=== PATIENT | male | born 1945 | race Caucasian/White ===

== ENCOUNTER 2017-06-07 10:03 | Inpatient (IN) | payer MEDICARE, MEDICAID, SELFPAY ==
[2017-06-07] VITALS (9 sets, daily range): BP systolic 96–126; BP diastolic 62–75; PULSE 70–89; RESP 12–18; TEMP 35.6–37.1; O2SAT 94–96; BMI 33.6; BMI 32.3; BMI 32.4
--- NOTE | 2017-06-07 10:34 | ED.VISSUMM ---
- ER Visit Summary Date of Service: 06/07/17 Chief Complaint: Rectal bleeding History of Present Illness: The patient is a 72 M who states that he awoke this morning felt like he needed to have a bowel movement. He sat the toilet and just blood came out. Then he had a small amount of stool with blood. He got up cleaned himself and then had to have another bowel movement that was just blood. He denies any abdominal pain. Denies rectal pain. He notes that last year he was in the hospital and had rectal bleeding. He did not require transfusion. He had a colonoscopy at that time which demonstrated significant amount of diverticulosis as well as internal hemorrhoids. It was noted by Dr. Stephenson that the patient also had a polyp as well as large amount of vasculature in his rectum. It was unable to be determined exactly the source of his bleeding. He is on Plavix for coronary artery disease but denies having any stents or open heart surgery. He follows with Dr. Gonzales. Physical Examination: Afebrile vital signs are stable Gen: Well-nourished well-developed Head: Normocephalic atraumatic Eyes: Perrl EOMI ENT: TMs clear no rhinorrhea moist mucous membranes Neck: Supple no lymphadenopathy no JVD nontender CVS: Regular rate rhythm no murmurs normal S1-S2 Respiratory: No distress clear to auscultation bilaterally chest nontender Abdomen: Soft nontender nondistended normal bowel sounds no masses Back: Nontender Extremity: Nontender no edema Skin: Normal color no rash Neuro: alert orientated ?3 CN II-XII intact normal strength sensation reflexes gait cerebellar Psych: Normal affect normal mood Test Results: Hemoglobin level 11.1. He was typed and screened. INR 1.4 with a PTT of 33.7. Emergency Department Course and Treatment: Vital signs have remained stable. He did have a small bowel movement with large amount of blood in it here in the department. As he is on Plavix and is actively bleeding he will be admitted into the hospital. Impression: 1. Lower GI bleed This note was generated with [employer] dictation software. It may contain incorrect words, spelling, and punctuation that were not noted in review of the chart prior to signing ED Disposition - Plan for ED Patient: Disposition: Acute Care Hospital [facility] Chief Complaint: GI Bleed
[2017-06-07 11:05] LABS: Absolute Lymphocyte Count 1.07 X10^3/ul (0.83-4.51); Absolute Neutrophil Count 3.8 X10^3/uL (2.0-7.7); Basophil# 0.05 X10^3/uL; Basophil% 0.9 % (0-1); Eosinophil# 0.16 X10^3/uL; Eosinophils% 2.9 % (0-5); Hematocrit 34.4 % (40-54); Hemoglobin 11.1 g/dl (13.0-16.5); Lymphocyte # 1.07 X10^3/ul (4.0); Lymphocyte % 19.6 % (19-41); Mean Corp Hgb Conc 32.3 g/gl (32-36); Mean Corpuscular Hgb 30.4 pg (27.0-32.0); Mean Corpuscular Volume 94.2 fL (80-94); Monocyte# 0.39 X10^3/uL; Monocyte% 7.2 % (0-10); Neutrophil # 3.77 X10^3/uL (2.7-7.7); Neutrophil % 69.2 % (47-70); Platelet Count 260 K/mm3 (150-450); RBC Distribution Width CV 15.8 % (11.6-14.6); RBC Distribution Width SD 54.6 fl (35.1-43.9); Red Blood Count 3.65 M/mm3 (4.6-6.2); White Blood Count 5.5 K/mm3 (4.4-11.0)
[2017-06-07 11:07] LABS: POSITIVE COUNT NO; POSITIVE DIFFERENTIAL NO; POSITIVE MORPHOLOGY NO
[2017-06-07 11:14] LABS: International Normalized Ratio 1.4; Prothrombin Time (Protime)PT. 16.3 SECONDS (11.7-14.9)
[2017-06-07 11:15] LABS: Partial Thromboplast Time 33.7 Seconds (24.1-36.2)
[2017-06-07 11:18] LABS: ALB/GLOB Ratio 0.3 RATIO (0.9-2.4); AST(SGOT) 15 U/L (15-37); Alanine Aminotransfer ALT/SGPT 19 U/L (16-61); Albumin, Serum 2.8 g/dL (3.2-5.0); Alkaline Phosphatase 41 U/L (45-117); Anion Gap 5 (5-15); BUN 16 mg/dL (7-18); BUN/Creat Ratio 15.8 RATIO (10-20); Calcium,Total 7.7 mg/dL (8.5-10.1); Chloride 106 mmol/L (98-107); Creatinine, Serum 1.01 mg/dL (0.70-1.30); EST Glomerular Filtration Rate 77 mL/min (>60); Est Glom Filt Rate - Afr Amer 93 mL/min (>60); Globulin 8.7 g/dL (2.2-4.2); Glucose 110 mg/dL (74-106); Potassium 3.8 mmol/L (3.5-5.1); Protein, Total 11.5 g/dL (6.4-8.2); Sodium Level 136 mmol/L (136-145)
--- NOTE | 2017-06-07 13:19 | ED.RN ---
antonio called and said that dr ulrich will be down to see pts and that he just got here
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
[2017-06-07 16:33] LABS: Hemoglobin 10.4 g/dl (13.0-16.5)
[2017-06-07 18:11] LABS: Bacteria 0 SEEN /hpf (None Seen)
[2017-06-07 18:55] LABS: Color, Urine Yellow (Yellow); Glucose, Dipstick Normal (Normal); Ketone-Dipstick Negative (Negative); Leukocyte Esterase-Dipstick 500 /ul (Negative); Nitrite-Dipstick Negative (Negative); Occult Blood-Urine 150 /ul (Negative); Protein-Dipstick Negative (Negative); Urine Bilirubin Dipstick Negative (Negative); Urine Clarity Clear (Clear); Urine Urobilinogen Normal (Normal)
[2017-06-07 19:53] LABS: White Blood Cells 5-10 SEEN /hpf (0-5)
[2017-06-07 19:54] LABS: Mucous, Urine 1+ /hpf (<or=2+); Red Blood Cells-Urine 0-5 SEEN /hpf (0-5); Squamous Epithelial Cells - UA 0-5 SEEN /hpf (0-5)
[2017-06-07] MEDS: Atorvastatin Calcium 10 MG Tablet PO (21:42)
[2017-06-07] MEDS: Isosorbide Mononitrate 20 MG Tablet PO (21:42)
[2017-06-07] MEDS: Latanoprost 0.005% 1 Bottle 1 DRP EACH EYE (21:44)
[2017-06-07 22:16] LABS: Hematocrit 30.3 % (40-54); Hemoglobin 9.8 g/dl (13.0-16.5)
[2017-06-08] VITALS (12 sets, daily range): BP systolic 91–137; BP diastolic 37–70; PULSE 58–97; RESP 16–18; TEMP 36–37; O2SAT 95–100
[2017-06-08 05:14] LABS: Hematocrit 26.7 % (40-54); Hemoglobin 8.5 g/dl (13.0-16.5)
--- NOTE | 2017-06-08 09:32 | PCM.PN.SRG ---
Subjective: Patient evaluated resting comfortably in a chair. He notes yesterday he had multiple bouts of rectal bleeding with attempted bowel movements. Patient denies abdominal pain/discomfort. He denies rectal pain. - Physical Exam General: Alert, Oriented x3, Cooperative, - - Depressed Abdomen: Bowel Sounds Present, Soft, Non Tender Vital Signs Temp Pulse Resp BP Pulse Ox 98.2 F 97 18 117/65 100 06/08/17 04:47 06/08/17 06:54 06/08/17 04:47 06/08/17 04:47 06/08/17 04:47 Oxygen Delivery Method Room Air Weight: 206 lb 9.593 oz Body Mass Index (BMI) 32.3 Intake and Output for Last 24 Hours 06/06/17 06/07/17 06/08/17 23:59 23:59 23:59 Intake Total 120 / 120 326 / 326 Balance 120 / 120 326 / 326 Laboratory Tests Past 24 Hrs 06/07/17 06/07/17 06/07/17 16:05 17:44 21:59 Hgb 10.4 L 9.8 L Hct 32.0 L 30.3 L Urine Color Yellow Urine Clarity Clear Urine pH 6.0 Ur Specific [place] 1.020 Urine Protein Negative Urine Glucose (UA) Normal Urine Ketones Negative Urine Occult Blood 150 H Urine Nitrite Negative Urine Bilirubin Negative Urine Urobilinogen Normal Ur Leukocyte Esterase 500 H Urine RBC 0-5 SEEN Urine WBC 5-10 SEEN Ur Squamous Epith Cells 0-5 SEEN Urine Bacteria 0 SEEN Urine Mucus 1+ 06/08/17 06/08/17 04:35 09:17 Hgb 8.5 L Pending Hct 26.7 L Pending Urine Color Urine Clarity Urine pH Ur Specific [place] Urine Protein Urine Glucose (UA) Urine Ketones Urine Occult Blood Urine Nitrite Urine Bilirubin Urine Urobilinogen Ur Leukocyte Esterase Urine RBC Urine WBC Ur Squamous Epith Cells Urine Bacteria Urine Mucus Assessment/Plan I am following this patient in conjunction with Dr. Stephenson. Impression: Rectal bleeding Hemoglobin decreasing Discussed patient with Dr. Angeles who is uncomfortable performing a scope on an actively bleeding patient Discussed patient with Dr. Stephenson who recommends the patient discontinue the Plavix for 5 days prior to a colonoscopy. Dr. Stephenson would recommend colonoscopy as an outpatient. Continue to monitor hgb and rectal bleeding Patient agreeable to colonoscopy with Dr. Stephenson. We will continue to monitor this patient
[2017-06-08 09:35] LABS: Hematocrit 27.4 % (40-54); Hemoglobin 8.8 g/dl (13.0-16.5)
[2017-06-08] MEDS: Lisinopril 10 MG Tablet PO (09:57)
[2017-06-08] MEDS: Isosorbide Mononitrate 20 MG Tablet PO ×2 (09:57→21:46)
[2017-06-08] MEDS: Metoprolol(XL)Succ 100 MG Tablet PO (09:57)
--- NOTE | 2017-06-08 13:51 | PCM.PROGNOTE ---
Subjective: Pt had no further BM or rectal bleeding. He felt that he needed to move his bowels, attempted to, and had nothing come out. No abdominal pain. No n/v. No dizziness or LH. - Physical Exam General: Alert, Oriented x3, Cooperative HEENT: Atraumatic, PERRLA, EOMI, Normocephalic Neck: Supple, No JVD, Negative Carotid Bruits Lungs: Clear to auscultation, Normal air movement Cardiovascular: Regular rate, No murmurs Abdomen: Bowel Sounds Present, Soft, Non Tender Extremities: No edema, Capillary Refill Less than 3 Seconds Skin: No rashes, No breakdown Musculoskeletal: No Tenderness to Palpation of Joints or Extremities Neurological: Cranial nerves II-XII grossly intact Psych/Mental Status: Normal Affect, Appropriate, Alert and oriented to time, place, person, mood and affect Vital Signs Temp Pulse Resp BP Pulse Ox 98.4 F 87 16 137/70 H 98 06/08/17 09:56 06/08/17 11:09 06/08/17 09:56 06/08/17 09:56 06/08/17 09:56 Oxygen Delivery Method Room Air Weight: 93.712 kg Body Mass Index (BMI) 32.3 Intake and Output for Last 24 Hours 06/06/17 06/07/17 06/08/17 23:59 23:59 23:59 Intake Total 120 / 120 1126 / 1126 Balance 120 / 120 1126 / 1126 Laboratory Tests Past 24 Hrs 06/07/17 06/07/17 06/07/17 16:05 17:44 21:59 Hgb 10.4 L 9.8 L Hct 32.0 L 30.3 L Urine Color Yellow Urine Clarity Clear Urine pH 6.0 Ur Specific [place] 1.020 Urine Protein Negative Urine Glucose (UA) Normal Urine Ketones Negative Urine Occult Blood 150 H Urine Nitrite Negative Urine Bilirubin Negative Urine Urobilinogen Normal Ur Leukocyte Esterase 500 H Urine RBC 0-5 SEEN Urine WBC 5-10 SEEN Ur Squamous Epith Cells 0-5 SEEN Urine Bacteria 0 SEEN Urine Mucus 1+ 06/08/17 06/08/17 04:35 09:17 Hgb 8.5 L 8.8 L Hct 26.7 L 27.4 L Urine Color Urine Clarity Urine pH Ur Specific [place] Urine Protein Urine Glucose (UA) Urine Ketones Urine Occult Blood Urine Nitrite Urine Bilirubin Urine Urobilinogen Ur Leukocyte Esterase Urine RBC Urine WBC Ur Squamous Epith Cells Urine Bacteria Urine Mucus Assessment/Plan 1. Recurrent Lower GI bleed with acute blood loss anemia - discussed with Dr. Stephenson, no inpatient scope, plans to do outpatient colonoscopy. No further plavix. Will hold off on restarting aspirin until blood counts stable. Hgb decreased from 11.1 to 8.5 overnight. Last HH improved. No further blood. Will check HH later today and CBC in AM. Last admission for GI bleed had no active bleeding on colonoscopy, he did have diverticulosis, hemorrhoids, and an adenomatous polyp that he failed to follow up and have removed. 2. CAD - plavix and asa held 3. HLD 4. HTN 5. Hematuria - will recommend urology follow up. UA with No bacteria, 5-10 white cells, 500 Leukocyte esterase. DVT ppx: SCDs, chemoppx contraindicated DC planning: if Hgb stable, home tomorrow, follow up with Dr. Stephenson as outpatient. This patient was seen by Kingsley Garcia PA-C under the supervision of Doctor Joann.
[2017-06-08] MEDS: Pantoprazole Sodium 40 MG Tablet PO ×2 (14:52→21:47)
--- NOTE | 2017-06-08 15:28 | CASEMGMT ---
Face to Face with patient for initial transition planning/care coordination assessment. RN MARCK introduced self and role at [facility], pt voices understanding and consents to assessment at this time. Pt sitting up in chair in no distress at this time. Pt A/Ox4 at this time and answers all questions appropriately at this time. Care providers, pharmacy, and demographics verified. See attached link. Pt voices no further concerns/needs at this time. Advised pt to ask for CM if any further questions/concerns/needs arise, voices understanding. CM to follow for any further discharge planning/needs. Lorena, nurse unit manager to make pt appt with Dr. Stephenson. PLAN[place] [facility]
[2017-06-08 16:49] LABS: Hematocrit 24.9 % (40-54); Hemoglobin 7.9 g/dl (13.0-16.5)
[2017-06-08] MEDS: Atorvastatin Calcium 10 MG Tablet PO (21:46)
[2017-06-08] MEDS: Latanoprost 0.005% 1 Bottle 1 DRP EACH EYE (21:46)
[2017-06-09] VITALS (11 sets, daily range): BP systolic 82–124; BP diastolic 42–55; PULSE 60–101; RESP 16–18; TEMP 35.8–36.7; O2SAT 94–98
[2017-06-09] MEDS: 0.9% NaCl Peripheral Flush Adult/Peds IV (05:18)
[2017-06-09 06:28] LABS: Absolute Lymphocyte Count 1.09 X10^3/ul (0.83-4.51); Absolute Neutrophil Count 4.7 X10^3/uL (2.0-7.7); Basophil# 0.04 X10^3/uL; Basophil% 0.6 % (0-1); Eosinophil# 0.15 X10^3/uL; Eosinophils% 2.3 % (0-5); Hematocrit 23.4 % (40-54); Hemoglobin 7.6 g/dl (13.0-16.5); Lymphocyte # 1.09 X10^3/ul (4.0); Lymphocyte % 16.6 % (19-41); Mean Corp Hgb Conc 32.5 g/gl (32-36); Mean Corpuscular Volume 95.5 fL (80-94); Mean Platelet Vol. 9.2 fl (6.2-12.0); Monocyte# 0.58 X10^3/uL; Monocyte% 8.8 % (0-10); Neutrophil % 71.4 % (47-70); Platelet Count 226 K/mm3 (150-450); RBC Distribution Width CV 15.8 % (11.6-14.6); RBC Distribution Width SD 51.7 fl (35.1-43.9); Red Blood Count 2.45 M/mm3 (4.6-6.2); White Blood Count 6.6 K/mm3 (4.4-11.0)
[2017-06-09 06:31] LABS: POSITIVE DIFFERENTIAL NO
[2017-06-09 06:32] LABS: POSITIVE COUNT NO; POSITIVE MORPHOLOGY NO
--- NOTE | 2017-06-09 09:06 | PN.SURG_ITS ---
Subjective: Patient was evaluated sitting comfortably in the chair. He denies abdominal pain. Patient continues to be frustrated. He notes this is due to the female staff, however he is not more specific than that. Patient was inappropriately flashing his penis during examination. He states no one will help him with this. Patient noted small amount of blood on the toilet paper, however he had no bowel movement yesterday. Patient was agreeable yesterday to have Dr. Stephenson perform a colonoscopy when indicated, however he prefers the remaining staff be females. Patient appears to be self destructing by scratching his left antecubital space secondary to the frustration of some of the female staff taking care of him. - Physical Exam General: Alert, Oriented x3, Cooperative, - - Inappropriate Abdomen: Bowel Sounds Present, Soft, Non Tender, Obese Vital Signs Temp Pulse Resp BP Pulse Ox 98.0 F 70 18 105/50 L 94 06/09/17 05:19 06/09/17 07:52 06/09/17 05:19 06/09/17 05:19 06/09/17 05:19 Oxygen Delivery Method Room Air Weight: 206 lb 9.593 oz Body Mass Index (BMI) 32.3 Intake and Output for Last 24 Hours 06/07/17 06/08/17 06/09/17 23:59 23:59 23:59 Intake Total 120 / 120 2092 / 2092 60 / 60 Balance 120 / 120 2092 / 2092 60 / 60 Laboratory Tests Past 24 Hrs 06/08/17 06/08/17 06/09/17 09:17 16:31 06:00 WBC 6.6 RBC 2.45 L Hgb 8.8 L 7.9 L 7.6 L Hct 27.4 L 24.9 L 23.4 L MCV 95.5 H MCH 31.0 MCHC 32.5 RDW 15.8 H RDW Differential 51.7 H Plt Count 226 MPV 9.2 Immature Gran % (Auto) 0.300 Neut % (Auto) 71.4 H Lymph % (Auto) 16.6 L [place] % (Auto) 8.8 Eos % (Auto) 2.3 Baso % (Auto) 0.6 Absolute Neuts (auto) 4.7 Absolute Lymphs (auto) 1.09 Total Counted Not Reportable Assessment/Plan I am following this patient in conjunction with Dr. Stephenson. Impression: Rectal bleeding Hemoglobin decreasing to 7.6 this morning Patient blood pressure decreased over night. Patient was given a total of 1,000 mL bolus of sodium chloride Will discuss patient with Dr. Stephenson to determine if patient will be scoped Patient may continue current diet at this point. Patient agreeable to colonoscopy with Dr. Stephenson. We will continue to monitor this patient Patient was briefly discussed with Dr. David
[2017-06-09] MEDS: Isosorbide Mononitrate 20 MG Tablet PO ×2 (09:54→21:37)
[2017-06-09] MEDS: Pantoprazole Sodium 40 MG Tablet PO ×2 (09:54→21:37)
--- NOTE | 2017-06-09 11:58 | PN_ITS ---
Subjective: Patient is resting comfortably in chair bedside. He has no abdominal pain. He has no further bowel movements. He again tried to have a bowel movement nothing came out better. He has no bleeding has not noticed any clots in the toilet or on the toilet paper. Positive flatus. he denies hematuria. He has not had any nausea or vomiting. He is complaining about the quality of the food here but has otherwise tolerated his p.o. diet. He does not have any dizziness or lightheadedness at rest or with standing up and ambulating to the bathroom. - Physical Exam General: Alert, Oriented x3, Cooperative HEENT: Atraumatic, PERRLA, EOMI, Normocephalic Neck: Supple, No JVD, Negative Carotid Bruits Lungs: Clear to auscultation, Normal air movement Cardiovascular: Regular rate, No murmurs Abdomen: Bowel Sounds Present, Soft, Non Tender Extremities: No edema, Capillary Refill Less than 3 Seconds Skin: No rashes, No breakdown Musculoskeletal: No Tenderness to Palpation of Joints or Extremities Neurological: Cranial nerves II-XII grossly intact Psych/Mental Status: Normal Affect, Appropriate, Alert and oriented to time, place, person, mood and affect Vital Signs Temp Pulse Resp BP Pulse Ox 97.6 F L 64 18 105/55 L 96 06/09/17 09:45 06/09/17 09:45 06/09/17 09:45 06/09/17 09:45 06/09/17 09:45 Oxygen Delivery Method Room Air Weight: 93.712 kg Body Mass Index (BMI) 32.3 Intake and Output for Last 24 Hours 06/07/17 06/08/17 06/09/17 23:59 23:59 23:59 Intake Total 120 / 120 2092 60 / 60 Balance 120 / 120 2092 60 / 60 Laboratory Tests Past 24 Hrs 06/08/17 06/09/17 16:31 06:00 WBC 6.6 RBC 2.45 L Hgb 7.9 L 7.6 L Hct 24.9 L 23.4 L MCV 95.5 H MCH 31.0 MCHC 32.5 RDW 15.8 H RDW Differential 51.7 H Plt Count 226 MPV 9.2 Immature Gran % (Auto) 0.300 Neut % (Auto) 71.4 H Lymph % (Auto) 16.6 L [place] % (Auto) 8.8 Eos % (Auto) 2.3 Baso % (Auto) 0.6 Absolute Neuts (auto) 4.7 Absolute Lymphs (auto) 1.09 Total Counted Not Reportable Assessment/Plan 1. Recurrent Lower GI bleed with acute blood loss anemia -blood pressure decreased along with hemoglobin yesterday. Blood pressure no stable with antihypertensives held and after a liter IV fluid bolus last night. Will continue H&H every 12. Patient may need scope. Surgery aware and following. 2. CAD - plavix and asa held 3. HLD 4. HTN-as above hypotensive last night, responded to IV fluid bolus. Lisinopril and metoprolol held. Imdur continued with hold parameters. 5. Hematuria - will recommend urology follow up. Patient denied hematuria despite blood noted by nursing in urine and positive UA. UA with No bacteria, 5 -10 white cells, 500 Leukocyte esterase. DVT ppx: SCDs, chemoppx contraindicated DC planning: Hemoglobin of blood pressure unstable. Patient will require another night here. Further plan pending. This patient was seen by Kingsley Garcia PA-C under the supervision of Doctor David.
[2017-06-09 14:26] LABS: Hematocrit 24.7 % (40-54)
[2017-06-09] MEDS: Atorvastatin Calcium 10 MG Tablet PO (21:37)
[2017-06-09] MEDS: Latanoprost 0.005% 1 Bottle 1 DRP EACH EYE (21:37)
[2017-06-10] VITALS (19 sets, daily range): BP systolic 95–139; BP diastolic 50–74; PULSE 61–96; RESP 16–20; TEMP 36.3–36.7; O2SAT 93–97
[2017-06-10 02:14] LABS: Hematocrit 21.6 % (40-54)
--- NOTE | 2017-06-10 06:39 | PCM.PN.SRG ---
<David Harris - Last Filed: 06/10/17 08:18> - Physical Exam Vital Signs Temp Pulse Resp BP Pulse Ox 97.5 F L 73 20 H 139/62 H 96 06/10/17 07:23 06/10/17 07:40 06/10/17 07:23 06/10/17 07:23 06/10/17 07:23 Oxygen Delivery Method Room Air Weight: 206 lb 9.593 oz Body Mass Index (BMI) 32.3 Intake and Output for Last 24 Hours 06/08/17 06/09/17 06/10/17 23:59 23:59 23:59 Intake Total 2092 1290 / 1290 785 / 785 Output Total 250 / 250 Balance 2092 1040 / 1040 785 / 785 Laboratory Tests Past 24 Hrs 06/09/17 06/10/17 14:05 02:00 Hgb 8.0 L 7.0 L Hct 24.7 L 21.6 L Assessment/Plan 72-year-old male with lower GI bleed 1. I saw the patient this morning for Dr. Stephenson. The patient reports no bloody bowel movements overnight and he is having no abdominal pain. He is currently getting a unit of blood. 2. The patient recently had a lower scope by Dr. Stephenson in January of this past year. Given the fact that he just had a colonoscopy 5 months ago I do not believe he has a mass that is causing the bleeding. The bleeding is likely diverticular or hemorrhoidal in nature which should stop with the stopping of his antiplatelet agents. He stopped those on Wednesday so that should not be out of his system until Wednesday. Currently he shows no signs of active bleeding. If his hemoglobin responds appropriately to the infusion and he is not having any more bloody bowel movements he can follow-up with Dr. Stephenson in the office to discuss possible repeat scope. If the patient shows repeated signs of active GI bleeding while off of his antiplatelet drugs I recommend transfer to a facility that can perform angiogram to localize the bleeding. David Harris MD Pager: [facility] [address] [place] [address] Office: <Maddi Melgar - Last Filed: 06/10/17 08:32> Subjective: Patient is sitting comfortably in a chair. He again expresses his frustration of wanting to get out of the hospital. He denies bowel movement in 2 days. He denies BRB per rectum overnight. His hgb dropped to 7.0. He is currently receiving 1 unit PRBC. He denies abdominal pain/discomfort. - Physical Exam General: Alert, Oriented x3, Cooperative, - - frustrated. Cardiovascular: Regular rate, No murmurs Abdomen: Bowel Sounds Present, Soft, Non Tender Vital Signs Temp Pulse Resp BP Pulse Ox 97.6 F L 78 20 H 118/66 96 06/10/17 05:36 06/10/17 05:36 06/10/17 05:36 06/10/17 05:36 06/10/17 05:36 Oxygen Delivery Method Room Air Weight: 206 lb 9.593 oz Body Mass Index (BMI) 32.3 Intake and Output for Last 24 Hours 06/08/17 06/09/17 06/10/17 23:59 23:59 23:59 Intake Total 2093 / 2093 1290 / 1290 385 / 385 Output Total 250 / 250 Balance 2093 / 2093 1040 / 1040 385 / 385 Laboratory Tests Past 24 Hrs 06/09/17 06/10/17 14:05 02:00 Hgb 8.0 L 7.0 L Hct 24.7 L 21.6 L Assessment/Plan I am following this patient in conjunction with Dr. Harris in Dr. Stephenson's absence. Impression: Rectal bleeding Hemoglobin decreasing to 7.0 this morning. Patient receiving 1 unit PRBC Discussed patient with Dr. Harris At this time no colonoscopy is being recommended as an inpatient. Patient may follow-up as an outpatient to have a possible colonoscopy.
--- NOTE | 2017-06-10 06:51 | PN.SURG_ITS ---
<David Harris - Last Filed: 06/10/17 08:18> - Physical Exam Vital Signs Temp Pulse Resp BP Pulse Ox 97.5 F L 73 20 H 139/62 H 96 06/10/17 07:23 06/10/17 07:40 06/10/17 07:23 06/10/17 07:23 06/10/17 07:23 Oxygen Delivery Method Room Air Weight: 206 lb 9.593 oz Body Mass Index (BMI) 32.3 Intake and Output for Last 24 Hours 06/08/17 06/09/17 06/10/17 23:59 23:59 23:59 Intake Total 2092 1290 / 1290 785 / 785 Output Total 250 / 250 Balance 2092 1040 / 1040 785 / 785 Laboratory Tests Past 24 Hrs 06/09/17 06/10/17 14:05 02:00 Hgb 8.0 L 7.0 L Hct 24.7 L 21.6 L Assessment/Plan 72-year-old male with lower GI bleed 1. I saw the patient this morning for Dr. Stephenson. The patient reports no bloody bowel movements overnight and he is having no abdominal pain. He is currently getting a unit of blood. 2. The patient recently had a lower scope by Dr. Stephenson in January of this past year. Given the fact that he just had a colonoscopy 5 months ago I do not believe he has a mass that is causing the bleeding. The bleeding is likely diverticular or hemorrhoidal in nature which should stop with the stopping of his antiplatelet agents. He stopped those on Wednesday so that should not be out of his system until Wednesday. Currently he shows no signs of active bleeding. If his hemoglobin responds appropriately to the infusion and he is not having any more bloody bowel movements he can follow-up with Dr. Stephenson in the office to discuss possible repeat scope. If the patient shows repeated signs of active GI bleeding while off of his antiplatelet drugs I recommend transfer to a facility that can perform angiogram to localize the bleeding. David Harris MD Pager: [facility] [address], [address] [place] [address] Office: <Maddi Melgar - Last Filed: 06/10/17 08:32> Subjective: Patient is sitting comfortably in a chair. He again expresses his frustration of wanting to get out of the hospital. He denies bowel movement in 2 days. He denies BRB per rectum overnight. His hgb dropped to 7.0. He is currently receiving 1 unit PRBC. He denies abdominal pain/discomfort. - Physical Exam General: Alert, Oriented x3, Cooperative, - - frustrated. Cardiovascular: Regular rate, No murmurs Abdomen: Bowel Sounds Present, Soft, Non Tender Vital Signs Temp Pulse Resp BP Pulse Ox 97.6 F L 78 20 H 118/66 96 06/10/17 05:36 06/10/17 05:36 06/10/17 05:36 06/10/17 05:36 06/10/17 05:36 Oxygen Delivery Method Room Air Weight: 206 lb 9.593 oz Body Mass Index (BMI) 32.3 Intake and Output for Last 24 Hours 06/08/17 06/09/17 06/10/17 23:59 23:59 23:59 Intake Total 2093 / 2093 1290 / 1290 385 / 385 Output Total 250 / 250 Balance 2093 / 2093 1040 / 1040 385 / 385 Laboratory Tests Past 24 Hrs 06/09/17 06/10/17 14:05 02:00 Hgb 8.0 L 7.0 L Hct 24.7 L 21.6 L Assessment/Plan I am following this patient in conjunction with Dr. Harris in Dr. Stephenson's absence. Impression: Rectal bleeding Hemoglobin decreasing to 7.0 this morning. Patient receiving 1 unit PRBC Discussed patient with Dr. Harris At this time no colonoscopy is being recommended as an inpatient. Patient may follow-up as an outpatient to have a possible colonoscopy.
[2017-06-10] MEDS: 0.9% NaCl Peripheral Flush Adult/Peds IV (07:26)
[2017-06-10] MEDS: Isosorbide Mononitrate 20 MG Tablet PO ×2 (08:17→21:29)
[2017-06-10] MEDS: Pantoprazole Sodium 40 MG Tablet PO ×2 (08:17→21:29)
--- NOTE | 2017-06-10 09:36 | PCM.PN.HOSP ---
Subjective: Patient overnight with no marketed bloody bowel movements but complaint of some constipation now and mild distention but has been improving with ongoing flatus and patient notes ambulating more in the halls which has been helping additionally. Hemoglobin this morning decreased, 7, PRBC administration ordered and administered. Discussed patient with general surgery and patient with plan for continued observation and hemoglobin trending. If remains stable would plan discharge to home likely tomorrow with follow-up outpatient for possible outpatient scope but if decreases further or if recurrent bright red blood per rectum would need to be transferred for angiogram. Patient denies fevers, chills, nausea, emesis, chest pain or dyspnea. Objective: Physical Examination: General: awake, alert, oriented x 3 and cooperative, seated upright, prior walking in the halls, in no apparent distress. Skin: normal color, turgor, no icterus, cyanosis. HEENT: AT/NC, EOMI, PERRLA, MMM. Lungs: CTA bilaterally, moderate effort, mild decrease BL bases, no rales, ronchi or wheezing. Heart: Regular rate and rhythm; no gallop, rub audible. Abdomen: soft, obese, unable to elicit TTP, noted mild discomfort prior, no recent BM with improvement w/ flatus and walking, mildly hyperactive BS. Extremities: no cyanosis, clubbing, or edema. Neurological: patient awake, alert, oriented x 3; cognitive function intact; pupils equally reactive to light and accomodation; cranial nerves II-XII grossly normal, moving all 4 extremities, no focal deficits, strength improved, mildly globally decreased. Psychiatric: affect appears calm and talkative this AM, no acute evidence of depressive or anxiety feelings. Vitals/I&O's: Vital Signs Temp Pulse Resp BP Pulse Ox 97.5 F L 73 20 H 139/62 H 96 06/10/17 07:23 06/10/17 07:40 06/10/17 07:23 06/10/17 07:23 06/10/17 07:23 Oxygen Delivery Method Room Air Weight: 206 lb 9.593 oz Body Mass Index (BMI) 32.3 Intake and Output for Last 24 Hours 06/08/17 06/09/17 06/10/17 23:59 23:59 23:59 Intake Total 2092 1290 / 1290 785 / 785 Output Total 250 / 250 Balance 2093 / 2093 1040 / 1040 785 / 785 Laboratory Results 06/09/17 14:05: Hgb 8.0 L, Hct 24.7 L 06/10/17 02:00: Hgb 7.0 L, Hct 21.6 L Current Medications Atorvastatin Calcium (Lipitor) 10 mg PO QHS [facility] Last Admin: 06/09/17 21:37 Dose: 10 mg Dorzolamide/Timolol (Cosopt Opth Drops) 1 drop EACH EYE BID [facility] Last Admin: 06/10/17 08:17 Dose: 1 drop Isosorbide Mononitrate (Monoket) 20 mg PO BID [facility] Last Admin: 06/10/17 08:17 Dose: 20 mg Latanoprost (Xalatan Opthalmic) 1 drop EACH EYE QHS [facility] Last Admin: 06/09/17 21:37 Dose: 1 drop Nitroglycerin (Nitrostat) 0.4 mg SUBLINGUAL Q5M PRN PRN Reason: PAIN Pantoprazole Sodium (Protonix) 40 mg PO BID [facility] Last Admin: 06/10/17 08:17 Dose: 40 mg Sodium Chloride () 5 - 30 ml IV UD PRN PRN Reason: SALINE FLUSH Last Admin: 06/10/17 07:26 Dose: 10 ml Assessment/Plan The patient is a 72 y/o M w/ PMHx: CAD, HTN, HLD, Obesity, Hx GI bleed prior most recently 01/2017 with c-scope per Dr. Stephenson with noted diverticular disease, polyp as well as internal hemorrhoids on ASA, plavix at that time who presents to the [facility] ED on 06/07/17 w/ history of onset BRPBR with increase fatigue and weakness. (1) Acute GI Bleed w/ resultant Acute Blood Loss Anemia, Hx Prior GI Bleed: Patient w/ BRBPR, admission Hgb 11.1, admitted to PCU, maintained initially on IVFs and NPO status pending evaluation per Surgery but transitioned to eventually clears and low residue diet following decision to defer repeat c-scope given recently performed and trending Hgb; however, upon continued serial trending Hgb 9.8-->8.5-->8.8-->7.9-->7.6-->06/10/17 Hgb 7.0, 1 u PRBC ordered, 06/09/17-06/10/17 no further bleeding noted, continued on PPI. Surgery re-evaluation, given presentation and recent c-scope recommendation for deferral of repeat scope given no further bleeding overnight, if rebleed or ongoing Hgb decrease over the next 24 hours Surgery recommendation for transfer for angiogram as likely too slow of a bleed for Bleeding Scan to be of usage. If remains clinically stable for the next 24 hours and if Hgb remains stable would then plan discharge to home with need to establish PCP with CM/SW assist to set-up for this upcoming week and follow-up outpatient with Dr. Stephenson for outpatient scope when felt appropriate. (2) CAD: Holding ASA, plavix, given re-GI bleed will likely no be able to continue on this dual therapy, continue metoprolol, statin therapy. Upon discharge will need to be off plavix likely indefinitely given re-bleed, possible ASA restart in 2 weeks if bleeding stops and clinically stable per discussion with Surgery. (3) Hypertension: Continue home regimen including Toprol, lisinopril, isosorbide with hold parameters, PRN hydralazine. (4) Hyperlipidemia: Continue home statin regimen. (5) Obesity: Weight loss and lifestyle changes encouraged. (6) DVT Prophylaxis: SCDs, defer chemoprophylaxis given acute presentation, GI Bleed. Code Visit Inpatient E&M: 52967 Subs Hosp L2
--- NOTE | 2017-06-10 09:40 | PN_ITS ---
Subjective: Patient overnight with no marketed bloody bowel movements but complaint of some constipation now and mild distention but has been improving with ongoing flatus and patient notes ambulating more in the halls which has been helping additionally. Hemoglobin this morning decreased, 7, PRBC administration ordered and administered. Discussed patient with general surgery and patient with plan for continued observation and hemoglobin trending. If remains stable would plan discharge to home likely tomorrow with follow-up outpatient for possible outpatient scope but if decreases further or if recurrent bright red blood per rectum would need to be transferred for angiogram. Patient denies fevers, chills, nausea, emesis, chest pain or dyspnea. Objective: Physical Examination: General: awake, alert, oriented x 3 and cooperative, seated upright, prior walking in the halls, in no apparent distress. Skin: normal color, turgor, no icterus, cyanosis. HEENT: AT/NC, EOMI, PERRLA, MMM. Lungs: CTA bilaterally, moderate effort, mild decrease BL bases, no rales, ronchi or wheezing. Heart: Regular rate and rhythm; no gallop, rub audible. Abdomen: soft, obese, unable to elicit TTP, noted mild discomfort prior, no recent BM with improvement w/ flatus and walking, mildly hyperactive BS. Extremities: no cyanosis, clubbing, or edema. Neurological: patient awake, alert, oriented x 3; cognitive function intact; pupils equally reactive to light and accomodation; cranial nerves II-XII grossly normal, moving all 4 extremities, no focal deficits, strength improved, mildly globally decreased. Psychiatric: affect appears calm and talkative this AM, no acute evidence of depressive or anxiety feelings. Vitals/I&O's: Vital Signs Temp Pulse Resp BP Pulse Ox 97.5 F L 73 20 H 139/62 H 96 06/10/17 07:23 06/10/17 07:40 06/10/17 07:23 06/10/17 07:23 06/10/17 07:23 Oxygen Delivery Method Room Air Weight: 206 lb 9.593 oz Body Mass Index (BMI) 32.3 Intake and Output for Last 24 Hours 06/08/17 06/09/17 06/10/17 23:59 23:59 23:59 Intake Total 2092 1290 / 1290 785 / 785 Output Total 250 / 250 Balance 2093 / 2093 1040 / 1040 785 / 785 Laboratory Results 06/09/17 14:05: Hgb 8.0 L, Hct 24.7 L 06/10/17 02:00: Hgb 7.0 L, Hct 21.6 L Current Medications Atorvastatin Calcium (Lipitor) 10 mg PO QHS [facility] Last Admin: 06/09/17 21:37 Dose: 10 mg Dorzolamide/Timolol (Cosopt Opth Drops) 1 drop EACH EYE BID [facility] Last Admin: 06/10/17 08:17 Dose: 1 drop Isosorbide Mononitrate (Monoket) 20 mg PO BID [facility] Last Admin: 06/10/17 08:17 Dose: 20 mg Latanoprost (Xalatan Opthalmic) 1 drop EACH EYE QHS [facility] Last Admin: 06/09/17 21:37 Dose: 1 drop Nitroglycerin (Nitrostat) 0.4 mg SUBLINGUAL Q5M PRN PRN Reason: PAIN Pantoprazole Sodium (Protonix) 40 mg PO BID [facility] Last Admin: 06/10/17 08:17 Dose: 40 mg Sodium Chloride () 5 - 30 ml IV UD PRN PRN Reason: SALINE FLUSH Last Admin: 06/10/17 07:26 Dose: 10 ml Assessment/Plan The patient is a 72 y/o M w/ PMHx: CAD, HTN, HLD, Obesity, Hx GI bleed prior most recently 01/2017 with c-scope per Dr. Stephenson with noted diverticular disease, polyp as well as internal hemorrhoids on ASA, plavix at that time who presents to the [facility] ED on 06/07/17 w/ history of onset BRPBR with increase fatigue and weakness. (1) Acute GI Bleed w/ resultant Acute Blood Loss Anemia, Hx Prior GI Bleed: Patient w/ BRBPR, admission Hgb 11.1, admitted to PCU, maintained initially on IVFs and NPO status pending evaluation per Surgery but transitioned to eventually clears and low residue diet following decision to defer repeat c- scope given recently performed and trending Hgb; however, upon continued serial trending Hgb 9.8-->8.5-->8.8-->7.9-->7.6-->06/10/17 Hgb 7.0, 1 u PRBC ordered, -06/10/17 no further bleeding noted, continued on PPI. Surgery re-evaluation , given presentation and recent c-scope recommendation for deferral of repeat scope given no further bleeding overnight, if rebleed or ongoing Hgb decrease over the next 24 hours Surgery recommendation for transfer for angiogram as likely too slow of a bleed for Bleeding Scan to be of usage. If remains clinically stable for the next 24 hours and if Hgb remains stable would then plan discharge to home with need to establish PCP with CM/SW assist to set-up for this upcoming week and follow-up outpatient with Dr. Stephenson for outpatient scope when felt appropriate. (2) CAD: Holding ASA, plavix, given re-GI bleed will likely no be able to continue on this dual therapy, continue metoprolol, statin therapy. Upon discharge will need to be off plavix likely indefinitely given re-bleed, possible ASA restart in 2 weeks if bleeding stops and clinically stable per discussion with Surgery. (3) Hypertension: Continue home regimen including Toprol, lisinopril, isosorbide with hold parameters, PRN hydralazine. (4) Hyperlipidemia: Continue home statin regimen. (5) Obesity: Weight loss and lifestyle changes encouraged. (6) DVT Prophylaxis: SCDs, defer chemoprophylaxis given acute presentation, GI Bleed. Code Visit Inpatient E&M: 84747 Subs Hosp L2
[2017-06-10 11:02] LABS: Hematocrit 27.7 % (40-54); Hemoglobin 9.2 g/dl (13.0-16.5)
[2017-06-10] MEDS: Latanoprost 0.005% 1 Bottle 1 DRP EACH EYE (21:29)
[2017-06-10] MEDS: Atorvastatin Calcium 10 MG Tablet PO (21:29)
[2017-06-11 02:50] VITALS: PULSE 59
[2017-06-11 03:35] VITALS: BP 122/66; PULSE 69; RESP 18; TEMP 36.5; O2SAT 96
[2017-06-11 06:33] LABS: Absolute Lymphocyte Count 0.96 X10^3/ul (0.83-4.51); Absolute Neutrophil Count 3.2 X10^3/uL (2.0-7.7); Basophil# 0.02 X10^3/uL; Basophil% 0.4 % (0-1); Eosinophil# 0.18 X10^3/uL; Eosinophils% 3.8 % (0-5); Hematocrit 28.1 % (40-54); Hemoglobin 9.1 g/dl (13.0-16.5); Lymphocyte # 0.96 X10^3/ul (4.0); Lymphocyte % 20.4 % (19-41); Mean Corp Hgb Conc 32.4 g/gl (32-36); Mean Corpuscular Hgb 29.9 pg (27.0-32.0); Mean Corpuscular Volume 92.4 fL (80-94); Mean Platelet Vol. 9.1 fl (6.2-12.0); Monocyte# 0.37 X10^3/uL; Monocyte% 7.9 % (0-10); Neutrophil # 3.16 X10^3/uL (2.7-7.7); Neutrophil % 67.3 % (47-70); Platelet Count 198 K/mm3 (150-450); RBC Distribution Width CV 16.5 % (11.6-14.6); RBC Distribution Width SD 55.1 fl (35.1-43.9); Red Blood Count 3.04 M/mm3 (4.6-6.2); White Blood Count 4.7 K/mm3 (4.4-11.0)
[2017-06-11 06:39] LABS: POSITIVE COUNT NO; POSITIVE DIFFERENTIAL NO; POSITIVE MORPHOLOGY NO
[2017-06-11 07:24] VITALS: PULSE 96
[2017-06-11] MEDS: Pantoprazole Sodium 40 MG Tablet PO (09:14)
[2017-06-11] MEDS: Isosorbide Mononitrate 20 MG Tablet PO (09:14)
[2017-06-11 09:35] VITALS: BP 141/75; PULSE 105; RESP 16; TEMP 37.2; O2SAT 96
--- NOTE | 2017-06-11 11:26 | PCM.DC ---
- Discharge Diagnoses Current Active Problems: Current Active and Chronic Problems (Last Reviewed 04/01/17 @ 09:01 by Maverick Gonzales MD) Internal hemorrhoid (Chronic) CAD (coronary artery disease) (Chronic) (1) Acute GI Bleed w/ resultant Acute Blood Loss Anemia, Hx Prior GI Bleed, Suspected Diverticular, Internal Hemorrhoid as etiology (2) CAD, Holding ASA, discontinued plavix, given re-GI bleed (3) Hypertension (4) Hyperlipidemia (5) Obesity You will use the following diet at home:: Cardiac - Cardiac, low fiber diet recommended. Your food should be the consistency of: Regular Your liquids should be the consistency of: Regular/Thin Discharge Activity: - - Avoid aggressive or markedly increased activity until re-assessment per your primary care physician. Weight Bearing Status: Weight bearing as tolerated Call your doctor if you observe: Fever of 101 or Higher, Inability to urinate, Inability to have a bowel movement, Shortness of breath, Dizziness, Fainting spells, Chest pain, Uncontrolled pain Instructions: When You Have Gastrointestinal (GI) Bleeding, Evaluating and Treating Rectal Bleeding, Understanding Rectal Bleeding Additional Instructions: Please have repeat Hgb check with your primary care physician at follow-up. DO NOT TAKE plavix again, as this is a recurrence of your gastrointestinal bleeding following dual therapy restart. You may consider restart of your aspirin 81 mg daily therapy follow-up clearance per Dr. Stephenson at follow-up. Allergies/Adverse Reactions: Allergies No Known Allergies Allergy (Verified 06/07/17 10:04) Medications to take at Discharge Isosorbide Mononitrate [Monoket] 20 mg PO BID 08/18/14 Metoprolol(XL)Succ [Toprol Xl (Beta Jazmín)] 100 mg PO DAILY 08/18/14 Simvastatin [Zocor] 20 mg PO QHS 08/18/14 Hydrocodone Bitart/Apap 5-325 [[place] 5/325] 1 tab PO Q6H PRN PRN #20 tab 12/30/15 Dorzolamide Hydrochloride/Ti [Cosopt Opth Drops] 1 drp EACH EYE BID 01/14/17 Latanoprost 1 drp EACH EYE QHS 01/14/17 nitroglycerin 0.4 mg sublingual tablet 0.4 mg SUBLINGUAL Q5-15M PRN 03/30/17 quinapril 10 mg tablet 10 mg PO DAILY 03/30/17 Docusate Sodium [Colace] 100 mg PO BID 06/07/17 Pantoprazole Sodium [Protonix] 40 mg PO BID tablet 06/11/17 Primary Care Physician: Care Physician,No Primary [Primary Care Provider] - Please Follow Up With: Lucina Hou MD When: 06/15/17 Please Follow Up With: Wiley Stephenson MD When: 2-3 weeks Please Follow Up With: Maverick Gonzales MD When: Follow-up w/ Cardiology COMMUNITY SERVICE WORKER/PA to review plavix d/c, aspirin hold. Proposed Discharge Date: 06/11/17
[2017-06-11 11:28] VITALS: BP 138/74; PULSE 89
--- NOTE | 2017-06-11 11:31 | DCINST_ITS ---
- Discharge Diagnoses Current Active Problems: Current Active and Chronic Problems (Last Reviewed 04/01/17 @ 09:01 by Maverick Gonzales MD) Internal hemorrhoid (Chronic) CAD (coronary artery disease) (Chronic) (1) Acute GI Bleed w/ resultant Acute Blood Loss Anemia, Hx Prior GI Bleed, Suspected Diverticular, Internal Hemorrhoid as etiology (2) CAD, Holding ASA, discontinued plavix, given re-GI bleed (3) Hypertension (4) Hyperlipidemia (5) Obesity You will use the following diet at home:: Cardiac - Cardiac, low fiber diet recommended. Your food should be the consistency of: Regular Your liquids should be the consistency of: Regular/Thin Discharge Activity: - - Avoid aggressive or markedly increased activity until re -assessment per your primary care physician. Weight Bearing Status: Weight bearing as tolerated Call your doctor if you observe: Fever of 101 or Higher, Inability to urinate, Inability to have a bowel movement, Shortness of breath, Dizziness, Fainting spells, Chest pain, Uncontrolled pain Instructions: When You Have Gastrointestinal (GI) Bleeding, Evaluating and Treating Rectal Bleeding, Understanding Rectal Bleeding Additional Instructions: Please have repeat Hgb check with your primary care physician at follow-up. DO NOT TAKE plavix again, as this is a recurrence of your gastrointestinal bleeding following dual therapy restart. You may consider restart of your aspirin 81 mg daily therapy follow-up clearance per Dr. Stephenson at follow-up. Allergies/Adverse Reactions: Allergies No Known Allergies Allergy (Verified 06/07/17 10:04) Medications to take at Discharge Isosorbide Mononitrate [Monoket] 20 mg PO BID 08/18/14 Metoprolol(XL)Succ [Toprol Xl (Beta Jazmín)] 100 mg PO DAILY 08/18/14 Simvastatin [Zocor] 20 mg PO QHS 08/18/14 Hydrocodone Bitart/Apap 5-325 [[place] 5/325] 1 tab PO Q6H PRN PRN #20 tab Dorzolamide Hydrochloride/Ti [Cosopt Opth Drops] 1 drp EACH EYE BID 01/14/17 Latanoprost 1 drp EACH EYE QHS 01/14/17 nitroglycerin 0.4 mg sublingual tablet 0.4 mg SUBLINGUAL Q5-15M PRN 03/30/17 quinapril 10 mg tablet 10 mg PO DAILY 03/30/17 Docusate Sodium [Colace] 100 mg PO BID 06/07/17 Pantoprazole Sodium [Protonix] 40 mg PO BID tablet 06/11/17 Primary Care Physician: Care Physician,No Primary [Primary Care Provider] - Please Follow Up With: Lucina Hou MD When: 06/15/17 Please Follow Up With: Wiley Stephenson MD When: 2-3 weeks Please Follow Up With: Maverick Gonzales MD When: Follow-up w/ Cardiology EARLY CHILDHOOD SPECIALIST/PA to review plavix d/c, aspirin hold. Proposed Discharge Date: 06/11/17
--- NOTE | 2017-06-11 11:31 | PCM.DC.SUM ---
Discharge Date and Diagnosis Date of Admission: 06/07/17 Date of Discharge: 06/11/17 - Primary Discharge Diagnosis (1) Acute GI Bleed w/ resultant Acute Blood Loss Anemia, Hx Prior GI Bleed, Suspected Diverticular, Internal Hemorrhoid as etiology (2) CAD, Holding ASA, discontinued plavix, given re-GI bleed (3) Hypertension (4) Hyperlipidemia (5) Obesity - Secondary Discharge Diagnosis Chronic Problems (Last Reviewed 04/01/17 @ 09:01 by Maverick Gonzales MD) Internal hemorrhoid (Chronic) CAD (coronary artery disease) (Chronic) Encounter for long-term (current) use of other medications (Chronic) Hyperlipidemia (Chronic) Old myocardial infarct (Chronic) Atherosclerotic heart disease of [place] coronary artery without angina pectoris (Chronic) HTN (hypertension) (Chronic) Hernia of abdominal wall (Chronic) Hospital Course and Treatment Dr. Stephenson/Dr. Harris Surgery Operations: None Procedures: Blood transfusion Summary of Care Provided: The patient is a 72 y/o M w/ PMHx: CAD, HTN, HLD, Obesity, Hx GI bleed prior most recently 01/2017 with c-scope per Dr. Stephenson with noted diverticular disease, polyp as well as internal hemorrhoids on ASA, plavix at that time who presented to the [facility] ED on 06/07/17 w/ history of onset BRPBR with increase fatigue and weakness. Patient w/ BRBPR, admission Hgb 11.1, admitted to PCU, maintained initially on IVFs and NPO status pending evaluation per Surgery but transitioned to eventually clears and low residue diet following decision to defer repeat c-scope given recently performed and trending Hgb; however, upon continued serial trending Hgb 9.8-->8.5-->8.8-->7.9-->7.6-->06/10/17 Hgb 7.0, 1 u PRBC ordered, 06/09/17-06/11/17 no further bleeding noted, continued on PPI, 06/11/17 Hgb stable 9.1 (9.2 06/10/17). Surgery re-evaluation, given presentation and recent c-scope recommendation for deferral of repeat scope given no further bleeding with planned discharge to home with follow-up with arranged new PCP and follow-up outpatient with Dr. Stephenson for consideration of future outpatient scope when felt appropriate. Upon discharge given history, plavix discontinued and aspirin 81 mg daily held until re-assessment per Dr. Stephenson and cleared for restart w/ recommended repeat Hgb with PCP and following ASA restart. Patient discharged to home in stable, improved condition. DAY OF DISCHARGE PROGRESS NOTE: Subjective: Patient without acute event overnight per self and nursing report. Patient with no further BRBPR and stable Hgb following 1 u PRBC administration prior. Patient denies fever, chills, nausea, emesis, abdominal pain, chest pain or dyspnea. Patient agreeable to discharge to home. Patient will be discharged with follow-up with primary care physician within 3-5 days in addition to follow-up with Dr. Stephenson in 2 weeks and also his Cardiology office (Dr. Gonzales) given regimen changes to his plavix with D/C and asa hold. Objective: T 97.7, HR 69, BP 122/66, RR 18, 96% on RA. Physical Examination: General: awake, alert, oriented x 3 and cooperative, seated upright, in no apparent distress. Skin: normal color, turgor, no icterus, cyanosis. HEENT: AT/NC, EOMI, PERRLA, MMM. Lungs: CTA bilaterally, moderate effort, mild decrease BL bases, no rales, ronchi or wheezing. Heart: Regular rate and rhythm; no gallop, rub audible. Abdomen: soft, obese, NTTP, ND, normalized BS. Extremities: no cyanosis, clubbing, or edema. Neurological: patient awake, alert, oriented x 3; cognitive function intact; pupils equally reactive to light and accomodation; cranial nerves II-XII grossly normal, moving all 4 extremities, no focal deficits, strength improved, mildly globally decreased. Psychiatric: affect appears normal, no acute evidence of depressive or anxiety feelings. Assessment and Plan: Please see hospital summary above. Discharge Activity: - - Avoid aggressive or markedly increased activity until re-assessment per your primary care physician. Weight Bearing Status: Weight bearing as tolerated Call your doctor if you observe: Fever of 101 or Higher, Inability to urinate, Inability to have a bowel movement, Shortness of breath, Dizziness, Fainting spells, Chest pain, Uncontrolled pain Home Medications: Medications to take at Discharge Isosorbide Mononitrate [Monoket] 20 mg PO BID 08/18/14 Metoprolol(XL)Succ [Toprol Xl (Beta Jazmín)] 100 mg PO DAILY 08/18/14 Simvastatin [Zocor] 20 mg PO QHS 08/18/14 Hydrocodone Bitart/Apap 5-325 [[place] 5/325] 1 tab PO Q6H PRN PRN #20 tab 12/30/15 Dorzolamide Hydrochloride/Ti [Cosopt Opth Drops] 1 drp EACH EYE BID 01/14/17 Latanoprost 1 drp EACH EYE QHS 01/14/17 nitroglycerin 0.4 mg sublingual tablet 0.4 mg SUBLINGUAL Q5-15M PRN 03/30/17 quinapril 10 mg tablet 10 mg PO DAILY 03/30/17 Docusate Sodium [Colace] 100 mg PO BID 06/07/17 Pantoprazole Sodium [Protonix] 40 mg PO BID #60 tab 06/11/17 Following Prescrptions Were Given to Patient: Pantoprazole Sodium [Protonix] 40 mg PO BID #60 tab Primary Care Physician: Care Physician,No Primary [Primary Care Provider] - Please Follow Up With: Lucina Hou MD When: 06/15/17 Please Follow Up With: Wiley Stephenson MD When: 2-3 weeks Please Follow Up With: Maverick Gonzales MD When: Follow-up w/ Cardiology AIRCRAFT BODY REPAIRER/PA to review plavix d/c, aspirin hold. Patient Instructions: When You Have Gastrointestinal (GI) Bleeding, Evaluating and Treating Rectal Bleeding, Understanding Rectal Bleeding Disposition: Home Minutes spent on discharge:: 35 Patient Condition:: Fair Meaningful Use Info Meaningful Use Diagnoses (Choose all that apply): None applicable Code Visit Inpatient E&M: 03891 Disch Hosp
--- NOTE | 2017-06-11 11:37 | DS.PCM_ITS ---
Discharge Date and Diagnosis Date of Admission: 06/07/17 Date of Discharge: 06/11/17 - Primary Discharge Diagnosis (1) Acute GI Bleed w/ resultant Acute Blood Loss Anemia, Hx Prior GI Bleed, Suspected Diverticular, Internal Hemorrhoid as etiology (2) CAD, Holding ASA, discontinued plavix, given re-GI bleed (3) Hypertension (4) Hyperlipidemia (5) Obesity - Secondary Discharge Diagnosis Chronic Problems (Last Reviewed 04/01/17 @ 09:01 by Maverick Gonzales MD) Internal hemorrhoid (Chronic) CAD (coronary artery disease) (Chronic) Encounter for long-term (current) use of other medications (Chronic) Hyperlipidemia (Chronic) Old myocardial infarct (Chronic) Atherosclerotic heart disease of [place] coronary artery without angina pectoris (Chronic) HTN (hypertension) (Chronic) Hernia of abdominal wall (Chronic) Hospital Course and Treatment Dr. Stephenson/Dr. Harris Surgery Operations: None Procedures: Blood transfusion Summary of Care Provided: The patient is a 72 y/o M w/ PMHx: CAD, HTN, HLD, Obesity, Hx GI bleed prior most recently 01/2017 with c-scope per Dr. Stephenson with noted diverticular disease, polyp as well as internal hemorrhoids on ASA, plavix at that time who presented to the [facility] ED on 06/07/17 w/ history of onset BRPBR with increase fatigue and weakness. Patient w/ BRBPR, admission Hgb 11.1, admitted to PCU, maintained initially on IVFs and NPO status pending evaluation per Surgery but transitioned to eventually clears and low residue diet following decision to defer repeat c-scope given recently performed and trending Hgb; however, upon continued serial trending Hgb 9.8-->8.5-->8.8-->7.9-->7.6-->06/10/17 Hgb 7.0, 1 u PRBC ordered, 06/09/17-06/11/17 no further bleeding noted, continued on PPI, Hgb stable 9.1 (9.2 06/10/17). Surgery re-evaluation, given presentation and recent c-scope recommendation for deferral of repeat scope given no further bleeding with planned discharge to home with follow-up with arranged new PCP and follow-up outpatient with Dr. Stephenson for consideration of future outpatient scope when felt appropriate. Upon discharge given history, plavix discontinued and aspirin 81 mg daily held until re-assessment per Dr. Stephenson and cleared for restart w/ recommended repeat Hgb with PCP and following ASA restart. Patient discharged to home in stable, improved condition. DAY OF DISCHARGE PROGRESS NOTE: Subjective: Patient without acute event overnight per self and nursing report. Patient with no further BRBPR and stable Hgb following 1 u PRBC administration prior. Patient denies fever, chills, nausea, emesis, abdominal pain, chest pain or dyspnea. Patient agreeable to discharge to home. Patient will be discharged with follow-up with primary care physician within 3-5 days in addition to follow -up with Dr. Stephenson in 2 weeks and also his Cardiology office (Dr. Gonzales) given regimen changes to his plavix with D/C and asa hold. Objective: T 97.7, HR 69, BP 122/66, RR 18, 96% on RA. Physical Examination: General: awake, alert, oriented x 3 and cooperative, seated upright, in no apparent distress. Skin: normal color, turgor, no icterus, cyanosis. HEENT: AT/NC, EOMI, PERRLA, MMM. Lungs: CTA bilaterally, moderate effort, mild decrease BL bases, no rales, ronchi or wheezing. Heart: Regular rate and rhythm; no gallop, rub audible. Abdomen: soft, obese, NTTP, ND, normalized BS. Extremities: no cyanosis, clubbing, or edema. Neurological: patient awake, alert, oriented x 3; cognitive function intact; pupils equally reactive to light and accomodation; cranial nerves II-XII grossly normal, moving all 4 extremities, no focal deficits, strength improved, mildly globally decreased. Psychiatric: affect appears normal, no acute evidence of depressive or anxiety feelings. Assessment and Plan: Please see hospital summary above. Discharge Activity: - - Avoid aggressive or markedly increased activity until re -assessment per your primary care physician. Weight Bearing Status: Weight bearing as tolerated Call your doctor if you observe: Fever of 101 or Higher, Inability to urinate, Inability to have a bowel movement, Shortness of breath, Dizziness, Fainting spells, Chest pain, Uncontrolled pain Home Medications: Medications to take at Discharge Isosorbide Mononitrate [Monoket] 20 mg PO BID 08/18/14 Metoprolol(XL)Succ [Toprol Xl (Beta Jazmín)] 100 mg PO DAILY 08/18/14 Simvastatin [Zocor] 20 mg PO QHS 08/18/14 Hydrocodone Bitart/Apap 5-325 [[place] 5/325] 1 tab PO Q6H PRN PRN #20 tab Dorzolamide Hydrochloride/Ti [Cosopt Opth Drops] 1 drp EACH EYE BID 01/14/17 Latanoprost 1 drp EACH EYE QHS 01/14/17 nitroglycerin 0.4 mg sublingual tablet 0.4 mg SUBLINGUAL Q5-15M PRN 03/30/17 quinapril 10 mg tablet 10 mg PO DAILY 03/30/17 Docusate Sodium [Colace] 100 mg PO BID 06/07/17 Pantoprazole Sodium [Protonix] 40 mg PO BID #60 tab 06/11/17 Following Prescrptions Were Given to Patient: Pantoprazole Sodium [Protonix] 40 mg PO BID #60 tab Primary Care Physician: Care Physician,No Primary [Primary Care Provider] - Please Follow Up With: Lucina oHu MD When: 06/15/17 Please Follow Up With: Wiley Stephenson MD When: 2-3 weeks Please Follow Up With: Maverick Gonzales MD When: Follow-up w/ Cardiology REHAB THERAPY MANAGER/PA to review plavix d/c, aspirin hold. Patient Instructions: When You Have Gastrointestinal (GI) Bleeding, Evaluating and Treating Rectal Bleeding, Understanding Rectal Bleeding Disposition: Home Minutes spent on discharge:: 35 Patient Condition:: Fair Meaningful Use Info Meaningful Use Diagnoses (Choose all that apply): None applicable Code Visit Inpatient E&M: 43890 Disch Hosp
== END 2017-06-11 13:24 | disposition home or self-care (01) | DRG 378 ==
LOC: ED 12:08 → PCU 13:48
PROVIDERS: Physician Assistant; Admitting Provider Internal Medicine; Emergency Provider Emergency Medicine; Visit Provider Family Medicine
DX: K92.2 Gastrointestinal hemorrhage, unspecified (principal); D62 Acute posthemorrhagic anemia; R31.9 Hematuria, unspecified; D12.8 Benign neoplasm of rectum; K64.8 Other hemorrhoids; I25.10 Atherosclerotic heart disease of native coronary artery without angina pectoris; I10 Essential (primary) hypertension; Z79.82 Long term (current) use of aspirin; Z79.02 Long term (current) use of antithrombotics/antiplatelets; Z87.891 Personal history of nicotine dependence; Z90.49 Acquired absence of other specified parts of digestive tract; E78.5 Hyperlipidemia, unspecified; E66.9 Obesity, unspecified; Z68.32 Body mass index [BMI] 32.0-32.9, adult; I25.2 Old myocardial infarction; K57.90 Diverticulosis of intestine, part unspecified, without perforation or abscess without bleeding
CPT/HCPCS: 36415; 80053; 81001; 85014; 85018; 85025; 85610; 85730; 86850; 86900; 86920; 97162; 97165; 97802; 99284; J1756; J7040; P9016; A4216

== ENCOUNTER 2017-07-19 07:59 | Day surgery (SDC) | payer MEDICARE, MEDICAID, SELFPAY ==
--- NOTE | 2017-07-19 | COLBX_PTH ---
PATIENT: LEOLA MAGALLON LOC: EN U#:[id number] AGE/SX: 72/M ROOM: RE07/19/[address]: Dr. Wiley Stephenson MD : 1945 BED: DIS: 07/19/2017 SPEC #: [id number] RECD: 07/19/17 14:11 STATUS: JULIANNA CORNEJO #: [id number] EMILIA: 07/19/17 00:[address]: Wiley Stephenson DEPT: SURGICAL PATHOLOGY RECD BY: Jose Lyons ENTERED: 07/19/17 15:20 SP TYPE: COLON BX OTHR DR: No Primary Care Phys Tissues: Rectum, NOS Procedures: Surgery Specimen Level IV HEADER OPERATION: Colonoscopy PRE-OP DIAGNOSIS: History colon polyp TISSUE SUBMITTED: Rectal polyp MICROSCOPIC DIAGNOSIS Rectal polyp, biopsy: Tubulovillous adenoma. AM:alexandru 07/20/17 MICROSCOPIC DESCRIPTION Slides are reviewed. GROSS DESCRIPTION Received in fixative is one container labeled with the patient's name and designated rectal polyp. The specimen consists of a pink-red polyp measuring 1.2 x 1.2 x 0.7 cm. The apparent base is inked. The polyp is serially sectioned and submitted entirely in one cassette. / SJ:rg 07/19/17 TC:1 CPT: 14715
[2017-07-19 08:39] VITALS: BP 93/60; PULSE 84; RESP 16; TEMP 36.8; O2SAT 99; BMI 33.0
--- NOTE | 2017-07-19 09:26 | PCM.OPRPT ---
Problem List (1) Adenovillous polyp of colon Status: Acute Report of Operation Date of Procedure: 07/19/17 Pre-Operative Diagnosis: d12.6 adenomatous polyp of colon (rectum) Post-Operative Diagnosis: Same Surgery/Procedure Performed:: [id number] sigmoidoscopy with polypectomy Description of Surgical Findings:: This is a 72-year-old gentleman who back in January I had done a colonoscopy secondary to a GI bleed while he was in the hospital. Since he was on Plavix I did not take out the polyp at that time. I did biopsy it and it did come back as benign. For a variety of reasons we have been unable to get him off of his Plavix and get him scheduled for his colonoscopy until today. Type of Anesthesia:: MAC Anesthesiologist: Dyllan Candelaria Description of Procedure: Patient was brought into the endoscopy suite and placed in the left lateral decubitus position. He was given graded anesthesia. Colonoscope was inserted into the rectum and directed just past the first fold where I saw the polyp. This polyp had significantly changed since I last scoped him back in January he did not have a typical benign appearance at this point and was rather sessile in nature. I went past the just a few more centimeters however his bowel prep was extremely poor just like they had been in the past and I did not feel comfortable going any further for fear of injuring his colon. I came back down to the polyp I injected it with normal saline (7 cc) to raise the polyp. I then placed the snare around the polyp and came through it in a slow fashion. I retrieve the polyp and sent to pathology for permanent sectioning. There was a small area that looked like it might be bleeding I therefore placed a rotational clip on this I achieved excellent hemostasis. I removed the scope the patient tolerated the procedure well. This is a difficult case now it is always been difficult to get Jett to come in and discuss with him the need for this colonoscopy and I am afraid now that we might be looking at a polyp that has changed possibly into a malignancy. Obviously I will see him back in the office in 1 week we will discuss the pathology report with him at that time. If this still remains benign at that point I think we need to re-scope him again in 1 year to make sure that there is no other areas that are suspicious for malignancy around with a polyp was removed.
[2017-07-19 09:32] VITALS: BP 92/36; BP 93/60; PULSE 74; RESP 18; TEMP 37; O2SAT 99
[2017-07-19 09:35] VITALS: BP 93/60; BP 97/64; PULSE 75; RESP 16; O2SAT 99
[2017-07-19 09:40] VITALS: BP 93/60; BP 97/70; PULSE 74; RESP 16; O2SAT 96
[2017-07-19 09:43] VITALS: BP 105/67; BP 93/60; PULSE 72; RESP 16; TEMP 36.6; O2SAT 96
[2017-07-19 10:27] VITALS: BP 93/60
== END 2017-07-19 10:29 | disposition home or self-care (01) ==
LOC: EN 08:01 → AC 08:03
PROVIDERS: Visit Provider Surgery
PROC: 0DJD8ZZ Inspection of Lower Intestinal Tract, Via Natural or Artificial Opening Endoscopic (ICD-10-PCS; CPT 45378; principal; 2017-07-19 09:25)
DX: D12.8 Benign neoplasm of rectum (principal); E78.5 Hyperlipidemia, unspecified; I10 Essential (primary) hypertension; I25.10 Atherosclerotic heart disease of native coronary artery without angina pectoris; Z87.891 Personal history of nicotine dependence; F78 Other intellectual disabilities; Z79.891 Long term (current) use of opiate analgesic; Z79.899 Other long term (current) drug therapy
CPT/HCPCS: 45331; 88305; J7120; A4216

== ENCOUNTER → 2018-03-08 10:03 | Outpatient (CLI) | payer MEDICARE, MEDICAID, SELFPAY ==
[2018-03-08 08:47] VITALS: BMI 34.7
[2018-03-08 11:26] LABS: AST(SGOT) 26 U/L (15-37); Alanine Aminotransfer ALT/SGPT 27 U/L (16-61); Albumin, Serum 2.9 g/dL (3.2-5.0); Alkaline Phosphatase 42 U/L (45-117); Cholesterol 56 mg/dL (200); Globulin 8.4 g/dL (2.2-4.2); High Density Lipoprotein 28 mg/dL; Protein, Total 11.3 g/dL (6.4-8.2); Triglycerides 104 mg/dL; Very Low Density Lipoprotein 21 mg/dL (5-40)
--- OUTSIDE RECORDS SUMMARY | 2018-04-20 01:13 | XMS RPT_ITS ---
:1945 Author Organization OHIP Care Team Providers Name Role Phone Maverick Gonzales Attending Unavailable Primay Care Physicia, No Referring Unavailable Primay Care Physicia, No Primary Care Unavailable Primay Care Physicia, No Primary Care Unavailable Ungur, Remus Attending Unavailable Primay Care Physicia, No Primary Care Unavailable [facility], Juno Admitting Unavailable [place], Wiley Consulting Unavailable White, Shawnee Attending Unavailable [facility], Juno Admitting Unavailable Primay Care Physicia, No Primary Care Unavailable Seema, Wiley Consulting Unavailable [facility], Juno Attending Unavailable [facility], Juno Consulting Unavailable [facility], Juno Admitting Unavailable Melgar PA-C, Maddi Attending Unavailable Primay [facility] Physicia, No Primary Care Unavailable Seema, Wiley Consulting Unavailable White, [place] Consulting Unavailable [facility], Juno Admitting Unavailable Melgar PA-C, Maddi Attending Unavailable [facility] Physicia, No Primary Care Unavailable [place], Wiley Consulting Unavailable White, [place] Consulting Unavailable [facility], Juno Admitting Unavailable Primay Care Physicia, No Primary Care Unavailable [place], Wiley Consulting Unavailable White, [place] Attending Unavailable White, [place] Consulting Unavailable [facility], Juno Admitting Unavailable Melgar PA-C, Maddi Attending Unavailable [facility] Physicia, No Primary Care Unavailable [place], Wiley Consulting Unavailable White, [place] Consulting Unavailable [facility], Juno Admitting Unavailable Primay Care Physicia, No Primary Care Unavailable [place], Wiley Consulting Unavailable White, Shawnee Attending Unavailable White, [place] Consulting Unavailable Sreedhar, Juno Admitting Unavailable Maddi Melgar PA-C Attending Unavailable [facility] Physicia, No Primary Care Unavailable Seema, Wiley Consulting Unavailable White, [place] Consulting Unavailable Sreedhar, Juno Admitting Unavailable White, [place] Attending Unavailable [facility] Physicia, No Primary Care Unavailable [place], Wiley Consulting Unavailable White, [place] Consulting Unavailable Sreedhar, Juno Admitting Unavailable White, Shawnee Attending Unavailable Primay [facility] Physicia, No Primary Care Unavailable [place], Wiley Consulting Unavailable White, [place] Consulting Unavailable Oleghe, Efewongbe Attending Unavailable Oleghe, Efewongbe Referring Unavailable Seema, Wiley Attending Unavailable [facility] Physicia, No Referring Unavailable [facility] Physicia, No Primary Care Unavailable Milton Sanchez H Attending Unavailable Oleghe, Efewongbe Attending Unavailable [facility] Physicia, No Referring Unavailable Carolynn Capps Attending Unavailable Seema, Wiley Attending Unavailable Seema, Wiley Referring Unavailable [facility] Physicia, No Primary Care Unavailable Roof, Milton Downing Attending Unavailable [facility] Physicia, No Referring Unavailable [facility] Physicia, No Primary Care Unavailable [place], Wiley Attending Unavailable [facility] Physicia, No Referring Unavailable [facility] Physicia, No Primary Care Unavailable Seema, Wiley Attending Unavailable Janet, Maverick Attending Unavailable [facility] Physicia, No Referring Unavailable Janet, Glenwood Attending Unavailable Janet, [place] Referring Unavailable Primay Care Physicia, No Primary Care Unavailable PROBLEMS PROBLEMS DATE TYPE CONDITION / CODE ATTENDING STATUS SOURCE Unknown I10 - Essential (primary) Janet, Maverick Active [facility] hypertension / Community I10(ICD-10) Hospital Repository Unknown E78.00 - Pure Janet, [place]wood Active [facility] hypercholesterolemia, Community unspecified / Hospital E78.00(ICD-10) Repository Unknown I25.2 - Old myocardial Janet, [place] Active [facility] infarction / Community I25.2(ICD-10) Hospital Repository Unknown D12.6 - Benign neoplasm [place], Active [facility] of colon, unspecified / [facility] Community D12.6(ICD-10) Hospital Repository Unknown I25.10 - Atherosclerotic Janet, [place] Active [place] [facility] heart disease of [place] Community coronary artery without Hospital angina pectoris / Repository I25.10(ICD-10) Unknown E78.0 - Pure Janet, [place] Active [facility] hypercholesterolemia / Community E78.0(ICD-10) Hospital Repository PROCEDURES PROCEDURES No Procedure Records FoundRESULTS RESULTS LIVER PROFILE Collected: 03/08/2018 Status: F Source: [place] 10:12 AM [facility] REPOSITORY Order Comment: Order Date: 09/24/16 Order Info: [id number] - *Lipid Profile CC PCP Comments: 12 hours fasting, may have water. TYPE CODE TESTS RESULT OUT OF RANGE REFERENCE UNITS LAB L501.1500 6.4-8.2 g/dL High T PROT 11.3 LAB L501.1800 3.2-5.0 g/dL Low ALB 2.9 LAB L501.1950 2.2-4.2 g/dL High GLOB 8.4 LAB L501.4100 15-37 U/L Normal AST 26 LAB L501.4305 45-117 U/L Low ALK P 42 LAB L501.4405 16-61 U/L Normal ALT 27 LAB L501.4600 0.20-1.00 mg/dL Normal T BILI 0.50 LAB L501.4700 0.00-0.30 mg/dL Normal D BILI 0.20 Performed By: #### L500.3400, L500.4100 #### [facility] [address] [place], [address] LIPID PROFILE Collected: 03/08/2018 Status: F Source: [place] 10:12 AM [facility] REPOSITORY Order Comment: Order Date: 09/24/16 Order Info: [id number] - *Lipid Profile CC PCP Comments: 12 hours fasting, may have water. TYPE CODE TESTS RESULT OUT OF RANGE REFERENCE UNITS LAB L501.4900 200 mg/dL Normal CHOL 56 Result Comment: <200 mg/dL Desirable 200-240 mg/dL Borderline >240 mg/dL High Risk LAB L501.5000 mg/dL Normal TRIG 104 Result Comment: The drugs N-Acetylcysteine and Metamizole may falsely depress this assay. Serum Triglycerides Reference Interval Normal <150 mg/dL Borderline high 150 - 199 mg/dL High 200 - 499 mg/dL Very High > or = 500 mg/dL LAB L501.6400 mg/dL Low HDL 28 Result Comment: The drugs N-Acetylcysteine and Metamizole may falsely depress this assay. Reference Range HDL <40 mg/dL Low HDL Cholesterol HDL >or= 60 mg/dL High HDL Cholesterol LAB L501.6500 0-130 mg/dL Normal LDL 7 LAB L501.6600 5-40 mg/dL Normal VLDL 21 Performed By: #### L500.3400, L500.4100 #### [facility] [address] [place], [address] CARDIOLOGY VISIT Observed: 03/08/2018 Status: F Source: [place] REPORT 9:50 AM [facility] REPOSITORY [facility] [address] [place] [address] OFFICE VISIT Date of Service: 03/08/18 MR#: [id number] Acct: [id number] Name: LEOLA MAGALLON Rep #: [id number] : 1945 Provider: Maverick Gonzales MD Age/Sex: 72/M [place] [facility] Status: Signed HPI HPI Chief Complaint: Follow up Details: LEOLA MAGALLON, is a 72 M who presents to the office today for a cardiovascular outpatient follow-up. His history of mild coronary artery disease involving the LCx and nondominant RCA. He also has history of hypertension, hyperlipidemia, diverticulosis, hemorrhoids, and rectal bleeding. Patient presented to [facility] emergency department in May 2017 after he noticed bloody bowel movement. He also noticed fatigue and weakness. He was admitted for further evaluation. He was given 1 unit of packed red blood cells. He did not undergo any upper or lower GI scope due to hemoglobin stabilization. He was discharged with follow-up appointment with Dr. Stephenson. His aspirin was held and Plavix was discontinued due to recurrent GI bleeding. He has had some problems with bleeding from the nose and also feels that his legs are weak on occasion. Pt. denies chest, arm, jaw, or neck discomfort. His exercise tolerance is stable. Pt. denies symptoms of CHF, palpitations, lightheadedness, dizziness, near syncope, or syncopal episodes. Pt. denies edema or claudication issues. Pt. denies orthopnea, PND, fever, chills, blood in urine, blood in stool, myalgia, or unexplainable fatigue. His physical exam demonstrates clear lung fuller regular rate and rhythm and no pedal edema. Intake Vital Signs03/08/18 Height 5 ft 7 in 03/08/18 Weight: 222 lb 03/08/18 Body Mass Index (BMI) 34.7 03/08/18 Blood Pressure 118/70 03/08/18 Blood Pressure Location Lt brachial Intake Visit Reasons: 7 M Machine Setter Required: No Accompanied by: none Is patient in pain?: No Allergies No Known Allergies Allergy (Verified 03/08/18 08:48) Medications Dorzolamide HCL/Timolol [Cosopt Opth Drops] 1 drp EACH EYE BID 01/14/17 [History Confirmed 03/08/18] Latanoprost 1 drp EACH EYE QHS 01/14/17 [History Confirmed 03/08/18] Docusate Sodium [Colace] 100 mg PO BID 06/07/17 [History Confirmed 03/08/18] isosorbide mononitrate 20 mg tablet 20 mg PO BID #180 tab 07/15/17 [Rx Confirmed 03/08/18] metoprolol succinate ER 100 mg tablet,extended release 24 hr 100 mg PO DAILY #90 tab 07/15/17 [Rx Confirmed 03/08/18] nitroglycerin 0.4 mg sublingual tablet 0.4 mg SUBLINGUAL Q5- 15M PRN #25 tab 01/27/18 [Rx Confirmed 03/08/18] aspirin 81 mg tablet,delayed release 81 mg PO DAILY 03/08/18 [History Confirmed 03/08/18] quinapril 10 mg tablet 10 mg PO DAILY #90 tab 03/08/18 [Rx Confirmed 03/08/18] simvastatin 20 mg tablet 20 mg PO QHS #90 tab 03/08/18 [Rx Confirmed 03/08/18] [facility] Medical History Old non-ST elevation myocardial infarction (NSTEMI) (Resolved) Essential (primary) hypertension (Chronic) Adenovillous polyp of colon (Chronic) Syncope, vasovagal (Chronic) Internal hemorrhoid (Chronic) Hyperlipidemia (Chronic) GI bleed (Resolved) Surgical History History of appendectomy (Resolved) History of herniorrhaphy (Resolved) History of partial colectomy (Resolved) S/P colonoscopy (Resolved 07/2017) Family History Brother Heart disease Sister No problems noted. Father No problems noted. Mother No problems noted. Social History Smoking Status: Former smoker alcohol intake: never substance use type: does not use what type of physical activity do you participate in: none seatbelt use: always do you feel safe at home: Yes ROS Const Const: Negative for fatigue, weakness, night sweats, excessive sweating, frequent falls, headache(s) or daytime sleepiness Eyes Eyes: Negative for loss of peripheral vision, transient loss of vision, blind spots, double vision or blurry vision ENT ENT: Negative for headache(s), dizziness, balance problems, Nosebleed/epistaxis, tongue swelling or lip swelling Cardio Chest Pain: No Palpitations: No Edema: None Muscle aches with walking: None Resp Respiratory: Negative for SOB at rest, SOB orthopnea\SOB lying down, Cough, paroxysmal nocturnal dyspnea or SOB with activity GI GI: Negative nausea, vomiting, heartburn, black,tarry stools or bright, red blood in stools : Negative for hematuria Musc Musc: Negative for balance problems, muscle aches/ myalgia, muscle weakness or joint pain Skin Skin: Negative non-healing lesions, unusual bruising or rash Neuro Neuro: Negative for weakness, frequent falls, headache(s), double vision, dizziness, lightheadedness, orthostatic symptoms, blurry vision or lack of coordination Raoul Hematologic/Lymphatic: Negative for easy bruising or easy bleeding Endo Endo: Negative for fatigue, excessive sweating, cold intolerance, heat intolerance, increased thirst/drinking or hair loss Psych Psych: Negative for anxiety or depression Allergy Allergy/Immunology: Negative for throat swelling, Negative for tongue swelling, Negative for hives, Negative for rash, Negative for lip swelling Cardiology Exam Const Appearance: cooperative, healthy appearing, well developed, well groomed and no acute distress Nutritional Appearance: well nourished and average body habitus Orientation: alert, awake and oriented x3 Head Head: normal to inspection, normocephalic and atraumatic Ears: hearing grossly normal bilaterally and external ears normal Nose: external nose normal, nasal mucous membranes and turbinates normal, nares normal, septum normal, no nasal discharge Face and Sinus: face symmetric Mouth: oral mucosae normal, tongue normal, oropharynx normal and moist mucous membranes Teeth and gingiva: dentition normal Throat: posterior oropharynx normal, tonsils normal and uvula midline Eyes General: appearance normal, both eyes and all related structures Eyelids: eyelids normal Conjunctivae: conjunctivae normal Pupils: PERRL, normal by confrontation and accommodation normal EOM: EOM intact bilaterally Neck Neck: normal visual inspection, trachea midline and no JVD JVD: +5 Carotids: normal carotid upstroke and bounding pulses Chest Chest inspection: normal inspection of the chest, symmetric chest movement and normal respiratory effort Auscultation: Bilateral: Clear to Auscultation Cardio Palpation: normal PMI Rate: regular rate Rhythm: regular rhythm Heart sounds: S1 normal, S2 normal and normal, physiologic split S2; negative rub, gallop or murmur GI GI: normal to inspection, soft, no hepatosplenomegaly and bowel sounds present Neuro General: alert, awake, oriented x3, no focal sensory deficit, gait normal and moves all extremities Skin Skin: no rashes or lesions noted Extremities Pulses: Normal: Right Femoral Pulse, Left Femoral Pulse, Right Dorsalis Pedis Pulse, Left Dorsalis Pedis Pulse, Right Posterior Tibial Pulse, Left Posterior Tibial Pulse, Right Radial Pulse, Left Radial Pulse Lower Extremity Edema: None: Bilateral Musculoskel Musculoskeletal: No joint tenderness Psych Psychological: normal affect Assessment AND Plan 1. Old non-ST elevation myocardial infarction (NSTEMI) I25.2 Plan He has a history of coronary artery disease is not had any evidence of angina at this time my recommendation is for us to continue the current medical therapy without as making any major changes. 2. Essential (primary) hypertension I10 Plan He does have a history of essential hypertension which is well controlled on the current medical therapy. No major changes once again will be made. 3. Pure hypercholesterolemia E78.00 Plan He has a history of hyperlipidemia. He will continue on his current medical therapy. Routine lipid profiles will be obtained. Thank you for allowing me to participate in the care of your patient. Please don't hesitate to call if any issues arise Plan Detail Other Medications Refilled: Follow Up 6 Months (mmm) Coding Level of Care Code Off vis,est,level 3 Diagnoses Old non-ST elevation myocardial infarction (NSTEMI) I25.2 Essential (primary) hypertension I10 Pure hypercholesterolemia E78.00 Hyperlipidemia type: pure hypercholesterolemia Coding Level of Care Code Off vis,est,level 3 Diagnoses Old non-ST elevation myocardial infarction (NSTEMI) I25.2 Essential (primary) hypertension I10 Pure hypercholesterolemia E78.00 Hyperlipidemia type: pure hypercholesterolemia 03/08/18 0950 <Electronically signed by Maverick Gonzales MD> Date Maverick Gonzales MD Cosigner Signature: Date (if applicable) CC: No Primary Care Physician SURGERY VISIT REPORT Observed: 07/28/2017 Status: F Source: [place] 8:09 AM [facility] REPOSITORY [facility] [address] [place] [address] [address] [place] [address] OFFICE VISIT Date of Service: 07/27/17 MR#: [id number] Acct: [id number] Name: LEOLA MAGALLON Rep #: [id number] : 1945 Provider: Wiley Stephenson MD Age/Sex: 72/M Location: [facility] Status: Signed Intake Intake Visit Reasons: F/U C-Scope 07/19/17 DP Chief Complaint: post c-scope Machine Setter Required: No Is patient in pain?: No Allergies No Known Allergies Allergy (Verified 07/27/17 08:21) Medications Hydrocodone Bitart/Apap 5-325 [Kingsland 5/325] 1 tab PO Q6H PRN PRN #20 tab 12/30/15 [Rx Confirmed 07/19/17] Dorzolamide Hydrochloride/Ti [Cosopt Opth Drops] 1 drp EACH EYE BID 01/14/17 [History Confirmed 07/19/17] Latanoprost 1 drp EACH EYE QHS 01/14/17 [History Confirmed 07/19/17] nitroglycerin 0.4 mg sublingual tablet 0.4 mg SUBLINGUAL Q5- 15M PRN 03/30/17 [History Confirmed 07/19/17] Docusate Sodium [Colace] 100 mg PO BID 06/07/17 [History Confirmed 07/19/17] Pantoprazole Sodium [Protonix] 40 mg PO BID #60 tab 06/11/17 [Rx Confirmed 07/19/17] quinapril 10 mg tablet 10 mg PO DAILY #90 tab 06/14/17 [Rx Confirmed 07/19/17] simvastatin 20 mg tablet 20 mg PO QHS #90 tab 06/14/17 [Rx Confirmed 07/19/17] isosorbide mononitrate 20 mg tablet 20 mg PO BID #180 tab 07/15/17 [Rx Confirmed 07/19/17] metoprolol succinate ER 100 mg tablet,extended release 24 hr 100 mg PO DAILY #90 tab 07/15/17 [Rx Confirmed 07/19/17] [facility] Medical History Syncope, vasovagal (Chronic) Hyperlipidemia (Chronic) Old myocardial infarct (Chronic) Atherosclerotic heart disease of [place] coronary artery without angina pectoris (Chronic) HTN (hypertension) (Chronic) Surgical History History of appendectomy (Resolved) History of herniorrhaphy (Resolved) H/O colectomy (Resolved) History of intestinal surgery (Resolved) S/P colonoscopy (Acute 07/2017) Family History Brother Heart disease Sister No problems noted. Father No problems noted. Mother No problems noted. Social History Smoking Status: Former smoker alcohol intake: never substance use type: does not use what type of physical activity do you participate in: none seatbelt use: always do you feel safe at home: Yes HPI HPI HPI: LEOLA MAGALLON, is a 72 M who presents to the office today for follow-up from a sigmoidoscopy with polypectomy on 07/19/2017. Patient had a large polyp in his rectum. I removed with snare cautery technique this came back as a tubulovillous adenoma. He did have a rotational clip placed at the time that I did the biopsy secondary to some slight bleeding and the fact that he was going to be getting back on his Plavix. I did use significant amount of cautery to the area and I am sure that the mucosa around the surrounding area change significantly from just removal of the polyp. Nevertheless when I looked at it it had clearly changed from the previous time I had done his colonoscopy we had such a terrible time getting him scheduled for this repeat colonoscopy. Nevertheless there was no atypia in this biopsy specimen and I think waiting a year for a repeat colonoscopy is prudent. Exam GI Other: Abdomen is soft and nontender Assessment AND Plan Problems 1. 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 07/28/17 0809 <Electronically signed by Wiley Stephenson MD> Date Wiley Stephenson MD Cosigner Signature: Date (if applicable) CC: OPERATIVE REPORT Observed: 07/19/2017 Status: F Source: [place] 9:32 AM [facility] REPOSITORY [facility] Medical Records Department [address] [place] [address] Operative Report 07/19/17925 MR#: [id number] Acct: [id number] Name: LEOLA MAGALLON Rep #: [id number] : 1945 72 From: Wiley Stephenson MD PCP: Care Physician, No Primary Status: REG SDC Y Location: [facility]-1 Problem List (1) Adenovillous polyp of colon Status: Acute Report of Operation Date of Procedure: 07/19/17 Pre-Operative Diagnosis: d12.6 adenomatous polyp of colon (rectum) Post-Operative Diagnosis: Same Surgery/Procedure Performed:: 32337 sigmoidoscopy with polypectomy Description of Surgical Findings:: This is a 72-year-old gentleman who back in January I had done a colonoscopy secondary to a GI bleed while he was in the hospital. Since he was on Plavix I did not take out the polyp at that time. I did biopsy it and it did come back as benign. For a variety of reasons we have been unable to get him off of his Plavix and get him scheduled for his colonoscopy until today. Type of Anesthesia:: MAC Anesthesiologist: Dyllan Candelaria Description of Procedure: Patient was brought into the endoscopy suite and placed in the left lateral decubitus position. He was given graded anesthesia. Colonoscope was inserted into the rectum and directed just past the first fold where I saw the polyp. This polyp had significantly changed since I last scoped him back in January he did not have a typical benign appearance at this point and was rather sessile in nature. I went past the just a few more centimeters however his bowel prep was extremely poor just like they had been in the past and I did not feel comfortable going any further for fear of injuring his colon. I came back down to the polyp I injected it with normal saline (7 cc) to raise the polyp. I then placed the snare around the polyp and came through it in a slow fashion. I retrieve the polyp and sent to pathology for permanent sectioning. There was a small area that looked like it might be bleeding I therefore placed a rotational clip on this I achieved excellent hemostasis. I removed the scope the patient tolerated the procedure well. This is a difficult case now it is always been difficult to get Leola to come in and discuss with him the need for this colonoscopy and I am afraid now that we might be looking at a polyp that has changed possibly into a malignancy. Obviously I will see him back in the office in 1 week we will discuss the pathology report with him at that time. If this still remains benign at that point I think we need to re-scope him again in 1 year to make sure that there is no other areas that are suspicious for malignancy around with a polyp was removed. 07/19/17 0932 <Electronically signed by Wiley Stephenson MD> Date Wiley Stephenson MD CC: No Primary Care Physician; Wiley Stephenson MD Signed COLON BIOPSY (CHOOSE Observed: 07/19/2017 Status: F Source: [place] SITE) 12:00 AM [facility] REPOSITORY Patient: LEOLA MAGALLON : 1945 (72/M) Acct Num: [id number] Phys: Seema CARNES,Wiley Unit Num: [id number] Loc: EN Specimen: [id number] Received: 07/19/171410 Spec Type: COLON BX TISSUES TISSUES: Rectum, NOS GROSS DESCRIPTION Received in fixative is one container labeled with the patient's name and designated rectal polyp. The specimen consists of a pink- red polyp measuring 1.2 x 1.2 x 0.7 cm. The apparent base is inked. The polyp is serially sectioned and submitted entirely in one cassette. / SJ:alexandru 07/19/17 TC:1 CPT: 97125 HEADER OPERATION: Colonoscopy PRE-OP DIAGNOSIS: History colon polyp TISSUE SUBMITTED: Rectal polyp MICROSCOPIC DESCRIPTION Slides are reviewed. MICROSCOPIC DIAGNOSIS Rectal polyp, biopsy: Tubulovillous adenoma. AM:alexandru 07/20/17 Signed Eduard Canela 07/20/17 <signature on file> Performed By: #### PCOLBX #### [facility] [address] [place] [address]. [place], [address] CARDIOLOGY VISIT Observed: 07/17/2017 Status: F Source: [place] REPORT 3:44 PM [facility] REPOSITORY [facility] [address] [place] [address] OFFICE VISIT Date of Service: 07/16/17 MR#: [id number] Acct: [id number] Name: LEOLA MAGALLON Rep #: [id number] : 1945 Provider: LEATHA Sanchez Age/Sex: 72/M [place] [facility] [place]: Signed HPI HPI Details: LEOLA MAGALLON, is a 72 M who presents to the office today for a cardiovascular outpatient follow-up. His history of mild coronary artery disease involving the LCx and nondominant RCA. He also has history of hypertension, hyperlipidemia, diverticulosis, hemorrhoids, and rectal bleeding. Patient presented to [facility] emergency department in May 2017 after he noticed bloody bowel movement. He also noticed fatigue and weakness. He was admitted for further evaluation. He was given 1 unit of packed red blood cells. He did not undergo any upper or lower GI scope due to hemoglobin stabilization. He was discharged with follow-up appointment with Dr. Stephenson. His aspirin was held and Plavix was discontinued due to recurrent GI bleeding. Pt. states he will be undergoing further evaluation with a colonoscopy regarding his recent hospitalization on July [address] Stephenson. He denies any bleeding since he has left the hospital. Pt. denies chest, arm, jaw, or neck discomfort. His exercise tolerance is stable. Pt. denies symptoms of CHF, palpitations, lightheadedness, dizziness, near syncope, or syncopal episodes. Pt. denies edema or claudication issues. Pt. denies orthopnea, PND, fever, chills, blood in urine, blood in stool, myalgia, or unexplainable fatigue. Intake Vital Signs07/16/17 Height 5 ft 7 in 07/16/17 Weight: 218 lb 07/16/17 Body Mass Index (BMI) 34.1 07/16/17 Blood Pressure 130/80 07/16/17 Blood Pressure Location Lt brachial Intake Visit Reasons: DC PCU 06-11-17 Machine Setter Required: No Accompanied by: None Is patient in pain?: No Allergies No Known Allergies Allergy (Verified 07/16/17 11:38) Medications Hydrocodone Bitart/Apap 5-325 [Kingsland 5/325] 1 tab PO Q6H PRN PRN #20 tab 12/30/15 [Rx Confirmed 07/16/17] Dorzolamide Hydrochloride/Ti [Cosopt Opth Drops] 1 drp EACH EYE BID 01/14/17 [History Confirmed 07/16/17] Latanoprost 1 drp EACH EYE QHS 01/14/17 [History Confirmed 07/16/17] nitroglycerin 0.4 mg sublingual tablet 0.4 mg SUBLINGUAL Q5- 15M PRN 03/30/17 [History Confirmed 07/16/17] Docusate Sodium [Colace] 100 mg PO BID 06/07/17 [History Confirmed 07/16/17] Pantoprazole Sodium [Protonix] 40 mg PO BID #60 tab 06/11/17 [Rx Confirmed 07/16/17] quinapril 10 mg tablet 10 mg PO DAILY #90 tab 06/14/17 [Rx Confirmed 07/16/17] simvastatin 20 mg tablet 20 mg PO QHS #90 tab 06/14/17 [Rx Confirmed 07/16/17] isosorbide mononitrate 20 mg tablet 20 mg PO BID #180 tab 07/15/17 [Rx Confirmed 07/16/17] metoprolol succinate ER 100 mg tablet,extended release 24 hr 100 mg PO DAILY #90 tab 07/15/17 [Rx Confirmed 07/16/17] Ejection fraction %: 60 to 64 PFSH Medical History Syncope, vasovagal (Chronic) Hyperlipidemia (Chronic) Old myocardial infarct (Chronic) Atherosclerotic heart disease of [place] coronary artery without angina pectoris (Chronic) HTN (hypertension) (Chronic) Surgical History History of appendectomy (Resolved) History of herniorrhaphy (Resolved) H/O colectomy (Resolved) History of intestinal surgery (Resolved) Family History Brother Heart disease Sister No problems noted. Father No problems noted. Mother No problems noted. Social History Smoking Status: Former smoker alcohol intake: never substance use type: does not use what type of physical activity do you participate in: none seatbelt use: always do you feel safe at home: Yes ROS Const Const: Negative for fatigue, weakness, body ache, fever(s) or chills ENT ENT: Negative for dizziness Cardio Chest Pain: No Palpitations: No Edema: None Muscle aches with walking: None Resp Respiratory: Negative for SOB with activity, SOB at rest, SOB orthopnea\SOB lying down or paroxysmal nocturnal dyspnea GI GI: Negative nausea, black,tarry stools, bright, red blood in stools or vomiting blood/hematemesis : Negative for hematuria or frequent nighttime urination/ nocturia Musc Musc: Negative for muscle aches/ myalgia Neuro Neuro: Negative for weakness, dizziness, lightheadedness, near syncope, syncope or orthostatic symptoms Endo Endo: Negative for fatigue Cardiology Exam Const Appearance: cooperative, healthy appearing, comfortable and no acute distress Orientation: alert, awake and oriented x3 Head Head: normal to inspection Mouth: oral mucosae normal Neck Neck: no JVD and normal visual inspection Carotids: normal carotid upstroke Chest Chest inspection: normal inspection of the chest and normal respiratory effort Auscultation: Bilateral: Clear to Auscultation Cardio Rate: regular rate Rhythm: regular rhythm Heart sounds: S2 normal and murmur; negative rub or gallop Murmur: RLSB and Grade 2/6 GI GI: normal to inspection Neuro General: alert, awake, oriented x3 and CN's II-XI intact bilaterally Skin Skin: no rashes or lesions noted Extremities Pulses: Normal: Right Posterior Tibial Pulse, Left Posterior Tibial Pulse, Right Radial Pulse, Left Radial Pulse Lower Extremity Edema: None: Bilateral Psych Psychological: normal affect Supplemental Info Echocardiogram from March 2006 should estimate ejection fraction of 60%, mild concentric LVH. Stress test from August 2005 was negative for stress-induced myocardial ischemia and showed no EKG changes. Assessment AND Plan 1. Coronary artery disease involving [place] coronary artery of [place] heart without angina pectoris I25.10 RAMIRO Blount Stress test from August 2005 was negative for stress-induced myocardial ischemia and showed no EKG changes. Patient denies any chest pain, arm pain, jaw pain, neck pain, shortness of breath, or fatigue suggestive of angina at this time. We will continue to hold Plavix. We will continue to monitor this. We will continue with risk factor modification. 2. Essential hypertension I10 RAMIRO Blount Patient's blood pressure is well-controlled today in the office. We will continue to monitor this. We will not make any medication regimen changes. 3. Pure hypercholesterolemia E78.00; E78.0 RAMIRO Blount Patient states this is being monitored by primary care physician. He will continue current cholesterol-lowering medication. 4. Gastrointestinal hemorrhage, unspecified gastrointestinal hemorrhage type K92.2 RAMIRO Blount Patient will continue to follow-up with Dr. Stephenson for this. He will remain off of his Plavix due to multiple GI bleeds. Once cleared by Dr. Stephenson he may resume aspirin 81 mg p.o. daily. 5. Cardiac murmur R01.1 RAMIRO Blount Echocardiogram from March 2006 showed an estimated ejection fraction of 60% and mild concentric LVH. Xarelto a right systolic border grade 2/6 cardiac murmur was noted. It was recommended that patient undergo a echocardiogram for further evaluation. He declined at this time due to financial constraints. Patient is asymptomatic and we will continue to monitor the history, exam, and if possible echocardiogram. Plan Detail Additional Comments - RAMIRO Wade Discussed the above patient with Dr. Gonzales., he agrees with the plan of care. Thank you for allowing us to participate in the patients plan of care, if you have any questions please do not hesitate to call. This note was generated using a voice recognition system and there may be incorrect words, spelling or punctuation that were not noted when reviewing the office note prior to saving. 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 transplanted heart: [place] heart Essential hypertension I10 Hypertension type: essential hypertension Pure hypercholesterolemia E78.00; E78.0 Hyperlipidemia type: pure hypercholesterolemia Gastrointestinal hemorrhage, unspecified gastrointestinal hemorrhage type K92.2 GI bleed type/associated pathology: unspecified gastrointestinal hemorrhage type Cardiac murmur R01.1 Coding Level of Care Code Off vis,est,level 3 Diagnoses Coronary artery disease involving [place] coronary artery of [place] heart without angina pectoris I25.10 Associated angina: without angina Coronary Disease-Associated Artery/Lesion type: [place] artery [place] vs. transplanted heart: [place] heart Essential hypertension I10 Hypertension type: essential hypertension Pure hypercholesterolemia E78.00; E78.0 Hyperlipidemia type: pure hypercholesterolemia Gastrointestinal hemorrhage, unspecified gastrointestinal hemorrhage type K92.2 GI bleed type/associated pathology: unspecified gastrointestinal hemorrhage type Cardiac murmur R01.1 07/16/17 1631 <Electronically signed by Milton RUBIO> Date Milton RUBIO 07/17/17 1544<Electronically signed by Maverick Gonzales MD> Cosigner Signature: Date (if applicable) Maverick Gonzales MD CC: SURGERY VISIT REPORT Observed: 06/28/2017 Status: F Source: [place] 1:15 PM [facility] REPOSITORY [facility] [address] [place] [address] OFFICE VISIT Date of Service: 06/24/17 MR#: [id number] Acct: [id number] Name: LEOLA MAGALLON Rep #: [id number] : 1945 Provider: Wiley Stephenson MD Age/Sex: 72/M Location: [facility] Status: Signed Intake Vital Signs06/24/17 Height 5 ft 7 in 06/24/17 Weight: 206 lb 06/24/17 Body Mass Index (BMI) 32.2 06/24/17 Respiratory Rate 18 Intake Visit Reasons: GASTRO INTESTINAL HEMORRHAGE Chief Complaint: Lower GI Bleed Machine Setter Required: No Is patient in pain?: No Allergies No Known Allergies Allergy (Verified 06/24/17 08:26) Medications Isosorbide Mononitrate [Monoket] 20 mg PO BID 08/18/14 [History Confirmed 06/24/17] Metoprolol(XL)Succ [Toprol Xl (Beta Jazmín)] 100 mg PO DAILY 08/18/14 [History Confirmed 06/24/17] Hydrocodone Bitart/Apap 5-325 [Kingsland 5/325] 1 tab PO Q6H PRN PRN #20 tab 12/30/15 [Rx Confirmed 06/24/17] Dorzolamide Hydrochloride/Ti [Cosopt Opth Drops] 1 drp EACH EYE BID 01/14/17 [History Confirmed 06/24/17] Latanoprost 1 drp EACH EYE QHS 01/14/17 [History Confirmed 06/24/17] nitroglycerin 0.4 mg sublingual tablet 0.4 mg SUBLINGUAL Q5- 15M PRN 03/30/17 [History Confirmed 06/24/17] Docusate Sodium [Colace] 100 mg PO BID 06/07/17 [History Confirmed 06/24/17] Pantoprazole Sodium [Protonix] 40 mg PO BID #60 tab 06/11/17 [Rx Confirmed 06/24/17] quinapril 10 mg tablet 10 mg PO DAILY #90 tab 06/14/17 [Rx Confirmed 06/24/17] simvastatin 20 mg tablet 20 mg PO QHS #90 tab 06/14/17 [Rx Confirmed 06/24/17] PFSH Medical History Hyperlipidemia (Chronic) Atherosclerotic heart disease of [place] coronary artery without angina pectoris (Chronic) HTN (hypertension) (Chronic) Surgical History History of intestinal surgery (Acute) Family History Brother Heart disease Sister Breast cancer Social History Smoking Status: Former smoker alcohol intake: never substance use type: does not use what type of physical activity do you participate in: none HPI HPI HPI: LEOLA MAGALLON, is a 72 M who presents to the office today for scheduling of colonoscopy. Patient has been on Plavix and had a GI bleed and I did a colonoscopy on him where he was noted to have a large polyp in the rectal area. Since he was on Plavix at the time of that I did not perform a formal polypectomy on him. But I am scheduling him today for a formal colonoscopy with polypectomy. At the time of his last colonoscopy he did have a poor bowel prep. ROS General General: No weight change, appetite, fatigue, colon cancer, breast cancer or weakness HEENT HEENT: No difficulty swallowing, eye injury, eye surgery, swollen glands or hoarseness Endo Endocrine: No thyroid disease, diabetes mellitus, thyroid cancer, Hair loss, heat intolerance or cold intolerance Skin Skin: No rash or changing moles Breast Breast: No left breast lump, right breast lump, nipple discharge, breast pain, abnormal mammogram, abnormal US or breast enlargement Musc Musculoskeletal: No back problems, arthritis, rheumatoid arthritis, gout or joint pain Cardio Cardiovascular: Yes heart disease; no murmur, pacemaker, atrial fibrillation, high blood pressure, heart attack, heart stent, palpitations, shortness of breat with exertion or chest pain Psych Psychiatric: Yes depression; no anxiety or hearing voices Resp Respiratory: No shortness of breath, No sleep apnea, No cough, No COPD, No asthma, No emphysema, No wheezing Gastro Gastrointestinal: Yes abdominal pain, Yes hemorrhoids, No nausea or vomiting, No diarrhea, No constipation, No blood in stool, No acid reflux, No ulcers, No gallbladder problem, No black,tarry stools Raoul Hematologic: No blood thinners, No blood disorders, No bleeding, No anemia, No blood clots Neuro Neurologic: No system reviewed and no additional complaints, except as docu, No as per HPI, No abnormal walking, No abnormal hearing, No abnormal movements, No abnormal speech, No behavioral changes, No burning sensations, No confusion, No seizure-like activity, No unsteadiness, No dizziness, No localized weakness, No frequent falls, No headache(s), No lack of coordination, No loss of vision, No memory loss, No numbness, No other visual disturbances, No radiating pain, No restless legs, No sensory deficit, No fainting, No tingling, No tremor(s), No weakness, No other Exam Const General: well developed, no acute distress, well hydrated Orientation: oriented to person, oriented to place, oriented to time [facility] Head: normocephalic, atraumatic Ears: external ears normal Mouth: moist mucous membranes Eyes Sclera: sclerae normal Pupils: normal by confrontation Neck Neck: no lymphadenopathy noted Neck mass: No Thyroid: symmetrical, thyroid normal Chest Chest palpation AND inspection: normal inspection of the chest Breast Palpation: No nipple discharge Resp Effort AND Inspection: normal respiratory effort Auscultation: clear to auscultation bilaterally Percussion: percussion normal Cardio Rate: regular rate Rhythm: regular rhythm Heart Sounds: no murmurs GI Palpation: soft, no masses, no hepatosplenomegaly, nontender Rectal Exam: other Other: Rectal exam deferred. Extrem General: no clubbing, cyanosis or edema, normal to inspection Assessment AND Plan Problems 1. Adenomatous polyp of colon, unspecified part of colon D12.6 Plan I have discussed the above with the patient. I have offered the patient colonoscopy for evaluation. I have explained the risks/benefits of the procedure and described the procedure. I have discussed the risks with the patient, including but not limited to: infection, bleeding, perforation of the GI tract requiring emergency surgery, inability to complete the procedure, injury to any internal organs, complications of anesthesia, etc. - the patient understands and agrees to proceed. I have answered all the patient's questions to the patient's satisfaction and the patient has no further questions. The patient has been given instructions for the colon cleansing preparation. Coding Level of Care Code Off vis,est,level 2 Diagnoses Adenomatous polyp of colon, unspecified part of colon D12.6 Colon polyp type: adenomatous Colon location: unspecified part of colon 06/28/17 1315 <Electronically signed by Wiley Stephenson MD> Date Wiley Stephenson MD Cosigner Signature: Date (if applicable) CC: INTERNAL MEDICINE Observed: 06/16/2017 Status: F Source: [place] OFFICE VISIT 5:57 PM [facility] [address] [place] [address] OFFICE VISIT Date of Service: 06/15/17 MR#: [id number] Acct: [id number] Name: LEOLA MAGALLON Rep #: [id number] : 1945 Provider: Lucina Hou MD Age/Sex: 72/M Location: [facility] Status: Signed Intake Vital Signs06/15/17 Height 5 ft 7 in 06/15/17 Weight: 214 lb 06/15/17 Body Mass Index (BMI) 33.5 06/15/17 Blood Pressure 118/60 Intake Visit Reasons: EST CARE - NO PCP Chief Complaint: Lower GI Bleed Is patient in pain?: No Allergies No Known Allergies Allergy (Verified 06/07/17 10:04) Medications Isosorbide Mononitrate [Monoket] 20 mg PO BID 08/18/14 [History Confirmed 06/15/17] Metoprolol(XL)Succ [Toprol Xl (Beta Jazmín)] 100 mg PO DAILY 08/18/14 [History Confirmed 06/15/17] Hydrocodone Bitart/Apap 5-325 [Kingsland 5/325] 1 tab PO Q6H PRN PRN #20 tab 12/30/15 [Rx Confirmed 06/07/17] Dorzolamide Hydrochloride/Ti [Cosopt Opth Drops] 1 drp EACH EYE BID 01/14/17 [History Confirmed 06/07/17] Latanoprost 1 drp EACH EYE QHS 01/14/17 [History Confirmed 06/07/17] nitroglycerin 0.4 mg sublingual tablet 0.4 mg SUBLINGUAL Q5- 15M PRN 03/30/17 [History Confirmed 06/07/17] Docusate Sodium [Colace] 100 mg PO BID 06/07/17 [History Confirmed 06/07/17] Pantoprazole Sodium [Protonix] 40 mg PO BID #60 tab 06/11/17 [Rx] quinapril 10 mg tablet 10 mg PO DAILY #90 tab 06/14/17 [Rx] simvastatin 20 mg tablet 20 mg PO QHS #90 tab 06/14/17 [Rx] PFSH Medical History Hyperlipidemia (Chronic) Atherosclerotic heart disease of [place] coronary artery without angina pectoris (Chronic) HTN (hypertension) (Chronic) Surgical History History of intestinal surgery (Acute) Family History Brother Heart disease Sister Breast cancer Social History Smoking Status: Former smoker alcohol intake: never substance use type: does not use what type of physical activity do you participate in: none HPI HPI Chief Complaint: Lower GI Bleed Details: LEOLA MAGALLON, is a 72yo M who presents to the office today to establish care. He has no acute complaints at this time. He was recently hospitalized for an episode of lower GI bleed which resolved spontaneously. he has had no further episodes over the last 4 days. he is scheduled to follow up with Dr Stephenson. He also follows up with the heart group and had his Plavix and aspirin discontinued during his most recent hospital admission due to his recurrent GI bleed. He denies chest pain, leg swelling or shortness of breath. ROS Const Constitutional: No weight change, body ache, chills, fatigue, sleep problems, fever(s), change in appetite, snoring, weakness, frequent falls, headache(s) or excessive sweating Eyes Eyes: No change in vision, eye pain, light sensitivity or blurry vision ENT ENT: No headache(s), abnormal hearing, ear pain, tinnitus, nasal congestion, sore throat or neck pain Resp Respiratory: No snoring, cough, shortness of breath or wheezing Cardio Cardiology: No excessive sweating, chest pain at rest, chest pain with exertion, shortness of breath, dyspnea on exertion, palpitations, orthopnea or lightheadedness Gastro GI: No abdominal pain, change in bowel habits, constipation, diarrhea, vomiting, nausea/dyspepsia or cramping Musc Musculoskeletal: No neck pain, abnormal walking, joint pain, back pain, limited range of motion, numbness or tingling Skin Skin: No redness, dry skin, itching, lesions, wounds or rash Neuro Neurology: No weakness, frequent falls, headache(s), abnormal hearing, abnormal walking, numbness, tingling, abnormal speech, dizziness or memory loss Psych Psychiatric: No change in appetite, No memory loss, No anxiety, No depression, No Thoughts of harming yourself/Others Endo Endocrine: No fatigue, excessive sweating, cold intolerance, increased thirst/drinking, heat intolerance, flushing or increased hunger Aller/Imm Allergy/Immunologic: No wheezing, itchy eyes, hives or seasonal allergy symptoms Raoul/Lymp Hematologic/Lymphatic: No easy bleeding, easy bruising or enlarged lymph nodes Exam Const General: cooperative, no acute distress Orientation: alert, awake, oriented x3 HENMT Head: normal to inspection, normocephalic, atraumatic Ears: hearing grossly normal bilaterally Resp Effort AND Inspection: normal respiratory effort, able to speak in complete sentences Auscultation: Bilateral: Clear to Auscultation Cardio Rate: regular rate Rhythm: regular rhythm Heart Sounds: S1 normal, S2 normal GI Inspection: obesity Palpation: soft, no hepatosplenomegaly Neuro General: alert, awake, oriented x3, moves all extremities, CN's II-XI intact bilaterally Extrem General: no pedal edema Psych Appearance: grossly normal Mood: congruent mood Affect: normal affect Assessment AND Plan 1. Gastrointestinal hemorrhage, unspecified gastrointestinal hemorrhage type K92.2 Plan Lower GI bleed now resolved. No repeat episodes in the past 4 days. Plavix and Aspirin have been discontinued. Scheduled to follow up with Dr. Stephenson. Will follow. 2. Essential hypertension I10 Plan Optimally controlled. Continue current medications. Continue life style modifications. This note was generated with IntelliDOTation software. It may contain incorrect words, spelling, and punctuation that were not noted in checking the note before signing. Coding Level of Care Code Off vis,est,level 3 Diagnoses Gastrointestinal hemorrhage, unspecified gastrointestinal hemorrhage type K92.2 GI bleed type/associated pathology: unspecified gastrointestinal hemorrhage type Essential hypertension I10 06/16/17 1757 <Electronically signed by Lucina Hou MD> Date Lucina Hou MD Cosigner Signature: Date (if applicable) CC: DISCHARGE SUMMARY Observed: 06/11/2017 Status: F Source: [place] 12:55 PM [facility] REPOSITORY [facility] Medical Records Department [address] [place] [address] Discharge Summary 06/11/17 1131 MR#: [id number] Acct: [id number] Name: LEOLA MAGALLON Rep #: [id number] : 1945 72 From: [place] PCP: Care Physician, No Primary Status: ADM IN Location: [place] [address] Discharge Date and Diagnosis Date of Admission: 06/07/17 Date of Discharge: 06/11/17 - Primary Discharge Diagnosis (1) Acute GI Bleed w/ resultant Acute Blood Loss Anemia, Hx Prior GI Bleed, Suspected Diverticular, Internal Hemorrhoid as etiology (2) CAD, Holding ASA, discontinued plavix, given re-GI bleed (3) Hypertension (4) Hyperlipidemia (5) Obesity - Secondary Discharge Diagnosis Chronic Problems (Last Reviewed 04/01/17 @ 09:01 by Maverick Gonzales MD) Internal hemorrhoid (Chronic) CAD (coronary artery disease) (Chronic) Encounter for long-term (current) use of other medications (Chronic) Hyperlipidemia (Chronic) Old myocardial infarct (Chronic) Atherosclerotic heart disease of [place] coronary artery without angina pectoris (Chronic) HTN (hypertension) (Chronic) Hernia of abdominal wall (Chronic) Hospital Course and Treatment Dr. Stephenson/Dr. Harris Surgery Operations: None Procedures: Blood transfusion Summary of Care Provided: The patient is a 72 y/o M w/ PMHx: CAD, HTN, HLD, Obesity, Hx GI bleed prior most recently 01/2017 with c-scope per Dr. Stephenson with noted diverticular disease, polyp as well as internal hemorrhoids on ASA, plavix at that time who presented to the [facility] ED on 06/07/17 w/ history of onset BRPBR with increase fatigue and weakness. Patient w/ BRBPR, admission Hgb 11.1, admitted to PCU, maintained initially on IVFs and NPO status pending evaluation per Surgery but transitioned to eventually clears and low residue diet following decision to defer repeat c-scope given recently performed and trending Hgb; however, upon continued serial trending Hgb 9.8-->8.5-->8.8-->7.9-->7.6-->06/10/17 Hgb 7.0, 1 u PRBC ordered, 06/09/17-06/11/17 no further bleeding noted, continued on PPI, 06/11/17 Hgb stable 9.1 (9.2 06/10/17). Surgery re-evaluation, given presentation and recent c-scope recommendation for deferral of repeat scope given no further bleeding with planned discharge to home with follow- up with arranged new PCP and follow-up outpatient with Dr. Stephenson for consideration of future outpatient scope when felt appropriate. Upon discharge given history, plavix discontinued and aspirin 81 mg daily held until re-assessment per Dr. Stephenson and cleared for restart w/ recommended repeat Hgb with PCP and following ASA restart. Patient discharged to home in stable, improved condition. DAY OF DISCHARGE PROGRESS NOTE: Subjective: Patient without acute event overnight per self and nursing report. Patient with no further BRBPR and stable Hgb following 1 u PRBC administration prior. Patient denies fever, chills, nausea, emesis, abdominal pain, chest pain or dyspnea. Patient agreeable to discharge to home. Patient will be discharged with follow-up with primary care physician within 3-5 days in addition to follow-up with Dr. Stephenson in 2 weeks and also his Cardiology office (Dr. Gonzales) given regimen changes to his plavix with D/C and asa hold. Objective: T 97.7, HR 69, BP 122/66, RR 18, 96% on RA. Physical Examination: General: awake, alert, oriented x 3 and cooperative, seated upright, in no apparent distress. Skin: normal color, turgor, no icterus, cyanosis. HEENT: AT/NC, EOMI, PERRLA, MMM. Lungs: CTA bilaterally, moderate effort, mild decrease BL bases, no rales, ronchi or wheezing. Heart: Regular rate and rhythm; no gallop, rub audible. Abdomen: soft, obese, NTTP, ND, normalized BS. Extremities: no cyanosis, clubbing, or edema. Neurological: patient awake, alert, oriented x 3; cognitive function intact; pupils equally reactive to light and accomodation; cranial nerves II-XII grossly normal, moving all 4 extremities, no focal deficits, strength improved, mildly globally decreased. Psychiatric: affect appears normal, no acute evidence of depressive or anxiety feelings. Assessment and Plan: Please see hospital summary above. Discharge Activity: - - Avoid aggressive or markedly increased activity until re-assessment per your primary care physician. Weight Bearing Status: Weight bearing as tolerated Call your doctor if you observe: Fever of 101 or Higher, Inability to urinate, Inability to have a bowel movement, Shortness of breath, Dizziness, Fainting spells, Chest pain, Uncontrolled pain Home Medications: Medications to take at Discharge Isosorbide Mononitrate [Monoket] 20 mg PO BID 08/18/14 Metoprolol(XL)Succ [Toprol Xl (Beta Jazmín)] 100 mg PO DAILY 08/18/14 Simvastatin [Zocor] 20 mg PO QHS 08/18/14 Hydrocodone Bitart/Apap 5-325 [Kingsland 5/325] 1 tab PO Q6H PRN PRN #20 tab 12/30/15 Dorzolamide Hydrochloride/Ti [Cosopt Opth Drops] 1 drp EACH EYE BID 01/14/17 Latanoprost 1 drp EACH EYE QHS 01/14/17 nitroglycerin 0.4 mg sublingual tablet 0.4 mg SUBLINGUAL Q5- 15M PRN 03/30/17 quinapril 10 mg tablet 10 mg PO DAILY 03/30/17 Docusate Sodium [Colace] 100 mg PO BID 06/07/17 Pantoprazole Sodium [Protonix] 40 mg PO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 needed to have a bowel movement. He sat the toilet and just blood came out. Then he had a small amount of stool with blood. He got up cleaned himself and then had to have another bowel movement that was just blood. He denies any abdominal pain. Denies rectal pain. He notes that last year he was in the hospital and had rectal bleeding. He did not require transfusion. He had a colonoscopy at that time which demonstrated significant amount of diverticulosis as well as internal hemorrhoids. It was noted by Dr. Stephenson that the patient also had a polyp as well as large amount of vasculature in his rectum. It was unable to be determined exactly the source of his bleeding. He is on Plavix for coronary artery disease but denies having any stents or open heart surgery. He follows with Dr. Gonzales. Physical Examination: Afebrile vital signs are stable Gen: Well-nourished well-developed Head: Normocephalic atraumatic Eyes: Perrl EOMI ENT: TMs clear no rhinorrhea moist mucous membranes Neck: Supple no lymphadenopathy no JVD nontender CVS: Regular rate rhythm no murmurs normal S1-S2 Respiratory: No distress clear to auscultation bilaterally chest nontender Abdomen: Soft nontender nondistended normal bowel sounds no masses Back: Nontender Extremity: Nontender no edema Skin: Normal color no rash Neuro: alert orientated 3 CN II-XII intact normal strength sensation reflexes gait cerebellar Psych: Normal affect normal mood Test Results: Hemoglobin level 11.1. He was typed and screened. INR 1.4 with a PTT of 33.7. Emergency Department Course and Treatment: Vital signs have remained stable. He did have a small bowel movement with large amount of blood in it here in the department. As he is on Plavix and is actively bleeding he will be admitted into the hospital. Impression: 1. Lower GI bleed This note was generated with EQ works dictation software. It may contain incorrect words, spelling, and punctuation that were not noted in review of the chart prior to signing ED Disposition - Plan for ED Patient: Disposition: Acute Care [facility] Chief Complaint: GI Bleed What to do if you have Problems For any increased pain, shortness of breath, bleeding, nausea or vomiting, chest pain, or any unexpected problems, contact your Primary Care Provider. Call [facility] ([phone]) or report to the closest Emergency Room. Call 911 if necessary. 06/07/17 1630 <Electronically signed by Wiley Antunez DO> Date Wiley Antunez DO Cosigner Signature (If Indicated): Date CC: No Primary Care Physician , HEMOGLOBIN AND Collected: 06/07/2017 Status: F Source: [place] HEMATOCRIT 4:05 PM [facility] REPOSITORY TYPE CODE TESTS RESULT OUT OF RANGE REFERENCE UNITS LAB L100.1300 13.0-16.5 g/dl Low HGB 10.4 LAB L100.1400 40-54 % Low HCT 32.0 Performed By: #### L100.0600 #### [facility] [address] [facility] [place], [address] TYPE AND SCREEN Collected: 06/07/2017 Status: F Source: [place] 1:20 PM [facility] REPOSITORY Order Comment: Reason for Type AND Screen/Red Cells: HEMORRHAGE, GI BLEED TYPE CODE TESTS RESULT OUT OF RANGE REFERENCE UNITS LAB B10.0800 O Normal BLOOD TYPE GEL POSITIVE LAB B100.4000 Normal Antibody NEGATIVE Screen Performed By: #### B101.7450 #### [facility] [address] [place], [address] RC Collected: 06/07/2017 Status: F Source: [place] 1:20 PM [facility] REPOSITORY TYPE CODE TESTS RESULT OUT OF REFERENCE UNITS RANGE LAB U100.0000 [id number] TRANSFUSED PRODUCT: T AND S with Crossmatch, Red Cells COUNT: 2 Performed By: #### U100.0000 #### [facility] - refer to report for specific site CBC W/DIFF, AUTOMATED Collected: 06/07/2017 Status: F Source: [place] 10:50 AM [facility] REPOSITORY TYPE CODE TESTS RESULT OUT OF RANGE REFERENCE UNITS LAB L100.1000 4.4-11.0 K/mm3 Normal WBC 5.5 LAB L100.1200 4.6-6.2 M/mm3 Low RBC 3.65 LAB L100.1300 13.0-16.5 g/dl Low HGB 11.1 LAB L100.1400 40-54 % Low HCT 34.4 LAB L100.1500 80-94 fL High MCV 94.2 LAB L100.1600 27.0-32.0 pg Normal MCH 30.4 LAB L100.1700 32-36 g/gl Normal MCHC 32.3 LAB L100.1810 11.6-14.6 % High RDW CV 15.8 LAB L100.1820 35.1-43.9 fl High RDW SD 54.6 LAB L100.1900 150-450 K/mm3 Normal PLT 260 LAB L100.2000 6.2-12.0 fl Normal MPV 9.0 LAB L100.2100 47-70 % Normal NEUT% 69.2 LAB L100.2200 19-41 % Normal LY% 19.6 LAB L100.2300 0-10 % Normal MONO% 7.2 LAB L100.2400 0-5 % Normal EO% 2.9 LAB L100.2500 0-1 % Normal BASO% 0.9 LAB L100.2550 0.0-0.9 % Normal IM GRAN % 0.200 Result Comment: IG% - Immature Granulocytes (promyelocytes, myelocytes and metamyelocytes) > 1% indicates that a LEFT SHIFT is Present. LAB L100.2620 2.0-7.7 X10 3/uL Normal Absolute Neut 3.8 LAB L100.2720 0.83-4.51 X10 3/ul Normal Absolute Lymph 1.07 Performed By: #### L100.0100 #### [facility] [address] [place], [place], [id number] PROTHROMBIN TIME W/INR Collected: 06/07/2017 Status: F Source: [place] 10:50 AM [facility] REPOSITORY TYPE CODE TESTS RESULT OUT OF RANGE REFERENCE UNITS LAB L300.4150 11.7-14.9 SECONDS High PROTIME 16.3 LAB L300.4200 Normal INR 1.4 Performed By: #### L300.3900, L300.4310 #### [facility] [address] [place], [address] PARTIAL THROMBOPLAST Collected: 06/07/2017 Status: F Source: [place] TIME 10:50 AM [facility] REPOSITORY TYPE CODE TESTS RESULT OUT OF RANGE REFERENCE UNITS LAB L300.4310 24.1-36.2 Seconds Normal PTT 33.7 Performed By: #### L300.3900, L300.4310 #### [facility] [address] [place], [place], [id number] COMPREHENSIVE METABOLIC Collected: 06/07/2017 Status: F Source: [place] 10:50 AM [facility] REPOSITORY TYPE CODE TESTS RESULT OUT OF RANGE REFERENCE UNITS LAB L501.0100 74-106 mg/dL High GLU 110 Result Comment: Fasting Glucose result from 100 to 125 mg/dL suggests IMPAIRED HOMEOSTASIS per A.D.A. criteria. Please note revised GLUCOSE reference range effective 2017. LAB L501.1000 7-18 mg/dL Normal BUN 16 LAB L501.1100 0.70-1.30 mg/dL Normal CREAT,SERUM 1.01 Result Comment: The validity of the calculated GFR AND GFRAA in patients over 70 years has not been determined. Clinical correlation is essential. LAB L501.1110 >60 mL/min Normal EST GFR 77 Result Comment: Non- GFR Calc LAB L501.1115 >60 mL/min Normal EST GFR - AA 93 Result Comment: GFR Calc LAB L501.1255 ml/min Normal Estimated CRCL 60.90 LAB L501.1300 10-20 RATIO Normal BUN/CRE 15.8 LAB L501.1500 6.4-8. g/dL High 2 T PROT 11.5 LAB L501.1800 3.2-5. g/dL Low 0 ALB 2.8 LAB L501.1950 2.2-4. g/dL High 2 GLOB 8.7 LAB L501.2000 0.9-2. RATIO Low 4 A/G 0.3 LAB L501.2200 8.5-10 mg/dL Low .1 CA 7.7 LAB L501.4100 15-37 U/L Normal AST 15 LAB L501.4305 45-117 U/L Low ALK P 41 LAB L501.4405 16-61 U/L Normal ALT 19 Result Comment: Please note revised ALT reference range effective 2017. LAB L501.4600 0.20-1.00 mg/dL Normal T BILI 0.60 LAB L501.5300 136-145 mmol/L Normal NA 136 LAB L501.5600 3.5-5.1 mmol/L Normal K 3.8 LAB L501.5900 98-107 mmol/L Normal CL 106 LAB L501.6100 21.0-32.0 mmol/L Normal CO2 25.0 LAB L501.6200 5-15 Normal GAP 5 Performed By: #### L500.4050 #### [facility] [address] [place], [address] EMERGENCY DEPARTMENT Observed: 04/21/2017 Status: F Source: [place] SUMMARY 6:56 PM [facility] REPOSITORY [facility] Medical Records Department [address] [place] [address] Emergency Department Summary 04/21/17 1853 MR#: [id number] Acct: [id number] Name: LEOLA MAGALLON Rep #: [id number] : 1945 71 From: Roland Quevedo DO PCP: Care Physician, No Primary Status: PRE ER - ER Visit Summary Date of Service: 04/21/17 Chief Complaint: [Nosebleed] History of Present Illness: The patient is a 71 M [resents the emergency department chief complaint of a nosebleed that he has had off and on for last 2-3 weeks. Patient states that he blows his nose frequently and that it will start bleeding but typically it stops very quickly. Patient states that today he coughed and had a small amount of blood-tinged sputum that he noticed and became concerned. Patient is on Plavix. Patient states that he had the flu recently but is feeling much better now.] Physical Examination: [HEENT-PERRLA, EOMI. Cranial nerves II through XII grossly intact. TMs clear. Mucous membranes moist. No adenopathy. Left nasal vault-there is some dried blood noted to the anterior septum without any active bleeding. There is no blood down the oropharynx. Cardiovascular-regular rate and rhythm without murmur or ectopy Lungs-clear to auscultation, chest wall stable without crepitus or subcu emphysema Abdomen-normoactive bowel sounds, soft, nontender, no rebound or rigidity, no peritoneal signs. Extremities-intact 4, normal range of motion, normal pulses, atraumatic] Test Results: [None indicated] Emergency Department Course and Treatment: [None indicated] Treatment Plan: At this point I advised the patient stop blowing his nose and to stop picking at the scab that forms after the nosebleeds which she has a tendency to do. Patient states that he did not know he was not supposed to pick at it. Patient did not know that he was supposed to hold constant pressure to get the nose to stop bleeding. Patient will be referred to ENT for follow-up in 5-7 days.] Disposition: [Discharged to home in stable condition] Impression: [Anterior epistaxis-resolved] This note was generated with EQ works dictation software. It may contain incorrect words, spelling, and punctuation that were not noted in review of the chart prior to signing ED Disposition - Plan for ED Patient: Chief Complaint: Nosebleed Referrals: Care Physician,No Primary [Primary Care Provider] - What to do if you have Problems For any increased pain, shortness of breath, bleeding, nausea or vomiting, chest pain, or any unexpected problems, contact your Primary Care Provider. Call [facility] ([phone]) or report to the closest Emergency Room. Call 911 if necessary. 04/21/171855 <Electronically signed by Roland Quevedo DO> Date Roland Quevedo DO Cosigner Signature (If Indicated): Date CC: No Primary Care Physician DISCHARGE INSTRUCTION Observed: 04/21/2017 Status: F Source: [place] 6:56 PM [facility] REPOSITORY [facility] Medical Records Department [address] [place] [address] Discharge Instruction 04/21/171855 MR#: [id number] Acct: [id number] Name: LEOLA MAGALLON Rep #: [id number] : 1945 71 From: Roland Quevedo DO PCP: Care Physician, No Primary Status: PRE ER ED Disposition - Plan for ED Patient: Chief Complaint: Nosebleed Instructions: Nosebleed Referrals: Care Physician,No Primary [Primary Care Provider] - Shyam Marc MD [STAFF PHYSICIAN] - 3-5 Days What to do if you have Problems For any increased pain, shortness of breath, bleeding, nausea or vomiting, chest pain, or any unexpected problems, contact your Primary Care Provider. Call [facility] ([phone]) or report to the closest Emergency Room. Call 911 if necessary. 04/21/17 5436 <Electronically signed by Roland Quevedo DO> Date Roland Quevedo DO Cosigner Signature (If Indicated): Date CC: No Primary Care Physician CARDIOLOGY VISIT Observed: 04/01/2017 Status: F Source: [place] REPORT 9:07 AM [facility] REPOSITORY [facility] [address] [place] [address]. [address] [place] [address] OFFICE VISIT Date of Service: 04/01/17 MR#: [id number] Acct: [id number] Name: LEOLA MAGALLON Rep #: [id number] : 1945 Provider: Maverick Gonzales MD Age/Sex: 71/M [place] [facility]: Signed HPI 6 M FU: Chief Complaint: Post hospitalization visit is Details: LEOLA MAGALLON, is a 71 M who presents to the office today for a follow-up visit. He was recently in the hospital with a lower GI bleed and underwent a colonoscopy. He tells me that he has remained on the Plavix. It was not discontinued. He does have mild coronary artery disease involving the circumflex artery nondominant right coronary artery. He denies any chest pain or shortness breath or paroxysmal nocturnal dyspnea or pedal edema he has not had any neck, jaw discomfort suggest angina no dizziness or diaphoresis. He does not have any continued blood per rectum. His physical exam demonstrates clear lung fuller regular rate and rhythm and no pedal edema. Intake Vital Signs04/01/17 Height 5 ft 7 in 04/01/17 Weight: 212 lb 04/01/17 Body Mass Index (BMI) 33.2 04/01/17 Blood Pressure 110/60 Intake Visit Reasons: 6 M FU Allergies No Known Allergies Allergy (Verified 04/10/16 11:07) Medications Aspirin [Aspirin, Baby] 81 mg PO DAILY@0800 08/18/14 [History Confirmed 03/30/17] Clopidogrel Bisulfate [Plavix] 75 mg PO DAILY 08/18/14 [History Confirmed 03/30/17] Isosorbide Mononitrate [Monoket] 20 mg PO BID 08/18/14 [History Confirmed 03/30/17] Metoprolol(XL)Succ [Toprol Xl (Beta Jazmín)] 100 mg PO DAILY 08/18/14 [History Confirmed 03/30/17] Simvastatin [Zocor] 20 mg PO QHS 08/18/14 [History Confirmed 03/30/17] Hydrocodone Bitart/Apap 5-325 [Kingsland 5/325] 1 tab PO Q6H PRN PRN #20 tab 12/30/15 [Rx Confirmed 03/30/17] Dorzolamide Hydrochloride/Ti [Cosopt Opth Drops] 1 drp EACH EYE BID 01/14/17 [History Confirmed 03/30/17] Latanoprost 1 drp EACH EYE DAILY 01/14/17 [History Confirmed 03/30/17] Dorzolamide/Timolol/Pf [Cosopt Pf Eye Drops] 1 ea OP BID 01/16/17 [History Confirmed 03/30/17] Docusate Sodium [Colace] 100 mg PO BID #60 cap 01/17/17 [Rx Confirmed 03/30/17] nitroglycerin 0.4 mg sublingual tablet 0.4 mg SUBLINGUAL Q5- 15M PRN 03/30/17 [History Confirmed 03/30/17] quinapril 10 mg tablet 10 mg PO QDAY 03/30/17 [History Confirmed 03/30/17] Ejection fraction %: 60 to 64 PFSH Medical History Encounter for long-term (current) use of other medications (Chronic) Hyperlipidemia (Chronic) 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 Social History Smoking Status: Former smoker ROS Const Const: Negative for body ache, fever(s), chills, night sweats, daytime sleepiness, difficulty sleeping, weight gain, weight loss, increased appetite, poor appetite, anorexia or other ENT ENT: Negative for balance problems Cardio Chest Pain: No Palpitations: Negative for Yes or No Edema: None Muscle aches with walking: None Resp Respiratory: Negative for SOB with activity, SOB at rest, SOB orthopnea\SOB lying down, Coughing up blood/hemoptysis, chest congestion, pain on inspiration, snoring, stridor, wheezing, crackles, paroxysmal nocturnal dyspnea or other Musc Musc: Negative for muscle aches/ myalgia, muscle weakness, joint pain or balance problems Endo Endo: Positive for other (Needs to have hemorrhoidectomy, hold Plavix: pre-op visit.) Cardiology Exam Const Appearance: cooperative, healthy appearing, well developed, well groomed and no acute distress Nutritional Appearance: well nourished and average body habitus Orientation: alert, awake and oriented x3 Head Head: normal to inspection, normocephalic and atraumatic Ears: hearing grossly normal bilaterally and external ears normal Nose: external nose normal, nasal mucous membranes and turbinates normal, nares normal, septum normal, no nasal discharge Face and Sinus: face symmetric Mouth: oral mucosae normal, tongue normal, oropharynx normal and moist mucous membranes Teeth and gingiva: dentition normal Throat: posterior oropharynx normal, tonsils normal and uvula midline Eyes General: appearance normal, both eyes and all related structures Eyelids: eyelids normal Conjunctivae: conjunctivae normal Pupils: PERRL, normal by confrontation and accommodation normal EOM: EOM intact bilaterally Neck Neck: normal visual inspection, trachea midline and no JVD JVD: +5 Carotids: normal carotid upstroke and bounding pulses Chest Chest inspection: normal inspection of the chest, symmetric chest movement and normal respiratory effort Auscultation: Bilateral: Clear to Auscultation Cardio Palpation: normal PMI Rate: regular rate Rhythm: regular rhythm Heart sounds: S1 normal, S2 normal and normal, physiologic split S2; negative rub, gallop or murmur GI GI: normal to inspection, soft, no hepatosplenomegaly and bowel sounds present Neuro General: alert, awake, oriented x3, no focal sensory deficit, gait normal and moves all extremities Skin Skin: no rashes or lesions noted Extremities Pulses: Normal: Right Femoral Pulse, Left Femoral Pulse, Right Dorsalis Pedis Pulse, Left Dorsalis Pedis Pulse, Right Posterior Tibial Pulse, Left Posterior Tibial Pulse, Right Radial Pulse, Left Radial Pulse Lower Extremity Edema: None: Bilateral Musculoskel Musculoskeletal: No joint tenderness Psych Psychological: normal affect Assessment AND Plan 1. Atherosclerosis of t[place] coronary artery of t[place] heart without angina pectoris I25.10; I25.10; I25.10 Plan He appears to be stable he has not had any evidence of angina so my plan will be for him to continue the current medical therapy. If for whatever reason his GI bleed starts again I think that his Plavix can be discontinued. 2. Essential hypertension I10; I10; I10 Plan His blood pressure remains under excellent control at this particular time and I would not suggest that we make any changes. He remains on the metoprolol as well as the quinapril for this. 3. Pure hypercholesterolemia E78.00; E78.00; E78.00; E78.0 Plan His most recent lipid profile is excellent on his low intensity statin his total cholesterol was noted to be 60 his LDL was 9 and his HDL of 33. Thank you for allowing me to participate in the care of your patient. Please don't hesitate to call if any issues arise Plan Detail Follow Up 6 (r) 04/01/17 0907 <Electronically signed by Maverick Gonzales MD> Date Maverick Gonzales MD Cosigner Signature: Date (if applicable) CC: No Primary Care Physician ALLERGIES ALLERGIES DATE TYPE / CODE NAME / CODE REACTION SEVERITY SOURCE 03/08/2018 Drug No Known Unknown [facility] Allergy/4160 Allergies/F00 [facility] 10624(SNOMED [id number](RXNOR Repository CT) M) ENCOUNTERS ENCOUNTERS ADMIT/DISCHARGE ACCOUNT ADMITTING ENCOUNTER LOCATION SOURCE NUMBER CLASS 03/08/2018 [id number] Ambulatory [place] 1 [facility] ing:LAB Repository 03/08/2018/ [id number] Ambulatory BMSBuilding:B [place] 8 0 [facility] Repository 09/30/2017 [id number] Ambulatory BMSBuilding:B [place] 6 [facility] Repository 08/17/2017 [id number] Ambulatory BMSBuilding:B [place] 5 [facility] Repository 07/27/2017/ [id number] Ambulatory BMSBuilding:B [place] 8 3 [facility] Repository 07/19/2017/ [id number] Ambulatory [place] 8 9 [facility] ing:EN Repository 07/19/2017 [id number] Ambulatory BMSBuilding:B [place] 0 [place].[facility] Repository 07/16/2017/ [id number] Ambulatory BMSBuilding:B [place] 8 7 [facility] Repository 07/15/2017 [id number] Ambulatory BMSBuilding:B [place] 3 [facility] Repository 06/24/2017/ [id number] Ambulatory BMSBuilding:B [place] 8 0 [facility] Repository 06/15/2017/ [id number] Ambulatory BMSBuilding:B [place] 8 9 [facility] Repository 06/07/2017/ [id number] [facility], Inpatient [place] 8 4 [facility] ing:PCURoom: Repository [id number]: 1 06/07/2017 [id number] [place], Ambulatory BMSBuilding:B [place] 6 [place].[facility] Repository 06/07/2017 [id number] [place], Ambulatory BMSBuilding:W [place] 8 [facility] Repository 06/07/2017 [id number] [place], Ambulatory BMSBuilding:W [place] 5 [facility] Repository 06/07/2017 [id number] [place], Ambulatory BMSBuilding:B [place] 4 [place].[facility] Repository 06/07/2017 [id number] [facility], Ambulatory BMSBuilding:W [place] 9 [facility] Repository 06/07/2017 [id number] [facility], Ambulatory BMSBuilding:B [place] 7 [place].[facility] Repository 06/07/2017 [id number] [facility], Ambulatory BMSBuilding:W [place] 8 [facility] Repository 06/07/2017 [id number] [facility], Ambulatory BMSBuilding:B [place] 3 [place].[facility] Repository 06/07/2017 [id number] [facility], Ambulatory BMSBuilding:B [place] 6 [place].[facility] Repository 04/21/2017/ [id number] Emergency [place] 8 8 [facility] ing:ED Repository 04/01/2017/ [id number] Ambulatory BMSBuilding:B [place] 7 7 [facility] Repository PAYERS PAYERS ENCOUNTER GUARANTOR PAYER SUBSCRIBER SOURCE 03/08/2018 LEOLA E Primary LEOLA E [place] [id number] SUZETTE Insurance:MEDICARE HOLTDOB: [facility] [address] [facility] [id number] [place] Number: Repository [address]Utn: NONE [id number] (HP) Date:2018-03-08 03/08/2018 Secondary LEOLA E [place] Insurance:MEDICAIDPol HOLTDOB: [facility] icy Number: [id number] [facility] [id number] Repository Date:2018-03-08 03/08/2018 Tertiary NOT GIVENUNK [place] Insurance:SELF PAY [facility] Number: Effective Repository Date:2018-03-08 03/08/2018 LEOLA E Primary LEOLA E [place] [id number] [place]ZETTE Insurance:MEDICARE HOLTDOB: [facility] [address] [facility] [id number] Number: Repository [address]Ybf: NONE [id number] (HP) Date:2017-07-16 03/08/2018 Secondary LEOLA E [place] Insurance:MEDICAIDPol HOLTDOB: [facility] icy Number: [id number] [facility] [id number] Repository Date:2017-07-16 03/08/2018 Tertiary NOT GIVENUNK [place] Insurance:SELF PAY [facility] Number: Effective Repository Date:2018-03-08 09/30/2017 LEOLA E Primary LEOLA E [place] [id number] SUZETTE Insurance:MEDICARE HOLTDOB: [address] [facility] [id number], [place] Number: Repository [address]Chm: NONE [id number] (HP) Date:2017-04-01 09/30/2017 Secondary LEOLA E [place] Insurance:MEDICAIDPol HOLTDOB: [facility] icy Number: [id number] [facility] [id number] Repository Date:2017-04-01 09/30/2017 Tertiary NOT GIVENUNK [place] Insurance:SELF PAY [facility] Number: Effective Repository Date:2017-04-01 08/17/2017 LEOLA E Primary LEOLA E [place] [id number] SUZETTE Insurance:MEDICARE HOLTDOB: [address] [facility] [id number], [place] Number: Repository [address]Ull: NONE [id number] (HP) Date:2017-06-15 08/17/2017 Secondary LEOLA E [place] Insurance:MEDICAIDPol HOLTDOB: Community icy Number: [id number] [facility] [id number] Repository Date:2017-06-15 08/17/2017 Tertiary NOT GIVENUNK [place] Insurance:SELF PAY [facility] Number: Effective Repository Date:2017-06-15 07/27/2017 LEOLA E Primary LEOLA E [place] [id number] [place]ZETTE Insurance:MEDICARE HOLTDOB: [address] [facility] [id number], [place] Number: Repository [address]Art: NONE [id number] (HP) Date:2017-07-20 07/27/2017 Secondary LEOLA E [place] Insurance:MEDICAIDPol HOLTDOB: Community icy Number: [id number] [id number] Repository Date:2017-07-20 07/27/2017 Tertiary NOT GIVENUNK [place] Insurance:SELF PAY [facility] Number: Effective Repository Date:2017-07-27 07/19/2017 LEOLA E Primary LEOLA E [place] [id number] SUZETTE Insurance:MEDICARE HOLTDOB: [address] [facility] [id number] Number: Repository [address]Wdo: NONE [id number] (HP) Date:2017-06-24 07/19/2017 Secondary LEOLA E [place] Insurance:MEDICAIDPol HOLTDOB: Community icy Number: [id number] [facility] [id number] Repository Date:2017-06-24 07/19/2017 Tertiary NOT GIVENUNK [place] Insurance:SELF PAY [facility] Number: Effective Repository Date:2017-06-24 07/19/2017 LEOLA E Primary LEOLA E [place] [id number] SUZETTE Insurance:MEDICARE HOLTDOB: [address] [facility] [id number] Number: Repository [address]Asc: NONE [id number] (HP) Date:2017-06-24 07/19/2017 Secondary LEOLA E [place] Insurance:MEDICAIDPol HOLTDOB: Community icy Number: [id number] [facility] [id number] Repository Date:2017-06-24 07/19/2017 Tertiary NOT GIVENUNK [place] Insurance:SELF PAY [facility] Number: Effective Repository Date:2017-07-19 07/16/2017 LEOLA E Primary LEOLA E [place] [id number] SUZETTE Insurance:MEDICARE HOLTDOB: [address] [facility] [id number] Number: Repository [address]Zaq: NONE [id number] (HP) Date:2017-06-11 07/16/2017 Secondary LEOLA E [place] Insurance:MEDICAIDPol HOLTDOB: Community icy Number: [id number] Hospital [id number] Repository Date:2017-06-11 07/16/2017 Tertiary NOT GIVENUNK [place] Insurance:SELF PAY [facility] Number: Effective Repository Date:2017-07-16 07/15/2017 LEOLA E Primary LEOLA E [place] [id number] [place]TE Insurance:MEDICARE HOLTDOB: [address] [facility] [id number] Number: Repository [address]Nbn: NONE [id number] (HP) Date:2017-07-15 07/15/2017 Secondary LEOLA E [place] Insurance:MEDICAIDPol HOLTDOB: Community icy Number: [id number] [facility] [id number] Repository Date:2017-07-15 07/15/2017 Tertiary NOT GIVENUNK [place] Insurance:SELF PAY [facility] Number: Effective Repository Date:2017-07-15 06/24/2017 LEOLA E Primary LEOLA E [place] [id number] [place]TE Insurance:MEDICARE HOLTDOB: [address] [facility] [id number] Number: Repository [address]Ewg: NONE [id number] (HP) Date:2017-06-11 06/24/2017 Secondary LEOLA E [place] Insurance:MEDICAIDPol HOLTDOB: Community icy Number: [id number] [facility] [id number] Repository Date:2017-06-11 06/24/2017 Tertiary NOT GIVENUNK [place] Insurance:SELF PAY [facility] Number: Effective Repository Date:2017-06-11 06/15/2017 LEOLA E Primary LEOLA E [place] [id number] [place]TE Insurance:MEDICARE HOLTDOB: [address] [facility] [id number] Number: Repository [address]Ulw: NONE [id number] (HP) Date:2017-06-08 06/15/2017 Secondary LEOLA E [place] Insurance:MEDICAIDPol HOLTDOB: Community icy Number: [id number] Hospital [id number] Repository Date:2017-06-08 06/15/2017 Tertiary NOT GIVENUNK [place] Insurance:SELF PAY Community [facility] Number: Effective Repository Date:2017-06-08 06/07/2017 LEOLA E Primary LEOLA E [place] [id number] [place]ZETTE Insurance:MEDICARE HOLTDOB: [address] [facility] [id number] Number: Repository [address]Ffy: NONE [id number] (HP) Date:2017-06-07 06/07/2017 Secondary LEOLA E [place] Insurance:MEDICAIDPol HOLTDOB: Community icy Number: [id number] [facility] [id number] Repository Date:2017-06-07 06/07/2017 Tertiary NOT GIVENUNK [place] Insurance:SELF PAY [facility] Number: Effective Repository Date:2017-06-07 06/07/2017 LEOLA E Primary LEOLA E [place] [id number] [place] Insurance:MEDICARE HOLTDOB: [address] [facility] [id number] Number: Repository [address]Dxi: NONE [id number] (HP) Date:2017-06-07 06/07/2017 Secondary LEOLA E [place] Insurance:MEDICAIDPol HOLTDOB: Community icy Number: [id number] Hospital [id number] Repository Date:2017-06-07 06/07/2017 Tertiary NOT GIVENUNK [place] Insurance:SELF PAY [facility] Number: Effective Repository Date:2017-06-07 06/07/2017 LEOLA E Primary LEOLA E [place] [id number] [place]ZETTE Insurance:MEDICARE HOLTDOB: [address] [facility] [id number] Number: Repository [address]Aqq: NONE [id number] (HP) Date:2017-06-07 06/07/2017 Secondary LEOLA E [place] Insurance:MEDICAIDPol HOLTDOB: Community icy Number: [id number] Hospital [id number] Repository Date:2017-06-07 06/07/2017 Tertiary NOT GIVENUNK [place] Insurance:SELF PAY [facility] Number: Effective Repository Date:2017-06-07 06/07/2017 LEOLA E Primary LEOLA E [place] [id number] [place] Insurance:MEDICARE HOLTDOB: [address] [facility] [id number] Number: Repository [address]Lts: NONE [id number] (HP) Date:2017-06-07 06/07/2017 Secondary LEOLA E [place] Insurance:MEDICAIDPol HOLTDOB: Community icy Number: [id number] [facility] [id number] Repository Date:2017-06-07 06/07/2017 Tertiary NOT GIVENUNK [place] Insurance:SELF PAY [facility] Number: Effective Repository Date:2017-06-07 06/07/2017 LEOLA E Primary LEOLA E [place] [id number] [place]ZETTE Insurance:MEDICARE HOLTDOB: [address] [facility] [id number] Number: Repository [address]Tad: NONE [id number] (HP) Date:2017-06-07 06/07/2017 Secondary LEOLA E [place] Insurance:MEDICAIDPol HOLTDOB: Community icy Number: [id number] Hospital [id number] Repository Date:2017-06-07 06/07/2017 Tertiary NOT GIVENUNK [place] Insurance:SELF PAY [facility] Number: Effective Repository Date:2017-06-07 06/07/2017 LEOLA E Primary LEOLA E [place] [id number] [place] Insurance:MEDICARE HOLTDOB: [address] [facility] [id number] Number: Repository [address]Iwq: NONE [id number] (HP) Date:2017-06-07 06/07/2017 Secondary LEOLA E [place] Insurance:MEDICAIDPol HOLTDOB: Community icy Number: [id number] [facility] [id number] Repository Date:2017-06-07 06/07/2017 Tertiary NOT GIVENUNK [place] Insurance:SELF PAY [facility] Number: Effective Repository Date:2017-06-07 06/07/2017 LEOLA E Primary LEOLA E [place] [id number] [place] Insurance:MEDICARE HOLTDOB: [address] [facility] [id number] Number: Repository [address]Nad: NONE [id number] (HP) Date:2017-06-07 06/07/2017 Secondary LEOLA E [place] Insurance:MEDICAIDPol HOLTDOB: Community icy Number: [id number] [facility] [id number] Repository Date:2017-06-07 06/07/2017 Tertiary NOT GIVENUNK [place] Insurance:SELF PAY [facility] Number: Effective Repository Date:2017-06-07 06/07/2017 LEOLA E Primary LEOLA E [place] [id number] [place] Insurance:MEDICARE HOLTDOB: [address] [facility] [id number] Number: Repository [address]Aez: NONE [id number] (HP) Date:2017-06-07 06/07/2017 Secondary LEOLA E [place] Insurance:MEDICAIDPol HOLTDOB: Community icy Number: [id number] [facility] [id number] Repository Date:2017-06-07 06/07/2017 Tertiary NOT GIVENUNK [place] Insurance:SELF PAY [facility] Number: Effective Repository Date:2017-06-07 06/07/2017 LEOLA E Primary LEOLA E [place] [id number] [place] Insurance:MEDICARE HOLTDOB: [address] [facility] [id number] Number: Repository [address]Euq: NONE [id number] (HP) Date:2017-06-07 06/07/2017 Secondary LEOLA E [place] Insurance:MEDICAIDPol HOLTDOB: Community icy Number: [id number] [facility] [id number] Repository Date:2017-06-07 06/07/2017 Tertiary NOT GIVENUNK [place] Insurance:SELF PAY [facility] Number: Effective Repository Date:2017-06-07 06/07/2017 LEOLA E Primary LEOLA E [place] [id number] [place] Insurance:MEDICARE HOLTDOB: [address] [facility] [id number] Number: Repository [address]Muy: NONE [id number] (HP) Date:2017-06-07 06/07/2017 Secondary LEOLA E [place] Insurance:MEDICAIDPol HOLTDOB: Community icy Number: [id number] Hospital [id number] Repository Date:2017-06-07 06/07/2017 Tertiary NOT GIVENUNK [place] Insurance:SELF PAY [facility] Number: Effective Repository Date:2017-06-07 04/21/2017 LEOLA E Primary LEOLA E [place] [id number] [place] Insurance:MEDICARE HOLTDOB: [address] [facility] [id number] Number: Repository [address]Veo: NONE [id number] (HP) Date:2017-04-21 04/21/2017 Secondary LEOLA E [place] Insurance:MEDICAIDPol HOLTDOB: Community icy Number: [id number] [facility] [id number] Repository Date:2017-04-21 04/21/2017 Tertiary NOT GIVENUNK [place] Insurance:SELF PAY [facility] Number: Effective Repository Date:2017-04-21 04/01/2017 LEOLA E Primary LEOLA E [place] [id number] [place] Insurance:MEDICARE HOLTDOB: [address] [facility] [id number] Number: Repository [address]Cwp: (000) [id number] (HP) Date:2017-03-13 04/01/2017 Secondary LEOLA E [place] Insurance:MEDICAIDPol HOLTDOB: Community icy Number: [id number] [facility] [id number] Repository Date:2017-03-13 04/01/2017 Tertiary NOT GIVENUNK [place] Insurance:SELF PAY [facility] Number: Effective Repository Date:2017-03-13
== END ==
PROVIDERS: Referring Provider Internal Medicine Cardiovascular Disease; Visit Provider Internal Medicine Cardiovascular Disease
DX: E78.00 Pure hypercholesterolemia, unspecified (principal)
CPT/HCPCS: 36415; 80061; 80076

== ENCOUNTER 2018-04-22 17:10 | Emergency (ER) | payer MEDICARE, MEDICAID, SELFPAY ==
[2018-03-08 08:47] VITALS: BMI 34.7
[2018-04-22 17:11] VITALS: BP 137/84; PULSE 90; RESP 18; TEMP 37; O2SAT 95; BMI 35.1
--- NOTE | 2018-04-22 17:39 | ED.DCSUM_ITS ---
- ER Visit Summary Date of Service: 04/22/18 Chief Complaint: Back pain] History of Present Illness: The patient is a 72 M [presents to the emergency department with back pain that started earlier this morning. Patient states that when he woke up he felt fine. Patient went outside and cleaned the ice off of his car and then [place] the [place] area [place]. Patient sat back down in his recliner and then developed sudden onset of pain in his mid back. Pain is worse with standing from a seated position and movement. Patient denies any pain rating down his legs. He denies any change in bowel or bladder function. He denies urinary symptoms. He denies any fever. Patient believes that the cold air may have triggered his pain.] Physical Examination: [HEENT-PERRLA, EOMI. Cranial nerves II through XII grossly intact. TMs clear. Mucous membranes moist. No adenopathy. Cardiovascular-regular rate and rhythm without murmur or ectopy Lungs-clear to auscultation, chest wall stable without crepitus or subcu emphysema Abdomen-normoactive bowel sounds, soft, nontender, no rebound or rigidity, no peritoneal signs. Back exam-patient has tenderness over the lower thoracic and upper lumbar paraspinal musculature bilaterally. No real tenderness in the midline of the thoracic or lumbar spine. Patient has negative straight leg raises bilaterally. Deep tendon reflexes are plus 2 out of 4 bilaterally at the patella and Achilles. Extremities-intact ?4, normal range of motion, normal pulses, atraumatic] Test Results: [Patient refused all testing. Patient states that he does not believe that his back is broken and does not want any type of imaging. Patient understands that sometimes urinary tract infections or kidney stones can cause sudden onset of pain. He does not believe that he has any of these diagnoses any states that he does not want to spend the money to have these investigated.] Emergency Department Course and Treatment: [] Treatment Plan: [Patient will be given a prescription for Argillite for pain.] Disposition: [Discharged home in stable condition] Impression: [Back pain-atraumatic] This note was generated with [employer] dictation software. It may contain incorrect words, spelling, and punctuation that were not noted in review of the chart prior to signing ED Disposition - Plan for ED Patient: Chief Complaint: Back Referrals: Care Physician,No Primary [Primary Care Provider] -
[2018-04-22 17:40] VITALS: BP 136/86; PULSE 87; RESP 16; O2SAT 100
--- NOTE | 2018-04-22 17:41 | DCINST.ED_ITS ---
ED Disposition - Plan for ED Patient: Chief Complaint: Back Instructions: ED Spasm Back No Trauma Prescriptions: Hydrocodone Bitart/Apap 5-325 [[place] 5MG-325MG] 1 tab PO Q4H PRN PRN 2 Days #10 tab PRN Reason: Pain Referrals: Care Physician,No Primary [Primary Care Provider] - Amy Sanders MD [STAFF PHYSICIAN] - 5-7 Days
--- NOTE | 2018-04-22 17:44 | ED.DEP ---
ED Disposition - Plan for ED Patient: Chief Complaint: Back Instructions: ED Spasm Back No Trauma Prescriptions: Hydrocodone Bitart/Apap 5-325 [[place] 5MG-325MG] 1 tab PO Q4H PRN PRN 2 Days #10 tab PRN Reason: Pain Referrals: Amy Sanders MD [STAFF PHYSICIAN] - 5-7 Days Care Physician,No Primary [Primary Care Provider] -
== END 2018-04-22 18:01 | disposition home or self-care (01) ==
LOC: ED 17:52
PROVIDERS: Emergency Provider Emergency Medicine
DX: M54.5 Low back pain (principal); M54.6 Pain in thoracic spine; Z72.0 Tobacco use
CPT/HCPCS: 99282

== ENCOUNTER 2018-04-29 07:16 | Emergency (ER) | payer MEDICARE, MEDICAID, SELFPAY ==
[2018-04-29 07:17] VITALS: BP 144/78; PULSE 100; RESP 14; TEMP 36.4; O2SAT 97; BMI 34.9
--- NOTE | 2018-04-29 07:51 | ED.DCSUM_ITS ---
- ER Visit Summary Date of Service: 04/29/18 Chief Complaint: Back pain History of Present Illness: The patient is a 72 M who complains of low back pain for several days. He believes it is caused from sleeping in a recliner. He has slept in a recliner for many years because he has vertigo, and his vertigo gets worse if he sleeps in his bed. He also has trouble getting out of his bed in the morning. His recliner is breaking down and it is causing his back to hurt. He has pain when he lays in his recliner and pain after he wakes up. He is not sleeping much. He has trouble rolling and getting comfortable in a recliner. He was seen in the emergency department and treated with pain medication. He followed up at a clinic across the road and was prescribed a Medrol Dosepak. Medications are not helping. Denies any weakness or numbness. Denies any bowel or bladder changes. Denies abdominal or GI symptoms. Denies fevers. Denies any trauma. Physical Examination: Afebrile and vital signs are unremarkable. Patient is alert and oriented. No acute distress. He is able to get up from his chair and ambulate without assistance. He has good strength and sensation. Neurovascularly intact in his legs. Back is diffusely tender. Skin appears unremarkable. Abdomen soft. Test Results: None performed Emergency Department Course and Treatment: It sounds like the patient's pain is a mechanical issue from sleeping in a recliner. I considered other causes of pain such as GI, vascular, , neurologic, and infectious causes. His history, vitals, exam are all reassuring. There is no indication for diagnostic testing. I spoke with the patient about possible solutions. He does not want a referral to ENT for his vertigo. When I asked him if he had plans to replace his recliner, he said he could not afford that. I asked him if he had plans to go to an assisted living or nursing facility for some extra help, and he said that's for old folks. I will prescribe the patient a short course of pain medication. I advised him that this will not fix his problem, and it sounds like this is a mechanical issue related to sleeping in the recliner. He has had 3 visits for this now, and he will be referred to social work for any further resources. He could return for any new or different issues which might reflect a new or different pathology. Treatment Plan: As above Disposition: Discharge Impression: 1. Lumbar back pain This note was generated with [employer] dictation software. It may contain incorrect words, spelling, and punctuation that were not noted in review of the chart prior to signing ED Disposition - Plan for ED Patient: Chief Complaint: General Illness Referrals: Care Physician,No Primary [Primary Care Provider] -
--- NOTE | 2018-04-29 07:51 | ED.DEP ---
ED Disposition - Plan for ED Patient: Chief Complaint: General Illness Instructions: Relieving Back Pain Prescriptions: Oxycodone HCl/Acetaminophen [Percocet 5/325] 1 tab PO Q6H PRN PRN 3 Days #12 tab PRN Reason: Pain Referrals: Chasity Robertson [NON-STAFF] -
--- OUTSIDE RECORDS SUMMARY | 2018-07-03 14:43 | XMS RPT_ITS ---
:1945 Author Organization OHIP Care Team Providers Name Role Phone CHUCK FIELD ([facility]) Attending Unavailable Primay Care Physicia, No Primary Care Unavailable Roland Quevedo Attending Unavailable Primay Care Physicia, No Primary Care Unavailable Wiley David Attending Unavailable Primay Care Physicia, No Primary Care Unavailable Sreedhar, Juno Admitting Unavailable Seema, Wiley Consulting Unavailable White, Shawnee Attending Unavailable Sreedhar, Juno Admitting Unavailable Primay Care Physicia, No Primary Care Unavailable [place], Wiley Consulting Unavailable Sreedhar, Juno Attending Unavailable Sreedhar, Juno Consulting Unavailable Sreedhar, Juno Admitting Unavailable Melgar PA-C, Maddi Attending Unavailable Primay Care Physicia, No Primary Care Unavailable [place], Wiley Consulting Unavailable White, Shawnee Consulting Unavailable Sreedhar, Juno Admitting Unavailable Melgar PA-C, Maddi Attending Unavailable Primay Care Physicia, No Primary Care Unavailable Seema, Wiley Consulting Unavailable White, Shawnee Consulting Unavailable Sreedhar, Juno Admitting Unavailable Primay Care Physicia, No Primary Care Unavailable Seema, Wiley Consulting Unavailable White, Shawnee Attending Unavailable White, Shawnee Consulting Unavailable Sreedhar, Juno Admitting Unavailable Melgar PA-C, Maddi Attending Unavailable Primay Care Physicia, No Primary Care Unavailable [place], Wiley Consulting Unavailable White, Shawnee Consulting Unavailable Sreedhar, Juno Admitting Unavailable Primay Care Physicia, No Primary Care Unavailable Seema, Wiely Consulting Unavailable White, Shawnee Attending Unavailable White, Shawnee Consulting Unavailable Sreedhar, Juno Admitting Unavailable Melgar PA-C, Maddi Attending [...] Efewongbe Attending Unavailable Oleghe, Efewongbe Referring Unavailable [place], Wiley Attending Unavailable Primay Care Physicia, No Referring Unavailable Primay Care Physicia, No Primary Care Unavailable Roof, Milton Downing Attending Unavailable Oleghe, Efewongbe Attending Unavailable Primay Care Physicia, No Referring Unavailable Carolynn Capps Attending Unavailable Seema, Wiley Attending Unavailable [place], Wiley Referring Unavailable Primay Care Physicia, No Primary Care Unavailable Roof, Milton Downing Attending Unavailable Primay Care Physicia, No Referring Unavailable Primay Care Physicia, No Primary Care Unavailable Seema, Wiley Attending Unavailable Primay Care Physicia, No Referring Unavailable Primay Care Physicia, No Primary Care Unavailable [place], Wiley Attending Unavailable Janet, Maverick Attending Unavailable Primay Care Physicia, No Referring Unavailable Janet, Maverick Attending Unavailable Janet, Crestline Referring Unavailable Primay Care Physicia, No Primary Care Unavailable PROBLEMS PROBLEMS DATE TYPE CONDITION / CODE ATTENDING STATUS SOURCE 04/29/2018 Unknown M54.9 - Dorsalgia, Joann, Wiley Active [facility] unspecified / Community M54.9(ICD-10) Hospital Repository 03/08/2018 Unknown 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, 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 / Hospital I25.2(ICD-10) Repository 03/08/2018 Unknown I10 - Essential Janet, Maverick Active [facility] (primary) Community hypertension / Hospital I10(ICD-10) Repository 03/08/2018 Unknown E78.00 - Pure Janet, Maverick Active [facility] hypercholesterolem Community ia, unspecified / Hospital E78.00(ICD-10) Repository 08/16/2017 Unknown D12.6 - Benign [place], Wiley Active [facility] neoplasm of colon, Community unspecified / Hospital D12.6(ICD-10) Repository PROCEDURES PROCEDURES No Procedure Records FoundRESULTS RESULTS PROGRESS Observed: 05/03/2018 Status: COMPLETED Source: [place] 8:17 AM [facility] REPOSITORY HNO ID: [id number] Author: Chuck Field Service: (none) Author Type: Nurse Practitioner Type: Progress Notes Filed: 05/03/2018 10:18 AM Note Text: 05/03/2018 Patient presents with: Recheck: urgent care/ SUBJECTIVE: This is a 72 year old poor historian, that is here today for follow up from UC and ER visits. He states that his main concern is that her has been sleeping in a recliner lately and it is causing him pain. He admits that the recliner is old and he has been told to sleep in his bed. He states that he slept in his bed one night and did not feel any relief, so he didn't think it would work. He states that he has also noticed a bump on his low back near his tailbone a couple days ago that popped and smelled really bad. He states that he washed it. He is not sure what is there now, but thinks that it stopped draining. He denies feeling feverish. He denies saddle anesthesia, sciatica, loss of bowel or bladder. He states that he is able to walk fine, just slower. He states that he took the prednisone for the back pain, not sure if it worked. He was in there ER and asked for stronger pain pills. He was given [place] and he is asking that I give him more. He thinks that this is the only thing that helped his pain. He is under the impression that these are not pain pills. 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 MEDICATIONS Current Outpatient Prescriptions: METHYLPREDNISOLONE ORAL Take 4 mg by mouth. dorzolamide-timolol (COSOPT) 22.3-6.8 mg/mL ophthalmic solution TWICE A DAY latanoprost (XALATAN) 0.005 % ophthalmic solution AT BEDTIME isosorbide mononitrate (MONOKET) 20 mg tablet TWICE A DAY aspirin 81 mg chewable tablet DAILY@0800 quinapril (ACCUPRIL) 10 mg tablet DAILY metoprolol succinate ER (TOPROL XL) 100 mg Tb24 METOPROLOL SUCCINATE ER 100 MG [id number] simvastatin (ZOCOR) 20 mg tablet AT BEDTIME NITROSTAT 0.4 MG SUBLINGUAL TAB Dissolve one(1) tablet under the toungue as needed for chest pain,every 5 min x3 DEBROX 6.5 % otic solution Place 3 drops into both ears twice a day famotidine(PEPCID 20 MG TAB) Take one(1) tablet twice daily. PLAVIX 75 MG TAB Take one(1) tablet daily. TOPROL XL 100 MG 24 HR TAB Take one(1) tablet daily. ISOSORBIDE DINITRATE 20 MG TAB Take one(1) tablet two(2) times daily. ASPIRIN 81 MG TAB Take one (1) tablet daily . ACCUPRIL 10 MG TAB Take one (1) tablet daily ZOCOR 20 MG TAB Take one(1) tablet daily. No current facility-administered medications for this visit. Medications and allergies reviewed by this provider. SOCIAL HISTORY Social History Marital status: Single Spouse name: Years of education: Number of children: Social History Main Topics Smoking status: Former Smoker Packs/day: 0.00 Years: 0.00 Smokeless tobacco: Current User Types: Snuff Comment: one can every 2 days for a few months now. REVIEW OF SYSTEMS see HPI OBJECTIVE: BP 118/76 Pulse 74 Resp 16 Wt 98.9 kg (218 lb) SpO2 94% . Vital signs reviewed by this provider. PHYSICAL EXAMINATION: General appearance: Well appearing, alert, in no acute distress, well-hydrated, well nourished. and unkempt Skin: Skin color, texture, turgor normal, erythematous, likely fungal rash to the intergluteal cleft with a possible healing sore to the top. Not consistent with a pressure sore, likely abscess. No current drainage. Skin tender to touch around it, Lungs: lungs clear to auscultation. No wheezing, rhonchi, rales Heart: RRR without murmur, gallop, or rubs. No ectopy Back:no pain to palpation of vertebrae, good flexion and extension, good range of motion, + muscle tenderness bilaterally in the lower back. Normal, equal strength. ASSESSMENT/PLAN: 1. Recurrent low back pain - ICD9: 724.2, ICD10: M54.5 (primary diagnosis) Mechanical low back pain - likely related to the recliner. Encouraged to avoid sleeping there. - discussed that it is not appropriate to give him more norco. Ok to continue what he has as needed, but it is not fixing the problem. - Ice for localized tenderness - Warm moist heat for 20 min three times a day - PT consult - Patient given instructions use of medications as ordered, intermittent rest, back care exercise program, weight loss, improved posture, proper lifting techniques, intermittent use of heat and avoiding sleeping on a heating pad - Follow up in PRN or sooner if symptoms persist or worsen - CONSULT TO PHYSICAL THERAPY - needs to establish- prefers a female 2. Erythematous rash - ICD9: 782.1, ICD10: R21 - likely fungal - discussed importance of good hygiene - NYSTATIN 100,000 UNIT/GRAM TOPICAL CREAM 3. Skin infection - ICD9: 686.9, ICD10: L08.9 - Begin treatment with Cephalaxin (Keflex) - No lymphangetic streaking, this was defined for patient to watch for and to seek medical care immediately if appears - Follow up for recheck in prn if starts to drain or become more painful. Likely healing and will treat for any residual bacteria - CEPHALEXIN 500 MG CAPSULE CÉSAR NickersonOV Observed: 05/03/2018 Status: COMPLETED Source: [place] 8:00 AM [facility] REPOSITORY Office Visit (FAMPWS) LEOLA MADRID ([id number]) 1945 M Date Time Provider Department 05/03/18 8:00 AM CHUCK FIELD) DARSHANA During your visit today, we recorded the following information about you: Pulse Respiration Blood pressure Weight 74/minute 16/minute 118/76 98.9 kg Chuck Field APRN.CNP 05/03/2018 10:18 AM Signed 05/03/2018 Patient presents with: Recheck: urgent care/ SUBJECTIVE: This is a 72 year old poor historian, that is here today for follow up from UC and ER visits. He states that his main concern is that her has been sleeping in a recliner lately and it is causing him pain. He admits that the recliner is old and he has been told to sleep in his bed. He states that he slept in his bed one night and did not feel any relief, so he didn't think it would work. He states that he has also noticed a bump on his low back near his tailbone a couple days ago that popped and smelled really bad. He states that he washed it. He is not sure what is there now, but thinks that it stopped draining. He denies feeling feverish. He denies saddle anesthesia, sciatica, loss of bowel or bladder. He states that he is able to walk fine, just slower. He states that he took the prednisone for the back pain, not sure if it worked. He was in there ER and asked for stronger pain pills. He was given [place] and he is asking that I give him more. He thinks that this is the only thing that helped his pain. He is under the impression that these are not pain pills. 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 MEDICATIONS Current Outpatient Prescriptions: METHYLPREDNISOLONE ORAL Take 4 mg by mouth. dorzolamide-timolol (COSOPT) 22.3-6.8 mg/mL ophthalmic solution TWICE A DAY latanoprost (XALATAN) 0.005 % ophthalmic solution AT BEDTIME isosorbide mononitrate (MONOKET) 20 mg tablet TWICE A DAY aspirin 81 mg chewable tablet DAILY@0800 quinapril (ACCUPRIL) 10 mg tablet DAILY metoprolol succinate ER (TOPROL XL) 100 mg Tb24 METOPROLOL SUCCINATE ER 100 MG [id number] simvastatin (ZOCOR) 20 mg tablet AT BEDTIME NITROSTAT 0.4 MG SUBLINGUAL TAB Dissolve one(1) tablet under the toungue as needed for chest pain,every 5 min x3 DEBROX 6.5 % otic solution Place 3 drops into both ears twice a day famotidine(PEPCID 20 MG TAB) Take one(1) tablet twice daily. PLAVIX 75 MG TAB Take one(1) tablet daily. TOPROL XL 100 MG 24 HR TAB Take one(1) tablet daily. ISOSORBIDE DINITRATE 20 MG TAB Take one(1) tablet two(2) times daily. ASPIRIN 81 MG TAB Take one (1) tablet daily . ACCUPRIL 10 MG TAB Take one (1) tablet daily ZOCOR 20 MG TAB Take one(1) tablet daily. No current facility-administered medications for this visit. Medications and allergies reviewed by this provider. SOCIAL HISTORY Social History Marital status: Single Spouse name: Years of education: Number of children: Social History Main Topics Smoking status: Former Smoker Packs/day: 0.00 Years: 0.00 Smokeless tobacco: Current User Types: Snuff Comment: one can every 2 days for a few months now. REVIEW OF SYSTEMS see HPI OBJECTIVE: BP 118/76 Pulse 74 Resp 16 Wt 98.9 kg (218 lb) SpO2 94% . Vital signs reviewed by this provider. PHYSICAL EXAMINATION: General appearance: Well appearing, alert, in no acute distress, well-hydrated, well nourished. and unkempt Skin: Skin color, texture, turgor normal, erythematous, likely fungal rash to the intergluteal cleft with a possible healing sore to the top. Not consistent with a pressure sore, likely abscess. No current drainage. Skin tender to touch around it, Lungs: lungs clear to auscultation. No wheezing, rhonchi, rales Heart: RRR without murmur, gallop, or rubs. No ectopy Back:no pain to palpation of vertebrae, good flexion and extension, good range of motion, + muscle tenderness bilaterally in the lower back. Normal, equal strength. ASSESSMENT/PLAN: 1. Recurrent low back pain - ICD9: 724.2, ICD10: M54.5 (primary diagnosis) Mechanical low back pain - likely related to the recliner. Encouraged to avoid sleeping there. - discussed that it is not appropriate to give him more norco. Ok to continue what he has as needed, but it is not fixing the problem. - Ice for localized tenderness - Warm moist heat for 20 min three times a day - PT consult - Patient given instructions use of medications as ordered, intermittent rest, back care exercise program, weight loss, improved posture, proper lifting techniques, intermittent use of heat and avoiding sleeping on a heating pad - Follow up in PRN or sooner if symptoms persist or worsen - CONSULT TO PHYSICAL THERAPY - needs to establish- prefers a female 2. Erythematous rash - ICD9: 782.1, ICD10: R21 - likely fungal - discussed importance of good hygiene - NYSTATIN 100,000 UNIT/GRAM TOPICAL CREAM 3. Skin infection - ICD9: 686.9, ICD10: L08.9 - Begin treatment with Cephalaxin (Keflex) - No lymphangetic streaking, this was defined for patient to watch for and to seek medical care immediately if appears - Follow up for recheck in prn if starts to drain or become more painful. Likely healing and will treat for any residual bacteria - CEPHALEXIN 500 MG CAPSULE Chuck Field APRN.MOLDER MEAT Referring Provider: SELF [[id number]] Allergies As of Date: 05/03/2018 (No Known Allergies) Date Reviewed: 05/03/2018 Reviewed by: Mabel Blue) LACY Ward - Fully Assessed Reason for Visit: Recheck [92] Cmt: urgent care/ Primary Visit Diagnosis:Recurrent low back pain [M54.5] Other Visit Diagnoses:Erythematous rash [R21] Skin infection [L08.9] Order(s):nystatin (MYCOSTATIN) creamApply 1 application to affected area twice daily.Disp: 1 TubeRfl: 0 CONSULT TO PHYSICAL THERAPY [9032] Order #: [id number]: 1 cephALEXin (KEFLEX) 500 mg capsuleTake 1 capsule by mouth four times daily for 10 days.Disp: 40 capsuleRfl: 0 Prescriptions as of 05/03/2018 Sig: METHYLPREDNISOLONE ORAL Take 4 mg by mouth. DORZOLAMIDE 22.3 MG-TIMOLOL 6* TWICE A DAY LATANOPROST 0.005 % EYE DROPS AT BEDTIME ISOSORBIDE MONONITRATE 20 MG * TWICE A DAY ASPIRIN 81 MG CHEWABLE TABLET DAILY@0800 QUINAPRIL 10 MG TABLET DAILY METOPROLOL SUCCINATE ER 100 M* METOPROLOL SUCCINATE ER 100 M* SIMVASTATIN 20 MG TABLET AT BEDTIME * NITROSTAT 0.4 MG SUBLINGUAL T* Dissolve one(1) tablet under * DEBROX 6.5 % EAR DROPS Place 3 drops into both ears * NYSTATIN 100,000 UNIT/GRAM TO* Apply 1 application to affect* CEPHALEXIN 500 MG CAPSULE Take 1 capsule by mouth four * * PEPCID 20 MG TABLET Take one(1) tablet twice melina* * PLAVIX 75 MG TABLET Take one(1) tablet daily. * TOPROL XL 100 MG TABLET,EXTEN* Take one(1) tablet daily. * ISOSORBIDE DINITRATE 20 MG TA* Take one(1) tablet two(2) paola* * ASPIRIN 81 MG TABLET Take one (1) tablet daily . * ACCUPRIL 10 MG TABLET Take one (1) tablet daily * ZOCOR 20 MG TABLET Take one(1) tablet daily. Problem List As Of Date 05/03/2018 Noted Resolved MENTAL RETARDATION NOS [F79] INVALID FOR* OVERWEIGHT [E66.9] INVALID FOR* HYPERTENSION NOS [I10] INVALID FOR* HYPERLIPIDEMIA NEC/NOS [E78.5] INVALID FOR* ASCVD [I25.10] INVALID FOR* More... DYSMETABOLIC SYNDROME X [E88.81] INVALID FOR* CORONARY ATHEROSCLER UNSPEC VESSEL [I25.10] INVALID FOR* DENTAL CARIES [521.0] INVALID FOR* More... ESOPHAGEAL REFLUX [K21.9] INVALID FOR* TOBACCO USE DISORDER [F17.200] INVALID FOR* More... PNEUMONIA, ORGANISM NOS [J18.9] INVALID FOR* More... Prescriptions ordered this encounter Disp Refills Start End NYSTATIN 100,000 UNIT/GRAM TOPICAL C* 1 Tu* 0 05/03/2018 Route: TOPICAL Sig: Apply 1 application to affected area twice daily. CEPHALEXIN 500 MG CAPSULE 40 c* 0 05/03/2018 05/13/2018 Route: ORAL Sig: Take 1 capsule by mouth four times daily for 10 days. Disposition: Return for Needs to establish- prefers a female. Follow-up and Disposition History Recorded Encounter Status:Closed by CHUCK FIELD on 05/03/18 EMERGENCY DEPARTMENT Observed: 04/29/2018 Status: F Source: [place] SUMMARY 3:45 PM [facility] REPOSITORY [facility] Medical Records Department [address] [place] [address] Emergency Department Summary 04/29/18 0743 MR#: [id number] Acct: [id number] Name: LEOLA MADRID Rep #: [id number] : 1945 72 From: Wiley David MD PCP: Care Physician, No Primary Status: DEP ER - ER Visit Summary Date of Service: 04/29/18 Chief Complaint: Back pain History of Present Illness: The patient is a 72 M who complains of low back pain for several days. He believes it is caused from sleeping in a recliner. He has slept in a recliner for many years because he has vertigo, and his vertigo gets worse if he sleeps in his bed. He also has trouble getting out of his bed in the morning. His recliner is breaking down and it is causing his back to hurt. He has pain when he lays in his recliner and pain after he wakes up. He is not sleeping much. He has trouble rolling and getting comfortable in a recliner. He was seen in the emergency department and treated with pain medication. He followed up at a clinic across the road and was prescribed a Medrol Dosepak. Medications are not helping. Denies any weakness or numbness. Denies any bowel or bladder changes. Denies abdominal or GI symptoms. Denies fevers. Denies any trauma. Physical Examination: Afebrile and vital signs are unremarkable. Patient is alert and oriented. No acute distress. He is able to get up from his chair and ambulate without assistance. He has good strength and sensation. Neurovascularly intact in his legs. Back is diffusely tender. Skin appears unremarkable. Abdomen soft. Test Results: None performed Emergency Department Course and Treatment: It sounds like the patient's pain is a mechanical issue from sleeping in a recliner. I considered other causes of pain such as GI, vascular, , neurologic, and infectious causes. His history, vitals, exam are all reassuring. There is no indication for diagnostic testing. I spoke with the patient about possible solutions. He does not want a referral to ENT for his vertigo. When I asked him if he had plans to replace his recliner, he said he could not afford that. I asked him if he had plans to go to an assisted living or nursing facility for some extra help, and he said that's for old folks. I will prescribe the patient a short course of pain medication. I advised him that this will not fix his problem, and it sounds like this is a mechanical issue related to sleeping in the recliner. He has had 3 visits for this now, and he will be referred to social work for any further resources. He could return for any new or different issues which might reflect a new or different pathology. Treatment Plan: As above Disposition: Discharge Impression: 1. Lumbar back pain This note was generated with [employer] dictation software. It may contain incorrect words, spelling, and punctuation that were not noted in review of the chart prior to signing ED Disposition - Plan for ED Patient: Chief Complaint: General Illness Referrals: Care Physician,No Primary [Primary Care Provider] - What to do if you have Problems For any increased pain, shortness of breath, bleeding, nausea or vomiting, chest pain, or any unexpected problems, contact your Primary Care Provider. Call [facility] ([phone]) or report to the closest Emergency Room. Call 911 if necessary. 04/29/18 1545 <Electronically signed by Wiley David MD> Date Wiley David MD Cosigner Signature (If Indicated): Date CC: No Primary Care Physician DISCHARGE INSTRUCTION Observed: 04/29/2018 Status: F Source: [place] 3:45 PM [facility] REPOSITORY [facility] Medical Records Department [address] [place] [address] Discharge Instruction 04/29/18 0751 MR#: [id number] Acct: [id number] Name: LEOLA MADRID [place] Rep #: [id number] : 1945 72 From: Wiley David MD PCP: Care Physician, No Primary Status: [facility] ER ED Disposition - Plan for ED Patient: Chief Complaint: General Illness Instructions: Relieving Back Pain Prescriptions: Oxycodone HCl/Acetaminophen [Percocet 5/325] 1 tab PO Q6H PRN PRN 3 Days #12 tab PRN Reason: Pain Referrals: Chasity Robertson [NON-STAFF] - What to do if you have Problems For any increased pain, shortness of breath, bleeding, nausea or vomiting, chest pain, or any unexpected problems, contact your Primary Care Provider. Call [facility] ([phone]) or report to the closest Emergency Room. Call 911 if necessary. 04/29/18 0657 <Electronically signed by Wiley David MD> Date Wiley David MD Cosigner Signature (If Indicated): Date CC: No Primary Care Physician PROGRESS Observed: 04/25/2018 Status: COMPLETED Source: [place] 10:44 AM [facility] REPOSITORY HNO ID: [id number] Author: Cassandra (Paulette) Service: (none) Author Type: Nurse Practitioner Type: Progress Notes Filed: 04/25/2018 12:50 PM Note Text: Subjective HPI Leola Madrid is a 72 year old male who presents today for CC of low back pain. This started 1 week after working outside. Went to ER, refused xray, treated with norco with little relief. Denies numbness/tingling of lower extremities. Itchy rash on right lower leg, patient not know how long been present, picks at it when itchy. Patient states its d/t stress. 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 Campos - LEFT HEART CATH,PERCUTANEOUS 03/17 Cardiac cath, L heart ALLERGIES Patient has no known allergies. MEDICATIONS famotidine(PEPCID 20 MG TAB) Take one(1) tablet twice daily. PLAVIX 75 MG TAB Take one(1) tablet daily. TOPROL XL 100 MG 24 HR TAB Take one(1) tablet daily. ISOSORBIDE DINITRATE 20 MG TAB Take one(1) tablet two(2) times daily. ASPIRIN 81 MG TAB Take one (1) tablet daily . ACCUPRIL 10 MG TAB Take one (1) tablet daily ZOCOR 20 MG TAB Take one(1) tablet daily. NITROSTAT 0.4 MG SUBLINGUAL TAB Dissolve one(1) tablet under the toungue as needed for chest pain,every 5 min x3 FAMILY HISTORY Problem Relation Age of Onset - Heart Brother heart attack age 52 - Cancer Sister breast - Diabetes Father Social History Substance Use Topics - Smoking status: Former Smoker - Smokeless tobacco: Current User Types: Snuff Comment: one can every 2 days for a few months now. - Alcohol use Not on file Review of Systems Constitutional: Negative for chills, fever and weight loss. Cardiovascular: Negative for leg swelling. Gastrointestinal: Negative for abdominal pain, constipation, diarrhea, nausea and vomiting. Genitourinary: Negative for dysuria, flank pain, frequency, hematuria and urgency. Musculoskeletal: Positive for back pain. Skin: Negative for rash. Neurological: Negative for sensory change and focal weakness. Objective Blood pressure 124/74, pulse 70, temperature 37.2 ?C (98.9 ?F), temperature source Tympanic, resp. rate 18, weight 101.2 kg (223 lb). Physical Exam Constitutional: He is oriented to person, place, and time and well-developed, well-nourished, and in no distress. Non-toxic appearance. He does not have a sickly appearance. No distress. HENT: Head: Normocephalic and atraumatic. Cardiovascular: Normal rate, regular rhythm, S1 normal, S2 normal and normal heart sounds. Pulses: Dorsalis pedis pulses are 2+ on the right side. Posterior tibial pulses are 2+ on the right side. Pulmonary/Chest: Effort normal and breath sounds normal. Abdominal: Soft. Normal appearance and bowel sounds are normal. There is no hepatosplenomegaly. There is no tenderness. There is no CVA tenderness. Musculoskeletal: Lumbar back: He exhibits decreased range of motion, pain and spasm. Back: Lumbar paraspinal muscles tender with palpation Neurological: He is alert and oriented to person, place, and time. Gait normal. Gait normal. Did not test SLR, patient declined to lay down Skin: He is not diaphoretic. ASSESSMENT/PLAN: 1. Recurrent low back pain - ICD9: 724.2, ICD10: M54.5 (primary diagnosis) education provided -will schedule f/u with pcp for recheck - METHYLPREDNISOLONE 4 MG TABLETS IN A DOSE PACK 2. Rash - ICD9: 782.1, ICD10: R21 Treat with steroid -discussed hygiene F/u if s/s infection occur. F/u with pcp if s/s persist - METHYLPREDNISOLONE 4 MG TABLETS IN A DOSE PACK Walked to psr to establish with pcp Prescription instructions reviewed with patient as applicable. Patient advised if symptoms do not improve or if symptoms worsen sooner, to contact the office for further evaluation by their primary care physician. Potential red flag symptoms discussed with the patient. Reviewed appropriate action plan to take if red flag symptoms occur. Patient agreeable to treatment plan. Cassandra Torres APRN.CNP CNOV Observed: 04/25/2018 Status: COMPLETED Source: [place] 10:15 AM [facility] REPOSITORY Office Visit (WSTR) SHERITALEOLA E ([id number]) 1945 M Date Time Provider Department 04/25/18 10:15 AM CASSANDRA TORRES ([place]) WS During your visit today, we recorded the following information about you: Temperature Pulse Respiration Blood pressure 98.9 degrees 70/minute 18/minute 124/74 Weight 101.2 kg Cassandra Torres APRN.CNP 04/25/2018 12:50 PM Signed Subjective HPI Leolajosé antonio Madrid is a 72 year old male who presents today for CC of low back pain. This started 1 week after working outside. Went to ER, refused xray, treated with norco with little relief. Denies numbness/tingling of lower extremities. Itchy rash on right lower leg, patient not know how long been present, picks at it when itchy. Patient states its d/t stress. 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 Campos - LEFT HEART CATH,PERCUTANEOUS 03/17 Cardiac cath, L heart ALLERGIES Patient has no known allergies. MEDICATIONS famotidine(PEPCID 20 MG TAB) Take one(1) tablet twice daily. PLAVIX 75 MG TAB Take one(1) tablet daily. TOPROL XL 100 MG 24 HR TAB Take one(1) tablet daily. ISOSORBIDE DINITRATE 20 MG TAB Take one(1) tablet two(2) times daily. ASPIRIN 81 MG TAB Take one (1) tablet daily . ACCUPRIL 10 MG TAB Take one (1) tablet daily ZOCOR 20 MG TAB Take one(1) tablet daily. NITROSTAT 0.4 MG SUBLINGUAL TAB Dissolve one(1) tablet under the toungue as needed for chest pain,every 5 min x3 FAMILY HISTORY Problem Relation Age of Onset - Heart Brother heart attack age 52 - Cancer Sister breast - Diabetes Father Social History Substance Use Topics - Smoking status: Former Smoker - Smokeless tobacco: Current User Types: Snuff Comment: one can every 2 days for a few months now. - Alcohol use Not on file Review of Systems Constitutional: Negative for chills, fever and weight loss. Cardiovascular: Negative for leg swelling. Gastrointestinal: Negative for abdominal pain, constipation, diarrhea, nausea and vomiting. Genitourinary: Negative for dysuria, flank pain, frequency, hematuria and urgency. Musculoskeletal: Positive for back pain. Skin: Negative for rash. Neurological: Negative for sensory change and focal weakness. Objective Blood pressure 124/74, pulse 70, temperature 37.2 ?C (98.9 ?F), temperature source Tympanic, resp. rate 18, weight 101.2 kg (223 lb). Physical Exam Constitutional: He is oriented to person, place, and time and well-developed, well-nourished, and in no distress. Non-toxic appearance. He does not have a sickly appearance. No distress. HENT: Head: Normocephalic and atraumatic. Cardiovascular: Normal rate, regular rhythm, S1 normal, S2 normal and normal heart sounds. Pulses: Dorsalis pedis pulses are 2+ on the right side. Posterior tibial pulses are 2+ on the right side. Pulmonary/Chest: Effort normal and breath sounds normal. Abdominal: Soft. Normal appearance and bowel sounds are normal. There is no hepatosplenomegaly. There is no tenderness. There is no CVA tenderness. Musculoskeletal: Lumbar back: He exhibits decreased range of motion, pain and spasm. Back: Lumbar paraspinal muscles tender with palpation Neurological: He is alert and oriented to person, place, and time. Gait normal. Gait normal. Did not test SLR, patient declined to lay down Skin: He is not diaphoretic. ASSESSMENT/PLAN: 1. Recurrent low back pain - ICD9: 724.2, ICD10: M54.5 (primary diagnosis) education provided -will schedule f/u with pcp for recheck - METHYLPREDNISOLONE 4 MG TABLETS IN A DOSE PACK 2. Rash - ICD9: 782.1, ICD10: R21 Treat with steroid -discussed hygiene F/u if s/s infection occur. F/u with pcp if s/s persist - METHYLPREDNISOLONE 4 MG TABLETS IN A DOSE PACK Walked to psr to establish with pcp Prescription instructions reviewed with patient as applicable. Patient advised if symptoms do not improve or if symptoms worsen sooner, to contact the office for further evaluation by their primary care physician. Potential red flag symptoms discussed with the patient. Reviewed appropriate action plan to take if red flag symptoms occur. Patient agreeable to treatment plan. Cassandra Torres APRN.PAULETTE Torres APRN.PAULETTE 04/25/2018 11:07 AM Signed EMERGENCY DEPARTMENT LOW BACK PAIN GENERAL INFORMATION: Low back pain is located in the small of the back. The pain may be related to sprained muscles or ligaments, to muscle spasms, or to herniation of a spinal disc. There are many possible causes of back pain, but the most common causes are gradual wear and tear, physical and emotional stress, and weak or tense muscles from lack of proper exercise. The pain can develop quickly or overnight and may be caused by unusual exertion such as moving furniture or heavy lifting. Low back pain can be severe, and sometimes you may be unable to move without pain. INSTRUCTIONS: 1. During the first 24 hours, apply ice packs to your back for 10-20 minutes 3 to 4 times a day. Put the ice in a plastic bag and place a towel between the bag of ice and your skin. After 24 hours, apply heat to your back with a heating pad set on low or a warm water bottle for 30 minutes every 3 to 4 hours. A gentle massage and warm showers may also be helpful. 2. Stay in bed for 1 to 2 days. Then begin normal activities as you can tolerate without causing pain. 3. Bend at the hips and knees; never bend from the waist only. Lift with your legs, not your back. 4. Sleep on a firm mattress or put a ? to 1 inch piece of plywood between the mattress and box springs. Do not use a waterbed because it does not support your back correctly. Sleep with a pillow under your knees or sleep on your side with your knees bent. 5. Wear low-heeled shoes. 6. If you are overweight, losing weight will help prevent another attack. 7. Begin a program of back exercises to prevent future episodes of pain. Walking, swimming, and bicycling are good exercise. Avoid exercises that put stress on the back, such as rowing and jogging. CONTACT YOUR DOCTOR OR RETURN TO THE ED IF: 1. You have shooting pains into your buttocks, groin, or legs. 2. You have difficulty urinating or lose control of bowel or bladder function. 3. You have numbness or weakness in your legs or feet. Referring Provider: SELF [200] Allergies As of Date: 04/25/2018 (No Known Allergies) Date Reviewed: 04/25/2018 Reviewed by: Cassandra Torres - Fully Assessed Reason for Visit: Pain, Back [855] Cmt: x 1 week Primary Visit Diagnosis:Recurrent low back pain [M54.5] Other Visit Diagnosis:Rash [R21] Order(s):methylPREDNISolone (MEDROL, BRENDA,) 4 mg Dose-PackFollow dosing instructions, take with food.Disp: 1 PackageRfl: 0 Prescriptions as of 04/25/2018 Sig: METHYLPREDNISOLONE 4 MG TABLE* Follow dosing instructions, t* * PEPCID 20 MG TABLET Take one(1) tablet twice melina* * PLAVIX 75 MG TABLET Take one(1) tablet daily. * TOPROL XL 100 MG TABLET,EXTEN* Take one(1) tablet daily. * ISOSORBIDE DINITRATE 20 MG TA* Take one(1) tablet two(2) paola* * ASPIRIN 81 MG TABLET Take one (1) tablet daily . * ACCUPRIL 10 MG TABLET Take one (1) tablet daily * ZOCOR 20 MG TABLET Take one(1) tablet daily. * NITROSTAT 0.4 MG SUBLINGUAL T* Dissolve one(1) tablet under * Problem List As Of Date 04/25/2018 Noted Resolved MENTAL RETARDATION NOS [F79] INVALID FOR* OVERWEIGHT [E66.9] INVALID FOR* HYPERTENSION NOS [I10] INVALID FOR* HYPERLIPIDEMIA NEC/NOS [E78.5] INVALID FOR* ASCVD [I25.10] INVALID FOR* More... DYSMETABOLIC SYNDROME X [E88.81] INVALID FOR* CORONARY ATHEROSCLER UNSPEC VESSEL [I25.10] INVALID FOR* DENTAL CARIES [521.0] INVALID FOR* More... ESOPHAGEAL REFLUX [K21.9] INVALID FOR* TOBACCO USE DISORDER [F17.200] INVALID FOR* More... PNEUMONIA, ORGANISM NOS [J18.9] INVALID FOR* More... Other instructions from your clinician: EMERGENCY DEPARTMENT LOW BACK PAIN GENERAL INFORMATION: Low back pain is located in the small of the back. The pain may be related to sprained muscles or ligaments, to muscle spasms, or to herniation of a spinal disc. There are many possible causes of back pain, but the most common causes are gradual wear and tear, physical and emotional stress, and weak or tense muscles from lack of proper exercise. The pain can develop quickly or overnight and may be caused by unusual exertion such as moving furniture or heavy lifting. Low back pain can be severe, and sometimes you may be unable to move without pain. INSTRUCTIONS: 1. During the first 24 hours, apply ice packs to your back for 10-20 minutes 3 to 4 times a day. Put the ice in a plastic bag and place a towel between the bag of ice and your skin. After 24 hours, apply heat to your back with a heating pad set on low or a warm water bottle for 30 minutes every 3 to 4 hours. A gentle massage and warm showers may also be helpful. 2. Stay in bed for 1 to 2 days. Then begin normal activities as you can tolerate without causing pain. 3. Bend at the hips and knees; never bend from the waist only. Lift with your legs, not your back. 4. Sleep on a firm mattress or put a ? to 1 inch piece of plywood between the mattress and box springs. Do not use a waterbed because it does not support your back correctly. Sleep with a pillow under your knees or sleep on your side with your knees bent. 5. Wear low-heeled shoes. 6. If you are overweight, losing weight will help prevent another attack. 7. Begin a program of back exercises to prevent future episodes of pain. Walking, swimming, and bicycling are good exercise. Avoid exercises that put stress on the back, such as rowing and jogging. CONTACT YOUR DOCTOR OR RETURN TO THE ED IF: 1. You have shooting pains into your buttocks, groin, or legs. 2. You have difficulty urinating or lose control of bowel or bladder function. 3. You have numbness or weakness in your legs or feet. Prescriptions ordered this encounter Disp Refills Start End METHYLPREDNISOLONE 4 MG TABLETS IN A* 1 Pa* 0 04/25/2018 05/01/2018 Sig: Follow dosing instructions, take with food. Encounter Status:Closed by CASSANDRA TORRES CNP on 04/25/18 DISCHARGE INSTRUCTION Observed: 04/22/2018 Status: F Source: [place] 5:45 PM [facility] REPOSITORY [facility] Medical Records Department [address] [place] [id number] Discharge Instruction 04/22/18 1744 MR#: [id number] Acct: [id number] Name: LEOLA MADRID Rep #: [id number] : 1945 72 From: Roland Quevedo DO PCP: Care Physician, No Primary Status: PRE ER ED Disposition - Plan for ED Patient: Chief Complaint: Back Instructions: ED Spasm Back No Trauma Prescriptions: Hydrocodone Bitart/Apap 5-325 [[place] 5MG-325MG] 1 tab PO Q4H PRN PRN 2 Days #10 tab PRN Reason: Pain Referrals: Amy Sanders MD [STAFF PHYSICIAN] - 5-7 Days Care Physician,No Primary [Primary Care Provider] - What to do if you have Problems For any increased pain, shortness of breath, bleeding, nausea or vomiting, chest pain, or any unexpected problems, contact your Primary Care Provider. Call [facility] ([phone]) or report to the closest Emergency Room. Call 911 if necessary. 04/22/181744 <Electronically signed by Roland Quevedo DO> Date Roland Quevedo DO Cosigner Signature (If Indicated): Date CC: No Primary Care Physician DISCHARGE INSTRUCTION Observed: 04/22/2018 Status: F Source: [place] 5:41 PM [facility] REPOSITORY [facility] Medical Records Department [address] [place] [address] Discharge Instruction 04/22/181738 MR#: [id number] Acct: [id number] Name: LEOLA MADRID [place] Rep #: [id number] : 1945 72 From: Roland Quevedo DO PCP: Care Physician, No Primary Status: PRE ER ED Disposition - Plan for ED Patient: Chief Complaint: Back Instructions: ED Spasm Back No Trauma Prescriptions: Hydrocodone Bitart/Apap 5-325 [[place] 5MG-325MG] 1 tab PO Q4H PRN PRN 2 Days #10 tab PRN Reason: Pain Referrals: Care Physician,No Primary [Primary Care Provider] - Amy Sanders MD [STAFF PHYSICIAN] - 5-7 Days What to do if you have Problems For any increased pain, shortness of breath, bleeding, nausea or vomiting, chest pain, or any unexpected problems, contact your Primary Care Provider. Call [facility] ([phone]) or report to the closest Emergency Room. Call 911 if necessary. 04/22/181740 <Electronically signed by Roland Quevedo DO> Date Roland Cruzignklarissa Signature (If Indicated): Date CC: No Primary Care Physician EMERGENCY DEPARTMENT Observed: 04/22/2018 Status: F Source: [place] SUMMARY 5:39 PM [facility] REPOSITORY [facility] Medical Records Department [address] [place] [address] Emergency Department Summary 04/22/18 1737 MR#: [id number] Acct: [id number] Name: LEOLA MADRID Rep #: [id number] : 1945 72 From: Roland Quevedo DO PCP: Care Physician, No Primary Status: PRE ER - ER Visit Summary Date of Service: 04/22/18 Chief Complaint: Back pain] History of Present Illness: The patient is a 72 M [presents to the emergency department with back pain that started earlier this morning. Patient states that when he woke up he felt fine. Patient went outside and cleaned the ice off of his car and then [place] to the [place] area and came [place]. Patient sat back down in his recliner and then developed sudden onset of pain in his mid back. Pain is worse with standing from a seated position and movement. Patient denies any pain rating down his legs. He denies any change in bowel or bladder function. He denies urinary symptoms. He denies any fever. Patient believes that the cold air may have triggered his pain.] Physical Examination: [HEENT-PERRLA, EOMI. Cranial nerves II through XII grossly intact. TMs clear. Mucous membranes moist. No adenopathy. Cardiovascular-regular rate and rhythm without murmur or ectopy Lungs-clear to auscultation, chest wall stable without crepitus or subcu emphysema Abdomen-normoactive bowel sounds, soft, nontender, no rebound or rigidity, no peritoneal signs. Back exam-patient has tenderness over the lower thoracic and upper lumbar paraspinal musculature bilaterally. No real tenderness in the midline of the thoracic or lumbar spine. Patient has negative straight leg raises bilaterally. Deep tendon reflexes are plus 2 out of 4 bilaterally at the patella and Achilles. Extremities-intact 4, normal range of motion, normal pulses, atraumatic] Test Results: [Patient refused all testing. Patient states that he does not believe that his back is broken and does not want any type of imaging. Patient understands that sometimes urinary tract infections or kidney stones can cause sudden onset of pain. He does not believe that he has any of these diagnoses any states that he does not want to spend the money to have these investigated.] Emergency Department Course and Treatment: [] Treatment Plan: [Patient will be given a prescription for [place] for pain.] Disposition: [Discharged home in stable condition] Impression: [Back pain-atraumatic] This note was generated with [employer] dictation software. It may contain incorrect words, spelling, and punctuation that were not noted in review of the chart prior to signing ED Disposition - Plan for ED Patient: Chief Complaint: Back Referrals: Care Physician,No Primary [Primary Care Provider] - What to do if you have Problems For any increased pain, shortness of breath, bleeding, nausea or vomiting, chest pain, or any unexpected problems, contact your Primary Care Provider. Call [facility] ([phone]) or report to the closest Emergency Room. Call 911 if necessary. 04/22/18 1733 <Electronically signed by Roland Quevedo DO> Date Roland Quevedo DO Cosigner Signature (If Indicated): Date CC: No Primary Care Physician LIVER PROFILE Collected: 03/08/2018 Status: F Source: [place] 10:12 AM [facility] REPOSITORY Order Comment: Order Date: 09/24/16 Order Info: [id number] - *Lipid Profile CC PCP Comments: 12 [...] 0.20 Performed By: #### L500.3400, L500.4100 #### [facility] [address] [place], [place], [id number] LIPID PROFILE Collected: 03/08/2018 Status: F Source: [place] 10:12 AM [facility] REPOSITORY Order Comment: Order Date: 09/24/16 Order Info: [id number] - *Lipid Profile CC PCP Comments: 12 [...] 21 Performed By: #### L500.3400, L500.4100 #### [facility] [address] [place], [place], [id number] CARDIOLOGY VISIT Observed: 03/08/2018 Status: F Source: [place] REPORT 9:50 AM [facility] REPOSITORY [facility] [address] [place] [address] OFFICE VISIT Date of Service: 03/08/18 MR#: [id number] Acct: [id number] Name: LEOLA MADRID Rep #: [id number] : 1945 Provider: Maverick Gonzales MD Age/Sex: 72/M [place] [facility] [place] Signed HPI HPI Chief Complaint: Follow up Details: LEOLA MADRID, is a 72 M who presents to the office today for a cardiovascular outpatient follow-up. His history of mild coronary artery disease involving the LCx and nondominant RCA. He also has history of hypertension, hyperlipidemia, diverticulosis, hemorrhoids, and rectal bleeding. 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 Is patient in pain?: No Allergies No Known Allergies Allergy (Verified 07/27/17 08:21) Medications Hydrocodone Bitart/Apap 5-325 [[place] 5/325] 1 tab PO Q6H PRN PRN [...] DAILY #90 tab 07/15/17 [Rx Confirmed 07/19/17] [facility] Medical History Syncope, vasovagal (Chronic) Hyperlipidemia (Chronic) Old myocardial infarct (Chronic) Atherosclerotic heart disease of [place] coronary artery without angina pectoris (Chronic) HTN [...] at home: Yes HPI HPI HPI: LEOLA MADRID, is a 72 M who presents to [...] OPERATIVE REPORT Observed: 07/19/2017 Status: F Source: [place] 9:32 AM [facility] REPOSITORY [facility] Medical Records Department [address] [place] [address] Operative Report 07/19/17925 MR#: [id number] Acct: [id number] Name: LEOLA MADRID Rep #: [id number] : 1945 72 From: Wiley Stephenson MD PCP: Care Physician, No Primary Status: [facility] Y Location: [place] [address] Problem List (1) Adenovillous polyp of colon Status: Acute Report of Operation Date of Procedure: 07/19/17 Pre-Operative Diagnosis: d12.6 adenomatous polyp of colon (rectum) Post-Operative Diagnosis: Same Surgery/Procedure Performed:: 92880 sigmoidoscopy with polypectomy Description of Surgical Findings:: [...] malignancy around with a polyp was removed. 07/19/17931 <Electronically signed by Wiley Stephenson MD> Date Wiley Stephenson MD CC: No Primary Care Physician; Wiley Stephenson MD Signed COLON BIOPSY (CHOOSE Observed: 07/19/2017 Status: F Source: [place] SITE) 12:00 AM [facility] REPOSITORY Patient: LEOLA MADRID : 1945 (72/M) Acct Num: [id number] Phys: Wiley Stephenson MD Unit Num: [id number] Loc: EN Specimen: [id number] Received: 07/19/17 141 Spec Type: COLON BX TISSUES TISSUES: Rectum, NOS GROSS DESCRIPTION Received in fixative is one container labeled with the patient's name and designated rectal polyp. The specimen consists of a pink- red polyp measuring 1.2 x 1.2 x 0.7 cm. The apparent base is inked. The polyp is serially sectioned and submitted entirely in one cassette. / SJ:alexandru 07/19/17 TC:1 CPT: 93037 HEADER OPERATION: Colonoscopy PRE-OP DIAGNOSIS: History colon polyp TISSUE SUBMITTED: Rectal polyp MICROSCOPIC DESCRIPTION Slides are reviewed. MICROSCOPIC DIAGNOSIS Rectal polyp, biopsy: Tubulovillous adenoma. AM:alexandru 07/20/17 Signed Eduard Canela 07/20/17 <signature on file> Performed By: #### PCOLBX #### [facility] [address] [place], [address] CARDIOLOGY VISIT Observed: 07/17/2017 Status: F Source: [place] REPORT 3:44 PM [facility] REPOSITORY [facility] [address] [place] [address] OFFICE VISIT Date of Service: 07/16/17 MR#: [id number] Acct: [id number] Name: LEOLA MADRID Rep #: [id number] : 1945 Provider: LEATHA Sanchez Age/Sex: 72/M [place] [facility] [place]: Signed HPI HPI Details: LEOLA MADRID, is a 72 M who presents to the office today for a cardiovascular outpatient follow-up. His history of mild coronary artery disease involving the LCx and nondominant RCA. He also has history of hypertension, hyperlipidemia, diverticulosis, hemorrhoids, and rectal bleeding. 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 Coronary artery disease involving [place] coronary artery of [place] heart without angina pectoris I25.10 Plan - RAMIRO Wade Stress test from August 2005 was negative for stress-induced myocardial ischemia and showed no EKG changes. Patient denies any chest pain, arm pain, jaw pain, neck pain, shortness of breath, or fatigue suggestive of angina at this time. We will continue to hold Plavix. We will continue to monitor this. We will continue with risk factor modification. 2. Essential hypertension I10 Plan - RAMIRO Wade Patient's blood pressure is well-controlled today in the office. We will continue to monitor this. We will not make any medication regimen changes. 3. Pure hypercholesterolemia E78.00; E78.0 Plan - RAMIRO Wade Patient states this is being monitored by primary care physician. He will continue current cholesterol-lowering medication. 4. Gastrointestinal hemorrhage, unspecified gastrointestinal hemorrhage type K92.2 Plan - RAMIRO Wade Patient will continue to follow-up with Dr. Stephenson for this. He will remain off of his Plavix due to multiple GI bleeds. Once cleared by Dr. Stephenson he may resume aspirin 81 mg p.o. daily. 5. Cardiac murmur R01.1 Plan - RAMIRO Wade Echocardiogram from March 2006 showed an estimated [...] prior to saving. Follow Up 6 Months (PACKAGER) Coding Level of Care Code Off vis,est,level 3 Diagnoses Coronary artery disease involving [place] coronary artery of [place] heart without angina pectoris I25.10 Associated angina: without angina Coronary Disease-Associated Artery/Lesion type: [place] artery [place] vs. transplanted heart: [place] heart Essential hypertension I10 Hypertension type: essential hypertension Pure hypercholesterolemia E78.00; E78.0 Hyperlipidemia type: pure hypercholesterolemia Gastrointestinal hemorrhage, unspecified gastrointestinal hemorrhage type K92.2 GI bleed type/associated pathology: unspecified gastrointestinal hemorrhage type Cardiac murmur R01.1 Coding Level of Care Code Off vis,est,level 3 Diagnoses Coronary artery disease involving [place] coronary artery of [place] heart without angina pectoris I25.10 Associated angina: without angina Coronary Disease-Associated Artery/Lesion type: [place] artery [place] vs. transplanted heart: [place] heart Essential hypertension I10 Hypertension type: essential hypertension Pure hypercholesterolemia E78.00; E78.0 Hyperlipidemia type: pure hypercholesterolemia Gastrointestinal hemorrhage, unspecified gastrointestinal hemorrhage type K92.2 GI bleed type/associated pathology: unspecified gastrointestinal hemorrhage type Cardiac murmur R01.1 07/16/17 1631 <Electronically signed by Milton LIONC> Date Milton Sanchez SENIOR JAVA UI DEVELOPER-C 07/17/17 1544<Electronically signed by Maverick Gonzales MD> Cosigner Signature: Date (if applicable) Maverick Gonzales MD CC: SURGERY VISIT REPORT Observed: 06/28/2017 Status: F Source: [place] 1:15 PM [facility] [address] [place] [address] OFFICE VISIT Date of Service: 06/24/17 MR#: [id number] Acct: [id number] Name: LEOLA MADRID [place] Rep #: [id number] : 1945 Provider: Wiley Stephenson MD Age/Sex: 72/M Location: [facility] Status: Signed Intake Vital Signs06/24/17 Height 5 ft 7 in 06/24/17 Weight: 206 lb 06/24/17 Body Mass Index (BMI) 32.2 06/24/17 Respiratory Rate 18 Intake Visit Reasons: GASTRO INTESTINAL HEMORRHAGE Chief Complaint: Lower GI Bleed 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 Is patient in pain?: No Allergies No Known Allergies Allergy (Verified 06/24/17 08:26) Medications Isosorbide Mononitrate [Monoket] 20 mg PO BID 08/18/14 [History Confirmed 06/24/17] Metoprolol(XL)Succ [Toprol Xl (Beta Jazmín)] 100 mg PO DAILY 08/18/14 [History Confirmed 06/24/17] Hydrocodone Bitart/Apap 5-325 [[place] 5/325] 1 tab PO Q6H PRN PRN [...] History Hyperlipidemia (Chronic) Atherosclerotic heart disease of [place] coronary artery without angina pectoris (Chronic) HTN (hypertension) (Chronic) Surgical History History of intestinal surgery (Acute) Family History Brother Heart disease Sister Breast cancer Social History Smoking Status: Former smoker alcohol intake: never substance use type: does not use what type of physical activity do you participate in: none HPI HPI HPI: LEOLA MADRID, is a 72 M who presents to [...] person, oriented to place, oriented to time [facility] Head: normocephalic, atraumatic Ears: external ears [...] signed by Wiley Stephenson MD> Date Wiley Montes De Oca Signature: Date (if applicable) CC: INTERNAL MEDICINE Observed: 06/16/2017 Status: F Source: [place] OFFICE VISIT 5:57 PM [facility] [address] [facility] [place] [address] OFFICE VISIT Date of Service: 06/15/17 MR#: [id number] Acct: [id number] Name: LEOLA MADRID Rep #: [id number] : 1945 Provider: Lucina Hou MD Age/Sex: 72/M Location: [facility] Status: Signed Intake Vital Signs06/15/17 Height 5 [...] 08/18/14 [History Confirmed 06/15/17] Hydrocodone Bitart/Apap 5-325 [[place] 5/325] 1 tab PO Q6H PRN PRN [...] History Hyperlipidemia (Chronic) Atherosclerotic heart disease of [place] coronary artery without angina pectoris (Chronic) HTN (hypertension) (Chronic) Surgical History History of intestinal surgery (Acute) Family History Brother Heart disease Sister Breast cancer Social History Smoking Status: Former smoker alcohol intake: never substance use type: does not use what type of physical activity do you participate in: none HPI HPI Chief Complaint: Lower GI Bleed Details: LEOLA MADRID, is a 72yo M who presents to [...] style modifications. This note was generated with [employer] dictation software. It may contain incorrect words, spelling, and punctuation that were not noted in checking the note before signing. Coding Level of Care Code Off vis,est,level 3 Diagnoses Gastrointestinal hemorrhage, unspecified gastrointestinal hemorrhage type K92.2 GI bleed type/associated pathology: unspecified gastrointestinal hemorrhage type Essential hypertension I10 06/16/17 4567 <Electronically signed by Lucina Hou MD> Date Lucina Hou MD Cosigner Signature: Date (if applicable) CC: DISCHARGE SUMMARY Observed: 06/11/2017 Status: F Source: [place] 12:55 PM [facility] REPOSITORY [facility] Medical Records Department [address] [place] [address] Discharge Summary 06/11/17 1131 MR#: [id number] Acct: [id number] Name: LEOLA MADRID Rep #: [id number] : 1945 72 From: Shawnee David PCP: Care Physician, No Primary Status: ADM IN Y Location: [place] [address] Discharge Date and Diagnosis Date of Admission: [...] myocardial infarct (Chronic) Atherosclerotic heart disease of [place] coronary artery without angina pectoris (Chronic) HTN [...] at that time who presented to the [facility] ED on 06/07/17 w/ history of onset [...] mg PO QHS 08/18/14 Hydrocodone Bitart/Apap 5-325 [[place] 5/325] 1 tab PO Q6H PRN PRN [...] 40 mg PO BID #60 tab 06/11/17 Following Prescrptions Were Given to Patient: Pantoprazole Sodium [Protonix] 40 mg PO BID #60 tab Primary Care Physician: Care Physician,No Primary [Primary Care Provider] - Please Follow Up With: Lucina Hou MD When: 06/15/17 Please Follow Up With: Wiley Stephenson MD When: 2-3 weeks Please Follow Up With: Maverick Gonzales MD When: Follow-up w/ Cardiology SENIOR JAVA UI DEVELOPER/PA to review plavix d/c, aspirin hold. Patient Instructions: When You Have Gastrointestinal (GI) Bleeding, Evaluating and Treating Rectal Bleeding, Understanding Rectal Bleeding Disposition: Home Minutes spent on discharge:: 35 Patient Condition:: Fair Meaningful Use Info Meaningful Use Diagnoses (Choose all that apply): None applicable Code Visit Inpatient Marion BAKER M: [id number] Disch Hosp 06/11/17 1255 <Electronically signed by Shawnee David > Date Shawnee David Cosigner Signature (if applicable): Date CC: No Primary Care Physician; Shawnee David Signed DISCHARGE INSTRUCTION Observed: 06/11/2017 Status: F Source: [place] 11:31 AM [facility] REPOSITORY [facility] Medical Records Department [address] [place] [address] Instructions for Home/Discharge Instructions 06/11/17 1126 MR#: [id number] Acct: [id number] Name: LEOLA MADRID Rep #: [id number] : 1945 72 From: Shawnee David PCP: [...] mg PO QHS 08/18/14 Hydrocodone Bitart/Apap 5-325 [[place]field 5/325] 1 tab PO Q6H PRN PRN [...] Maverick Gonzales MD When: Follow-up w/ Cardiology SENIOR JAVA UI DEVELOPER/PA to review plavix d/c, aspirin hold. Proposed Discharge Date: 06/11/17 06/11/17 1131 <Electronically signed by Shawnee David > Date Shawnee L White CC: No Primary Care Physician; Wiley Stephenson MD CBC W/DIFF, AUTOMATED Collected: 06/11/2017 Status: F Source: [place] 6:00 AM [facility] REPOSITORY TYPE CODE TESTS RESULT OUT OF [...] Lymph 0.96 Performed By: #### L100.0100 #### [facility] [address] [place], [address] HH, HEMOGLOBIN AND Collected: 06/10/2017 Status: F Source: [place] HEMATOCRIT 10:45 AM [facility] REPOSITORY Order Comment: RECEIVING BLOOD WILL FOLLOW UP WITH FLOOR. [facility] SPOKE TO MARIYA BIGGS RN TYPE CODE TESTS RESULT OUT OF RANGE REFERENCE UNITS LAB L100.1300 13.0-16.5 g/dl Low HGB 9.2 LAB L100.1400 40-54 % Low HCT 27.7 Performed By: #### L100.0600 #### [facility] [address] [place], [address] HH, HEMOGLOBIN AND Collected: 06/10/2017 Status: F Source: [place] HEMATOCRIT 2:00 AM [facility] REPOSITORY TYPE CODE TESTS RESULT OUT OF RANGE REFERENCE UNITS LAB L100.1300 13.0-16.5 g/dl Low HGB 7.0 LAB L100.1400 40-54 % Low HCT 21.6 Performed By: #### L100.0600 #### [facility] [address] [facility] [place], [address] HH, HEMOGLOBIN AND Collected: 06/09/2017 Status: F Source: [place] HEMATOCRIT 2:05 PM [facility] REPOSITORY TYPE CODE TESTS RESULT OUT OF RANGE REFERENCE UNITS LAB L100.1300 13.0-16.5 g/dl Low HGB 8.0 LAB L100.1400 40-54 % Low HCT 24.7 Performed By: #### L100.0600 #### [facility] [address] [facility] [place], [place], [address] CBC W/DIFF, AUTOMATED Collected: 06/09/2017 Status: F Source: [place] 6:00 AM [facility] REPOSITORY TYPE CODE TESTS RESULT OUT OF [...] Lymph 1.09 Performed By: #### L100.0100 #### [facility] [address] [place] [address]. [place], [place], [id number] HH, HEMOGLOBIN AND Collected: 06/08/2017 Status: F Source: [place] HEMATOCRIT 4:31 PM [facility] REPOSITORY TYPE CODE TESTS RESULT OUT OF RANGE REFERENCE UNITS LAB L100.1300 13.0-16.5 g/dl Low HGB 7.9 LAB L100.1400 40-54 % Low HCT 24.9 Performed By: #### L100.0600 #### [facility] [address] [place], [place], [address] HH, HEMOGLOBIN AND Collected: 06/08/2017 Status: F Source: [place] HEMATOCRIT 9:17 AM [facility] REPOSITORY TYPE CODE TESTS RESULT OUT OF RANGE REFERENCE UNITS LAB L100.1300 13.0-16.5 g/dl Low HGB 8.8 LAB L100.1400 40-54 % Low HCT 27.4 Performed By: #### L100.0600 #### [facility] [address] [place], [address] CONSULTATION Observed: 06/08/2017 Status: F Source: [place] 8:36 AM [facility] REPOSITORY [facility] Medical Records Department [address] [place] [address] Consultation 06/07/17 1611 MR#: [id number] Acct: [id number] Name: LEOLA MADRID Rep #: [id number] : 1945 72 From: Maddi Melgar PA-C PCP: Care Physician, No Primary Status: ADM IN Y [facility] Problem List (1) GI bleed Status: Acute [...] resection approximately [address] aCmpos for what sounds like a bowel obstruction. Patient is currently on Plavix and ASA for CAD. Dr. [place] is his engineering writer. Patient denies previous M.I., stroke and blood [...] myocardial infarct (Chronic) Atherosclerotic heart disease of [place] coronary artery without angina pectoris (Chronic) HTN [...] signed by Maddi Melgar PA-C> Date Maddi Melgar PA-C Cosigner Signature (if applicable): Date CC: No Primary Care Physician; Wiley Stephenson MD Signed HH, HEMOGLOBIN AND Collected: 06/08/2017 Status: F Source: [place] HEMATOCRIT 4:35 AM [facility] REPOSITORY TYPE CODE TESTS RESULT OUT OF RANGE REFERENCE UNITS LAB L100.1300 13.0-16.5 g/dl Low HGB 8.5 LAB L100.1400 40-54 % Low HCT 26.7 Performed By: #### L100.0600 #### [facility] [address] [place], [address] HISTORY AND PHYSICAL Observed: 06/07/2017 Status: F Source: [place] EXAM 10:03 PM [facility] REPOSITORY [facility] Medical Records Department [address] [place] [address] History and Physical 06/07/17 1539 MR#: [id number] Acct: [id number] Name: LEOLA MADRID Rep #: [id number] : 1945 72 From: Kingsley BAR PCP: Care Physician, No Primary Status: ADM IN Y [facility] <Kingsley Garcia - Last Filed: 06/07/17 15:39> [...] myocardial infarct (Chronic) Atherosclerotic heart disease of [place] coronary artery without angina pectoris (Chronic) HTN [...] CAD - as above. Holding asa/plavix. Prior [place]. Continue other home meds. 3. HTN - [...] orders have been reviewed. Code Visit Inpatient E AND M: 45594 Init Hosp L3 06/07/17 1558 <Electronically signed by Kingsley BAR> Date Kingsley BAR 06/07/17 2203<Electronically signed by Juno Eli MD> Cosigner Signature: Date (if applicable) Juno Eli MD CC: No Primary Care Physician; DIPIKA Garcia; Juno Eli MD Signed HH, HEMOGLOBIN AND Collected: 06/07/2017 Status: F Source: [place] HEMATOCRIT 9:59 PM [facility] REPOSITORY TYPE CODE TESTS RESULT OUT OF RANGE REFERENCE UNITS LAB L100.1300 13.0-16.5 g/dl Low HGB 9.8 LAB L100.1400 40-54 % Low HCT 30.3 Performed By: #### L100.0600 #### [facility] [address] [place], [address] URINALYSIS, COMPLETE Collected: 06/07/2017 Status: F Source: [place] 5:44 PM [facility] REPOSITORY Order Comment: Order Date: 06/07/17 Has pt arrived? Y Comments: collected by product support analyst How was Urine Obtained? CLEAN CATCH TYPE [...] MUCUS, URINE Performed By: #### L400.0001 #### [facility] [address] [place], [address] EMERGENCY DEPARTMENT Observed: 06/07/2017 Status: F Source: [place] SUMMARY 4:30 PM [facility] REPOSITORY [facility] Medical Records Department [address] [place] [address] Emergency Department Summary 06/07/17 1034 MR#: [id number] Acct: [id number] Name: LEOLA MADRID Rep #: [id number] : 1945 72 From: Wiley Antunez DO [...] GI bleed This note was generated with [employer] dictation software. It may contain incorrect words, spelling, and punctuation that were not noted in review of the chart prior to signing ED Disposition - Plan for ED Patient: Disposition: Acute Care Hospital [facility] Chief Complaint: GI Bleed What to do if you have Problems For any increased pain, shortness of breath, bleeding, nausea or vomiting, chest pain, or any unexpected problems, contact your Primary Care Provider. Call [facility] ([phone]) or report to the closest Emergency Room. Call 911 if necessary. 06/07/17 1630 <Electronically signed by Wiley Antunez DO> Date Wiley Antunez DO Cosigner Signature (If Indicated): Date CC: No Primary Care Physician HH, HEMOGLOBIN AND Collected: 06/07/2017 Status: F Source: [place] HEMATOCRIT 4:05 PM [facility] REPOSITORY TYPE CODE TESTS RESULT OUT OF RANGE REFERENCE UNITS LAB L100.1300 13.0-16.5 g/dl Low HGB 10.4 LAB L100.1400 40-54 % Low HCT 32.0 Performed By: #### L100.0600 #### [facility] [address] [place], [address] TYPE AND SCREEN Collected: 06/07/2017 Status: F Source: [place] 1:20 PM [facility] REPOSITORY Order Comment: Reason for Type AND Screen/Red Cells: HEMORRHAGE, GI BLEED TYPE CODE TESTS RESULT OUT OF RANGE REFERENCE UNITS LAB B10.0800 O Normal BLOOD TYPE GEL POSITIVE LAB B100.4000 Normal Antibody NEGATIVE Screen Performed By: #### B101.7450 #### [facility] [address] [place], [address] Collected: 06/07/2017 Status: F Source: [place] 1:20 PM [facility] REPOSITORY TYPE CODE TESTS RESULT OUT OF REFERENCE UNITS RANGE LAB U100.0000 [id number] TRANSFUSED PRODUCT: T AND S with Crossmatch, Red Cells COUNT: 2 Performed By: #### U100.0000 #### [facility] - refer to report for specific site CBC W/DIFF, AUTOMATED Collected: 06/07/2017 Status: F Source: [place] 10:50 AM [facility] REPOSITORY TYPE CODE TESTS RESULT OUT OF [...] Lymph 1.07 Performed By: #### L100.0100 #### [facility] [address] [facility] [place], [place], [address] PROTHROMBIN TIME W/INR Collected: 06/07/2017 Status: F Source: [place] 10:50 AM [facility] REPOSITORY TYPE CODE TESTS RESULT OUT OF RANGE REFERENCE UNITS LAB L300.4150 11.7-14.9 SECONDS High PROTIME 16.3 LAB L300.4200 Normal INR 1.4 Performed By: #### L300.3900, L300.4310 #### [facility] [address] [facility] [facility] [address] PARTIAL THROMBOPLAST Collected: 06/07/2017 Status: F Source: [facility] 10:50 AM [facility] REPOSITORY TYPE CODE TESTS RESULT OUT OF RANGE REFERENCE UNITS LAB L300.4310 24.1-36.2 Seconds Normal PTT 33.7 Performed By: #### L300.3900, L300.4310 #### [facility] [address] [facility]. [facility] [address] COMPREHENSIVE METABOLIC Collected: 06/07/2017 Status: F Source: [place] PROFIL 10:50 AM [facility] REPOSITORY TYPE CODE TESTS RESULT OUT OF [...] GAP 5 Performed By: #### L500.4050 #### [facility] [address] [place], [address] ALLERGIES ALLERGIES DATE TYPE / CODE NAME / CODE REACTION SEVERITY SOURCE 04/29/2018 Drug No Known Unknown [facility] Allergy/416 Allergies/J95610 [facility] 527819(SNOM 0388(RXNORM) Repository ED CT) Drug NO KNOWN [facility] Class/90526 ALLERGIES [facility] 1003(SNOMED Repository CT) ENCOUNTERS ENCOUNTERS ADMIT/DISCHARGE ACCOUNT ADMITTING ENCOUNTER LOCATION SOURCE NUMBER CLASS 05/03/2018/05/04/19 [id number] Ambulatory [address] Repository 04/29/2018/04/29/19 [id number] Emergency [address] ing:ED Repository 04/25/2018/04/26/19 [id number] Ambulatory [address] Repository 04/22/2018/04/22/19 [id number] Emergency [address] ing:ED Repository 03/08/2018 [id number] Ambulatory [facility] ing:LAB Repository 03/08/2018/03/08/20 [id number] Ambulatory BMSBuilding:B [place] [facility] Repository 09/30/2017 [id number] Ambulatory BMSBuilding:[place] Repository 08/17/2017 [id number] Ambulatory BMSBuilding:B [place] [facility] Repository 07/27/2017/07/28/19 [id number] Ambulatory BMSBuilding:B [place] [facility] Repository 07/19/2017/07/20/19 [id number] Ambulatory [address] ing:EN Repository 07/19/2017 [id number] Ambulatory BMSBuilding:B [place] [facility] Repository 07/16/2017/07/17/19 [id number] Ambulatory BMSBuilding:B [place] [address] [facility] Repository 07/15/2017 [id number] Ambulatory BMSBuilding:B [place] [facility] Repository 06/24/2017/06/25/19 [id number] Ambulatory BMSBuilding:B [place] 18 [facility] Repository 06/15/2017/06/16/19 [id number] Ambulatory BMSBuilding:B [place] [facility] Repository 06/07/2017/06/12/19 [id number] [place], Inpatient [place] [facility] ing:PCURoom: Repository [id number]: 1 06/07/2017 [id number] [place], Ambulatory BMSBuilding:B [place] [facility] Repository 06/07/2017 [id number] [facility], Ambulatory BMSBuilding:W [place] [facility] Repository 06/07/2017 [id number] [place], Ambulatory BMSBuilding:W [place] [facility] [facility] Repository 06/07/2017 [id number] [facility], Ambulatory BMSBuilding:[place] [facility] Repository 06/07/2017 [id number] [facility], Ambulatory BMSBuilding:W [place] [facility] [facility] Repository 06/07/2017 [id number] [facility], Ambulatory BMSBuilding:[place] [facility] Repository 06/07/2017 [id number] [facility], Ambulatory BMSBuilding:W [place] [facility] Repository 06/07/2017 [id number] [facility], Ambulatory BMSBuilding:[place] [facility] Repository 06/07/2017 [id number] [facility], Ambulatory BMSBuilding:[place] [facility] Repository PAYERS PAYERS ENCOUNTER GUARANTOR PAYER SUBSCRIBER SOURCE 04/29/2018 LEOLA E Primary LEOLA E [place] [id number] SUZETTE Insurance:MEDICARE HOLTDOB: [facility] [address] [facility] [id number] Number: Repository [address]Lgl: NONE [id number] (HP) Date:2018-04-29 04/29/2018 Secondary LEOLA E [place] Insurance:MEDICAIDPol [place]OLTDOB: [facility] Number: [id number] Hospital [id number] Repository Date:2018-04-29 04/29/2018 Tertiary NOT GIVENUNK [place] Insurance:SELF PAY [facility] Number: Effective Repository Date:2018-04-29 04/22/2018 LEOLA E Primary LEOLA E [place] [id number] SUZETTE Insurance:MEDICARE HOLTDOB: [facility] [address] [facility] [id number] Number: Repository [id number]: NONE [id number] (HP) Date:2018-04-22 04/22/2018 Secondary LEOLA E [place] Insurance:MEDICAIDPol HOLTDOB: [facility] Number: [id number] [facility] [id number] Repository Date:2018-04-22 04/22/2018 Tertiary NOT GIVENUNK [place] Insurance:SELF [facility]Y [facility]: Effective Repository Date:2018-04-22 03/08/2018 LEOLA E Primary LEOLA E [place] [id number] SUZETTE Insurance:MEDICARE HOLTDOB: [address] [facility] [id number], [place] Number: Repository [id number]: NONE [id number] (HP) Date:2018-03-08 03/08/2018 Secondary LEOLA E [place] Insurance:MEDICAIDPol HOLTDOB: [facility] Number: [id number] [id number] Repository Date:2018-03-08 03/08/2018 Tertiary NOT GIVENUNK [place] Insurance:SELF PAY [facility] Number: Effective Repository Date:2018-03-08 03/08/2018 LEOLA E Primary LEOLA E [place] [id number] SUZETTE Insurance:MEDICARE HOLTDOB: [address] [facility] [id number] [address], [place] Number: Repository [address]Bwn: NONE [id number] (HP) Date:2017-07-16 03/08/2018 Secondary LEOLA E [place] Insurance:MEDICAIDPol HOLTDOB: [facility] icy Number: [id number] [id number] Repository Date:2017-07-16 03/08/2018 Tertiary NOT GIVENUNK [place] Insurance:SELF PAY [facility] Number: Effective Repository Date:2018-03-08 09/30/2017 LEOLA E Primary LEOLA E [place] [id number] [place]ZETTE Insurance:MEDICARE HOLTDOB: [address] [facility] [id number], [place] Number: Repository [address]Zmv: NONE [id number] (HP) Date:2017-04-01 09/30/2017 Secondary LEOLA E [place] Insurance:MEDICAIDPol HOLTDOB: [facility] Number: [id number] [facility] [id number] Repository Date:2017-04-01 09/30/2017 Tertiary NOT GIVENUNK [place] Insurance:SELF PAY [facility] Number: Effective Repository Date:2017-04-01 08/17/2017 LEOLA E Primary LEOLA E [place] [id number] [place]ETTE Insurance:MEDICARE HOLTDOB: [address] [facility] [id number], [place] Number: Repository [phone]: NONE [id number] (HP) Date:2017-06-15 08/17/2017 Secondary LEOLA E [place] Insurance:MEDICAIDPol HOLTDOB: [facility] Number: [id number] [facility] [id number] Repository Date:2017-06-15 08/17/2017 Tertiary NOT GIVENUNK [place] Insurance:SELF PAY [facility] Number: Effective Repository Date:2017-06-15 07/27/2017 LEOLA E Primary LEOLA E [place] [id number] [place] Insurance:MEDICARE HOLTDOB: [address] [facility] [id number] Number: Repository [address]Wdm: NONE [id number] (HP) Date:2017-07-20 07/27/2017 Secondary LEOLA E [place] Insurance:MEDICAIDPol HOLTDOB: [facility] Number: [id number] [id number] Repository Date:2017-07-20 07/27/2017 Tertiary NOT GIVENUNK [place] Insurance:SELF PAY [facility] Number: Effective Repository Date:2017-07-27 07/19/2017 LEOLA E Primary LEOLA E [place] [id number] [place] Insurance:MEDICARE HOLTDOB: [address] [facility] [id number] Number: Repository [phone]: NONE [id number] (HP) Date:2017-06-24 07/19/2017 Secondary LEOLA E [place] Insurance:MEDICAIDPol HOLTDOB: [facility] Number: [id number] [facility] [id number] Repository Date:2017-06-24 07/19/2017 Tertiary NOT GIVENUNK [place] Insurance:SELF PAY [facility] Number: Effective Repository Date:2017-06-24 07/19/2017 LEOLA E Primary LEOLA E [place] [id number] [place] Insurance:MEDICARE HOLTDOB: [address] [facility] [id number] Number: Repository [address]Zrf: NONE [id number] (HP) Date:2017-06-24 07/19/2017 Secondary LEOLA E [place] Insurance:MEDICAIDPol HOLTDOB: [facility] icy Number: [id number] [facility] [id number] Repository Date:2017-06-24 07/19/2017 Tertiary NOT GIVENUNK [place] Insurance:SELF PAY [facility] Number: Effective Repository Date:2017-07-19 07/16/2017 LEOLA E Primary LEOLA E [place] [id number] [place] Insurance:MEDICARE HOLTDOB: [address] [facility] [id number] Number: Repository [address]Lxo: NONE [id number] (HP) Date:2017-06-11 07/16/2017 Secondary LOELA E [place] Insurance:MEDICAIDPol HOLTDOB: [facility] icy Number: [id number] Hospital [id number] Repository Date:2017-06-11 07/16/2017 Tertiary NOT GIVENUNK [place] Insurance:SELF PAY [facility] Number: Effective Repository Date:2017-07-16 07/15/2017 LEOLA E Primary LEOLA E [place] [id number] [place] Insurance:MEDICARE HOLTDOB: [address] [facility] [id number] Number: Repository [address]Vlm: NONE [id number] (HP) Date:2017-07-15 07/15/2017 Secondary LEOLA E [place] Insurance:MEDICAIDPol HOLTDOB: [facility] Number: [id number] Hospital [id number] Repository Date:2017-07-15 07/15/2017 Tertiary NOT GIVENUNK [place] Insurance:SELF PAY [facility] Number: Effective Repository Date:2017-07-15 06/24/2017 LEOLA E Primary LEOLA E [place] [id number] [place] Insurance:MEDICARE HOLTDOB: [address] [facility] [id number] Number: Repository [address]Npj: NONE [id number] (HP) Date:2017-06-11 06/24/2017 Secondary LELOA E [place] Insurance:MEDICAIDPol HOLTDOB: [facility] Number: [id number] Hospital [id number] Repository Date:2017-06-11 06/24/2017 Tertiary NOT GIVENUNK [place] Insurance:SELF PAY [facility] Number: Effective Repository Date:2017-06-11 06/15/2017 LEOLA E Primary LEOLA E [place] [id number] [place] Insurance:MEDICARE HOLTDOB: [address] [facility] [id number] Number: Repository [address]Tbw: NONE [id number] (HP) Date:2017-06-08 06/15/2017 Secondary LEOLA E [place] Insurance:MEDICAIDPol HOLTDOB: [facility] Number: [id number] [facility] [id number] Repository Date:2017-06-08 06/15/2017 Tertiary NOT GIVENUNK [place] Insurance:SELF PAY [facility] Number: Effective Repository Date:2017-06-08 06/07/2017 LEOLA E Primary LEOLA E [place] [id number] [place] Insurance:MEDICARE HOLTDOB: [address] [facility] [id number] Number: Repository [address]Ljf: NONE [id number] (HP) Date:2017-06-07 06/07/2017 Secondary LEOLA E [place] Insurance:MEDICAIDPol HOLTDOB: [facility] Number: [id number] [facility] [id number] Repository Date:2017-06-07 06/07/2017 Tertiary NOT GIVENUNK [place] Insurance:SELF PAY [facility] Number: Effective Repository Date:2017-06-07 06/07/2017 LEOLA E Primary LEOLA E [place] [id number] [place] Insurance:MEDICARE HOLTDOB: [address] [facility] [id number] Number: Repository [address]Ngm: NONE [id number] (HP) Date:2017-06-07 06/07/2017 Secondary LEOLA E [place] Insurance:MEDICAIDPol HOLTDOB: [facility] Number: [id number] Hospital [id number] Repository Date:2017-06-07 06/07/2017 Tertiary NOT GIVENUNK [place] Insurance:SELF PAY [facility] Number: Effective Repository Date:2017-06-07 06/07/2017 LEOLA E Primary LEOLA E [place] [id number] [place] Insurance:MEDICARE HOLTDOB: [address] [facility] [id number] Number: Repository [address]Sxa: NONE [id number] (HP) Date:2017-06-07 06/07/2017 Secondary LEOLA E [place] Insurance:MEDICAIDPol HOLTDOB: [facility] Number: [id number] [facility] [id number] Repository Date:2017-06-07 06/07/2017 Tertiary NOT GIVENUNK [place] Insurance:SELF PAY [facility] Number: Effective Repository Date:2017-06-07 06/07/2017 LEOLA E Primary LEOLA E [place] [id number] [place] Insurance:MEDICARE HOLTDOB: [address] [facility] [id number]: Repository [address]Mkh: NONE [id number] (HP) Date:2017-06-07 06/07/2017 Secondary LEOLA E [place] Insurance:MEDICAIDPol HOLTDOB: [facility] Number: [id number] [facility] [id number] Repository Date:2017-06-07 06/07/2017 Tertiary NOT GIVENUNK [place] Insurance:SELF PAY [facility] Number: Effective Repository Date:2017-06-07 06/07/2017 LEOLA E Primary LEOLA E [place] [id number] [place] Insurance:MEDICARE HOLTDOB: [address] [facility] [id number] Number: Repository [address]Htc: NONE [id number] (HP) Date:2017-06-07 06/07/2017 Secondary LEOLA E [place] Insurance:MEDICAIDPol HOLTDOB: [facility] Number: [id number] [facility] [id number] Repository Date:2017-06-07 06/07/2017 Tertiary NOT GIVENUNK [place] Insurance:SELF PAY [facility] Number: Effective Repository Date:2017-06-07 06/07/2017 LEOLA E Primary LEOLA E [place] [id number] [place] Insurance:MEDICARE HOLTDOB: [address] [facility] [id number]: Repository [address]Plj: NONE [id number] (HP) Date:2017-06-07 06/07/2017 Secondary LEOLA E [place] Insurance:MEDICAIDPol HOLTDOB: [facility] Number: [id number] [facility] [id number] Repository Date:2017-06-07 06/07/2017 Tertiary NOT GIVENUNK [place] Insurance:SELF PAY [facility] Number: Effective Repository Date:2017-06-07 06/07/2017 LEOLA E Primary LEOLA E [place] [id number] [place] Insurance:MEDICARE HOLTDOB: [address] [facility] [id number]: Repository [address]Igm: NONE [id number] (HP) Date:2017-06-07 06/07/2017 Secondary LEOLA E [place] Insurance:MEDICAIDPol HOLTDOB: [facility] Number: [id number] [facility] [id number] Repository Date:2017-06-07 06/07/2017 Tertiary NOT GIVENUNK [place] Insurance:SELF PAY [facility] Number: Effective Repository Date:2017-06-07 06/07/2017 LEOLA E Primary LEOLA E [place] [id number] [place] Insurance:MEDICARE HOLTDOB: [address] [facility] [id number]: Repository [address]Uyo: NONE [id number] (HP) Date:2017-06-07 06/07/2017 Secondary LEOLA E [place] Insurance:MEDICAIDPol HOLTDOB: [facility] Number: [id number] Hospital [id number] Repository Date:2017-06-07 06/07/2017 Tertiary NOT GIVENUNK [place] Insurance:SELF PAY [facility] Number: Effective Repository Date:2017-06-07 06/07/2017 LEOLA E Primary LEOLA E [place] [id number] [place] Insurance:MEDICARE HOLTDOB: [address] [facility] [id number]: Repository [address]Mqa: NONE [id number] (HP) Date:2017-06-07 06/07/2017 Secondary LEOLA E [place] Insurance:MEDICAIDPol HOLTDOB: [facility] Number: [id number] Hospital [id number] Repository Date:2017-06-07 06/07/2017 Tertiary NOT GIVENUNK [place] Insurance:SELF PAY [facility] Number: Effective Repository Date:2017-06-07 06/07/2017 LEOLA E Primary LEOLA E [place] [id number] [place] Insurance:MEDICARE HOLTDOB: [address] [facility] [id number] Number: Repository [address]Bmw: NONE [id number] (HP) Date:2017-06-07 06/07/2017 Secondary LEOLA E [place] Insurance:MEDICAIDPol HOLTDOB: [facility] Number: [id number] [facility] [id number] Repository Date:2017-06-07 06/07/2017 Tertiary NOT GIVENUNK [place] Insurance:SELF PAY [facility] Number: Effective Repository Date:2017-06-07
== END 2018-04-29 08:12 | disposition home or self-care (01) ==
PROVIDERS: Emergency Provider Emergency Medicine
DX: M54.5 Low back pain (principal); I25.2 Old myocardial infarction; Z87.891 Personal history of nicotine dependence; Z86.010 Personal history of colon polyps
CPT/HCPCS: 99282

== ENCOUNTER 2018-05-09 09:08 | Emergency (ER) | payer MEDICARE, MEDICAID, SELFPAY ==
[2018-05-09 09:09] VITALS: BP 133/84; PULSE 77; RESP 16; TEMP 36.4; O2SAT 98; BMI 34.1
--- NOTE | 2018-05-09 09:36 | ED.VISSUMM ---
- ER Visit Summary Date of Service: 05/09/18 Chief Complaint: Left lower back pain History of Present Illness: The patient is a 72 M history of CAD, [place], hypertension, anemia and vertigo. Patient is never had any back surgery. States due to vertigo he cannot lie flat at night because it makes his dizziness worse so is been sleeping in a recliner for years. States that the chair is worn out and is causing her to have back pain. He denies any falls or trauma. No dysuria or fever. No leg weakness or numbness. No radiation of the pain to his legs. States his left lower lateral back. Denies any fever. He has had this before. Physical Examination: Appearing older male. Vital signs are stable. He is afebrile. He does not look septic toxic. He is in no distress. H EENT exam unremarkable. Poor dentition. Multiple missing teeth. Neck nontender no lymphadenopathy. Lungs clear to auscultation bilaterally. Heart regular rhythm no murmur rate about 90. Chest wall nontender. Abdomen soft. Nontender. Nondistended. Normal bowel sounds no peritoneal signs. No pulsatile mass. Extremities moves all 4. Neurovascularly intact. He has equal and symmetrical 5 out of 5 motor strength with dorsi plantar flexion. Normal medial thigh sensation. No cauda equina. No saddle anesthesia. He has 1+ pitting edema both lower extremities. Back exam is nontender. He had a kyphosis. There is no redness or warmth. No spine tenderness. The back currently is nontender. He did have increased pain with movement. Neurologically is awake and alert with no focal motor deficits. He is moving all 4 extremities. Test Results: None Emergency Department Course and Treatment: I explained to the patient having given a short course of pain medication but he needed his pain meds to be written through his primary care physician. He had a prior prescription for hydrocodone. I do not feel like he needs any testing at this time or imaging. Treatment Plan: Hydrocodone for pain. 14 no refill. Follow-up with his primary care physician for further medications. Disposition: Discharge Impression: Acute on chronic musculoskeletal back pain History of CAD History of anemia This note was generated with [employer] dictation software. It may contain incorrect words, spelling, and punctuation that were not noted in review of the chart prior to signing ED Disposition - Plan for ED Patient: Chief Complaint: Back Referrals: Care Physician,No Primary [Primary Care Provider] -
--- NOTE | 2018-05-09 09:40 | ED.DEP ---
ED Disposition - Plan for ED Patient: Disposition: Home or Assisted Living Chief Complaint: Back Instructions: ED Spasm Back No Trauma Prescriptions: Hydrocodone/Acetaminophen [Hydrocodon-Acetaminophen 5-325] 1 ea PO Q8H PRN PRN 5 Days #14 tab PRN Reason: Pain Referrals: Park Dinero MD [STAFF PHYSICIAN] - 1-2 Weeks Additional Instructions: Ice and heat to your back. Limited Tylenol and/or Motrin for your back pain. Hydrocodone for more severe pain. Follow-up with primary care physician they should be the one writing for chronic pain meds for you.
== END 2018-05-09 10:04 | disposition home or self-care (01) ==
PROVIDERS: Emergency Provider Emergency Medicine
DX: M54.5 Low back pain (principal); G89.29 Other chronic pain; I25.10 Atherosclerotic heart disease of native coronary artery without angina pectoris; D64.9 Anemia, unspecified; R42 Dizziness and giddiness; I25.2 Old myocardial infarction; F17.220 Nicotine dependence, chewing tobacco, uncomplicated
CPT/HCPCS: 99282

== ENCOUNTER 2018-05-31 09:48 | Emergency (ER) | payer MEDICARE, MEDICAID, SELFPAY ==
[2018-05-31 09:48] VITALS: BP 138/75; PULSE 85; RESP 16; TEMP 36.8; O2SAT 96; BMI 32.5
--- NOTE | 2018-05-31 10:14 | RAD_ITS ---
STUDY: X-RAY - THORACIC SPINE REASON FOR EXAM: Male, 73 years old. Back pain. TECHNIQUE: 2 view(s) of the thoracic spine were obtained. COMPARISON: None. FINDINGS: Normal kyphosis of the thoracic spine. There is no substantial scoliosis. There is demineralization of the thoracic spine with endplate spondylosis. There is multilevel disc space narrowing of the thoracic spine. 50% loss of right of the T12 vertebrae. RAD/Thoracic Spine 2 Views IMPRESSION: Degenerative changes. 50% loss of height of the T12 vertebrae. Electronically Signed: Norberto Hall MD at 11:05 EST , Service support ,
--- NOTE | 2018-05-31 10:14 | RAD_ITS ---
STUDY: X-RAY - LUMBAR SPINE REASON FOR EXAM: Male, 73 years old. Back pain. TECHNIQUE: 3 view(s) of the lumbar spine were obtained. COMPARISON: None FINDINGS: There is reversal of the normal lumbar lordosis. There is no substantial scoliosis. There is a normal alignment of the vertebrae. 50% loss of height of the T12 vertebrae. There is multilevel endplate spondylosis of the lumbar vertebrae. There is multi-level degenerative disc disease with multi-level disc space narrowing. There is atherosclerotic calcification of the abdominal aorta without a demonstrated aneurysm. RAD/Lumbar Spine 2 or 3 Views IMPRESSION: Degenerative changes of the spine, as detailed above. 50% loss of height of the T12 vertebrae. Electronically Signed: Norberto Hall MD at 11:04 EST , Service support ,
--- NOTE | 2018-05-31 10:16 | ED.VISSUMM ---
- ER Visit Summary Date of Service: 05/31/18 Chief Complaint: Back Pain History of Present Illness: The patient is a 73 M who presents for evaluation of back pain. This is patient's fourth visit to this emergency department and 6 known visit to a healthcare provider for the same complaint. Onset of pain was approximately 6 weeks ago. Patient states initially it was upper back pain, but now it is diffuse lower back. Patient states it also now radiates to the front of the abdomen sometimes. Patient is currently not in any pain. He states it is only when he moves, such as going from sitting to standing or getting in his car. He avoids stairs and thus does not know if going up or down the stairs makes it better or worse. He states if he lays or sits still, he does not have any complaints. He denies any trauma. He denies any nausea, vomiting, loss of bowel or bladder control, inability to urinate or defecate, numbness or tingling in the groin, legs, or weakness in the legs. Patient saw Dr. Franklin 1 week ago and was prescribed diclofenac. Patient states it helps. He is requesting an x-ray, as he states he refused at the first visit and has not had any imaging. Physical Examination: Vital signs: afebrile, hemodynamically stable, no hypoxia on room air General: well nourished, well developed, in no distress Skin: warm, dry, no rash, no pallor HEENT: normocephalic and atraumatic; PERRL, EOMI, moist mucous membranes Cardiovascular: regular rate and rhythm without murmurs, no peripheral edema, 2+ pulses all distal extremities Respiratory: No increased work of breathing, lungs are clear to auscultation bilaterally, no rales, rhonchi or wheezing Abdominal: Abdomen is soft, nontender with normoactive bowel sounds, no guarding or rebound, no masses Back: significant kyphosis, no midline tenderness or stepoffs, no paraspinal tenderness in the thoracic or lumbar region. no rash. slow gait without pain. symmetric sensation all dermatomes of the lower extremities, symmetric reflexes MSK: Moves all extremities, no deformities, normal strength Neuro: Awake and alert, oriented ?4. No facial droop, sensation and motor function intact and symmetric Test Results: Clinical Impression(s) from Imaging Studies Lumbar Spine X-Ray 05/31/18 10:14 IMPRESSION: Degenerative changes of the spine, as detailed above. 50% loss of height of the T12 vertebrae. Electronically Signed: Norberto Hall MD at 11:04 EST , Service support , Thoracic Spine X-Ray 05/31/18 10:14 IMPRESSION: Degenerative changes. 50% loss of height of the T12 vertebrae. Electronically Signed: Norberto Hall MD at 11:05 EST , Service support , Emergency Department Course and Treatment: This is patient's fourth visit to this emergency department for his back pain and his 6 visit overall that I know of for the same complaint. Patient has no findings on physical exam that are concerning for cauda equina syndrome, epidural hematoma or abscess, or other emergent pathology that would require neurosurgical intervention or MRI. Imaging was performed of the thoracic and lumbar spine today. It showed diffuse degenerative disc space narrowing as well as a 50% loss of height of the T12 vertebra. Patient's main area of pain that he indicates for the last several weeks is in the T12 region, including where he is complaining of his worst pain today. Likely his pain is related to this compression fracture of unknown age or etiology. Patient was given prescription for diclofenac by Dr. Franklin last week, and he is to continue using this pain medication for mild to moderate pain. Patient was given a small prescription for [place] use for severe pain. He was given referral to for further evaluation of his spine and ongoing back pain. Patient discharged home well-appearing and with no red flag symptoms that would require admission or further workup at this time. Treatment Plan: [] Disposition: [] Impression: Degenerative disc disease, T12 compression fracture of uncertain age, subacute back pain This note was generated with [employer] software. It may contain incorrect words, spelling, and punctuation that were not noted in review of the chart prior to signing ED Disposition - Plan for ED Patient: Disposition: Home or Assisted Living Instructions: ED Fx Comp Vertebral, ED DDD Degenerative Disk Disease Prescriptions: Hydrocodone Bitart/Apap 5-325 [[place] 5MG-325MG] 1 tab PO Q6H PRN PRN 3 Days #10 tab PRN Reason: Pain Referrals: Valerie Roe MD [STAFF PHYSICIAN] - Doctor,Your [STAFF PHYSICIAN] - As soon as possible Care Physician,No Primary [Primary Care Provider] - As soon as possible Additional Instructions: You have a compression fracture of T12, which is one of your backbones in the area of your worst pain. It is unclear when this fracture occurred, but it is likely related to your pain that you have been having for several weeks. Continue using the pain medication that you were prescribed by Dr. Franklin last week. You may use the [place] for severe pain. You need to follow-up with your primary care doctor for further evaluation and prescription of ongoing pain medications. These follow-up as soon as possible with the spine doctor on this paperwork, Dr. Roe. If you have any worsening of your condition or any new concerning symptoms, please return immediately to the emergency department for another evaluation.
--- NOTE | 2018-05-31 10:19 | ED.DCSUM_ITS ---
- ER Visit Summary Date of Service: 05/31/18 Chief Complaint: Back Pain History of Present Illness: The patient is a 73 M who presents for evaluation of back pain. This is patient's fourth visit to this emergency department and 6 known visit to a healthcare provider for the same complaint. Onset of pain was approximately 6 weeks ago. Patient states initially it was upper back pain, but now it is diffuse lower back. Patient states it also now radiates to the front of the abdomen sometimes. Patient is currently not in any pain. He states it is only when he moves, such as going from sitting to standing or getting in his car. He avoids stairs and thus does not know if going up or down the stairs makes it better or worse. He states if he lays or sits still, he does not have any complaints. He denies any trauma. He denies any nausea, vomiting, loss of bowel or bladder control, inability to urinate or defecate, numbness or tingling in the groin, legs, or weakness in the legs. Patient saw Dr. Franklin 1 week ago and was prescribed diclofenac. Patient states it helps. He is requesting an x-ray, as he states he refused at the first visit and has not had any imaging. Physical Examination: Vital signs: afebrile, hemodynamically stable, no hypoxia on room air General: well nourished, well developed, in no distress Skin: warm, dry, no rash, no pallor HEENT: normocephalic and atraumatic; PERRL, EOMI, moist mucous membranes Cardiovascular: regular rate and rhythm without murmurs, no peripheral edema, 2+ pulses all distal extremities Respiratory: No increased work of breathing, lungs are clear to auscultation bilaterally, no rales, rhonchi or wheezing Abdominal: Abdomen is soft, nontender with normoactive bowel sounds, no guarding or rebound, no masses Back: significant kyphosis, no midline tenderness or stepoffs, no paraspinal tenderness in the thoracic or lumbar region. no rash. slow gait without pain. symmetric sensation all dermatomes of the lower extremities, symmetric reflexes MSK: Moves all extremities, no deformities, normal strength Neuro: Awake and alert, oriented ?4. No facial droop, sensation and motor function intact and symmetric Test Results: Clinical Impression(s) from Imaging Studies Lumbar Spine X-Ray 05/31/18 10:14 IMPRESSION: Degenerative changes of the spine, as detailed above. 50% loss of height of the T12 vertebrae. Electronically Signed: Norberto Hall MD at 11:04 EST , Service support , Thoracic Spine X-Ray 05/31/18 10:14 IMPRESSION: Degenerative changes. 50% loss of height of the T12 vertebrae. Electronically Signed: Norberto Hall MD at 11:05 EST , Service support , Emergency Department Course and Treatment: This is patient's fourth visit to this emergency department for his back pain and his 6 visit overall that I know of for the same complaint. Patient has no findings on physical exam that are concerning for cauda equina syndrome, epidural hematoma or abscess, or other emergent pathology that would require neurosurgical intervention or MRI. Imaging was performed of the thoracic and lumbar spine today. It showed diffuse degenerative disc space narrowing as well as a 50% loss of height of the T12 vertebra. Patient's main area of pain that he indicates for the last several weeks is in the T12 region, including where he is complaining of his worst pain today. Likely his pain is related to this compression fracture of unknown age or etiology. Patient was given prescription for diclofenac by Dr. Franklin last week, and he is to continue using this pain medication for mild to moderate pain. Patient was given a small prescription for [place] use for severe pain. He was given referral to for further evaluation of his spine and ongoing back pain. Patient discharged home well-appearing and with no red flag symptoms that would require admission or further workup at this time. Treatment Plan: [] Disposition: [] Impression: Degenerative disc disease, T12 compression fracture of uncertain age, subacute back pain This note was generated with [employer] software. It may contain incorrect words, spelling, and punctuation that were not noted in review of the chart prior to signing ED Disposition - Plan for ED Patient: Disposition: Home or Assisted Living Instructions: ED Fx Comp Vertebral, ED DDD Degenerative Disk Disease Prescriptions: Hydrocodone Bitart/Apap 5-325 [[place] 5MG-325MG] 1 tab PO Q6H PRN PRN 3 Days #10 tab PRN Reason: Pain Referrals: Valerie Roe MD [STAFF PHYSICIAN] - Doctor,Your [STAFF PHYSICIAN] - As soon as possible Care Physician,No Primary [Primary Care Provider] - As soon as possible Additional Instructions: You have a compression fracture of T12, which is one of your backbones in the area of your worst pain. It is unclear when this fracture occurred, but it is likely related to your pain that you have been having for several weeks. Continue using the pain medication that you were prescribed by Dr. Franklin last week. You may use the [place] for severe pain. You need to follow-up with your primary care doctor for further evaluation and prescription of ongoing pain medications. These follow-up as soon as possible with the spine doctor on this paperwork, Dr. Roe. If you have any worsening of your condition or any new concerning symptoms, please return immediately to the emergency department for another evaluation.
[2018-05-31 12:51] VITALS: PULSE 74; RESP 18; O2SAT 97
== END 2018-05-31 12:57 | disposition home or self-care (01) ==
PROVIDERS: Emergency Provider Emergency Medicine
DX: M51.34 Other intervertebral disc degeneration, thoracic region (principal); M48.54XA Collapsed vertebra, not elsewhere classified, thoracic region, initial encounter for fracture; M54.6 Pain in thoracic spine; M54.5 Low back pain; Z79.82 Long term (current) use of aspirin; Z79.899 Other long term (current) drug therapy
CPT/HCPCS: 72070; 72100; 99282

== ENCOUNTER 2018-06-10 00:51 | Emergency (ER) | payer MEDICARE, MEDICAID, SELFPAY ==
[2018-06-10 00:52] VITALS: BP 138/79; PULSE 85; RESP 18; TEMP 36.5; O2SAT 94; BMI 32.4
--- NOTE | 2018-06-10 01:18 | ED.VISSUMM ---
- ER Visit Summary Date of Service: 06/10/18 Chief Complaint: [] Bleeding from rectum with a bowel movement History of Present Illness: The patient is a 73 M stated that he sat on the toilet and had a bowel movement tonight. The first part of it was normal and then there was bright blood afterwards. He wiped his bottom and then came in for further evaluation. It happened one time. He has a history of diverticular and internal hemorrhoid bleeding remotely. He is on a baby aspirin. He is off his Plavix. No other blood thinners. He was admitted in May of last year for the same. At that time he continued to have bleeding and needed a blood transfusion. He followed up as an outpatient with Dr. Stephenson who did a sigmoidoscopy and removed a rectal polyp that turned out to be an adenoma. He has not had bleeding since. He has had this multiple times in the past with internal hemorrhoidal and diverticular bleeding however. He denies any symptoms currently. Physical Examination: Vital signs reviewed General: Well-nourished well-developed Head: Normocephalic atraumatic Eyes: Pupils equal round and reactive to light extraocular movements intact ENT: TMs clear no hemotympanum no trauma Neck: Nontender full range of motion Cardiovascular: Regular rate rhythm no murmurs normal S1-S2 Respiratory: No distress clear to auscultation bilaterally chest nontender Abdomen: Soft nontender nondistended normal bowel sounds no masses Back: Nontender no CVA tenderness Extremities: Nontender active range of motion ?4 extremities no trauma Skin: Normal color no trauma Neuro alert oriented cranial nerves II through XII intact normal strength sensation reflexes Test Results: [] Emergency Department Course and Treatment: [] Given IV fluids and lab work obtained. 11.1 up from 9.1. Chemistries normal except sodium 132 BUN 23 calcium 7.8. Coags are normal. On evaluation of his previous colonoscopy done in 2017 he had no bleeding actively at that time. He did have internal hemorrhoids as well as diverticulosis. They suspected he had a internal hemorrhoid bleed. The patient's been on a narcotic that is causing him to have harder stools. He is off this now. He is going to continue his stool softeners to keep his stool soft. He thinks it was likely from a harder stool causing some bleeding to an internal hemorrhoid. This is likely the cause. I do not think he has an active bleed. He is having no more bleeding in the department. He is stable without symptoms. He had a sigmoidoscopy last July that showed a polyp that was removed. He has had no bleeding since that was removed. He is can follow-up with Dr. Stephenson in the office. He will return if he has worsening bleeding. He will hold his aspirin for the next 3 days. Discussed the case with on-call surgery Dr. Harris. At this time the patient is stable has no further bleeding and he feels can follow-up as an outpatient and return if he worsens Treatment Plan: [] Disposition: [] Impression: [] Lower GI bleed hematochezia, suspected internal hemorrhoid bleeding This note was generated with [employer] software. It may contain incorrect words, spelling, and punctuation that were not noted in review of the chart prior to signing ED Disposition - Plan for ED Patient: Disposition: Home or Assisted Living Instructions: ED Hemorrhoids Referrals: Wiley Stephenson MD [STAFF PHYSICIAN] -
[2018-06-10] MEDS: 0.9% Normal Saline 1,000 ML 125 ML IV (01:37)
[2018-06-10 01:49] LABS: Absolute Neutrophil Count 4.4 X10^3/uL (2.0-7.7); Basophil# 0.05 X10^3/uL; Basophil% 0.9 % (0-1); Eosinophil# 0.18 X10^3/uL; Eosinophils% 3.1 % (0-5); Hematocrit 33.7 % (40-54); Hemoglobin 11.1 g/dl (13.0-16.5); Lymphocyte % 13.6 % (19-41); Mean Corp Hgb Conc 32.9 g/gl (32-36); Mean Corpuscular Hgb 32.2 pg (27.0-32.0); Mean Corpuscular Volume 97.7 fL (80-94); Mean Platelet Vol. 9.3 fl (6.2-12.0); Monocyte# 0.49 X10^3/uL; Monocyte% 8.3 % (0-10); Neutrophil # 4.35 X10^3/uL (2.7-7.7); Neutrophil % 73.9 % (47-70); Platelet Count 229 K/mm3 (150-450); RBC Distribution Width CV 14.4 % (11.6-14.6); RBC Distribution Width SD 48.6 fl (35.1-43.9); Red Blood Count 3.45 M/mm3 (4.6-6.2); White Blood Count 5.9 K/mm3 (4.4-11.0)
[2018-06-10 01:50] LABS: POSITIVE COUNT NO; POSITIVE DIFFERENTIAL NO; POSITIVE MORPHOLOGY NO
[2018-06-10 01:58] LABS: International Normalized Ratio 1.4
[2018-06-10 01:59] LABS: Partial Thromboplast Time 33.7 Seconds (24.1-36.2)
[2018-06-10 02:01] LABS: Anion Gap 4 (5-15); BUN 23 mg/dL (7-18); BUN/Creat Ratio 21.3 RATIO (10-20); Calcium,Total 7.8 mg/dL (8.5-10.1); Chloride 105 mmol/L (98-107); Creatinine, Serum 1.08 mg/dL (0.70-1.30); EST Glomerular Filtration Rate 71 mL/min (>60); Est Glom Filt Rate - Afr Amer 86 mL/min (>60); Glucose 97 mg/dL (74-106); Potassium 3.5 mmol/L (3.5-5.1); Sodium Level 132 mmol/L (136-145)
--- NOTE | 2018-06-10 02:32 | ED.DEP ---
ED Disposition - Plan for ED Patient: Disposition: Home or Assisted Living Instructions: ED Hemorrhoids Referrals: Wiley Stephenson MD [STAFF PHYSICIAN] -
[2018-06-10 02:34] VITALS: BP 139/87; PULSE 75; RESP 18; O2SAT 97
== END 2018-06-10 03:08 | disposition home or self-care (01) ==
PROVIDERS: Emergency Provider Emergency Medicine
DX: K92.1 Melena (principal); I25.2 Old myocardial infarction; I10 Essential (primary) hypertension; E78.00 Pure hypercholesterolemia, unspecified; Z79.82 Long term (current) use of aspirin; Z79.899 Other long term (current) drug therapy
CPT/HCPCS: 80048; 85025; 85610; 85730; 96360; 99285; J7030; A4216

== ENCOUNTER → 2018-06-15 15:42 | Outpatient (CLI) | payer MEDICARE, MEDICAID, SELFPAY ==
[2018-06-10 00:52] VITALS: BMI 32.4
--- NOTE | 2018-06-15 15:50 | RAD_ITS ---
STUDY: X-RAY - LUMBAR SPINE REASON FOR EXAM: Male, 73 years old. Chronic low back pain. TECHNIQUE: 2 view(s) of the lumbar spine were obtained. COMPARISON: 05/31/2018 FINDINGS: Since previous study, there has been progression of compression fracture of T12, and mild compression fracture of L1. There is no exaggerated kyphosis at the level of L1. No other changes. RAD/Lumbar Spine 2 or 3 Views IMPRESSION: Progression of compression fracture of T12 and development of mild to moderate compression fracture of L1. Electronically Signed: Jesus Morgan MD at 21:55 EST , Service support ,
== END ==
PROVIDERS: Referring Provider Anesthesiology Pain Medicine; Visit Provider Anesthesiology Pain Medicine
DX: M54.5 Low back pain (principal)
CPT/HCPCS: 72100

== ENCOUNTER → 2018-07-26 | Outpatient (CLI) | payer MEDICARE, MEDICAID, SELFPAY ==
--- NOTE | 2018-07-26 15:05 | RAD_ITS ---
HISTORY: FALL, BACK PAIN COMPARISON: 06/15/2018 FINDINGS: XR Spine lumbar spine 2 views Generalized bony demineralization, unchanged. Chronic moderate anterior wedge compression deformity of the T12 vertebra with secondary gibbus deformity and kyphotic angulation of the spine. L1 vertebra mild anterior wedge compression fracture which shows apparent mild progression and increased collapse compared to the June 2018 exam. No bony retropulsion. Exaggeration of the normal lumbar lordosis. The L2-L5 vertebra appear normal in height. Atherosclerotic abdominal aorta. The SI joints are not widened. RAD/Lumbar Spine 2 or 3 Views IMPRESSION: 1. T12 vertebra moderate compression fracture, unchanged. 2. L1 vertebra mild compression fracture with increased collapse at this level compared to the June 2018 exam. No bony retropulsion. 3. Lumbar hyperlordosis with kyphotic angulation at the thoracolumbar junction without significant change. 4. Extensive atherosclerotic calcifications. at 0120 Reported and signed by: Aleksandr Hensley MD Electronically Signed: Aleksandr Hensley, at 1:18 EDT Tel , Service support ,
== END | disposition home or self-care (01) ==
LOC: RAD 14:54
PROVIDERS: Referring Provider Anesthesiology Pain Medicine; Visit Provider Anesthesiology Pain Medicine
DX: M54.5 Low back pain (principal)
CPT/HCPCS: 72100

== ENCOUNTER → 2018-09-06 | Outpatient (CLI) | payer MEDICARE, MEDICAID, SELFPAY ==
[2018-09-06 08:46] VITALS: BMI 27.3
[2018-09-06 12:21] LABS: AST(SGOT) 20 U/L (15-37); Alanine Aminotransfer ALT/SGPT 14 U/L (16-61); Albumin, Serum 2.3 g/dL (3.2-5.0); Alkaline Phosphatase 55 U/L (45-117); Bilirubin, Direct 0.15 mg/dL (0.00-0.30); Cholesterol 51 mg/dL (200); Globulin 9.3 g/dL (2.2-4.2); High Density Lipoprotein 30 mg/dL; Protein, Total 11.6 g/dL (6.4-8.2); Triglycerides 77 mg/dL; Very Low Density Lipoprotein 15 mg/dL (5-40)
== END | disposition home or self-care (01) ==
LOC: LAB 10:21
PROVIDERS: Referring Provider Internal Medicine Cardiovascular Disease; Visit Provider Internal Medicine Cardiovascular Disease
DX: E78.5 Hyperlipidemia, unspecified (principal)
CPT/HCPCS: 36415; 80061; 80076

== ENCOUNTER → 2019-03-16 09:48 | Outpatient (CLI) | payer MEDICARE, MEDICAID, SELFPAY ==
[2019-03-16 08:55] VITALS: BMI 27.3
[2019-03-16 10:46] LABS: AST(SGOT) 16 U/L (15-37); Alanine Aminotransfer ALT/SGPT 11 U/L (16-61); Albumin, Serum 2.5 g/dL (3.2-5.0); Alkaline Phosphatase 51 U/L (45-117); Cholesterol < 50 mg/dL (200); Globulin 8.7 g/dL (2.2-4.2); High Density Lipoprotein 28 mg/dL; Protein, Total 11.2 g/dL (6.4-8.2); Triglycerides 59 mg/dL; Very Low Density Lipoprotein 12 mg/dL (5-40)
== END ==
PROVIDERS: Referring Provider Physician Assistant Medical; Visit Provider Physician Assistant Medical
DX: E78.5 Hyperlipidemia, unspecified (principal); I10 Essential (primary) hypertension; I25.2 Old myocardial infarction; I25.10 Atherosclerotic heart disease of native coronary artery without angina pectoris
CPT/HCPCS: 36415; 80061; 80076

== ENCOUNTER → 2019-03-20 12:38 | Outpatient (CLI) | payer MEDICARE, MEDICAID, SELFPAY ==
[2019-03-16 08:55] VITALS: BMI 27.3
--- NOTE | 2019-03-20 12:50 | RAD_ITS ---
STUDY: X-RAY - LUMBAR SPINE REASON FOR EXAM: Male, 73 years old. Mid lower back pain. TECHNIQUE: 2 view(s) of the lumbar spine were obtained. COMPARISON: 07/26/2018. FINDINGS: There is an exaggerated lumbar lordosis. There is no substantial scoliosis. There is a normal alignment of the vertebrae. There is generalized demineralization of the vertebral bodies. There is moderate to severe compression fracture of T12 and L1 vertebral bodies with vertebroplasty at L1. There is multi-level degenerative disc disease with multi-level disc space narrowing. Multilevel bilateral facet hypertrophy. There is atherosclerotic calcification of the abdominal aorta without a demonstrated aneurysm. RAD/Lumbar Spine 2 or 3 Views IMPRESSION: Diffuse osteopenia along with multilevel spondylosis/degenerative disease. Vertebral plasty at T12 with a stable compression fracture of T11. Electronically Signed: Nadine Montoya MD at 21:09 EST , Service support ,
== END ==
PROVIDERS: Referring Provider Anesthesiology Pain Medicine; Visit Provider Anesthesiology Pain Medicine
DX: M54.5 Low back pain (principal)
CPT/HCPCS: 72100

== ENCOUNTER → 2019-07-21 12:23 | Outpatient (CLI) | payer MEDICARE, MEDICAID, SELFPAY ==
[2019-03-16 08:55] VITALS: BMI 27.3
--- NOTE | 2019-07-21 12:31 | CDU_ITS ---
Reason For Study: vision disturbance Rt. Velocities/BP Lt. Velocities/BP Prox CCA 61.7/9.5 cm/sec. Prox CCA 86.5/17.3 cm/sec. Mid CCA 73.4/16.0 cm/sec. Mid CCA 66.9/12.1 cm/sec. Dist CCA 91.7/17.3 cm/sec. Dist CCA 66.9/12.1 cm/sec. Prox ICA 72.1/20.0 cm/sec. Prox ICA 48.6/17.3 cm/sec. Mid ICA 73.4/18.6 cm/sec. Mid ICA 68.2/18.6 cm/sec. Dist ICA 69.5/21.3 cm/sec. Dist ICA 65.6/21.3 cm/sec. Rt. ICA/CCA = 1.0. Lt. ICA/CCA = 1.0. Prox ECA 109.9/6.9 cm/sec. Prox ECA 102.1/8.2 cm/sec. Rt. Vert. 56.5/8.2 cm/sec. Lt. Vert. 44.7/9.5 cm/sec. Right Extracranial There is intimal thickening but no significant atherosclerotic plaque noted in the right common carotid artery. There is heterogeneous, irregular atherosclerotic plaque noted in the right internal carotid artery. There is intimal thickening but no significant atherosclerotic plaque noted in the right external carotid artery. Antegrade flow is noted in the right vertebral artery. Left Extracranial There is intimal thickening but no significant atherosclerotic plaque noted in the left common carotid artery. There is heterogeneous, irregular atherosclerotic plaque noted in the left internal carotid artery. There is intimal thickening but no significant atherosclerotic plaque noted in the left external carotid artery. Antegrade flow is noted in the left vertebral artery. Procedure Carotid Duplex 17530. The exam was diagnostic. Exam performed in department. Interpretation Summary Minimal smooth calcific heterogenous plaque at the proximal right internal carotid <50% stenosis right internal carotid <50% stenosis right external carotid Minimal irregular plague proximal left internal carotid <50%stenosis left internal carotid Patent, antegrade vertebrals bilaterally Ordering Physician: Maverick Gonzales Performed By: Taco Jarquin RVT
== END ==
PROVIDERS: Referring Provider Internal Medicine Cardiovascular Disease; Visit Provider Internal Medicine Cardiovascular Disease
DX: H53.8 Other visual disturbances (principal); H53.9 Unspecified visual disturbance; H35.82 Retinal ischemia
CPT/HCPCS: 93880

== ENCOUNTER 2019-09-11 10:42 | Emergency (ER) | payer MEDICARE, MEDICAID, SELFPAY ==
[2019-03-16 08:55] VITALS: BMI 27.3
[2019-09-11 10:43] VITALS: BP 128/83; PULSE 70; RESP 17; TEMP 36.3; O2SAT 95; BMI 25.6
--- NOTE | 2019-09-11 11:06 | CT_ITS ---
STUDY: CT ABDOMEN AND PELVIS WITH CONTRAST REASON FOR EXAM: Male, 74 years old. ABD PAIN AND CONSTIPATION X 3 WKS RADIATION DOSAGE (If Supplied By Facility): CTDIvol = ( 13.95 ) mGy, DLP = ( 642.45 ) mGycm TECHNIQUE: Transaxial images were obtained from the dome of the diaphragm to the symphysis pubis with oral contrast. Oral and amp; IV GASTROGRAFIN and amp; 100ML ISOVUE 300 was administered. Sagittal and coronal images were reconstructed. Individualized dose optimization techniques were used for this CT. COMPARISON: None. FINDINGS: Increased reticular nodular markings at the lung bases suggestive of scarring. This is worse at the right lung base. 1.2 cm bulla in the left lower lobe. Coronary artery calcification. Normal liver. Mildly distended gallbladder. I suspect tiny gallstones along its dependent portion. Normal spleen. Normal pancreas. Normal bilateral adrenal glands. There is a 1.7 cm x 1.7 cm cyst in the upper pole of the right kidney. Normal left kidney. Normal visualized stomach. Normal small intestine. Large amount of fecal material is seen in the rectum. The appendix is visualized and appears normal. There is diffuse atherosclerotic calcification of the abdominal aorta, without a demonstrated aneurysm. Normal inferior vena cava. Normal retroperitoneum. There is a 6.6 mm calculus at the base of the bladder on the left side. Calcified fibroid uterus. Small bilateral inguinal hernias containing fat. There are degenerative changes of the visualized lumbar spine. Prior vertebroplasty of the T12 and L1 vertebrae with evidence of vertebral loss of height. CT/Abdomen/Pelvis WITH Contrast IMPRESSION: 6.6 mm calculus at the base of the bladder on the left side. Calcified fibroid uterus. Large amount of fecal material is seen in the rectum. Right renal cyst. Mildly distended gallbladder with possible tiny gallstones along the dependent portion of the gallbladder. Electronically Signed: Norberto Hall, at 13:38 EDT , Service support ,
--- NOTE | 2019-09-11 11:07 | ED.VIS.GEN ---
History of Present Illness Chief Complaint: Abd Pain Narrative: Patient is a 74-year-old male who presents with decreased appetite and difficulty with bowels. History is limited as the patient is a very poor informant. His full stack java developer is with him and helps provide history. Apparently over the last few weeks patient has had difficulty having a bowel movement. It sounds like he has needed to to some extent manually disimpact himself. He also complains of some redness and pain around his anus and buttocks. 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 Patient does see cardiology but does not actually really have a primary care physician. Patient denied any abdominal pain and nausea or vomiting. No fevers. He does have a history of bowel resection. He has a history of an ostomy that was reversed. Past Medical History - Allergies and Home Meds Allergies/Adverse Reactions: Allergies No Known Allergies Allergy (Verified 09/11/19 10:43) Primary Care Physician: Care Physician,No Primary [Primary Care Provider] - Past Medical History: - - Coronary artery disease, hypertension, hyperlipidemia Surgical History: appendectomy, herniorrhaphy, - Smoking Status: Never smoker - Family History Sibling Family History: Family History (Last Reviewed 03/16/19 @ 08:50 by Kaley Harrington) Brother Heart disease Sister No problems noted. Father No problems noted. Mother No problems noted. Family History: Reports: Heart Disease Maternal Family History: Family History (Last Reviewed 03/16/19 @ 08:50 by Kaley Harrington) Brother Heart disease Sister No problems noted. Father No problems noted. Mother No problems noted. Family History: Reports: No pertinent history Paternal Family History: Family History (Last Reviewed 03/16/19 @ 08:50 by Kaley Harrington) Brother Heart disease Sister No problems noted. Father No problems noted. Mother No problems noted. Family History: Reports: No pertinent history Review of Systems All systems negative except as indicated General: Denies: Fever Eyes: Denies: Visual changes - bilaterally ENT: Denies: Bilateral ear pain Cardiovascular: Denies: Chest pain Respiratory: Denies: Dyspnea Gastrointestinal: Reports: Constipation. Denies: Abdominal pain, Nausea, Vomiting, Diarrhea Musculoskeletal: Denies: Myalgias, Arthralgias Skin: Denies: Rash Neurological: Denies: Headache Physical Exam Vital Signs/Narrative: Vital Signs Temp Pulse Resp BP Pulse Ox 09/11/19 10:43 97.3 F L 70 17 128/83 H 95 Inital Vital Signs reviewed: Yes General: Well nourished Head: Normocephalic Eyes: EOMI ENT: Moist mucous membranes Neck: Supple Cardiovascular: Regular rate, Regular rhythm Respiratory: No distress, CTA bilaterally Abdomen: Soft, - - Patient has mild lower abdominal tenderness without guarding without rebound well-healed surgical scars noted Rectal: - - Rectal exam nontender light brown stool noted no gross melena or right red blood no mass Back: - - Patient has erythema and superficial skin breakdown consistent with stage I decubitus ulcer over the sacrum Skin: Normal color Neurological: Alert Psychological: Normal affect Diagnostic/Tx/Re-eval Impressions Abdomen/Pelvis CT 09/11/19 11:06 IMPRESSION: 6.6 mm calculus at the base of the bladder on the left side. Calcified fibroid uterus. Large amount of fecal material is seen in the rectum. Right renal cyst. Mildly distended gallbladder with possible tiny gallstones along the dependent portion of the gallbladder. Electronically Signed: Norberto Hall, at 13:38 EDT , Service support , 09/11/19 11:06 Abdomen/Pelvis WITH Contrast [CT] Stat Laboratory Results 09/11/19 09/11/19 09/11/19 11:18 11:18 13:20 WBC 3.7 L RBC 3.34 L Hgb 10.2 L Hct 32.3 L MCV 96.7 H MCH 30.5 MCHC 31.6 L RDW Std Deviation 53.5 H RDW Coeff of Eric 15.2 H Plt Count 214 MPV 9.6 Immature Gran % (Auto) 0.300 Neut % (Auto) 65.7 Lymph % (Auto) 19.9 [place] % (Auto) 6.8 Eos % (Auto) 5.7 H Baso % (Auto) 1.6 H Absolute Neuts (auto) 2.4 Absolute Lymphs (auto) 0.73 L Nucleated RBC % 0 Sodium 134 L Potassium 3.1 L Chloride 101 Carbon Dioxide 30.0 Anion Gap 3 L BUN 15 Creatinine 0.85 Estim Creat Clear Calc 62.88 Est GFR (MDRD) Af Amer 113 Est GFR (MDRD) Non-Af 93 BUN/Creatinine Ratio 17.7 Glucose 94 Calcium 8.0 L Urine Color Yellow Urine Clarity Sl. Cloudy Urine pH 6.0 Ur Specific Riparius 1.015 Urine Protein Negative Urine Glucose (UA) Normal Urine Ketones Negative Urine Occult Blood 50 H Urine Nitrite Negative Urine Bilirubin Negative Urine Urobilinogen Normal Ur Leukocyte Esterase 500 H Urine RBC 0-5 SEEN Urine WBC 5-10 SEEN Ur Squamous Epith Cells 0-5 SEEN Calcium Oxalate Crystal 1+ Urine Bacteria RARE Urine Mucus 0 SEEN - Medical Decision Making Patient underwent evaluation as above. Labs are essentially unremarkable except mild pyuria. There are 5-10 whites in the urine. We will send this for culture. CT shows constipation otherwise essentially unremarkable. Patient and full stack java developer were advised of these findings. We discussed constipation treatment options including enema which the patient did not want to do. I wrote a prescription for Dulcolax and magnesium citrate to use at home. Additionally the patient does not have a primary care physician and was given a referral. He is resting comfortably on reevaluation. He does not appear to have any acute surgical process. I do not see an indication for hospitalization. He understands to return for new or worsening symptoms. ED Disposition - Plan for ED Patient: Disposition: Home or Assisted Living Diagnosis: Constipation Instructions: ED Constipation Prescriptions: Magnesium Citrate [Citrate Of Magnesia] 300 ml PO X1 #1 bottle Prescription Printed Docusate Calcium 240 mg PO DAILY #14 cap Prescription Printed Referrals: Care Physician,No Primary [Primary Care Provider] - Silvia Boggs DO [STAFF PHYSICIAN] -
[2019-09-11 11:26] LABS: Absolute Lymphocyte Count 0.73 X10^3/uL (0.83-4.51); Absolute Neutrophil Count 2.4 X10^3/uL (2.0-7.7); Basophil# 0.06 X10^3/uL; Basophil% 1.6 % (0-1); Eosinophil# 0.21 X10^3/uL; Eosinophils% 5.7 % (0-5); Hematocrit 32.3 % (40-54); Hemoglobin 10.2 g/dL (13.0-16.5); Lymphocyte # 0.73 X10^3/ul (4.0); Lymphocyte % 19.9 % (19-41); Mean Corp Hgb Conc 31.6 g/dL (32-36); Mean Corpuscular Hgb 30.5 pg (27.0-32.0); Mean Corpuscular Volume 96.7 fL (80-94); Mean Platelet Vol. 9.6 fl (6.2-12.0); Monocyte# 0.25 X10^3/uL; Monocyte% 6.8 % (0-10); NRBC Flagged by Analyzer 0 % (0-5); Neutrophil # 2.41 X10^3/uL (2.7-7.7); Neutrophil % 65.7 % (47-70); Platelet Count 214 K/mm3 (150-450); RBC Distribution Width CV 15.2 % (11.6-14.6); RBC Distribution Width SD 53.5 fl (35.1-43.9); Red Blood Count 3.34 M/mm3 (4.6-6.2); White Blood Count 3.7 K/mm3 (4.4-11.0)
[2019-09-11 11:38] LABS: Anion Gap 3 (5-15); BUN 15 mg/dL (7-18); BUN/Creat Ratio 17.7 RATIO (10-20); Chloride 101 mmol/L (98-107); Creatinine, Serum 0.85 mg/dL (0.70-1.30); EST Glomerular Filtration Rate 93 mL/min (>60); Est Glom Filt Rate - Afr Amer 113 mL/min (>60); Estimated Creatinine Clearance 62.88 ml/min; Glucose 94 mg/dL (74-106); Potassium 3.1 mmol/L (3.5-5.1); Sodium Level 134 mmol/L (136-145)
[2019-09-11 13:29] LABS: Color, Urine Yellow (Yellow); Glucose, Dipstick Normal (Normal); Ketone-Dipstick Negative (Negative); Leukocyte Esterase-Dipstick 500 /ul (Negative); Mucous, Urine 0 SEEN /hpf (<or=2+); Nitrite-Dipstick Negative (Negative); Occult Blood-Urine 50 /ul (Negative); Protein-Dipstick Negative (Negative); Specific Gravity, Urine 1.015 (1.002-1.030); Urine Bilirubin Dipstick Negative (Negative); Urine Clarity Sl. Cloudy (Clear); Urine Urobilinogen Normal (Normal)
[2019-09-11 13:35] LABS: Bacteria RARE /hpf (None Seen); Calcium Oxalate Crystals Ur 1+ /hpf (<or=2+); Red Blood Cells-Urine 0-5 SEEN /hpf (0-5); Squamous Epithelial Cells - UA 0-5 SEEN /hpf (0-5); White Blood Cells 5-10 SEEN /hpf (0-5)
[2019-09-11 14:49] VITALS: PULSE 77; RESP 17; O2SAT 99
== END 2019-09-11 14:51 | disposition home or self-care (01) ==
PROVIDERS: Emergency Provider Emergency Medicine
DX: K59.00 Constipation, unspecified (principal); I10 Essential (primary) hypertension; I25.10 Atherosclerotic heart disease of native coronary artery without angina pectoris; Z79.82 Long term (current) use of aspirin
CPT/HCPCS: 74177; 80048; 81001; 85025; 99283; Q9967; A4216

== ENCOUNTER → 2019-11-23 10:15 | Outpatient (CLI) | payer MEDICARE, MEDICAID, SELFPAY ==
[2019-11-23 09:26] VITALS: BMI 26.9
[2019-11-23 11:35] LABS: AST(SGOT) 11 U/L (15-37); Alanine Aminotransfer ALT/SGPT 11 U/L (16-61); Albumin, Serum 2.5 g/dL (3.2-5.0); Alkaline Phosphatase 45 U/L (45-117); Bilirubin, Direct 0.24 mg/dL (0.00-0.30); Cholesterol 59 mg/dL (200); Globulin 8.3 g/dL (2.2-4.2); High Density Lipoprotein 29 mg/dL; Protein, Total 10.8 g/dL (6.4-8.2); Triglycerides 65 mg/dL; Very Low Density Lipoprotein 13 mg/dL (5-40)
== END ==
PROVIDERS: Referring Provider Internal Medicine Cardiovascular Disease; Visit Provider Internal Medicine Cardiovascular Disease
DX: E78.00 Pure hypercholesterolemia, unspecified (principal)
CPT/HCPCS: 36415; 80061; 80076

== ENCOUNTER 2020-02-19 10:20 | Outpatient (RCR) | payer MEDICARE, MEDICAID, SELFPAY ==
[2019-11-23 09:26] VITALS: BMI 26.9
--- NOTE | 2020-02-19 14:01 | HP.PTEVAL ---
Patient's Visit Information LEOLA MAGALLON is a 74 year old M referred to Physical Therapy by Dr. Maverick Gonzales MD with a diagnosis of H/O FALLING,UNSTEADINESS ON FEET ,CHRONIC PIAN. Date of Evaluation: 02/19/20 Physical Therapist: Jj Bills PT, Cert MDT, OCS - Visit Plan Frequency: 1 visit Plan: PATIENT WILL BENIFIT FROM MOTORIZED W/C (PMD) DUE TO H/O FALLING,POOR ENDURANCE WITH ACTIVITY AND GAIT,WEAKNESS UE/LE,POSTURAL DEFICITS ,CATSIBE SCORE 55 AND TINETTI BALANCE AND GAIT SCORE 11 . MOTORIZED W/C WILL MAXIMAZE PATIENTS FUNCTIONAL INDENDANCE WITH MOBLITY. - Subjective This 74 y/o male presents to physical therapy for motorized w/c evaluation. This patient seen DR Efren valle assessment for motorized w/c. Patient has weakness impairs walking and standing. Patient walks about about 2 mins and stands less than 5mins. Patient has h/o falls about 1 week ago. Patient states ahas fallen several times past year. Patient has had compression had to have had kyphoplasty .Patient lives in a apartmnet . 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 Patient denies parathesia/tingling. Patient sleeps in recliner. Patient has difficulty with bathing unable to get in /out tub.Patient cooks with microwave. Patient describes poor endaurance with affects ADL's.Patient condtion affects moblity and housework tasks thus will benifit from PMD (motorized w/c.). SOCIAL: single. VOCATION: disablity - Pain Bilateral Back Pain Intensity (Out of 10): 7 Pain Intensity Range: 10 Comment: waling - Objective POSTURE: mod foward posture ,mod thoracic kyphosis ,hip knees flexed foward,foward head. GAIT: reciprocal pattern with 2 point gait slow eder ,mod thoracic kyphosis,hips ,knees flexed unsteady and increase SOB. NEURO: denies parathesia/tingling,reflexes 1/3 L3-4,L4-5,L5-S1 1/3. BALANCE: fair+ with cane. MMT: hams 4-/5,quads 3+/5,hip flexion 3+/5,hip abd 3/5,ankle 4-/5. BUE 4-/5,shoulder 3+/5. AROM:BUE limited with flexion ~110 degrees flexion ,abduction 100 degrees. AROM: supine 5-105 degrees knee flexion,hip flexion 100 degrees. FLEXABLITY: hams mod limited ,dorsiflexion 0 degrees,piriforms mod tight - Balance Scores CATSIB Score (Max score 120 seconds): 55 Tinetti Balance Score: 6 Tinetti Gait Score: 5 Tinetti Balance & Gait Score: 11 - Goals Goal 1:: Recommend MOTORIZED W/C (PMD) to maximize patients Independance. Goal Time Frame: 1 visit - Rehabilitation Potential Physical Therapy Diagnosis: This patient has multiple comorbities as well as h/o of falls ,unsteady with gait,weakness ,poor endurance with increase SOB with activity ,requires assist with some ADL'S and tinetti gait score 5,and balance and gait score 11,CATSIB 55 . Based on these impairments patient will benifit from motorized w/c to maximize patients Independance. Rehabilitation Potential: Fair - Anticipated Interventions Patient/Client Instruction: Educate patient on: Condition, Plan of Care For the Purpose of:: Other Other: MOTORIZED W/C (PMD) Thank you for the opportunity to evaluate your patient. For Medicare and Medicare HMO plans, please review the plan of care and approve it. It will need to be FAXED BACK to us at [phone] for Medicare purposes. For Medicare only, by signing this I certify the plan of care. Please let me know if there are questions or concerns regarding this plan of care. Physician Signature: Date:
== END 2020-02-19 19:00 | disposition home or self-care (01) ==
LOC: PT 10:20
PROVIDERS: Referring Provider Internal Medicine Cardiovascular Disease; Visit Provider Internal Medicine Cardiovascular Disease
DX: M54.9 Dorsalgia, unspecified (principal); G89.29 Other chronic pain; R26.81 Unsteadiness on feet; Z91.81 History of falling; I25.10 Atherosclerotic heart disease of native coronary artery without angina pectoris; I25.2 Old myocardial infarction; I10 Essential (primary) hypertension; E78.5 Hyperlipidemia, unspecified
CPT/HCPCS: 97162

== ENCOUNTER 2020-07-04 01:28 | Inpatient (IN) | payer MEDICARE, MEDICAID, SELFPAY ==
[2020-07-02 10:00] VITALS: BMI 26.0
[2020-07-04] VITALS (28 sets, daily range): BP systolic 71–109; BP diastolic 46–87; PULSE 62–102; RESP 12–95; TEMP 36.4–37.1; O2SAT 18–100; BMI 26.8; BMI 25.8
--- NOTE | 2020-07-04 01:38 | EKG12_ITS ---
Test Reason : DYSRHYTHMIA Blood Pressure : / mmHG Vent. Rate : 062 BPM Atrial Rate : 062 BPM P-R Int : 212 ms QRS Dur : 094 ms QT Int : 408 ms P-R-T Axes : 039 -08 006 degrees QTc Int : 414 ms Sinus rhythm with sinus arrhythmia with 1st degree A-V block Otherwise normal ECG Confirmed by JAVED CARNES, DANICA ([id number]), greeting card editor ALVAREZ ALLEN ([id number]) on 07/08/2020 1:26:51 PM Referred By: MEKA Confirmed By:ARETHA BURT MD
[2020-07-04 01:58] LABS: Absolute Lymphocyte Count 0.94 X10^3/uL (0.83-4.51); Basophil# 0.03 X10^3/uL; Basophil% 0.9 % (0-1); Eosinophil# 0.22 X10^3/uL; Eosinophils% 6.4 % (0-5); Hematocrit 28.5 % (40-54); Hemoglobin 9.2 g/dL (13.0-16.5); Lymphocyte # 0.94 X10^3/ul (4.0); Lymphocyte % 27.2 % (19-41); Mean Corp Hgb Conc 32.3 g/dL (32-36); Mean Corpuscular Hgb 32.2 pg (27.0-32.0); Mean Corpuscular Volume 99.7 fL (80-94); Mean Platelet Vol. 9.2 fl (6.2-12.0); Monocyte% 8.7 % (0-10); NRBC Flagged by Analyzer 0 % (0-5); Neutrophil # 1.96 X10^3/uL (2.7-7.7); Neutrophil % 56.5 % (47-70); Platelet Count 187 K/mm3 (150-450); RBC Distribution Width CV 15.2 % (11.6-14.6); RBC Distribution Width SD 54.9 fl (35.1-43.9); Red Blood Count 2.86 M/mm3 (4.6-6.2); White Blood Count 3.5 K/mm3 (4.4-11.0)
--- NOTE | 2020-07-04 02:00 | ED.VIS.GEN ---
History of Present Illness Chief Complaint: GI Bleed Informant: Patient Narrative: 75-year-old male presents with concern for bright red blood per rectum. States that approximately 2 hours ago he was in his recliner when he felt a gurgling to his abdomen. States that he rushed to the bathroom and had a large bright red bowel movement. States he is not having abdominal pain, nausea, vomiting, lightheadedness, dizziness, chest pain, shortness of breath. Patient is not on anticoagulation. Patient does have a history of hemorrhoids but this is different he states. Past Medical History - Allergies and Home Meds Allergies/Adverse Reactions: Allergies No Known Allergies Allergy (Verified 07/02/20 09:55) Primary Care Physician: Care Physician,No Primary [Primary Care Provider] - Prior records reviewed: Yes Past Medical History: - - Hypertension, coronary artery disease, hyperlipidemia Surgical History: appendectomy, herniorrhaphy, - Lives: Alone Smoking Status: Former smoker Alcohol: None Drugs: None - Family History Sibling Family History: Family History (Last Reviewed 07/02/20 @ 11:44 by Naz BAR, PA) Brother Heart disease Sister No problems noted. Father No problems noted. Mother No problems noted. Family History: Reports: Heart Disease Maternal Family History: Family History (Last Reviewed 07/02/20 @ 11:44 by Naz BAR, PA) Brother Heart disease Sister No problems noted. Father No problems noted. Mother No problems noted. Family History: Reports: No pertinent history Paternal Family History: Family History (Last Reviewed 07/02/20 @ 11:44 by Naz BAR, PA) Brother Heart disease Sister No problems noted. Father No problems noted. Mother No problems noted. Family History: Reports: No pertinent history Review of Systems General: Denies: Chills, Fever, Sweats Eyes: Denies: Visual changes - bilaterally, Diplopia ENT: Denies: Rhinorrhea, Sore throat Cardiovascular: Denies: Chest pain, Palpitations Respiratory: Denies: Dyspnea, Cough, Dyspnea on exertion Gastrointestinal: Reports: Hematochezia. Denies: Abdominal pain, Nausea, Vomiting, Diarrhea, Melena Genitourinary: Denies: Dysuria, Hematuria, Frequency Musculoskeletal: Denies: Back pain, Extremity Pain Skin: Denies: Rash, Wounds Neurological: Denies: Headache, Weakness, Numbness Physical Exam Vital Signs/Narrative: Vital Signs Temp Pulse Resp BP Pulse Ox 07/04/20 01:37 98.3 F 66 16 102/50 L 97 07/04/20 01:31 98.3 F 66 16 102/50 L 97 General: Well nourished, Well developed, No Acute Distress Head: Normocephalic, Atraumatic Eyes: Perrl, EOMI ENT: Moist mucous membranes, No rhinorrhea Neck: Supple, Nontender Cardiovascular: Regular rate, Regular rhythm, No murmurs Respiratory: No distress, CTA bilaterally, Chest nontender Abdomen: Soft, Nontender, Nondistended, Normal bowel sounds Back: Nontender, Normal Inspection Extremities: Nontender, No edema Skin: Normal color, No rash Neurological: Alert, Oriented x3, Cranial nerves II-XII grossly intact, Normal Strength, Normal Sensation Psychological: Normal affect, Normal Mood Diagnostic/Tx/Re-eval Laboratory Data 07/04/20 07/04/20 07/04/20 01:50 01:50 01:50 WBC 3.5 L RBC 2.86 L Hgb 9.2 L Hct 28.5 L MCV 99.7 H MCH 32.2 H MCHC 32.3 RDW Std Deviation 54.9 H RDW Coeff of Eric 15.2 H Plt Count 187 MPV 9.2 Immature Gran % (Auto) 0.300 Neut % (Auto) 56.5 Lymph % (Auto) 27.2 [place] % (Auto) 8.7 Eos % (Auto) 6.4 H Baso % (Auto) 0.9 Absolute Neuts (auto) 2.0 Absolute Lymphs (auto) 0.94 Nucleated RBC % 0 PT 17.9 H INR 1.6 APTT 35.5 Sodium 138 Potassium 3.6 Chloride 106 Carbon Dioxide 29.0 Anion Gap 3 L BUN 20 H Creatinine 1.20 Estim Creat Clear Calc 42.15 Est GFR (MDRD) Af Amer 76 Est GFR (MDRD) Non-Af 63 BUN/Creatinine Ratio 16.7 Glucose 112 H Lactic Acid Calcium 7.9 L Total Bilirubin 0.40 AST 13 L ALT 11 L Alkaline Phosphatase 42 L Troponin I < 0.015 Total Protein 10.5 H Albumin 2.4 L Globulin 8.1 H Albumin/Globulin Ratio 0.3 L Blood Type Antibody Screen 07/04/20 07/04/20 01:50 01:50 WBC RBC Hgb Hct MCV MCH MCHC RDW Std Deviation RDW Coeff of Eric Plt Count MPV Immature Gran % (Auto) Neut % (Auto) Lymph % (Auto) [place] % (Auto) Eos % (Auto) Baso % (Auto) Absolute Neuts (auto) Absolute Lymphs (auto) Nucleated RBC % PT INR APTT Sodium Potassium Chloride Carbon Dioxide Anion Gap BUN Creatinine Estim Creat Clear Calc Est GFR (MDRD) Af Amer Est GFR (MDRD) Non-Af BUN/Creatinine Ratio Glucose Lactic Acid 2.1 H* Calcium Total Bilirubin AST ALT Alkaline Phosphatase Troponin I Total Protein Albumin Globulin Albumin/Globulin Ratio Blood Type O POSITIVE Antibody Screen NEGATIVE - Rhythm Strip Rhythm Strip: Sinus Rhythm Rate: 62 Ectopy: None - EKG Initial EKG Interpretation: Sinus Rhythm - Sinus rhythm at 62 bpm. MT interval 1212 ms with first-degree AV block. QTC of 414 ms. No evidence of acute ischemia. - Medical Decision Making Ybarra appears well and nontoxic. Initially blood pressure of 102 systolic. Hemoglobin of 9.2. Benign abdominal exam. Patient then had an episode of hypotension of approximately 80 systolic. Was given 1 L of normal saline. Return to 110 systolic. Patient is not on anticoagulation. No tachycardia however patient is on beta-christiano. Patient had colonoscopy approximately 2 years ago. On reevaluation at 0315 patient became hypotensive again. This is following a large bowel movement which was bloody. Was given another 500 mL of normal saline. Patient will be transfused with 2 units of packed red blood cells. Spoke with general surgery on-call Dr. Angeles who was agreeable with keeping the patient at this hospital. Spoke with hospitalist Dr. David who advised admission to the ICU. Patient stable at time of admission. Impression: 1. Lower GI bleed 2. Hypotension 3. Hemorrhagic shock 4. Lactic acidosis - Critical Care Time Critical care time (excluding procedures): 30-74 minutes, Discussing w/Patient &/or Family/Critical Care Nurse Practitioner, Discussing w/Consultants, Performing Direct Patient Care at Bedside ED Disposition - Plan for ED Patient: Disposition: Acute Care Hospital [facility] Referrals: Care Physician,No Primary [Primary Care Provider] -
[2020-07-04 02:06] LABS: International Normalized Ratio 1.6; Prothrombin Time (Protime)PT. 17.9 SECONDS (11.7-14.9)
[2020-07-04 02:07] LABS: Partial Thromboplast Time 35.5 Seconds (24.1-36.2)
[2020-07-04 02:19] LABS: ALB/GLOB Ratio 0.3 RATIO (0.9-2.4); AST(SGOT) 13 U/L (15-37); Alanine Aminotransfer ALT/SGPT 11 U/L (16-61); Albumin, Serum 2.4 g/dL (3.2-5.0); Alkaline Phosphatase 42 U/L (45-117); Anion Gap 3 (5-15); BUN 20 mg/dL (7-18); BUN/Creat Ratio 16.7 RATIO (10-20); Calcium,Total 7.9 mg/dL (8.5-10.1); Chloride 106 mmol/L (98-107); EST Glomerular Filtration Rate 63 mL/min (>60); Est Glom Filt Rate - Afr Amer 76 mL/min (>60); Estimated Creatinine Clearance 42.15 ml/min; Globulin 8.1 g/dL (2.2-4.2); Glucose 112 mg/dL (74-106); Potassium 3.6 mmol/L (3.5-5.1); Protein, Total 10.5 g/dL (6.4-8.2); Sodium Level 138 mmol/L (136-145)
[2020-07-04 02:29] LABS: Lactic Acid 2.1 mmol/L (0.4-1.9)
[2020-07-04] MEDS: 0.9% Normal Saline 1,000 ML 999 ML IV ×2 (02:32→10:22)
--- NOTE | 2020-07-04 03:20 | HP.PCM_ITS ---
Problem List (1) Hemorrhagic shock Status: Acute (2) GI bleed Status: Acute Qualifiers: GI bleed type/associated pathology: unspecified gastrointestinal hemorrhage type Qualified Code(s): K92.2 - Gastrointestinal hemorrhage, unspecified (3) Acute on chronic anemia Status: Chronic (4) Chewing tobacco nicotine dependence Status: Chronic Qualifiers: Substance use status: uncomplicated Qualified Code(s): F17.220 - Nicotine dependence, chewing tobacco, uncomplicated (5) Chronic back pain Status: Chronic Qualifiers: Back pain location: back pain in unspecified location Back pain laterality: unspecified Qualified Code(s): M54.9 - Dorsalgia, unspecified; G89.29 - Other chronic pain (6) Atherosclerosis of coronary artery of [place] heart without angina pectoris Status: Chronic Qualifiers: Coronary Disease-Associated Artery/Lesion type: unspecified vessel or lesion type Qualified Code(s): I25.10 - Atherosclerotic heart disease of [place] coronary artery without angina pectoris (7) Old non-ST elevation myocardial infarction (NSTEMI) Status: Resolved (8) Essential (primary) hypertension Status: Chronic (9) Hyperlipidemia Status: Chronic Qualifiers: Hyperlipidemia type: pure hypercholesterolemia Qualified Code(s): E78.00 - Pure hypercholesterolemia, unspecified; E78.0 - Pure hypercholesterolemia History of Present Illness Date of Admission: 07/04/20 Chief Complaint: BRB per rectum with recent constipation, hemorrhoid history The patient is a 75 y/o M w/ PMHx: Chronic back pain, Chronic anemia, HTN, HLD, CAD, Former Cigarette Tobacco use-->transitioned to ongoing chew tobacco use, Hx prior GI bleed, Hx Hemorrhoids who presents to the [facility] ED on 07/04/20 with history of onset bright red blood per rectum approximately 2 hours prior to ED presentation noting initially sitting in his recliner when he felt mild dyspepsia prompting him to gipson to the bathroom with a large bright red bowel movement at that time with no associated abdominal pain, nausea, emesis, lightheadedness, dizziness, dyspnea. Patient has had similar presentation with diverticular bleed most recently noted in 2018 with at that time usage of both aspirin and Plavix therapy with de-escalation off dual platelet therapy since. In the emergency room patient with significantly continued low blood pressures with eventual 2 unit PRBC ordered per ED physician and continued IV fluid boluses. Work-up in the ED included T 98.3, heart rate 66, BP 102/50, respiratory rate 16, 97% on room air, CBC with WC 3.5, hemoglobin 9.2, platelet 185 without marked shift, coags with PT 17.9, INR 1.6, PTT 35.5, CMP with BUN/creatinine 20/1.020, glucose 112, lactic acid 2.1, AST/ALT 13/11, alk phos 42, troponin less than 0.015, type and screen performed per ED. in the ED patient administered normal saline and Zofran therapy. ED physician did discuss case and patient presentation with general surgery, Dr. Angeles who was amenable to patient being admitted to [facility]. Past Medical History Past Medical History (Chronic Problems): Chronic Problems (Last Reviewed 07/02/20 @ 11:44 by Naz BAR, PA) Acute on chronic anemia (Chronic) Chewing tobacco nicotine dependence (Chronic) Chronic back pain (Chronic) Atherosclerosis of coronary artery of [place] heart without angina pectoris (Chronic) Essential (primary) hypertension (Chronic) Hyperlipidemia (Chronic) Medical History: Medical History (Last Reviewed 07/02/20 @ 11:44 by Naz BAR, PA) Atherosclerosis of coronary artery of [place] heart without angina pectoris (Chronic) I25.10 Old non-ST elevation myocardial infarction (NSTEMI) (Resolved) Onset Date: 03/2006 I25.2 Essential (primary) hypertension (Chronic) I10 Hyperlipidemia (Chronic) E78.5 Adenovillous polyp of colon D12.6 Internal hemorrhoid K64.8 Renal calculus N20.0 GI bleed K92.2 Syncope, vasovagal (Resolved) R55 Allergies No Known Allergies Allergy (Verified 07/02/20 09:55) Home Medications: Ambulatory Orders Medication Instructions Recorded aspirin 81 mg tablet,delayed 81 mg PO DAILY 03/08/18 release traMADol [Ultram (G)] 50 mg PO Q8H PRN PRN 09/11/19 dorzolamide 22.3 mg-timolol 6.8 OPHTHALMIC 11/23/19 mg/mL eye drops furosemide 40 mg tablet 40 mg PO DAILY 11/23/19 isosorbide mononitrate 20 mg tablet 20 mg PO BID #180 tab 11/23/19 metoprolol succinate 100 mg 100 mg PO DAILY #90 tab 11/23/19 tablet,extended release 24 hr quinapril 10 mg tablet 10 mg PO DAILY #90 tab 11/23/19 nitroglycerin 0.4 mg sublingual 0.4 mg SUBLINGUAL Q5-15M PRN #25 04/25/20 tablet tab Surgical History: Surgical History (Last Reviewed 07/02/20 @ 11:44 by Naz BAR, PA) History of appendectomy Z90.49 History of back surgery Onset Date: 07/2018 Z98.890 History of herniorrhaphy Z98.890, Z87.19 History of left heart catheterization Onset Date: 03/2006 Z98.890 History of partial colectomy Z90.49 S/P colonoscopy Onset Date: 07/2017 Z98.890 Surgical History: appendectomy, herniorrhaphy, - - Partial colectomy potentially per discussion with patient secondary to severe polyp distribution, appendectomy, hernia repair, back surgery. Psychiatric History: No pertinent psych hx Lives: Alone Smoking Status: Former smoker - Patient quit cigarette tobacco usage near 50 years prior but transition to chew tobacco usage reporting maybe 1 to 2 cans daily but very poor historian. Tobacco Use: Chew Alcohol: Occasional Drugs: None - *Family History Sibling Family History: Family History (Last Reviewed 07/02/20 @ 11:44 by Naz BAR, PA) Brother Heart disease Sister No problems noted. Father No problems noted. Mother No problems noted. History Items: Heart Disease Maternal Family History: Family History (Last Reviewed 07/02/20 @ 11:44 by Naz BAR, PA) Brother Heart disease Sister No problems noted. Father No problems noted. Mother No problems noted. History Items: - - Patient denied any marked maternal family history including heart disease, diabetes, cancer. Paternal Family History: Family History (Last Reviewed 07/02/20 @ 11:44 by Naz BAR, PA) Brother Heart disease Sister No problems noted. Father No problems noted. Mother No problems noted. History Items: - - Patient denies any market paternal family history including heart disease, diabetes, cancer. Review of Systems Constitutional: Reports: Weakness, Fatigue. Denies: Anorexia, Chills, Fever, Malaise, Weight Change HEENT: Denies: Head Aches, Sinus Congestion, Sinus Drainage Cardiovascular: Denies: Chest Pain, Palpitations Respiratory: Denies: Cough, Shortness of breath at rest, Sputum production Gastrointestinal: Reports: Dyspepsia, - - BRBPR. Denies: Abdominal Pain, Nausea, Vomiting Genitourinary: Denies: Dysuria Musculoskeletal: Reports: Joint Pain. Denies: Joint Tenderness Skin: Denies: Rash, Wounds Neurological: Denies: Numbness, Tingling, Focal weakness Psychiatric: Denies: Anxiety, Depression, Homicidal Ideations, Suicidal Ideations Hematologic/ Lymphatic: Reports: Easy Bruising, Easy Bleeding VTE Information - Inpt Only VTE Present on Admission: No VTE Mechan Device Prophylaxis: SCD's VTE Pharm Prophylaxis ordered?: No Reason prophylaxis not ordered:: Medical Contraindication Patient Problems: Active and Suspected Problems (Last Reviewed 07/02/20 @ 11:44 by Naz BAR, PA) Hemorrhagic shock (Acute) GI bleed (Acute) Subjective: Patient seated upright in the ED bed, no acute distress, poor historian, very quick to become anxious during discussions but once clarified calms down, pale appearing, BP initially in the 70s during evaluation with improvement with fluids going to the 80s. Objective: Physical Examination: General: awake, alert, oriented x 3 and cooperative, seated upright in the ED bed in no apparent distress despite current blood pressure and ongoing bleeding per rectum. Skin: normal color, turgor, no icterus, cyanosis except occasional staged ecchymoses, bilateral mild stasis disease. HEENT: AT/NC, EOMI, PERRLA, dry MM, no carotid bruits or JVD noted. Lungs: Diminished breath sounds, greater bases, moderate effort, no evidence of distress, no rales, ronchi or wheezing. Heart: Currently regular rate and rhythm; no gallop, rub audible. Abdomen: soft, NTTP, ND, hyperactive BS, no HSM. Extremities: no cyanosis, clubbing, or edema. Neurological: patient awake, alert, oriented as noted; cognitive function intact; pupils equally reactive to light and accomodation; cranial nerves II-XII grossly normal, moving all 4 extremities, no focal deficits, strength moderately global decrease secondary to acute presentation. Psychiatric: affect appears mildly anxious, no acute evidence of depressive feelings. - Physical Exam Vitals/I&O's: Vital Signs Temp Pulse Resp BP Pulse Ox 98.3 F 66 16 102/50 L 97 07/04/20 01:37 07/04/20 01:37 07/04/20 01:37 07/04/20 01:37 07/04/20 01:37 Oxygen Delivery Method Room Air Weight: 151 lb 7.321 oz Body Mass Index (BMI) 26.8 Laboratory Results 07/04/20 01:50: WBC 3.5 L, RBC 2.86 L, Hgb 9.2 L, Hct 28.5 L, MCV 99.7 H, MCH 32.2 H, MCHC 32.3, RDW Std Deviation 54.9 H, RDW Coeff of Eric 15.2 H, Plt Count 187, MPV 9.2, Immature Gran % (Auto) 0.300, Neut % (Auto) 56.5, Lymph % (Auto) 27.2, [place] % (Auto) 8.7, Eos % (Auto) 6.4 H, Baso % (Auto) 0.9, Absolute Neuts (auto) 2.0, Absolute Lymphs (auto) 0.94, Nucleated RBC % 0 07/04/20 01:50: PT 17.9 H, INR 1.6, APTT 35.5 07/04/20 01:50: Sodium 138, Potassium 3.6, Chloride 106, Carbon Dioxide 29.0, Anion Gap 3 L, BUN 20 H, Creatinine 1.20, Estim Creat Clear Calc 42.15, Est GFR (MDRD) Af Amer 76, Est GFR (MDRD) Non-Af 63, BUN/Creatinine Ratio 16.7, Glucose 112 H, Calcium 7.9 L, Total Bilirubin 0.40, AST 13 L, ALT 11 L, Alkaline Phosphatase 42 L, Troponin I < 0.015, Total Protein 10.5 H, Albumin 2.4 L, Globulin 8.1 H, Albumin/Globulin Ratio 0.3 L 07/04/20 01:50: Lactic Acid 2.1 H* 07/04/20 01:50: Blood Type O POSITIVE, Antibody Screen NEGATIVE Current Medications Sodium Chloride () 1,000 mls @ 999 mls/hr IV .Q1H1M ONE Stop: 07/04/20 03:27 Last Admin: 07/04/20 02:32 Dose: 999 mls/hr Documented by: Assessment/Plan All Active Problems (Last Reviewed 07/02/20 @ 11:44 by Naz Kumari PA, PA) Hemorrhagic shock (Acute) GI bleed (Acute) Unsteady gait when walking (Acute) At high risk for injury related to fall (Acute) Old non-ST elevation myocardial infarction (NSTEMI) (Resolved 03/2006) Syncope, vasovagal (Resolved) The patient is a 75 y/o M w/ PMHx: Chronic back pain, Chronic anemia, HTN, HLD, CAD, Former Cigarette Tobacco use-->transitioned to ongoing chew tobacco use, Hx prior GI bleed, Hx Hemorrhoids who presents to the [facility] ED on 07/04/20 with history of onset bright red blood per rectum approximately 2 hours prior to ED presentation noting initially sitting in his recliner when he felt mild dyspepsia prompting him to gipson to the bathroom with a large bright red bowel movement. 1. Acute GI Bleed w/ Hemorrhagic Shock w/ resultant Acute Blood Loss Anemia on Chronic anemia with associated Lactic acidosis with history of prior GI bleed (diverticular with also history of hemorrhoids): Admission Hgb 9.2 upon presentation, baseline prior appears 8-10 range, however notable BRBPR during ED evaluation and initial ED BP in the 80s, improved to 105 after IVF bolus, will admit to ICU given presentation with hypotension and ongoing bleeding, continue ED initiated 2 u PRBC secondary to hypotension w/ IVF bolus also administered, maintain on IVFs, obtain serial H+H q 6 hours unless further notable bloody stools, if recurrent anemia would plan to administer PRBC. Will maintain on IV PPI although notably lower but given NPO status. Dr. Angeles, General surgery consulted. Fe panel, ferritin, folic acid and vitamin B 12 levels requested. Trend [place]. Consult skidder driver given ICU admission. 2. CAD, history of NSTEMI: Patient with history of mild CAD involving the LCx nondominant RCA, we will hold patient baby aspirin, additionally will hold hypertensive regimen, continue statin therapy. 3. Hypertension: Patient hypotensive upon presentation, holding patient home Lasix, isosorbide, metoprolol, quinapril regimen, add back once appropriate. 4. Hyperlipidemia: Continue home statin regimen. 5. Former tobacco cigarette use-->transitioned to chew tobacco: Encourage continued cigarette tobacco cessation and strongly encouraged chew tobacco cessation as well. If needed may order NR and cessation education requested. 6. DVT prophylaxis: SCDs, defer any chemoprophylaxis given acute presentation as noted #1. 7. CODE status: Patient does not have healthcare power of divorce attorney nor living will and notes that he has not set this up secondary to cost. Encouraged him to discuss these items with case management/social work for assistance. Discussed CODE status at length including difference between FULL code, DNR-CCA and DNR-CC status. Following discussions about the differences in these status, requested Full Code. Advanced Care Planning Face to Face Time: 16 minutes. Inpatient E&M: 55318 Init Hosp L3 Procedures: 21144 Advncd Care Plan 30 Min
[2020-07-04] MEDS: Ondansetron 4 MG/2 ML Vial IV (03:28)
[2020-07-04 05:57] LABS: Reflex Lactate? Y
[2020-07-04] MEDS: 0.9% Normal Saline 1,000 ML 100 ML IV (06:06)
[2020-07-04 06:38] LABS: Absolute Lymphocyte Count 0.75 X10^3/uL (0.83-4.51); Absolute Neutrophil Count 2.6 X10^3/uL (2.0-7.7); Basophil# 0.03 X10^3/uL; Basophil% 0.8 % (0-1); Eosinophil# 0.14 X10^3/uL; Eosinophils% 3.7 % (0-5); Hematocrit 25.4 % (40-54); Hemoglobin 8.4 g/dL (13.0-16.5); Lymphocyte # 0.75 X10^3/ul (4.0); Lymphocyte % 19.7 % (19-41); Mean Corp Hgb Conc 33.1 g/dL (32-36); Mean Corpuscular Hgb 32.4 pg (27.0-32.0); Mean Corpuscular Volume 98.1 fL (80-94); Monocyte# 0.26 X10^3/uL; Monocyte% 6.8 % (0-10); NRBC Flagged by Analyzer 0 % (0-5); Neutrophil # 2.61 X10^3/uL (2.7-7.7); Neutrophil % 68.7 % (47-70); Platelet Count 155 K/mm3 (150-450); RBC Distribution Width CV 16.4 % (11.6-14.6); RBC Distribution Width SD 58.5 fl (35.1-43.9); Red Blood Count 2.59 M/mm3 (4.6-6.2); White Blood Count 3.8 K/mm3 (4.4-11.0)
[2020-07-04 07:04] LABS: Lactic Acid 2.6 mmol/L (0.4-1.9)
[2020-07-04 07:07] LABS: ALB/GLOB Ratio 0.3 RATIO (0.9-2.4); AST(SGOT) 14 U/L (15-37); Alanine Aminotransfer ALT/SGPT 9 U/L (16-61); Alkaline Phosphatase 34 U/L (45-117); Anion Gap 0 (5-15); BUN 19 mg/dL (7-18); BUN/Creat Ratio 20.1 RATIO (10-20); Calcium,Total 7.2 mg/dL (8.5-10.1); Chloride 112 mmol/L (98-107); Creatinine, Serum 0.94 mg/dL (0.70-1.30); EST Glomerular Filtration Rate 83 mL/min (>60); Est Glom Filt Rate - Afr Amer 100 mL/min (>60); Estimated Creatinine Clearance 53.81 ml/min; Ferritin 39 ng/mL (26-388); Globulin 6.6 g/dL (2.2-4.2); Glucose 94 mg/dL (74-106); Iron 60 ug/dL (65-175); Iron Binding Capacity,Total 189 ug/dL (250-450); Magnesium 1.6 mg/dL (1.6-2.6); PERCENT IRON SATURATION 31.7 % (15.0-55.0); Potassium 3.7 mmol/L (3.5-5.1); Protein, Total 8.6 g/dL (6.4-8.2); Sodium Level 140 mmol/L (136-145)
--- NOTE | 2020-07-04 07:56 | CON.PCM_ITS ---
Problem List (1) Abdominal pain Status: Acute (2) Hemorrhagic shock Status: Acute (3) GI bleed Status: Acute Qualifiers: GI bleed type/associated pathology: unspecified gastrointestinal hemorrhage type Qualified Code(s): K92.2 - Gastrointestinal hemorrhage, unspecified Reason for Consult Date of Consultation: 07/04/20 Reason for Consultation: GI bleed. Abdominal pain. History of Present Illness: The patient is a 75 year old M who presented with a 1 day history of rectal bleeding. Patient stated he was sitting in his recliner last when he had to have a bowel movement. He noted a slightly more constipated bowel movement with a small amount of blood on the toilet paper. He also noted while wiping he had some irritation on the outside of his rectum from wiping too much. He denies this area feeling like a tear. He denies the area being painful. He notes it feels weird. He stated he returned to his recliner when his abdomen started cramping. He returned to the bathroom where he noted following his bowel movement the toilet was full of red blood. He noted he continued to bleed. He notes years ago he had a similar hospitalization for bleeding. He noted at that time he was taking blood thinners. Blood thinners have been discontinued since that time. He had a colonoscopy by Dr. Stephenson in January 2017 and sigmoidoscopy in 2018. Findings included a diverticula and hemorrhoids. 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 It was recommended the patient r eturn the following year to repeat the colonoscopy. Patient failed to follow-up. Patient states he had a hemorrhoidectomy many years ago by Dr. Campos. Patient notes since that time he takes a stool softener daily. He denies any shortness of breath or chest pain. He denies feeling weak. He notes he called the ambulance to take him to the ED due to the rectal bleeding. He denies coughing up or vomiting up any blood. He state all the blood came from his rectum. He denies GERD. Patient has been hypotensive in the ED. He states he had multiple bloody bowel movements in the ED. His hemoglobin on arrival was 9.2 and has decreased to 8.4. He has received 1 unit of blood and another is being transfused. Past Medical History Past Medical History (Chronic Problems): Chronic Problems (Last Reviewed 07/04/20 @ 07:59 by Maddi BAR PA-C) Acute on chronic anemia (Chronic) Chewing tobacco nicotine dependence (Chronic) Chronic back pain (Chronic) Atherosclerosis of coronary artery of [place] heart without angina pectoris (Chronic) Essential (primary) hypertension (Chronic) Hyperlipidemia (Chronic) Medical History: Medical History (Last Reviewed 07/04/20 @ 07:59 by Maddi BAR PA-C) Atherosclerosis of coronary artery of [place] heart without angina pectoris (Chronic) I25.10 Old non-ST elevation myocardial infarction (NSTEMI) (Resolved) Onset Date: 03/2006 I25.2 Essential (primary) hypertension (Chronic) I10 Hyperlipidemia (Chronic) E78.5 Adenovillous polyp of colon D12.6 Internal hemorrhoid K64.8 Renal calculus N20.0 GI bleed K92.2 Syncope, vasovagal (Resolved) R55 Allergies No Known Allergies Allergy (Verified 07/02/20 09:55) Home Medications: Ambulatory Orders Medication Instructions Recorded aspirin 81 mg tablet,delayed 81 mg PO DAILY 03/08/18 release traMADol [Ultram (G)] 50 mg PO Q8H PRN PRN 09/11/19 dorzolamide 22.3 mg-timolol 6.8 OPHTHALMIC 11/23/19 mg/mL eye drops furosemide 40 mg tablet 40 mg PO DAILY 11/23/19 isosorbide mononitrate 20 mg tablet 20 mg PO BID #180 tab 11/23/19 metoprolol succinate 100 mg 100 mg PO DAILY #90 tab 11/23/19 tablet,extended release 24 hr quinapril 10 mg tablet 10 mg PO DAILY #90 tab 11/23/19 nitroglycerin 0.4 mg sublingual 0.4 mg SUBLINGUAL Q5-15M PRN #25 04/25/20 tablet tab Surgical History: Surgical History (Last Reviewed 07/04/20 @ 08:06 by Maddi BAR PA-C) History of appendectomy Z90.49 History of back surgery Onset Date: 07/2018 Z98.890 History of herniorrhaphy Z98.890, Z87.19 History of left heart catheterization Onset Date: 03/2006 Z98.890 History of partial colectomy Z90.49 S/P colonoscopy Onset Date: 07/2017 Z98.890 Surgical History: appendectomy, herniorrhaphy, - - Partial colectomy potentially per discussion with patient secondary to severe polyp distribution, appendectomy, hernia repair, back surgery. Psychiatric History: No pertinent psych hx Lives: Alone Smoking Status: Former smoker Tobacco Use: Chew Alcohol: Occasional Drugs: None - *Family History Sibling Family History: Family History (Last Reviewed 07/04/20 @ 08:06 by Maddi BAR PA-C) Brother Heart disease Sister No problems noted. Father No problems noted. Mother No problems noted. History Items: Heart Disease Maternal Family History: Family History (Last Reviewed 07/04/20 @ 08:06 by Maddi BAR PA-C) Brother Heart disease Sister No problems noted. Father No problems noted. Mother No problems noted. History Items: - - Patient denied any marked maternal family history including heart disease, diabetes, cancer. Paternal Family History: Family History (Last Reviewed 07/04/20 @ 08:06 by Maddi BAR PA-C) Brother Heart disease Sister No problems noted. Father No problems noted. Mother No problems noted. History Items: - - Patient denies any [place] paternal family history including heart disease, diabetes, cancer. Review of Systems Constitutional: Denies: Chills, Fever, Weight Change HEENT: Denies: Head Aches, Sinus Congestion, Sinus Drainage Cardiovascular: Denies: Chest Pain, Palpitations Respiratory: Denies: Cough, Shortness of breath at rest, Sputum production Gastrointestinal: Reports: Abdominal Pain, Diarrhea, Hematochezia. Denies: Nausea, Vomiting Genitourinary: Denies: Dysuria Musculoskeletal: Denies: Joint Pain, Joint Tenderness Skin: Denies: Rash, Wounds Neurological: Reports: Balance problems Psychiatric: Denies: Anxiety, Depression, Homicidal Ideations, Suicidal Ideations Hematologic/ Lymphatic: Reports: Anemia. Denies: Easy Bruising, Easy Bleeding Patient Problems: Active and Suspected Problems (Last Reviewed 07/04/20 @ 07:59 by Maddi BAR PA-C) Hemorrhagic shock (Acute) GI bleed (Acute) Abdominal pain (Acute) - Physical Exam Vitals/I&O's: Vital Signs Temp Pulse Resp BP Pulse Ox 98.2 F 64 20 H 84/52 L 99 07/04/20 05:36 07/04/20 06:21 07/04/20 06:21 07/04/20 06:21 07/04/20 06:21 Oxygen Delivery Method Room Air Weight: 145 lb 11.609 oz Body Mass Index (BMI) 25.8 Intake and Output for Last 24 Hours 07/02/20 07/03/20 07/04/20 23:59 23:59 23:59 Intake Total 1510 / 1510 Balance 1510 / 1510 General: Alert, Oriented x3, Cooperative, - - Poor historian HEENT: Atraumatic, PERRLA, EOMI, Normocephalic Neck: Supple, No JVD, Negative Carotid Bruits Lungs: Clear to auscultation, Normal air movement Cardiovascular: Regular rate, No murmurs Abdomen: Hypoactive Bowel Sounds, Distended, Tender - generalized tenderness, - - Patient refused to have his recum/anal area evaluated by myself. Dr. Angeles aware. Extremities: No edema, Capillary Refill Less than 3 Seconds Skin: Ulcer/ Wound - left lower extremity, small near medial ankle Musculoskeletal: No Tenderness to Palpation of Joints or Extremities Neurological: Neuro grossly intact Psych/Mental Status: Normal Affect, Appropriate Laboratory Results 07/04/20 01:50: WBC 3.5 L, RBC 2.86 L, Hgb 9.2 L, Hct 28.5 L, MCV 99.7 H, MCH 32.2 H, MCHC 32.3, RDW Std Deviation 54.9 H, RDW Coeff of Eric 15.2 H, Plt Count 187, MPV 9.2, Immature Gran % (Auto) 0.300, Neut % (Auto) 56.5, Lymph % (Auto) 27.2, [place] % (Auto) 8.7, Eos % (Auto) 6.4 H, Baso % (Auto) 0.9, Absolute Neuts (auto) 2.0, Absolute Lymphs (auto) 0.94, Nucleated RBC % 0 07/04/20 01:50: PT 17.9 H, INR 1.6, APTT 35.5 07/04/20 01:50: Sodium 138, Potassium 3.6, Chloride 106, Carbon Dioxide 29.0, Anion Gap 3 L, BUN 20 H, Creatinine 1.20, Estim Creat Clear Calc 42.15, Est GFR (MDRD) Af Amer 76, Est GFR (MDRD) Non-Af 63, BUN/Creatinine Ratio 16.7, Glucose 112 H, Calcium 7.9 L, Total Bilirubin 0.40, AST 13 L, ALT 11 L, Alkaline Phosphatase 42 L, Troponin I < 0.015, Total Protein 10.5 H, Albumin 2.4 L, Globulin 8.1 H, Albumin/Globulin Ratio 0.3 L 07/04/20 01:50: Lactic Acid 2.1 H* 07/04/20 01:50: Blood Type O POSITIVE, Antibody Screen NEGATIVE 07/04/20 01:50: Crossmatch See Detail 07/04/20 06:15: WBC 3.8 L, RBC 2.59 L, Hgb 8.4 L, Hct 25.4 L, MCV 98.1 H, MCH 32.4 H, MCHC 33.1, RDW Std Deviation 58.5 H, RDW Coeff of Eric 16.4 H, Plt Count 155, MPV 10.0, Immature Gran % (Auto) 0.300, Neut % (Auto) 68.7, Lymph % (Auto) 19.7, [place] % (Auto) 6.8, Eos % (Auto) 3.7, Baso % (Auto) 0.8, Absolute Neuts (auto) 2.6, Absolute Lymphs (auto) 0.75 L, Nucleated RBC % 0 07/04/20 06:15: Sodium 140, Potassium 3.7, Chloride 112 H, Carbon Dioxide 28.0, Anion Gap 0 L, BUN 19 H, Creatinine 0.94, Estim Creat Clear Calc 53.81, Est GFR (MDRD) Af Amer 100, Est GFR (MDRD) Non-Af 83, BUN/Creatinine Ratio 20.1 H, Glucose 94, Calcium 7.2 L, Magnesium 1.6, Iron 60 L, TIBC 189 L, Iron Saturation 31.7, Ferritin 39, Total Bilirubin 0.50, AST 14 L, ALT 9 L, Alkaline Phosphatase 34 L, Total Protein 8.6 H, Albumin 2.0 L, Globulin 6.6 H, Albumin/Globulin Ratio 0.3 L, Folate 5.50 07/04/20 06:15: Vitamin B12 Pending 07/04/20 06:15: Lactic Acid 2.6 H* Current Medications Acetaminophen (Acetaminophen 325 Mg Tablet) 650 mg PO Q6H PRN PRN PRN Reason: Pain Score 1-10/Temp > 100.7 F Al Hydroxide/Mg Hydroxide (Mag Hydrox/Al Hydrox/Simeth 30 Ml Udc) 30 ml PO Q6H PRN PRN PRN Reason: Gastric Burning Albuterol Sulfate (Albuterol 2.5 Mg/3 Ml Vial.Neb.) 2.5 mg INHALATION Q2H PRN PRN PRN Reason: Dyspnea, wheezing Guaifenesin (Guaifenesin 10 Ml Udc (200mg/10ml)) 10 ml PO Q4H PRN PRN PRN Reason: COUGH Hydralazine HCl (Hydralazine 20 Mg/Ml Vial) 10 mg IV Q4H PRN PRN PRN Reason: SBP > 160 Sodium Chloride () 1,000 mls @ 100 mls/hr IV .Q10H [facility] Last Admin: 07/04/20 06:06 Dose: 100 mls/hr Documented by: Pantoprazole Sodium 40 mg/ (Sodium Chloride) 110 mls @ 330 mls/hr IV Q12 [facility] Last Infusion: 07/04/20 06:35 Dose: Infused Documented by: Sodium Chloride () 250 mls @ 15 mls/hr IV .[id number] PRN PRN Reason: Saline Flush Sodium Chloride () 250 mls @ 15 mls/hr IV .[id number] PRN PRN Reason: Additional IVPB Infusion Melatonin (Melatonin 3 Mg Tablet) 3 mg PO QHS PRN PRN PRN Reason: INSOMNIA Nicotine Polacrilex (Nicotine Polacrilex 2 Mg Gum) 2 mg PO Q2H PRN PRN PRN Reason: Nicotine Craving Nitroglycerin (Nitroglycerin (Inpatient Use) 0.4 Mg Tab.Subl) 0.4 mg SL Q5M PRN PRN Reason: CARDIAC/CHEST PAIN Ondansetron HCl (Ondansetron 4 Mg/2 Ml Vial) 4 mg IV Q8H PRN PRN PRN Reason: NAUSEA/VOMITING Prochlorperazine Edisylate (Prochlorperazine 10 Mg/2 Ml Vial) 5 mg IV Q4H PRN PRN PRN Reason: Breakthrough Nausea/Vomiting Sodium Chloride (0.9% Saline Lock 10 Ml Syringe) 10 - 40 ml IV UD PRN PRN Reason: SALINE FLUSH Throat Lozenges (Benzocaine/Menthol 1 Lozenge) 1 lozenge MUCOUS MEM Q2H PRN PRN PRN Reason: SORE THROAT Assessment/Plan All Active Problems (Last Reviewed 07/04/20 @ 07:59 by Maddi BAR, PA-C) Hemorrhagic shock (Acute) GI bleed (Acute) Abdominal pain (Acute) Unsteady gait when walking (Acute) At high risk for injury related to fall (Acute) Old non-ST elevation myocardial infarction (NSTEMI) (Resolved 03/2006) Syncope, vasovagal (Resolved) I have been consulted in conjunction with Dr. Angeles. She will independently evaluate this patient. Impression: Lower GI bleed. Hemorrhagic shock. Plan: I have discussed this patient with Dr. Angeles. At this time, patient will need to be medically optimized prior to intervention. Once stabilized, patient may have a bleeding scan versus bowel prep with colonoscopy with Dr. Angeles. Colonoscopy procedure has been discussed with the patient. Procedure details, risks, and benefits have been explained. Patient is agreeable to having a colonoscopy once medically stable. Patient has had the opportunity to ask and have questions answered. Patient verbally understands and agrees with the plan. Thank you for allowing us to participate in this patient's care. Office Visits / Consults: [id number] IP Consult L3
--- NOTE | 2020-07-04 08:28 | PCM.CON.CC ---
Reason for Consult Date of Consultation: 07/04/20 Reason for Consultation: Gastrointestinal bleed History of Present Illness: The patient is a 75-year-old male, with a history as outlined below, who presented to the emergency department on July 04 with complaints of bright red blood per rectum. The patient first noted the blood yesterday. The patient did have prior scopes in 2017 and 18 which revealed diverticuli and hemorrhoids. The patient is currently on a baby aspirin on an outpatient basis. On presentation to the emergency department, the patient was noted to be afebrile with a presenting blood pressure of 102/50 mmHg. He was maintaining appropriate oxygen saturations on room air. Initial laboratory evaluation revealed evidence of anemia with a hemoglobin of 9.2 g/dL. Coagulation profile revealed an INR of 1.6. Chemistry profile was notable for a lactate of 2.1. Troponin was negative. The patient received supplemental IV fluid hydration and was started on twice daily PPI therapy. He was subsequently admitted to the medical intensive care unit for further management. Past Medical History Past Medical History (Chronic Problems): Chronic Problems (Last Reviewed 07/04/20 @ 07:59 by Maddi BAR PA-C) Acute on chronic anemia (Chronic) Chewing tobacco nicotine dependence (Chronic) Chronic back pain (Chronic) Atherosclerosis of coronary artery of [place] heart without angina pectoris (Chronic) Essential (primary) hypertension (Chronic) Hyperlipidemia (Chronic) Medical History: Medical History (Last Reviewed 07/04/20 @ 07:59 by Maddi BAR PA-C) Atherosclerosis of coronary artery of [place] heart without angina pectoris (Chronic) I25.10 Old non-ST elevation myocardial infarction (NSTEMI) (Resolved) Onset Date: 03/2006 I25.2 Essential (primary) hypertension (Chronic) I10 Hyperlipidemia (Chronic) E78.5 Adenovillous polyp of colon D12.6 Internal hemorrhoid K64.8 Renal calculus N20.0 GI bleed K92.2 Syncope, vasovagal (Resolved) R55 Allergies No Known Allergies Allergy (Verified 07/02/20 09:55) Home Medications: Ambulatory Orders Medication Instructions Recorded traMADol [Ultram (G)] 50 mg PO Q8H PRN PRN 09/11/19 dorzolamide 22.3 mg-timolol 6.8 OPHTHALMIC 11/23/19 mg/mL eye drops quinapril 10 mg tablet 10 mg PO DAILY #90 tab 11/23/19 nitroglycerin 0.4 mg sublingual 0.4 mg SUBLINGUAL Q5-15M PRN #25 04/25/20 tablet tab 0.9% Saline Lock 10 - 40 ml IV UD PRN syringe 07/04/20 Acetaminophen [Tylenol Tablet] 650 mg PO Q6H PRN PRN tablet 07/04/20 Albuterol Aerosols [Ventolin 2.5 mg INHALATION Q2H PRN PRN 07/04/20 Aerosols] vial.neb. Guaifenesin [Robitussin] 10 ml PO Q4H PRN PRN udc 07/04/20 Mag Hydrox/Al Hydrox/Simeth 30 ml PO Q6H PRN PRN udc 07/04/20 [Mylanta II] Nicotine Polacrilex [Nicotine Gum] 2 mg PO Q2H PRN PRN gum 07/04/20 Ondansetron [Zofran] 4 mg IV Q8H PRN PRN vial 07/04/20 Surgical History: Surgical History (Last Reviewed 07/04/20 @ 08:06 by Maddi BAR PA-C) History of appendectomy Z90.49 History of back surgery Onset Date: 07/2018 Z98.890 History of herniorrhaphy Z98.890, Z87.19 History of left heart catheterization Onset Date: 03/2006 Z98.890 History of partial colectomy Z90.49 S/P colonoscopy Onset Date: 07/2017 Z98.890 Surgical History: appendectomy, herniorrhaphy, - - Partial colectomy potentially per discussion with patient secondary to severe polyp distribution, appendectomy, hernia repair, back surgery. Psychiatric History: No pertinent psych hx Lives: Alone Smoking Status: Former smoker Tobacco Use: Chew Alcohol: Occasional Drugs: None - *Family History Sibling Family History: Family History (Last Reviewed 07/04/20 @ 08:06 by Maddi BAR PA-C) Brother Heart disease Sister No problems noted. Father No problems noted. Mother No problems noted. History Items: Heart Disease Maternal Family History: Family History (Last Reviewed 07/04/20 @ 08:06 by Maddi BAR PA-C) Brother Heart disease Sister No problems noted. Father No problems noted. Mother No problems noted. History Items: - - Patient denied any marked maternal family history including heart disease, diabetes, cancer. Paternal Family History: Family History (Last Reviewed 07/04/20 @ 08:06 by Maddi BAR, PA-C) Brother Heart disease Sister No problems noted. Father No problems noted. Mother No problems noted. History Items: - - Patient denies any market paternal family history including heart disease, diabetes, cancer. Review of Systems Constitutional: Reports: Fatigue. Denies: Chills, Fever Eyes: Denies: Blurred vision, Double vision HEENT: Denies: Head Aches, Sinus Congestion, Sinus Drainage Cardiovascular: Denies: Chest Pain, Palpitations Respiratory: Denies: Cough, Shortness of breath at rest, Sputum production Gastrointestinal: Reports: Hematochezia Genitourinary: Denies: Dysuria Musculoskeletal: Denies: Joint Pain, Joint Tenderness Skin: Denies: Rash, Wounds Neurological: Denies: Numbness, Tingling, Focal weakness Psychiatric: Denies: Anxiety, Depression, Homicidal Ideations, Suicidal Ideations Hematologic/ Lymphatic: Reports: Anemia Patient Problems: Active and Suspected Problems (Last Reviewed 07/04/20 @ 07:59 by Maddi BAR PA-C) Hemorrhagic shock (Acute) GI bleed (Acute) Abdominal pain (Acute) Objective: The patient's most recent lab work, culture data and imaging studies have all been personally reviewed. - Physical Exam Vitals/I&O's: Vital Signs Temp Pulse Resp BP Pulse Ox 98.2 F 64 20 H 84/52 L 97 07/04/20 05:36 07/04/20 06:21 07/04/20 06:21 07/04/20 06:21 07/04/20 07:02 Oxygen Delivery Method Room Air Weight: 145 lb 11.609 oz Body Mass Index (BMI) 25.8 Intake and Output for Last 24 Hours 07/02/20 07/03/20 07/04/20 23:59 23:59 23:59 Intake Total 1510 / 1510 Balance 1510 / 1510 General: Alert, Cooperative, No apparent distress HEENT: Atraumatic, Normocephalic Oral: No Gingival or Mucosal Lesions/ Ulcerations Neck: Supple, Trachea Midline Lungs: No rhonchi, No wheeze, No rales, Diminished Cardiovascular: Regular rate, Regular Rhythm Abdomen: Bowel Sounds Present, Soft, Non Tender Extremities: No clubbing, No cyanosis, No edema Skin: No breakdown Musculoskeletal: No Muscle Wasting Lymphatic: No Cervical, Supraclavicular, or Inguinal Adenopathy Neurological: Neuro grossly intact Psych/Mental Status: Normal Affect, Appropriate Labs (Last 48 Hours) 07/04/20 07/04/20 07/04/20 01:50 01:50 01:50 WBC 3.5 L RBC 2.86 L Hgb 9.2 L Hct 28.5 L MCV 99.7 H MCH 32.2 H MCHC 32.3 RDW Std Deviation 54.9 H RDW Coeff of Eric 15.2 H Plt Count 187 MPV 9.2 Immature Gran % (Auto) 0.300 Neut % (Auto) 56.5 Lymph % (Auto) 27.2 Mcdonough % (Auto) 8.7 Eos % (Auto) 6.4 H Baso % (Auto) 0.9 Absolute Neuts (auto) 2.0 Absolute Lymphs (auto) 0.94 Nucleated RBC % 0 PT 17.9 H INR 1.6 APTT 35.5 Sodium 138 Potassium 3.6 Chloride 106 Carbon Dioxide 29.0 Anion Gap 3 L BUN 20 H Creatinine 1.20 Estim Creat Clear Calc 42.15 Est GFR (MDRD) Af Amer 76 Est GFR (MDRD) Non-Af 63 BUN/Creatinine Ratio 16.7 Glucose 112 H Lactic Acid Calcium 7.9 L Magnesium Iron TIBC Iron Saturation Ferritin Total Bilirubin 0.40 AST 13 L ALT 11 L Alkaline Phosphatase 42 L Troponin I < 0.015 Total Protein 10.5 H Albumin 2.4 L Globulin 8.1 H Albumin/Globulin Ratio 0.3 L Vitamin B12 Folate Blood Type Antibody Screen Crossmatch 07/04/20 07/04/20 07/04/20 01:50 01:50 01:50 WBC RBC Hgb Hct MCV MCH MCHC RDW Std Deviation RDW Coeff of Eric Plt Count MPV Immature Gran % (Auto) Neut % (Auto) Lymph % (Auto) Mcdonough % (Auto) Eos % (Auto) Baso % (Auto) Absolute Neuts (auto) Absolute Lymphs (auto) Nucleated RBC % PT INR APTT Sodium Potassium Chloride Carbon Dioxide Anion Gap BUN Creatinine Estim Creat Clear Calc Est GFR (MDRD) Af Amer Est GFR (MDRD) Non-Af BUN/Creatinine Ratio Glucose Lactic Acid 2.1 H* Calcium Magnesium Iron TIBC Iron Saturation Ferritin Total Bilirubin AST ALT Alkaline Phosphatase Troponin I Total Protein Albumin Globulin Albumin/Globulin Ratio Vitamin B12 Folate Blood Type O POSITIVE Antibody Screen NEGATIVE Crossmatch See Detail 07/04/20 07/04/20 07/04/20 06:15 06:15 06:15 WBC 3.8 L RBC 2.59 L Hgb 8.4 L Hct 25.4 L MCV 98.1 H MCH 32.4 H MCHC 33.1 RDW Std Deviation 58.5 H RDW Coeff of Eric 16.4 H Plt Count 155 MPV 10.0 Immature Gran % (Auto) 0.300 Neut % (Auto) 68.7 Lymph % (Auto) 19.7 Mcdonough % (Auto) 6.8 Eos % (Auto) 3.7 Baso % (Auto) 0.8 Absolute Neuts (auto) 2.6 Absolute Lymphs (auto) 0.75 L Nucleated RBC % 0 PT INR APTT Sodium 140 Potassium 3.7 Chloride 112 H Carbon Dioxide 28.0 Anion Gap 0 L BUN 19 H Creatinine 0.94 Estim Creat Clear Calc 53.81 Est GFR (MDRD) Af Amer 100 Est GFR (MDRD) Non-Af 83 BUN/Creatinine Ratio 20.1 H Glucose 94 Lactic Acid Calcium 7.2 L Magnesium 1.6 Iron 60 L TIBC 189 L Iron Saturation 31.7 Ferritin 39 Total Bilirubin 0.50 AST 14 L ALT 9 L Alkaline Phosphatase 34 L Troponin I Total Protein 8.6 H Albumin 2.0 L Globulin 6.6 H Albumin/Globulin Ratio 0.3 L Vitamin B12 Pending Folate 5.50 Blood Type Antibody Screen Crossmatch 07/04/20 06:15 WBC RBC Hgb Hct MCV MCH MCHC RDW Std Deviation RDW Coeff of Eric Plt Count MPV Immature Gran % (Auto) Neut % (Auto) Lymph % (Auto) Mcdonough % (Auto) Eos % (Auto) Baso % (Auto) Absolute Neuts (auto) Absolute Lymphs (auto) Nucleated RBC % PT INR APTT Sodium Potassium Chloride Carbon Dioxide Anion Gap BUN Creatinine Estim Creat Clear Calc Est GFR (MDRD) Af Amer Est GFR (MDRD) Non-Af BUN/Creatinine Ratio Glucose Lactic Acid 2.6 H* Calcium Magnesium Iron TIBC Iron Saturation Ferritin Total Bilirubin AST ALT Alkaline Phosphatase Troponin I Total Protein Albumin Globulin Albumin/Globulin Ratio Vitamin B12 Folate Blood Type Antibody Screen Crossmatch Current Medications Acetaminophen (Acetaminophen 325 Mg Tablet) 650 mg PO Q6H PRN PRN PRN Reason: Pain Score 1-10/Temp > 100.7 F Al Hydroxide/Mg Hydroxide (Mag Hydrox/Al Hydrox/Simeth 30 Ml Udc) 30 ml PO Q6H PRN PRN PRN Reason: Gastric Burning Albuterol Sulfate (Albuterol 2.5 Mg/3 Ml Vial.Neb.) 2.5 mg INHALATION Q2H PRN PRN PRN Reason: Dyspnea, wheezing Guaifenesin (Guaifenesin 10 Ml Udc (200mg/10ml)) 10 ml PO Q4H PRN PRN PRN Reason: COUGH Hydralazine HCl (Hydralazine 20 Mg/Ml Vial) 10 mg IV Q4H PRN PRN PRN Reason: SBP > 160 Sodium Chloride () 1,000 mls @ 100 mls/hr IV .Q10H BISHNU Last Admin: 07/04/20 06:06 Dose: 100 mls/hr Documented by: Pantoprazole Sodium 40 mg/ (Sodium Chloride) 110 mls @ 330 mls/hr IV Q12 BISHNU Last Infusion: 07/04/20 06:35 Dose: Infused Documented by: Sodium Chloride () 250 mls @ 15 mls/hr IV .[id number] PRN PRN Reason: Saline Flush Sodium Chloride () 250 mls @ 15 mls/hr IV .[id number] PRN PRN Reason: Additional IVPB Infusion Melatonin (Melatonin 3 Mg Tablet) 3 mg PO QHS PRN PRN PRN Reason: INSOMNIA Nicotine Polacrilex (Nicotine Polacrilex 2 Mg Gum) 2 mg PO Q2H PRN PRN PRN Reason: Nicotine Craving Nitroglycerin (Nitroglycerin (Inpatient Use) 0.4 Mg Tab.Subl) 0.4 mg SL Q5M PRN PRN Reason: CARDIAC/CHEST PAIN Ondansetron HCl (Ondansetron 4 Mg/2 Ml Vial) 4 mg IV Q8H PRN PRN PRN Reason: NAUSEA/VOMITING Prochlorperazine Edisylate (Prochlorperazine 10 Mg/2 Ml Vial) 5 mg IV Q4H PRN PRN PRN Reason: Breakthrough Nausea/Vomiting Sodium Chloride (0.9% Saline Lock 10 Ml Syringe) 10 - 40 ml IV UD PRN PRN Reason: SALINE FLUSH Throat Lozenges (Benzocaine/Menthol 1 Lozenge) 1 lozenge MUCOUS MEM Q2H PRN PRN PRN Reason: SORE THROAT Assessment/Plan Active and Suspected Problems (Last Reviewed 07/04/20 @ 07:59 by Maddi BAR, PABettyC) Hemorrhagic shock (Acute) GI bleed (Acute) Abdominal pain (Acute) RECOMMENDATIONS: 1. Continue transfusion of blood products and check H&H posttransfusion. 2. Additional supplemental IV fluid hydration as ordered. 3. Continue PPI therapy. 4. General surgery consultation pending. 5. Vasopressor support can be initiated if clinically indicated for persistent hypotension. IMPRESSIONS: 1. Acute blood loss anemia Concern for lower GI versus hemorrhoidal bleed. Plan to continue current supportive measures with transfusion of blood products as ordered. Surgery consultation is pending. Additional supplemental IV fluids are to be administered. Vasopressor support can be initiated if clinically indicated for persistent hypotension. Continue PPI therapy as ordered. 2. History of coronary artery disease/hypertension/hyperlipidemia/former tobacco dependency Complicates care, management, recovery and prognosis. Continue to hold home antihypertensives given tenuous hemodynamics. This note was generated with [employer] dictation software. It may contain incorrect words, spelling, and punctuation that were not noted in checking the note before signing. Inpatient E&M: 27030 Init Hosp L3
[2020-07-04 08:36] LABS: Vitamin B12 360 pg/mL (211-911)
--- NOTE | 2020-07-04 10:45 | CASEMGMT ---
Addendum entered by Sushma Garza 07/04/20 12:06: Per Jennifer GAYTAN, who has spoken w/Naima @ [facility], pt's PCP is Dr Prasad. Original Note: RN CM SKI LIFT OPERATOR CM to room to meet with patient for initial transition planning/care coordination assessment. RN MARCK introduced self and role at [facility]. Pt voices understanding and consents to assessment at this time. Pt resting in bed in no distress at this time. Pt is A/O at this time. Demographics verified/updated at this time. PCP: Pt states he has a PCP, but does not remember name. Preferred Pharmacy: Pt states he has an aide that picks up his medications from the pharmacy. Insurance: [facility] Prescription Benefit: Yes Living Will/HPOA & LNOK: Pt does not currently have LW/HCPOA and declines info at this time. Listed contacts on pt's demographics is a Naima Ho and Mack Don. Pt stated to this RN MARCK that they are from the welfare office and they can help me cause I don't have any money. When asked pt if he has any family or friends he would like listed as contacts or who could be reached in the event of an emergency situation, he stated, They're all but then he mentioned a daughter. When RN MARCK inquired of pt if his daughter is living, he stated, They don't want me. They don't come down to see me or call me and then would not provide further information, and stated, I don't want to say no more. I don't know why you are asking me these questions. If you want to know anything else, ask Naima. Jennifer GAYTAN, made aware of of above information. Living Arrangements: Lives alone in 3rd floor apt w/elevator access. Pt states he sponge-baths and is able to bath/dress self. He states he has an aide that comes in a couple times a week from 1:15 to 4:30 who help with home mgmt tasks, getting medications, taking him to appts, and w/grocery shopping. [facility]. Asked pt if he has a medical case worker and he referred RN MARCK back to Naima from [employer]. Transportation: States the aides assist w/transportation. DME: States has the following DME: cane, motorized W/C. Asked pt if he needs any additional medical equipment, such as a shower chair. Pt states I don't want one of those and states I don't believe in those when asked about a medical alert button. He denies need for further DME at this time. HHC/SNF: No history of either. Pt wishes to return home and states has no concerns with going home at time of discharge. CM to follow for any further discharge planning/needs. Pt voices no further concerns/needs at this time. Advised pt to ask for CM if any further questions/concerns/needs arise. Voices understanding. PLAN: Home w/continuation of aide services. Jacki SAMUEL RN CM
[2020-07-04 11:07] LABS: International Normalized Ratio 1.8; Prothrombin Time (Protime)PT. 20.5 SECONDS (11.7-14.9)
[2020-07-04 11:08] LABS: Partial Thromboplast Time 39.4 Seconds (24.1-36.2)
--- NOTE | 2020-07-04 13:28 | DS.PCM_ITS ---
Discharge Date and Diagnosis - Problem List Patient Problems: Active and Suspected Problems (Last Reviewed 07/04/20 @ 07:59 by Maddi BAR PA-C) Hemorrhagic shock (Acute) GI bleed (Acute) Abdominal pain (Acute) Date of Admission: 07/04/20 Date of Discharge: 07/04/20 - Primary Discharge Diagnosis Acute Problems: Active Problems (Last Reviewed 07/04/20 @ 07:59 by Maddi BAR PA-C) Hemorrhagic shock (Acute) GI bleed (Acute) Abdominal pain (Acute) - Secondary Discharge Diagnosis Chronic Problems: Chronic Problems (Last Reviewed 07/04/20 @ 07:59 by Maddi BAR PA-C) Acute on chronic anemia (Chronic) Chewing tobacco nicotine dependence (Chronic) Chronic back pain (Chronic) Atherosclerosis of coronary artery of [place] heart without angina pectoris (Chronic) Essential (primary) hypertension (Chronic) Hyperlipidemia (Chronic) Hospital Course and Treatment Operations: None Procedures: Blood transfusion - 5 units packed red blood cells Summary of Care Provided: Mr. Madrid is a 75 year old WM with a past medical history of hypertension, CAD, internal hemorrhoidal bleed, hyperlipidemia, tubular adenoma villous polyp, COPD with former tobacco abuse and chronic pain who presented to the emergency department at [facility] on 07/04/2020. The patient reported that he had a fairly large bloody bowel movement 2 hours prior to presenting to the emergency department. He reported he felt some gurgling in his abdomen and when he went to the bathroom there was a large amount of bright red stool in the toilet. He then had another episode immediately prior to presentation. He admits that he has had a previous GI bleed and at that time was on both aspirin and Plavix; since that time his Plavix has been discontinued and he has been on aspirin alone. There is some mention of diverticular bleed in the past but the patient indicates that it was hemorrhoidal bleed. Upon presentation he was mildly hypotensive with a blood pressure of 102/50 but became progressively more hypotensive. He was transfused a total of 5 units of packed red blood cells given his persistent hypotension and received aggressive fluid boluses. He was remarkably fairly asymptomatic despite his hypotension. He was not tachycardic but is on a beta-christiano at baseline and is not clear at what time he took his last dose. He does get mildly lightheaded with positional change. His initial hemoglobin was 9.2 and it appears his baseline is in the 10-11 range. Repeat hemoglobin this a.m. was 8.4 and has not had a repeat since since he has been getting blood products. General surgery was consulted and felt that it was most prudent to transfer him to a tertiary center for bleeding scan and potential interventional angio since he has had continued bleeding and we are unable to perform a C-scope at this time. This is most likely a lower GI bleed given his relatively normal BUN to creatinine ratio. BUN this a.m. was 19 and serum creatinine was 0.94. His aspirin has been held since admission. Curiously his INR is 1.8 and he is not on any medications that should affect his INR. I suspect this may be nutritional. He was given 5 mg of IV vitamin K on 07/04/2020. He has normal LFTs and on a CAT scan done in September of 2019 it is commented that the liver appears normal. There is also no comment on diverticulosis. I discussed the case with Dr. Jonnie Callaway at [facility] and he is excepted the patient for transfer. He is stable for ground transport. If after his last unit of blood, which is being transfused at this time, he is still having hypotension him on low-dose Levophed at 5 mcg. Discharge diagnoses Hemorrhagic shock Acute blood loss anemia Lower GI bleed Melena Leukopenia Elevated INR -Suspect nutritional Lactic acidosis CAD with no obstructive disease Hypertension Hyperlipidemia COPD Moderate protein malnutrition History of hemorrhoidal bleeding History of tubular adenoma villous polyp History of nephrolithiasis History of partial colectomy Discharge time greater than 35 minutes Patient Problems: Active and Suspected Problems (Last Reviewed 07/04/20 @ 07:59 by Maddi BAR, PA-C) Hemorrhagic shock (Acute) GI bleed (Acute) Abdominal pain (Acute) Subjective: She continues to have melanotic stool and have borderline blood pressures. He remains remarkably asymptomatic for the most part except with transitions and posture. He denies any current abdominal pain. - Physical Exam Vitals/I&O's: Vital Signs Temp Pulse Resp BP Pulse Ox 98.7 F 75 17 85/53 L 99 07/04/20 13:12 07/04/20 13:12 07/04/20 13:12 07/04/20 13:12 07/04/20 13:12 Oxygen Delivery Method Room Air Weight: 66.1 kg Body Mass Index (BMI) 25.8 Intake and Output for Last 24 Hours 07/02/20 07/03/20 07/04/20 23:59 23:59 23:59 Intake Total 3802.17 / 3802.17 Output Total 200 / 200 Balance 3602.17 / 3602.17 General: Alert, Oriented x3, Cooperative, No apparent distress, Well developed, Well nourished, - - Elderly white male who appears older than stated age, disheveled appearance sitting up in bed, fully alert and interactive HEENT: Atraumatic, PERRLA, EOMI, Normocephalic, EAC Clear Oral: Moist Mucosa, No Gingival or Mucosal Lesions/ Ulcerations, - - Extremely poor dentition, Mallampati 2 Lungs: No rhonchi, No rales, Diminished - Diffusely, Wheezes - Few scattered end expiratory Cardiovascular: Regular rate, Regular Rhythm, Normal S1, Normal S2, No murmurs, No Ectopic Activity, No rub noted, No Gallop Abdomen: Bowel Sounds Present, Soft, Non Tender, Non-Distended, - - Thin Extremities: No clubbing, No cyanosis, No edema, Capillary Refill Less than 3 Seconds, Peripheral Pulses Normal Skin: No rashes, No breakdown, - - Pale skin Musculoskeletal: No Tenderness to Palpation of Joints or Extremities, Arthritic Changes, Cachexia, Muscle Wasting Lymphatic: No Cervical, Supraclavicular, or Inguinal Adenopathy Neurological: Cranial nerves II-XII grossly intact, Deep Tendon Reflexes 2+/4 and Symmetrical, Neuro grossly intact, Muscle tone normal, Sensory exam intact to light touch and pain, Coordination normal, - - Generalized weakness proximal greater than distal Psych/Mental Status: Normal Affect, Appropriate, - - Pleasant Laboratory Results 07/04/20 01:50: WBC 3.5 L, RBC 2.86 L, Hgb 9.2 L, Hct 28.5 L, MCV 99.7 H, MCH 32.2 H, MCHC 32.3, RDW Std Deviation 54.9 H, RDW Coeff of Eric 15.2 H, Plt Count 187, MPV 9.2, Immature Gran % (Auto) 0.300, Neut % (Auto) 56.5, Lymph % (Auto) 27.2, [place] % (Auto) 8.7, Eos % (Auto) 6.4 H, Baso % (Auto) 0.9, Absolute Neuts (auto) 2.0, Absolute Lymphs (auto) 0.94, Nucleated RBC % 0 07/04/20 01:50: PT 17.9 H, INR 1.6, APTT 35.5 07/04/20 01:50: Sodium 138, Potassium 3.6, Chloride 106, Carbon Dioxide 29.0, Anion Gap 3 L, BUN 20 H, Creatinine 1.20, Estim Creat Clear Calc 42.15, Est GFR (MDRD) Af Amer 76, Est GFR (MDRD) Non-Af 63, BUN/Creatinine Ratio 16.7, Glucose 112 H, Calcium 7.9 L, Total Bilirubin 0.40, AST 13 L, ALT 11 L, Alkaline Phosphatase 42 L, Troponin I < 0.015, Total Protein 10.5 H, Albumin 2.4 L, Globulin 8.1 H, Albumin/Globulin Ratio 0.3 L 07/04/20 01:50: Lactic Acid 2.1 H* 07/04/20 01:50: Blood Type O POSITIVE, Antibody Screen NEGATIVE 07/04/20 01:50: Crossmatch See Detail 07/04/20 01:50: Crossmatch See Detail 07/04/20 01:50: Crossmatch See Detail 07/04/20 06:15: WBC 3.8 L, RBC 2.59 L, Hgb 8.4 L, Hct 25.4 L, MCV 98.1 H, MCH 32.4 H, MCHC 33.1, RDW Std Deviation 58.5 H, RDW Coeff of Eric 16.4 H, Plt Count 155, MPV 10.0, Immature Gran % (Auto) 0.300, Neut % (Auto) 68.7, Lymph % (Auto) 19.7, [place] % (Auto) 6.8, Eos % (Auto) 3.7, Baso % (Auto) 0.8, Absolute Neuts (auto) 2.6, Absolute Lymphs (auto) 0.75 L, Nucleated RBC % 0 07/04/20 06:15: Sodium 140, Potassium 3.7, Chloride 112 H, Carbon Dioxide 28.0, Anion Gap 0 L, BUN 19 H, Creatinine 0.94, Estim Creat Clear Calc 53.81, Est GFR (MDRD) Af Amer 100, Est GFR (MDRD) Non-Af 83, BUN/Creatinine Ratio 20.1 H, Glucose 94, Calcium 7.2 L, Magnesium 1.6, Iron 60 L, TIBC 189 L, Iron Saturation 31.7, Ferritin 39, Total Bilirubin 0.50, AST 14 L, ALT 9 L, Alkaline Phosphatase 34 L, Total Protein 8.6 H, Albumin 2.0 L, Globulin 6.6 H, Albumin/Globulin Ratio 0.3 L, Folate 5.50 07/04/20 06:15: Vitamin B12 360 07/04/20 06:15: Lactic Acid 2.6 H* 07/04/20 09:45: PT 20.5 H, INR 1.8, APTT 39.4 H Current Medications Acetaminophen (Acetaminophen 325 Mg Tablet) 650 mg PO Q6H PRN PRN PRN Reason: Pain Score 1-10/Temp > 100.7 F Al Hydroxide/Mg Hydroxide (Mag Hydrox/Al Hydrox/Simeth 30 Ml Udc) 30 ml PO Q6H PRN PRN PRN Reason: Gastric Burning Albuterol Sulfate (Albuterol 2.5 Mg/3 Ml Vial.Neb.) 2.5 mg INHALATION Q2H PRN PRN PRN Reason: Dyspnea, wheezing Guaifenesin (Guaifenesin 10 Ml Udc (200mg/10ml)) 10 ml PO Q4H PRN PRN PRN Reason: COUGH Hydralazine HCl (Hydralazine 20 Mg/Ml Vial) 10 mg IV Q4H PRN PRN PRN Reason: SBP > 160 Sodium Chloride () 1,000 mls @ 200 mls/hr IV .Q5H [facility] Last Infusion: 07/04/20 11:46 Dose: 200 mls/hr Documented by: Pantoprazole Sodium 40 mg/ (Sodium Chloride) 110 mls @ 330 mls/hr IV Q12 BISHNU Last Infusion: 07/04/20 06:35 Dose: Infused Documented by: Sodium Chloride () 250 mls @ 15 mls/hr IV .[id number] PRN PRN Reason: Saline Flush Sodium Chloride () 250 mls @ 15 mls/hr IV .[id number] PRN PRN Reason: Additional IVPB Infusion Melatonin (Melatonin 3 Mg Tablet) 3 mg PO QHS PRN PRN PRN Reason: INSOMNIA Nicotine Polacrilex (Nicotine Polacrilex 2 Mg Gum) 2 mg PO Q2H PRN PRN PRN Reason: Nicotine Craving Nitroglycerin (Nitroglycerin (Inpatient Use) 0.4 Mg Tab.Subl) 0.4 mg SL Q5M PRN PRN Reason: CARDIAC/CHEST PAIN Ondansetron HCl (Ondansetron 4 Mg/2 Ml Vial) 4 mg IV Q8H PRN PRN PRN Reason: NAUSEA/VOMITING Prochlorperazine Edisylate (Prochlorperazine 10 Mg/2 Ml Vial) 5 mg IV Q4H PRN PRN PRN Reason: Breakthrough Nausea/Vomiting Sodium Chloride (0.9% Saline Lock 10 Ml Syringe) 10 - 40 ml IV UD PRN PRN Reason: SALINE FLUSH Throat Lozenges (Benzocaine/Menthol 1 Lozenge) 1 lozenge MUCOUS MEM Q2H PRN PRN PRN Reason: SORE THROAT Home Medications: Medications to take at Discharge traMADol [Ultram (G)] 50 mg PO Q8H PRN PRN 09/11/19 dorzolamide 22.3 mg-timolol 6.8 mg/mL eye drops OPHTHALMIC 11/23/19 quinapril 10 mg tablet 10 mg PO DAILY #90 tab 11/23/19 nitroglycerin 0.4 mg sublingual tablet 0.4 mg SUBLINGUAL Q5-15M PRN #25 tab 04/25/20 0.9% Saline Lock 10 - 40 ml IV UD PRN syringe 07/04/20 Acetaminophen [Tylenol Tablet] 650 mg PO Q6H PRN PRN tablet 07/04/20 Albuterol Aerosols [Ventolin Aerosols] 2.5 mg INHALATION Q2H PRN PRN vial.neb. 07/04/20 Guaifenesin [Robitussin] 10 ml PO Q4H PRN PRN udc 07/04/20 Mag Hydrox/Al Hydrox/Simeth [Mylanta II] 30 ml PO Q6H PRN PRN udc 07/04/20 Nicotine Polacrilex [Nicotine Gum] 2 mg PO Q2H PRN PRN gum 07/04/20 Ondansetron [Zofran] 4 mg IV Q8H PRN PRN vial 07/04/20 Primary Care Physician: Care Physician,No Primary [NON-STAFF] - Medical Necessity - Tobacco Use Smoking Status: Former smoker Tobacco Use: Chew Meaningful Use Info Meaningful Use Diagnoses (Choose all that apply): None applicable Inpatient E&M: 70651 Disch Hosp
--- NOTE | 2020-07-04 14:03 | PCA ---
patient being transferred to [facility] [id number].
[2020-07-04] MEDS: 0.9% Normal Saline 1,000 ML 200 ML IV (14:17)
--- NOTE | 2020-07-04 14:36 | CASEMGMT ---
Social Work SW placed call to [facility] and inquired about pt's waiver services. Pt is active with Waiver program and Daphne Washington is Apparel Merchandiser. Pt receives aid services 3hr a day on Wednesday and from [place]. Pt receives global meals 10 per week and transportation services. Pt contacts listed are Naima Ho and Flaco Don. SW spoke with Flaco. Both Flaco and Naima are [facility] APS workers. Pt does not have friends or family and Naima and Flaco state they look after patient. Pt does not have a HCPOA. SW met with the patient and discussed need for medical decision maker. Pt mentions that he would want his nephew David Martínez and that David's contact information is in his wallet locked up with security. Pt very concerned about his personal belongings and SW assured they are locked up with security. Pt to be transferred to [facility] today. Pt requesting items for home. SW spoke with APS workers who have also spoke with pt throughout the day and they went to pt house, picked up items and dropped them off at front desk supervisor. SW gave bag of belongings to pt to take with him to [facility]. Security called and delivered locked up belongings to patient. Pt appreciative. VM left with Daphne Washington of [facility] and notified of transfer. Pt openly expressing feelings of concern with illness and hospital transfer. SW spent extended time with pt offering emotional support. TASIA Francisco
== END 2020-07-04 15:00 | disposition short-term general hospital (02) | DRG 377 ==
LOC: ED 03:55 → ICU 06:06
PROVIDERS: Admitting Provider Family Medicine; Emergency Provider Emergency Medicine; PCP Family Medicine; Visit Provider Internal Medicine
DX: K92.2 Gastrointestinal hemorrhage, unspecified (principal); R57.8 Other shock; E87.2 Acidosis; D62 Acute posthemorrhagic anemia; E78.5 Hyperlipidemia, unspecified; I10 Essential (primary) hypertension; I44.0 Atrioventricular block, first degree; I25.10 Atherosclerotic heart disease of native coronary artery without angina pectoris; K59.00 Constipation, unspecified; F17.220 Nicotine dependence, chewing tobacco, uncomplicated; J44.9 Chronic obstructive pulmonary disease, unspecified; G89.29 Other chronic pain; I25.2 Old myocardial infarction; Z87.19 Personal history of other diseases of the digestive system; Z79.82 Long term (current) use of aspirin; Z79.899 Other long term (current) drug therapy; Z90.49 Acquired absence of other specified parts of digestive tract
CPT/HCPCS: 80053; 82607; 82728; 82746; 83540; 83550; 83605; 83735; 84484; 85025; 85610; 85730; 86644; 86850; 86900; 86901; 86920; 93005; 99251; 99285; J7030; P9016; A4216; G0463; J2405; J3490

== ENCOUNTER 2020-09-05 16:06 | Inpatient (IN) | payer MEDICARE, MEDICAID, SELFPAY ==
[2020-09-05] VITALS (9 sets, daily range): BP systolic 86–110; BP diastolic 52–70; PULSE 58–86; RESP 16–21; TEMP 36.2–36.5; O2SAT 93–97; BMI 19.2; BMI 22.1
--- NOTE | 2020-09-05 16:19 | EKG12_ITS ---
Test Reason : Blood Pressure : / mmHG Vent. Rate : 074 BPM Atrial Rate : 074 BPM P-R Int : 212 ms QRS Dur : 102 ms QT Int : 398 ms P-R-T Axes : 068 000 016 degrees QTc Int : 441 ms Sinus rhythm with 1st degree A-V block Otherwise normal ECG Confirmed by YVON CARNES, DORA ([id number]), writer editor ALVAREZ ALLEN ([id number]) on 09/06/2020 10:24:21 AM Referred By: PAUL Confirmed By:DORA SANZ MD
--- NOTE | 2020-09-05 16:25 | RAD_ITS ---
STUDY: X-RAY CHEST REASON FOR EXAM: Male, 75 years old. weak, hypotensive TECHNIQUE: Single AP portable view of the chest. COMPARISON: None. FINDINGS: Poor inspiration with some bibasilar atelectasis. There is no demonstrated pleural abnormality. Normal size heart. Normal mediastinum and joe. Normal visualized pulmonary arteries. Normal visualized aortic arch and descending thoracic aorta. There is an increased kyphosis of the thoracic spine. Normal visualized ribs, clavicles, and shoulders. There is no demonstrated abnormality of the visualized soft tissue structures of the upper abdomen. RAD/Chest 1 View (Portable) IMPRESSION: Kyphosis with poor inspiration with some bibasilar atelectasis. Electronically Signed: Judson Cantu MD at 16:37 EDT Tel , Service support ,
[2020-09-05 16:35] LABS: Absolute Lymphocyte Count 0.87 X10^3/uL (0.83-4.51); Basophil# 0.04 X10^3/uL; Basophil% 0.6 % (0-1); Eosinophil# 0.15 X10^3/uL; Eosinophils% 2.3 % (0-5); Hematocrit 29.2 % (40-54); Hemoglobin 9.1 g/dL (13.0-16.5); Lymphocyte # 0.87 X10^3/ul (0.83-4.51); Lymphocyte % 13.6 % (19-41); Mean Corp Hgb Conc 31.2 g/dL (32-36); Mean Corpuscular Hgb 32.6 pg (27.0-32.0); Mean Corpuscular Volume 104.7 fL (80-94); Mean Platelet Vol. 9.9 fl (6.2-12.0); Monocyte# 0.32 X10^3/uL; NRBC Flagged by Analyzer 0 % (0-5); Neutrophil # 4.98 X10^3/uL (2.7-7.7); Platelet Count 257 K/mm3 (150-450); RBC Distribution Width CV 16.5 % (11.6-14.6); Red Blood Count 2.79 M/mm3 (4.6-6.2); White Blood Count 6.4 K/mm3 (4.4-11.0)
[2020-09-05 16:52] LABS: International Normalized Ratio 1.8; Prothrombin Time (Protime)PT. 20.4 SECONDS (11.7-14.9)
[2020-09-05 16:53] LABS: Partial Thromboplast Time 31.5 Seconds (24.1-36.2)
[2020-09-05 17:12] LABS: ALB/GLOB Ratio 0.2 RATIO (0.9-2.4); AST(SGOT) 19 U/L (15-37); Alanine Aminotransfer ALT/SGPT 7 U/L (16-61); Albumin, Serum 1.8 g/dL (3.2-5.0); Alkaline Phosphatase 56 U/L (45-117); Anion Gap 1 (5-15); BUN 15 mg/dL (7-18); BUN/Creat Ratio 11.9 RATIO (10-20); Calcium,Total 11.5 mg/dL (8.5-10.1); Chloride 102 mmol/L (98-107); Creatinine, Serum 1.26 mg/dL (0.70-1.30); EST Glomerular Filtration Rate 59 mL/min (>60); Est Glom Filt Rate - Afr Amer 72 mL/min (>60); Estimated Creatinine Clearance 39.33 ml/min; Globulin 11.5 g/dL (2.2-4.2); Glucose 100 mg/dL (74-106); Potassium 2.9 mmol/L (3.5-5.1); Protein, Total 13.3 g/dL (6.4-8.2); Sodium Level 134 mmol/L (136-145); Thyroid Stim Hormone (TSH) 1.89 uIU/mL (0.358-3.74)
[2020-09-05 17:38] LABS: Lactic Acid 4.2 mmol/L (0.4-1.9)
[2020-09-05] MEDS: 0.9% Normal Saline 1,000 ML 999 ML IV (17:40)
--- NOTE | 2020-09-05 18:20 | CT_ITS ---
STUDY: CT ABDOMEN AND PELVIS WITH CONTRAST REASON FOR EXAM: Male, 75 years old. 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 RADIATION DOSAGE (If Supplied By Facility): CTDIvol = ( 10.435 ) mGy, DLP = ( 833.21 ) mGycm TECHNIQUE: Transaxial images were obtained from the dome of the diaphragm to the symphysis pubis without oral contrast. IV 100mL Isovue-300 was administered. Sagittal and coronal images were reconstructed. Individualized dose optimization techniques were used for this CT. COMPARISON: 09/10/2020 FINDINGS: Question chronic atelectatic changes at the left lung base. There is no new mass or infiltrate. The visualized portions of the heart are within normal limits. Normal liver. Normal gallbladder and extrahepatic biliary system. Normal spleen. Normal pancreas. Normal bilateral adrenal glands. Stable since the upper pole right kidney. The right kidney is otherwise unremarkable. Normal left kidney. Normal visualized stomach. Normal small intestine. Scattered colonic diverticuli without acute inflammatory changes. Large amount rectal feces suggesting constipation. The appendix is visualized and appears normal. There is diffuse atherosclerotic calcification of the abdominal aorta, without a demonstrated aneurysm. Normal inferior vena cava. Normal retroperitoneum. Normal urinary bladder. Prostate is enlarged with coarse calcifications. There is no pelvic lymphadenopathy. No free air or free fluid is seen within the abdominal cavity. Normal abdominal wall. There are diffuse degenerative changes of the visualized lumbar spine. Impression deformity T12 and L1 with evidence of vertebral augmentation. There is exaggerated kyphosis at this level. CT/Abdomen/Pelvis W IV Cont ONLY IMPRESSION: No major interval change when compared to prior study. There is persistent increased rectal feces consistent with constipation. Electronically Signed: Anuel Leonard DO at 19:37 EDT Tel [phone], Service support ,
--- NOTE | 2020-09-05 19:43 | EX.ED.DYSGE1 ---
HPI History of Present Illness Chief Complaint: Weakness Detail of Chief Complaint: Generalized weakness Informant: patient and other (Home caregiver) Onset/Context/Timing Onset: Days Context: Gradual Onset Timing: Continuous Current Severity: Severe Worsened by: Not eating and drinking Associated Symptoms Associated Symptoms: None Narrative Narrative: Patient has no specific complaints other than he feels weak. His home health aide noticed that he is not eating or drinking much. She felt that he looked kind of weak on Wednesday and that he seemed worse today. He has some skin breakdown to his buttocks and his scrotum. These appear to be unchanged. No fevers. [facility] Medical History (Updated 09/05/20 @ 19:[address] Wiley David MD) Acute on chronic anemia Adenovillous polyp of colon At high risk for injury related to fall Atherosclerosis of coronary artery of [place] heart without angina pectoris Chewing tobacco nicotine dependence Chronic back pain Essential (primary) hypertension GI bleed GI bleed (07/04/20) Hemorrhagic shock (07/04/20) Hyperlipidemia Internal hemorrhoid Old non-ST elevation myocardial infarction (NSTEMI) (03/2006) Renal calculus Syncope, vasovagal Unsteady gait when walking Home Medications dorzolamide 22.3 mg-timolol 6.8 mg/mL eye drops OPHTHALMIC 11/23/19 [History Last Taken Unknown] acetaminophen 650 mg PO Q6H PRN PRN tablet 07/04/20 [Rx Last Taken Unknown] ascorbate calcium (vitamin C) 500 mg tablet 500 mg PO DAILY 07/30/20 [History Last Taken Unknown] aspirin 81 mg tablet,delayed release 81 mg PO DAILY 07/30/20 [History Last Taken Unknown] ferrous sulfate 324 mg (65 mg iron) tablet,delayed release 324 mg PO DAILY 07/30/20 [History Last Taken Unknown] metoprolol succinate 50 mg tablet,extended release 24 hr 50 mg PO DAILY 07/30/20 [History Last Taken Unknown] pantoprazole 40 mg tablet,delayed release 40 mg PO BID tablet 07/30/20 [History Last Taken Unknown] Allergy/AdvReac Type Severity Reaction Status Date / Time No Known Allergies Allergy Verified 07/26/20 13:50 Family History Brother Heart disease Sister No problems noted. Father No problems noted. Mother No problems noted. Surgical History History of appendectomy History of back surgery (07/2018) History of herniorrhaphy History of left heart catheterization (03/2006) History of partial colectomy S/P colonoscopy (07/2017) Social History Smoking Status: Former smoker how long ago did patient quit smokin + years ago alcohol intake: current Alcohol type: beer substance use type: does not use caffeine: No what type of physical activity do you participate in: none seatbelt use: always do you feel safe at home: Yes ROS ROS ED Constitutional Constitutional ED: Denies chills or fever(s) Eyes Eyes: Denies change in vision ENT ENT ED: Denies ear pain Cardiovascular Cardiovascular: Denies chest pain Respiratory/Chest Respiratory/Chest: Denies cough or dyspnea Gastrointestinal Gastrointestinal: Denies abdominal pain, constipation, diarrhea, nausea or vomiting Genitourinary Genitourinary ED: Denies dysuria, hematuria or urinary frequency Musculoskeletal Musculoskeletal: Denies arthralgias, back pain, myalgias or neck pain Integumentary Reports other Details: Ulcers Neurologic Neurologic: Denies headache(s), paresthesias or weakness Psychiatric Psychiatric: Denies suicidal ideation or suicidal thoughts Endocrine Endocrinology: Denies polyuria Allergic/Immunologic Allergic/Immunologic ED: Denies urticaria EXAM Physical Exam Const Vital Signs: 09/05/20 16:11 09/05/20 16:19 09/05/20 16:20 Temperature 97.4 F L Temperature Source Temporal Pulse Rate 81 Respiratory Rate 21 H Respiratory Effort Normal Non-Labored Respiratory Pattern Normal Blood Pressure 86/61 L Blood Pressure Mean 69 Pulse Ox 95 Oxygen Delivery Method Room Air Room Air 09/05/20 17:23 09/05/20 18:07 09/05/20 19:05 Temperature 97.5 F L 97.2 F L 97.2 F L Temperature Source Temporal Temporal Temporal Pulse Rate 71 77 86 Respiratory Rate 16 20 H 18 Respiratory Effort Respiratory Pattern Blood Pressure 92/56 L 104/61 100/60 Blood Pressure Mean 68 75 73 Pulse Ox 97 93 94 Oxygen Delivery Method Room Air Room Air Room Air Positive cachectic and unkempt General Appearance ED: unkempt and cachectic Nutritional Appearance: cachectic HEENT Negative for trauma or tenderness Eyes PERRL and EOMs intact bilaterally Neck supple Chest Wall palpation of chest normal Resp normal respiratory effort and clear to auscultation bilaterally Cardio regular rate and regular rhythm GI normal to inspection, nondistended, normoactive bowel sounds and non-tender Palpation: soft Extremity General Extremety ED: Negative for tenderness Neuro oriented x3 Sensorium / Orientation: alert Motor Exam: general weakness Psych Appearance: unkempt Mood & Affect: depressed Skin Skin Narrative: Decubitus ulcers, erythema and superficial ulcers to the scrotum without necrosis or crepitus MDM MDM MDM Narrative Medical decision making narrative: Patient presents from home with generalized weakness. It sounds like he is not eating or drinking or caring for himself. He has some generalized weakness but no specific complaints. He has some skin wounds to his buttocks and scrotum without any signs of necrosis or overt cellulitis. He has a borderline blood pressure but is not tachycardic or febrile. Patient was placed on the monitor. Treated with a fluid bolus. His chest x-ray reviewed by the radiologist and myself showed kyphosis and poor inspiration. Patient refused urinalysis. Cultures are pending. His white count was normal but his lactate was 4.2. Potassium was 2.9 which will be replaced. Hemoglobin 9.1, stable. Calcium 11.5 which is elevated. Thyroid normal. Urinalysis is pending. He refused catheter. Repeat lactate pending. Covid was negative. I did check a CT and he has no evidence of gangrene or other acute process. He was treated with Zosyn and vancomycin early on his possible sepsis empiric treatment. On reevaluation, patient is stable. His blood pressure has improved with fluid resuscitation. We will contact the hospitalist to admit. Lab Data Attestation: I reviewed the patient's lab results. Labs: Laboratory Results - last 24 hr 09/05/20 09/05/20 09/05/20 16:25 16:25 16:25 WBC 6.4 RBC 2.79 L Hgb 9.1 L Hct 29.2 L MCV 104.7 H MCH 32.6 H MCHC 31.2 L RDW Std Deviation 63.0 H RDW Coeff of Eric 16.5 H Plt Count 257 MPV 9.9 Immature Gran % (Auto) 0.500 Neut % (Auto) 78.0 H Lymph % (Auto) 13.6 L [place] % (Auto) 5.0 Eos % (Auto) 2.3 Baso % (Auto) 0.6 Absolute Neuts (auto) 5.0 Absolute Lymphs (auto) 0.87 Nucleated RBC % 0 PT 20.4 H INR 1.8 APTT 31.5 Sodium 134 L Potassium 2.9 L Chloride 102 Carbon Dioxide 31.0 Anion Gap 1 L BUN 15 Creatinine 1.26 Estim Creat Clear Calc 39.33 Est GFR (MDRD) Af Amer 72 Est GFR (MDRD) Non-Af 59 L BUN/Creatinine Ratio 11.9 Glucose 100 Lactic Acid Calcium 11.5 H Total Bilirubin 1.00 AST 19 ALT 7 L Alkaline Phosphatase 56 Troponin I < 0.015 Total Protein 13.3 H Albumin 1.8 L Globulin 11.5 H Albumin/Globulin Ratio 0.2 L TSH 1.89 09/05/20 16:25 WBC RBC Hgb Hct MCV MCH MCHC RDW Std Deviation RDW Coeff of Eric Plt Count MPV Immature Gran % (Auto) Neut % (Auto) Lymph % (Auto) [place] % (Auto) Eos % (Auto) Baso % (Auto) Absolute Neuts (auto) Absolute Lymphs (auto) Nucleated RBC % PT INR APTT Sodium Potassium Chloride Carbon Dioxide Anion Gap BUN Creatinine Estim Creat Clear Calc Est GFR (MDRD) Af Amer Est GFR (MDRD) Non-Af BUN/Creatinine Ratio Glucose Lactic Acid 4.2 H* Calcium Total Bilirubin AST ALT Alkaline Phosphatase Troponin I Total Protein Albumin Globulin Albumin/Globulin Ratio TSH Radiography Chest X-Ray - ED: 1 View, Read by ED Physician, Read by Radiologist and - (Kyphosis and poor inspiration) Diagnostic Testing: Radiology Impression Chest X-Ray 09/05/20 16:25 IMPRESSION: Kyphosis with poor inspiration with some bibasilar atelectasis. Electronically Signed: Judson Cantu MD at 16:37 EDT Tel , Service support , Abdomen/Pelvis CT 09/05/20 18:20 IMPRESSION: No major interval change when compared to prior study. There is persistent increased rectal feces consistent with constipation. Electronically Signed: Anuel Leonard DO at 19:37 EDT Tel [phone], Service support , EKG Initial EKG: Attestation: I personally reviewed and interpreted this EKG as follows: Comments: Sinus rhythm first-degree AV block. Rate of 74. No sign of acute ischemia or infarction pattern. Critical Care Time Critical care time (excluding procedures): 30-74 minutes (40), Discussing w/Patient &/or Family/User Interface Engineer, Discussing w/Consultants, Arranging Admission or Transfer and Performing Direct Patient Care at Bedside Discharge Plan Triage Chief Complaint: Weakness ED Provider: Wiley David Dx/Rx/DC Orders Clinical Impression: Acidosis, lactic, Generalized weakness, Acute hypokalemia, Hypercalcemia Prescriptions: No Action dorzolamide-timolol 22.3-6.8 mg/mL drops OPHTHALMIC RF: 0 acetaminophen 325 MG tablet 650 mg PO Q6H PRN PRN (Reason: Pain Score 1-10/Temp > 100.7 F) RF: 0 metoprolol succinate 50 mg tablet extended release 24 hr 50 mg PO DAILY RF: 0 aspirin [Adult Low Dose Aspirin] 81 mg tablet,delayed release (DR/EC) 81 mg PO DAILY RF: 0 ferrous sulfate 324 mg (65 mg iron) tablet,delayed release (DR/EC) 324 mg PO DAILY RF: 0 ascorbate calcium (vitamin C) 500 mg tablet 500 mg PO DAILY RF: 0 pantoprazole 40 mg tablet,delayed release (DR/EC) 40 mg PO BID RF: 0 Primary Care Provider: Mary Kay Prasad Referrals: Mary Kay Prasad MD [Primary Care Provider] -
[2020-09-05 20:06] LABS: Mucous, Urine 0 SEEN /hpf (<or=2+)
[2020-09-05 20:08] LABS: Color, Urine Straw (Yellow); Glucose, Dipstick Normal (Normal); Ketone-Dipstick Negative (Negative); Leukocyte Esterase-Dipstick 500 /ul (Negative); Nitrite-Dipstick Negative (Negative); Occult Blood-Urine 50 /ul (Negative); Protein-Dipstick 15 mg/dl (Negative); Urine Bilirubin Dipstick Negative (Negative); Urine Clarity Cloudy (Clear); Urine Urobilinogen Normal (Normal)
[2020-09-05 20:25] LABS: Bacteria 4+ /hpf (None Seen); Hyaline Cast 0-5 SEEN /lpf (0-5); Red Blood Cells-Urine 0-5 SEEN /hpf (0-5); Renal Epithelial Cells 0-5 SEEN /hpf (0-5); Squamous Epithelial Cells - UA 0-5 SEEN /hpf (0-5); White Blood Cells >100 SEEN /hpf (0-5)
--- NOTE | 2020-09-05 20:33 | HP.PCM.HOS_ITS ---
[facility] - General General Date of Admission: 09/05/20 Date of Service: 09/05/20 Chief Complaint: Weakness. [facility] Narrative LEOLA MAGALLON, is a 75 M with past medical history as mentioned below presented to the emergency room because of weakness. Actually the patient has no specific complaints. Reportedly, the home health aide noticed that patient is not eating or drinking much, having difficulty ambulating and he was very weak. Patient denied any chest pain or shortness of breath. He denied abdominal pain, nausea or vomiting. He denied any bleeding from body orifices. He denied fever or chills. He denied dizziness, lightheadedness, headache, syncope or presyncope. He is very unkept and obviously he is not able to take care of himself at home. He lives alone. On June, patient was admitted to our hospital for GI bleed and hemorrhagic shock and he was transferred to [facility]. According to the patient, he had upper EGD and endoscopy at [facility]. He had a history of CAD and he has been on aspirin and metoprolol. He has history of hypertension and he has been on metoprolol. He has history of hy perlipidemia but currently, he is not on statins. In the emergency department, his blood pressure was borderline, lowest was 86/61 but improved with IV fluids, he was afebrile, not tachycardic, pulse ox was 94% on room air. Routine blood work was remarkable for hemoglobin of 9.1 g/dL which is chronic, potassium is 2.9, calcium is 11.5. Lactic acid was 4.2. LFT revealed total protein of 13.3, liver transaminases and alk phos as well as bilirubin are normal. EKG revealed normal sinus rhythm first-degree AV block, no acute ischemic changes. Troponin was negative. TSH was normal. Urinalysis revealed cloudy urine, negative for nitrite, there was 500 leukocyte esterase, more than 100 WBCs and 4+ bacteria. Chest x-ray showed atelectasis, no acute infiltrate or consolidation. CT scan abdomen and pelvis with IV contrast reviewed, no acute findings apart from persistent constipation. Patient is being admitted for acute cystitis, lactic acidosis which is not consistently due to septic shock, electrolyte abnormalities, hypotension, physical debility and obviously patient will need placement to penitentiary facility. [facility] Medical History (Updated 09/05/20 @ 20:[address] Sheri Roberts MD) Adenovillous polyp of colon At high risk for injury related to fall Atherosclerosis of coronary artery of [place] heart without angina pectoris Chewing tobacco nicotine dependence Chronic back pain GI bleed (07/04/20) Hyperlipidemia Internal hemorrhoid Old non-ST elevation myocardial infarction (NSTEMI) (03/2006) Renal calculus Home Medications dorzolamide 22.3 mg-timolol 6.8 mg/mL eye drops OPHTHALMIC 11/23/19 [History Last Taken Unknown] acetaminophen 650 mg PO Q6H PRN PRN tablet 07/04/20 [Rx Last Taken Unknown] ascorbate calcium (vitamin C) 500 mg tablet 500 mg PO DAILY 07/30/20 [History Last Taken Unknown] aspirin 81 mg tablet,delayed release 81 mg PO DAILY 07/30/20 [History Last Taken Unknown] ferrous sulfate 324 mg (65 mg iron) tablet,delayed release 324 mg PO DAILY 07/30/20 [History Last Taken Unknown] metoprolol succinate 50 mg tablet,extended release 24 hr 50 mg PO DAILY 07/30/20 [History Last Taken Unknown] pantoprazole 40 mg tablet,delayed release 40 mg PO BID tablet 07/30/20 [History Last Taken Unknown] Allergy/AdvReac Type Severity Reaction Status Date / Time No Known Allergies Allergy Verified 07/26/20 13:50 Family History Brother Heart disease Sister No problems noted. Father No problems noted. Mother No problems noted. Surgical History History of appendectomy History of back surgery (07/2018) History of herniorrhaphy History of left heart catheterization (03/2006) History of partial colectomy S/P colonoscopy (07/2017) Social History Smoking Status: Former smoker how long ago did patient quit smokin + years ago alcohol intake: current Alcohol type: beer substance use type: does not use caffeine: No what type of physical activity do you participate in: none seatbelt use: always do you feel safe at home: Yes ROS Constitutional Constitutional: Reports anorexia, fatigue and weakness; Denies chills, fever(s) or malaise Eyes Eyes: Denies blurry vision, change in eye color, change in vision, double vision or eye pain ENT HEENT: Denies ear pain, epistaxis, headache(s), nasal congestion, post nasal drip or sore throat Cardiovascular Cardiovascular: Denies chest pain, dyspnea on exertion, edema, lightheadedness, orthopnea, palpitations, paroxysmal nocturnal dyspnea or syncope Respiratory/Chest Respiratory/Chest: Reports cough; Denies dyspnea, hemoptysis, productive cough, shortness of breath at rest, shortness of breath with exertion or wheezing Gastrointestinal Gastrointestinal: Reports constipation; Denies abdominal pain, diarrhea, rosenda temesis, hematochezia, melena, nausea or vomiting Genitourinary Genitourinary: Denies burning urination, dysuria, hematuria, urinary hesitancy or urinary urgency Musculoskeletal Musculoskeletal: Denies arthralgias, back pain, joint pain, joint swelling, myalgias or neck pain Neurologic Neurologic: Denies confusion, dizziness, focal weakness, headache(s), numbness or paresthesias Psychiatric Psychiatric: Reports other; Denies anxiety, depression, homicidal ideation or suicidal ideation Endocrine Endocrinology: Denies change in body appearance, cold intolerance, heat intolerance, polydipsia or polyuria Hematologic/Lymphatic Hematologic/Lymphatic: Denies easy bleeding, easy bruising or lymphadenopathy Allergic/Immunologic Allergic/Immunologic: Denies itchy eyes, rhinitis, throat swelling, tongue swelling, hives, urticaria or wheezing Vital Signs Vital Signs Vital Signs: 09/05/20 16:11 09/05/20 16:19 09/05/20 16:20 Temperature 97.4 F L Temperature Source Temporal Pulse Rate 81 Respiratory Rate 21 H Respiratory Effort Normal Non-Labored Respiratory Pattern Normal Blood Pressure 86/61 L Blood Pressure Mean 69 Pulse Ox 95 Oxygen Delivery Method Room Air Room Air 09/05/20 17:23 09/05/20 18:07 09/05/20 19:05 Temperature 97.5 F L 97.2 F L 97.2 F L Temperature Source Temporal Temporal Temporal Pulse Rate 71 77 86 Respiratory Rate 16 20 H 18 Respiratory Effort Respiratory Pattern Blood Pressure 92/56 L 104/61 100/60 Blood Pressure Mean 68 75 73 Pulse Ox 97 93 94 Oxygen Delivery Method Room Air Room Air Room Air 09/05/20 20:05 Temperature 97.2 F L Temperature Source Temporal Pulse Rate 69 Respiratory Rate 18 Respiratory Effort Respiratory Pattern Blood Pressure 94/70 Blood Pressure Mean 78 Pulse Ox 95 Oxygen Delivery Method Room Air Weight Weight: 122 lb 14.4 oz Body Mass Index (BMI) 19.2 Physical Exam Const alert, oriented x3, no apparent distress and no limitations Constitutional Narrative: Poor hygiene, very cachectic. General Appearance: cooperative, comfortable and well kempt HEENT normocephalic and head/scalp atraumatic HEENT Narrative: Dry mucous membranes. Poor dentition. Head and Scalp: normocephalic and atraumatic Eyes PERRL, EOMs intact bilaterally, conjunctivae normal and no scleral icterus General Eye: normal appearance of both eyes Periorbital: periorbital findings normal Neck no lymphadenopathy, supple, no meningeal signs, no JVD and no carotid bruits General: trachea midline Thyroid: thyroid normal Resp normal respiratory effort, normal air movement and clear to auscultation bilaterally Resp Narrative: Diminished with sounds bilateral, otherwise clear. Auscultation: Negative for crackles, rales, rhonchi or wheezes Cardio regular rate, regular rhythm, S1 normal heart sound, S2 normal heart sound and no JVD Cardio Narrative: Systolic murmur. Peripheral Pulses: pulses 2+ throughout GI normal to inspection, nondistended, normoactive bowel sounds, soft to palpation, non-tender and non-distended; Negative for hepatosplenomegaly Auscultation: normoactive bowel sounds Extremity normal to inspection and full ROM Extremity Narrative: Trace edema. Peripheral Pulses: Yes pulses 2+ throughout Skin no rashes or lesions noted Skin Narrative: Dry skin, superficial abrasion on the sacral region, stage I decubitus ulcer. Neuro oriented x3, CN's II-XII intact bilaterally and moves all extremities Neuro Narrative: Slow speech, global weakness. Sensorium / Orientation: alert Psych mental status grossly normal and denies hallucinations Psych Narrative: Flat affect, appropriate. Lab / Micro Data Result Diagrams: 09/05/20 16:25 09/05/20 16:25 Labs: Laboratory Results - last 24 hr 09/05/20 09/05/20 09/05/20 16:25 16:25 16:25 WBC 6.4 RBC 2.79 L Hgb 9.1 L Hct 29.2 L MCV 104.7 H MCH 32.6 H MCHC 31.2 L RDW Std Deviation 63.0 H RDW Coeff of Eric 16.5 H Plt Count 257 MPV 9.9 Immature Gran % (Auto) 0.500 Neut % (Auto) 78.0 H Lymph % (Auto) 13.6 L [place] % (Auto) 5.0 Eos % (Auto) 2.3 Baso % (Auto) 0.6 Absolute Neuts (auto) 5.0 Absolute Lymphs (auto) 0.87 Nucleated RBC % 0 PT 20.4 H INR 1.8 APTT 31.5 Sodium 134 L Potassium 2.9 L Chloride 102 Carbon Dioxide 31.0 Anion Gap 1 L BUN 15 Creatinine 1.26 Estim Creat Clear Calc 39.33 Est GFR (MDRD) Af Amer 72 Est GFR (MDRD) Non-Af 59 L BUN/Creatinine Ratio 11.9 Glucose 100 Lactic Acid Calcium 11.5 H Total Bilirubin 1.00 AST 19 ALT 7 L Alkaline Phosphatase 56 Troponin I < 0.015 Total Protein 13.3 H Albumin 1.8 L Globulin 11.5 H Albumin/Globulin Ratio 0.2 L TSH 1.89 Urine Color Urine Clarity Urine pH Ur Specific [place] Urine Protein Urine Glucose (UA) Urine Ketones Urine Occult Blood Urine Nitrite Urine Bilirubin Urine Urobilinogen Ur Leukocyte Esterase Urine RBC Urine WBC Ur Squamous Epith Cells Ur Renal Epithelial Cell Urine Bacteria Hyaline Casts Urine Mucus 09/05/20 09/05/20 16:25 19:58 WBC RBC Hgb Hct MCV MCH MCHC RDW Std Deviation RDW Coeff of Eric Plt Count MPV Immature Gran % (Auto) Neut % (Auto) Lymph % (Auto) [place] % (Auto) Eos % (Auto) Baso % (Auto) Absolute Neuts (auto) Absolute Lymphs (auto) Nucleated RBC % PT INR APTT Sodium Potassium Chloride Carbon Dioxide Anion Gap BUN Creatinine Estim Creat Clear Calc Est GFR (MDRD) Af Amer Est GFR (MDRD) Non-Af BUN/Creatinine Ratio Glucose Lactic Acid 4.2 H* Calcium Total Bilirubin AST ALT Alkaline Phosphatase Troponin I Total Protein Albumin Globulin Albumin/Globulin Ratio TSH Urine Color Straw Urine Clarity Cloudy Urine pH 7.0 Ur Specific [place] 1.010 Urine Protein 15 H Urine Glucose (UA) Normal Urine Ketones Negative Urine Occult Blood 50 H Urine Nitrite Negative Urine Bilirubin Negative Urine Urobilinogen Normal Ur Leukocyte Esterase 500 H Urine RBC 0-5 SEEN Urine WBC >100 SEEN Ur Squamous Epith Cells 0-5 SEEN Ur Renal Epithelial Cell 0-5 SEEN Urine Bacteria 4+ Hyaline Casts 0-5 SEEN Urine Mucus 0 SEEN Micro: Microbiology 09/05/20 19:28 SARS-CoV-2 Antigen (Rapid) - Final Mucosa - Nasopharyngeal Radiology Impression Chest X-Ray 09/05/20 16:25 IMPRESSION: Kyphosis with poor inspiration with some bibasilar atelectasis. Electronically Signed: Judson Cantu MD at 16:37 EDT Tel , Service support , Abdomen/Pelvis CT 09/05/20 18:20 IMPRESSION: No major interval change when compared to prior study. There is persistent increased rectal feces consistent with constipation. Electronically Signed: Anuel Leonard DO at 19:37 EDT Tel [phone], Service support , ADDENDUM: 09/05/20 2004 Assessment & Plan Assessment/Plan (1) Lactic acidosis: (2) Hypokalemia: (3) Physical debility: (4) Severe protein-calorie malnutrition: (5) Acute cystitis: (6) GI bleed: QUALIFIERS: GI bleed type/associated pathology: unspecified gastrointestinal hemorrhage type Qualified Code(s): K92.2 - Gastrointestinal hemorrhage, unspecified (7) At high risk for injury related to fall: (8) Essential (primary) hypertension: (9) Hyperlipidemia: QUALIFIERS: Hyperlipidemia type: pure hypercholesterolemia Qualified Code(s): E78.00 - Pure hypercholesterolemia, unspecified; E78.0 - Pure hypercholesterolemia (10) Coagulopathy: (11) Stage I decubitus ulcer and pressure area: PLAN: This is a 75 years old male patient presented to the emergency room because of weakness, nonspecific complaints, found to have hypotension which was mild and transient, found to have acute cystitis, lactic acidosis and he has been living alone, severe malnutrition and physical debility. #1 hypotension: It is mild, lowest was 86/61, improved with IV fluids. Patient is not tachycardic, afebrile. EKG reviewed, no acute ischemic changes. Troponin is negative. Chest x-ray showed no acute pneumonia. This is probably because of very poor nutritional condition, poor intake. CT scan abdomen and pelvis reviewed as above. Plan: Admit to PCU stepdown, continue IV fluids with lactated Ringer's, Tylenol as needed, Zofran as needed, hold metoprolol, repeat CBC and BMP tomorrow morning, PT OT evaluation and treatment, social work consult for placement. #2 acute cystitis: Although her lactic acid was 4.2, I doubt septic shock. Patient was afebrile, not tachycardic, not tachypneic. Plan: Blood culture, urine culture, start IV Rocephin. #3 lactic acidosis: This is probably due to tissue hypoperfusion because of hypotension as well as very poor oral intake. Again, I doubt septic shock. Plan: Pancultures as above, IV fluids, repeat lactic acid in 3 hours, IV Rocephin as above. #4 electrolyte abnormalities: Hypokalemia and hypercalcemia. Likely due to malnutrition. Plan to replace potassium with IV potassium chloride, check ionized calcium. #5 stage I decubitus ulcer: Without evidence of infection. Will consult wound care nurse. #6 coagulopathy: INR is 1.8. Patient is not taking any anticoagulants. He was taken off Plavix recently, currently on aspirin. No active bleeding. Platelet count is normal. Plan to monitor. #7severe protein calorie malnutrition: We will check prealbumin, regular diet, nutrition consult. #8 recent history of GI bleed/hemorrhagic shock: Patient was transferred to [facility] on June,, had upper endoscopy and colonoscopy. Currently, hemoglobin is stable at baseline. Plan to continue PPI, obtain EGD and colonoscopy reports from [facility]. #9 physical debility/functional decline/unable to take care of himself: Patient lives alone, obviously he is not able to take care of himself and for sure he would need placement to penitentiary facility. #10 hypertension: Currently, blood pressure is borderline but improved. Hold metoprolol, monitor. #11 CAD: EKG reviewed, troponin is negative. No chest pain. Continue aspirin, hold metoprolol. #12 hyperlipidemia: He is not on statins. #11 CODE STATUS: I tried to explain different types of CODE STATUS to the patient but I was not able to make him understand what CPR is what intubation and what is mechanical ventilation. I tried multiple times but obviously, he is not able to comprehend or understand what I have been telling him. He states that he lives alone, his family does not want to get in touch with him. No family at the bedside. #12 DVT prophylaxis: INR is 1.8. This note was generated with [employer] dictation software. It may contain incorrect words, spelling, and punctuation that were not noted in checking the note before signing. Visit Charges Inpatient E&M: 98560 Init Hosp L3
[2020-09-05 20:45] LABS: Reflex Lactate? Y
[2020-09-05 21:06] LABS: Lactic Acid 1.7 mmol/L (0.4-1.9)
[2020-09-05 21:43] LABS: Magnesium 1.4 mg/dL (1.6-2.6); Phosphorus 2.2 mg/dL (2.5-4.9)
[2020-09-05] MEDS: Pantoprazole Sodium 40 MG Tablet PO (21:54)
[2020-09-05] MEDS: Potassium Chloride 10mEq/100mL 10 MEQ/100 ML IV.SOLN. 100 MEQ IV BOLUS ×3 (21:54→23:58)
[2020-09-05] MEDS: Ceftriaxone 1 GM/50 ML BAG IV (21:56)
[2020-09-05] MEDS: Lactated Ringers 1,000 ML 75 ML IV (22:30)
[2020-09-06] VITALS (12 sets, daily range): BP systolic 97–104; BP diastolic 49–59; PULSE 55–91; RESP 18; TEMP 36.5–36.6; O2SAT 92–95
[2020-09-06 05:38] LABS: Absolute Neutrophil Count 4.4 X10^3/uL (2.0-7.7); Basophil# 0.03 X10^3/uL; Basophil% 0.5 % (0-1); Eosinophil# 0.12 X10^3/uL; Eosinophils% 2.2 % (0-5); Hematocrit 28.5 % (40-54); Hemoglobin 8.7 g/dL (13.0-16.5); Lymphocyte % 12.6 % (19-41); Mean Corp Hgb Conc 30.5 g/dL (32-36); Mean Corpuscular Hgb 33.6 pg (27.0-32.0); Mean Platelet Vol. 10.2 fl (6.2-12.0); Monocyte# 0.26 X10^3/uL; Monocyte% 4.7 % (0-10); NRBC Flagged by Analyzer 0 % (0-5); Neutrophil # 4.41 X10^3/uL (2.7-7.7); Neutrophil % 79.1 % (47-70); POSITIVE MORPHOLOGY YES; Platelet Count 163 K/mm3 (150-450); RBC Distribution Width CV 16.6 % (11.6-14.6); RBC Distribution Width SD 67.3 fl (35.1-43.9); Red Blood Count 2.59 M/mm3 (4.6-6.2); White Blood Count 5.6 K/mm3 (4.4-11.0)
[2020-09-06 05:44] LABS: Differential Indicated SCAN CRITERIA MET
[2020-09-06 05:52] LABS: International Normalized Ratio 1.3; Prothrombin Time (Protime)PT. 15.3 SECONDS (11.7-14.9)
[2020-09-06 06:03] LABS: Anion Gap 1 (5-15); BUN 13 mg/dL (7-18); BUN/Creat Ratio 16.2 RATIO (10-20); Calcium,Total 10.3 mg/dL (8.5-10.1); Chloride 109 mmol/L (98-107); EST Glomerular Filtration Rate 99 mL/min (>60); Est Glom Filt Rate - Afr Amer 120 mL/min (>60); Glucose 63 mg/dL (74-106); Potassium 3.4 mmol/L (3.5-5.1); Sodium Level 135 mmol/L (136-145)
[2020-09-06 06:19] LABS: Anisocytosis 1+; Differential Comment SCANNED
[2020-09-06 06:20] LABS: Macrocytosis 1+
[2020-09-06] MEDS: Ferrous Sulfate 325 MG Tablet PO (08:29)
[2020-09-06] MEDS: Pantoprazole Sodium 40 MG Tablet PO ×2 (08:29→21:45)
[2020-09-06] MEDS: Aspirin E.C. 81 MG Tablet PO (08:29)
[2020-09-06] MEDS: 0.9% Saline Lock 10 ML Syringe IV ×2 (08:39→21:45)
--- NOTE | 2020-09-06 10:33 | CASEMGMT ---
Addendum entered by Joy Galarza 09/06/20 11:34: SW received return call from Carrie at [facility]. She confirmed they are involved with patient and have been for years. SW let her know that snf is being recommended by the physician. She said patient will not be happy and will likely refuse. He has had some things happen to him in the past that continue to bother him. He also was told by a neighbor that she had to get an civil rights attorney to get out of the snf. He remembers this which is another reason he likely won't go. She said when he was in [place] at the hospital they tried to get him to go to a snf and he said no he is going home. She said he knows no one can make him go to a snf and he will tell everyone this. 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 He is also active with [facility] Passport services. LUKAS told her SW will pass this along to the SW who will be covering after today. LUKAS will also talk with Daphne at [facility]. Joy DOWNING Original Note: LUKAS reviewed patient's chart and noted on a previous admission that [facility] is involved. LUKAS also noted he has Passport and Daphne [place] is his case repairer. LUKAS called Carrie at [facility] and left her a voice mail. Joy DOWNING
[2020-09-06] MEDS: Dextrose 5%-Lactated Ringers 1,000 ML 75 ML IV (10:45)
--- NOTE | 2020-09-06 12:59 | EX.NTREPO ---
Medical Nutrition Therapy - History Nutrition Services has been consulted to:: Manage nutrient details of diet order Current diet/nutrition support order:: regular. ensure enlive 120mL 4x/day - Anthropometric Measurements Height:: 5 ft 3 in Weight:: 56.7 kg - Relevant Labs Relevant Labs:: RBC 2.59 M/mm3 (4.6-6.2) L 09/06/20 05:20 Hgb 8.7 g/dL (13.0-16.5) L 09/06/20 05:20 Hct 28.5 % (40-54) L 09/06/20 05:20 MCV 110.0 fL (80-94) H D 09/06/20 05:20 MCH 33.6 pg (27.0-32.0) H 09/06/20 05:20 MCHC 30.5 g/dL (32-36) L 09/06/20 05:20 RDW Std Deviation 67.3 fl (35.1-43.9) H 09/06/20 05:20 RDW Coeff of Eric 16.6 % (11.6-14.6) H 09/06/20 05:20 Neut % (Auto) 79.1 % (47-70) H 09/06/20 05:20 Lymph % (Auto) 12.6 % (19-41) L 09/06/20 05:20 Absolute Lymphs (auto) 0.70 X10^3/uL (0.83-4.51) L 09/06/20 05:20 PT 15.3 SECONDS (11.7-14.9) H 09/06/20 05:20 Sodium 135 mmol/L (136-145) L 09/06/20 05:20 Potassium 3.4 mmol/L (3.5-5.1) L 09/06/20 05:20 Chloride 109 mmol/L (98-107) H 09/06/20 05:20 Anion Gap 1 (5-15) L 09/06/20 05:20 Est GFR (MDRD) Non-Af 59 mL/min (>60) L 09/05/20 16:25 Glucose 63 mg/dL (74-106) L 09/06/20 05:20 Lactic Acid 4.2 mmol/L (0.4-1.9) H* 09/05/20 16:25 Calcium 10.3 mg/dL (8.5-10.1) H 09/06/20 05:20 Phosphorus 2.2 mg/dL (2.5-4.9) L 09/05/20 16:25 Magnesium 1.4 mg/dL (1.6-2.6) L 09/05/20 16:25 ALT 7 U/L (16-61) L 09/05/20 16:25 Total Protein 13.3 g/dL (6.4-8.2) H 09/05/20 16:25 Albumin 1.8 g/dL (3.2-5.0) L 09/05/20 16:25 Globulin 11.5 g/dL (2.2-4.2) H 09/05/20 16:25 Albumin/Globulin Ratio 0.2 RATIO (0.9-2.4) L 09/05/20 16:25 Prealbumin 4.0 mg/dL (20.0-40.0) L 09/05/20 16:25 - Assessment Food and Nutrient Intake: States he did not eat much this AM at breakfast secondary to not liking the food. 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 Pt unsure of UBW. Per EMR, was 145.7# on 07/04/20 and CBW 125# suggesting a 20.7#/14% unintentional wt loss x 2 months which is significant for malnutrition. Of note, pt was transferred to [facility] during June 2020 admission for GI bleed. - Nutrition Diagnosis: Clinical Problem Chronic Disease or Condition Related Malnutrition Clinical Problem - Etiology: severe, chronic malnutrition r/t inadequate energy intake d/t functional decline Clinical Problem - Signs/Symptoms: as evidenced by estimated PO intake meeting <75% of nutritional needs >3 months, unintentional wt loss of 20.7#/14% wt loss x 2 months, severe muscle wasting/fat loss per physical exam - Protein Calorie Malnutrition Evidence of Malnutrition Exists: Yes Severe Protein Calorie Malnutrition:: Chronic - Nutrition Intervention Nutrition Prescription: [id number] calories/day (1.3xRMR). 50-60 g protein/day (1g/kg). 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 Continue ensure enlive w/ medpass. Will add magic cup w/ dinner. Coordination of Nutrition Care: Discussed w/ RN Zoila SZYMANSKI assisted pt w/ calling caregiver to see if glasses can be brought in. No answer when pt called caregiver. Asked RN to touch base w/ caregivers about glasses if she speaks w/ them. Pt spent much time during assessment explaining he does not want to go to SNF. SW/CM following. - MNT Monitoring Active Nutrition Patient: Yes Nutrition Status: Requires Follow Up 3-5 Days
--- NOTE | 2020-09-06 13:49 | PCM.PN.HOSP ---
Documented by User: Milton BAR 09/06/20 14:14 Subjective Subjective Patient is a 75-year-old male comfortably resting in bed and eating breakfast, alert and oriented x3. Patient unable to provide much insight into his current status as he gets short of breath while talking and also appears acutely confused. Patient does not want to go to [place] [facility] upon discharge. Denies chest pain, palpitations, fever, chills, N/V/D. Objective Data Objective Data Vital Signs: Vital Signs Temp Pulse Resp BP Pulse Ox 97.7 F L 66 18 98/49 L 93 09/06/20 09:10 09/06/20 09:10 09/06/20 09:10 09/06/20 09:10 09/06/20 09:10 Oxygen Delivery Method Room Air Weight: 125 lb 0.034 oz Body Mass Index (BMI) 22.1 Intake & Output: Intake and Output for Last 24 Hours 09/04/20 09/05/20 09/06/20 23:59 23:59 23:59 Intake Total 2086.67 / 2386.67 1422.75 / 1422.75 Output Total 350 / 350 Balance 2086.67 / 2136.67 1072.75 / 1072.75 Lab / Micro Data Result Diagrams: 09/06/20 05:20 09/06/20 05:20 Labs: Laboratory Results - last 24 hr 09/05/20 09/05/20 09/05/20 16:25 16:25 16:25 WBC 6.4 RBC 2.79 L Hgb 9.1 L Hct 29.2 L MCV 104.7 H MCH 32.6 H MCHC 31.2 L RDW Std Deviation 63.0 H RDW Coeff of Eric 16.5 H Plt Count 257 MPV 9.9 Immature Gran % (Auto) 0.500 Neut % (Auto) 78.0 H Lymph % (Auto) 13.6 L Union % (Auto) 5.0 Eos % (Auto) 2.3 Baso % (Auto) 0.6 Absolute Neuts (auto) 5.0 Absolute Lymphs (auto) 0.87 Nucleated RBC % 0 Differential Comment Anisocytosis Macrocytosis PT 20.4 H INR 1.8 APTT 31.5 Sodium 134 L Potassium 2.9 L Chloride 102 Carbon Dioxide 31.0 Anion Gap 1 L BUN 15 Creatinine 1.26 Estim Creat Clear Calc 39.33 Est GFR (MDRD) Af Amer 72 Est GFR (MDRD) Non-Af 59 L BUN/Creatinine Ratio 11.9 Glucose 100 Lactic Acid Calcium 11.5 H Phosphorus Magnesium Total Bilirubin 1.00 AST 19 ALT 7 L Alkaline Phosphatase 56 Troponin I < 0.015 Total Protein 13.3 H Albumin 1.8 L Globulin 11.5 H Albumin/Globulin Ratio 0.2 L Prealbumin TSH 1.89 Urine Color Urine Clarity Urine pH Ur Specific Independence Urine Protein Urine Glucose (UA) Urine Ketones Urine Occult Blood Urine Nitrite Urine Bilirubin Urine Urobilinogen Ur Leukocyte Esterase Urine RBC Urine WBC Ur Squamous Epith Cells Ur Renal Epithelial Cell Urine Bacteria Hyaline Casts Urine Mucus 09/05/20 09/05/20 09/05/20 16:25 16:25 19:58 WBC RBC Hgb Hct MCV MCH MCHC RDW Std Deviation RDW Coeff of Eric Plt Count MPV Immature Gran % (Auto) Neut % (Auto) Lymph % (Auto) Union % (Auto) Eos % (Auto) Baso % (Auto) Absolute Neuts (auto) Absolute Lymphs (auto) Nucleated RBC % Differential Comment Anisocytosis Macrocytosis PT INR APTT Sodium Potassium Chloride Carbon Dioxide Anion Gap BUN Creatinine Estim Creat Clear Calc Est GFR (MDRD) Af Amer Est GFR (MDRD) Non-Af BUN/Creatinine Ratio Glucose Lactic Acid 4.2 H* Calcium Phosphorus 2.2 L Magnesium 1.4 L Total Bilirubin AST ALT Alkaline Phosphatase Troponin I Total Protein Albumin Globulin Albumin/Globulin Ratio Prealbumin 4.0 L TSH Urine Color Straw Urine Clarity Cloudy Urine pH 7.0 Ur Specific [place] 1.010 Urine Protein 15 H Urine Glucose (UA) Normal Urine Ketones Negative Urine Occult Blood 50 H Urine Nitrite Negative Urine Bilirubin Negative Urine Urobilinogen Normal Ur Leukocyte Esterase 500 H Urine RBC 0-5 SEEN Urine WBC >100 SEEN Ur Squamous Epith Cells 0-5 SEEN Ur Renal Epithelial Cell 0-5 SEEN Urine Bacteria 4+ Hyaline Casts 0-5 SEEN Urine Mucus 0 SEEN 09/05/20 09/06/20 09/06/20 20:23 05:20 05:20 WBC 5.6 RBC 2.59 L Hgb 8.7 L Hct 28.5 L MCV 110.0 H D MCH 33.6 H MCHC 30.5 L RDW Std Deviation 67.3 H RDW Coeff of Eric 16.6 H Plt Count 163 MPV 10.2 Immature Gran % (Auto) 0.900 Neut % (Auto) 79.1 H Lymph % (Auto) 12.6 L Union % (Auto) 4.7 Eos % (Auto) 2.2 Baso % (Auto) 0.5 Absolute Neuts (auto) 4.4 Absolute Lymphs (auto) 0.70 L Nucleated RBC % 0 Differential Comment SCANNED Anisocytosis 1+ Macrocytosis 1+ PT 15.3 H INR 1.3 APTT Sodium Potassium Chloride Carbon Dioxide Anion Gap BUN Creatinine Estim Creat Clear Calc Est GFR (MDRD) Af Amer Est GFR (MDRD) Non-Af BUN/Creatinine Ratio Glucose Lactic Acid 1.7 Calcium Phosphorus Magnesium Total Bilirubin AST ALT Alkaline Phosphatase Troponin I Total Protein Albumin Globulin Albumin/Globulin Ratio Prealbumin TSH Urine Color Urine Clarity Urine pH Ur Specific Independence Urine Protein Urine Glucose (UA) Urine Ketones Urine Occult Blood Urine Nitrite Urine Bilirubin Urine Urobilinogen Ur Leukocyte Esterase Urine RBC Urine WBC Ur Squamous Epith Cells Ur Renal Epithelial Cell Urine Bacteria Hyaline Casts Urine Mucus 09/06/20 05:20 WBC RBC Hgb Hct MCV MCH MCHC RDW Std Deviation RDW Coeff of Eric Plt Count MPV Immature Gran % (Auto) Neut % (Auto) Lymph % (Auto) Union % (Auto) Eos % (Auto) Baso % (Auto) Absolute Neuts (auto) Absolute Lymphs (auto) Nucleated RBC % Differential Comment Anisocytosis Macrocytosis PT INR APTT Sodium 135 L Potassium 3.4 L Chloride 109 H Carbon Dioxide 25.0 Anion Gap 1 L BUN 13 Creatinine 0.80 Estim Creat Clear Calc 63.00 Est GFR (MDRD) Af Amer 120 Est GFR (MDRD) Non-Af 99 BUN/Creatinine Ratio 16.2 Glucose 63 L Lactic Acid Calcium 10.3 H Phosphorus Magnesium Total Bilirubin AST ALT Alkaline Phosphatase Troponin I Total Protein Albumin Globulin Albumin/Globulin Ratio Prealbumin TSH Urine Color Urine Clarity Urine pH Ur Specific Independence Urine Protein Urine Glucose (UA) Urine Ketones Urine Occult Blood Urine Nitrite Urine Bilirubin Urine Urobilinogen Ur Leukocyte Esterase Urine RBC Urine WBC Ur Squamous Epith Cells Ur Renal Epithelial Cell Urine Bacteria Hyaline Casts Urine Mucus Micro: Microbiology 09/05/20 19:28 Mucosa - Nasopharyngeal SARS-CoV-2 Antigen (Rapid) - Final Radiography Diagnostic Testing: Radiology Impression Chest X-Ray 09/05/20 16:25 IMPRESSION: Kyphosis with poor inspiration with some bibasilar atelectasis. Electronically Signed: Judson Cantu MD at 16:37 EDT Tel , Service support , Abdomen/Pelvis CT 09/05/20 18:20 IMPRESSION: No major interval change when compared to prior study. There is persistent increased rectal feces consistent with constipation. Electronically Signed: Anuel Leonard DO at 19:37 EDT Tel [phone], Service support , ADDENDUM: 09/05/202003 Physical Exam Narrative See subjective. Const alert, oriented x3 and no apparent distress HEENT head/scalp atraumatic, moist oral mucous membranes and oropharynx normal Head and Scalp: normocephalic Eyes PERRL, EOMs intact bilaterally and conjunctivae normal Neck no lymphadenopathy, supple and no JVD Resp Effort and Inspection: tachypneic and labored Auscultation: diminished lung sounds Cardio regular rate, regular rhythm, no murmurs and no JVD GI normal to inspection, nondistended, normoactive bowel sounds, soft to palpation, non-tender and non-distended Extremity normal to inspection, full ROM and no clubbing, cyanosis or edema Skin no rashes or lesions noted, no wounds, skin turgor normal and no jaundice Neuro CN's II-XII intact bilaterally Psych affect normal Mood & Affect: depressed Assessment & Plan Assessment/Plan (1) Lactic acidosis: (2) Hypokalemia: (3) Physical debility: (4) Severe protein-calorie malnutrition: (5) Acute cystitis: (6) GI bleed: QUALIFIERS: GI bleed type/associated pathology: unspecified gastrointestinal hemorrhage type Qualified Code(s): K92.2 - Gastrointestinal hemorrhage, unspecified (7) At high risk for injury related to fall: (8) Essential (primary) hypertension: (9) Hyperlipidemia: QUALIFIERS: Hyperlipidemia type: pure hypercholesterolemia Qualified Code(s): E78.00 - Pure hypercholesterolemia, unspecified; E78.0 - Pure hypercholesterolemia (10) Coagulopathy: (11) Stage I decubitus ulcer and pressure area: PLAN: See subjective for patient presentation. Disposition planning for this patient will be difficult as patient is in need of [place] [facility] care, however does not want to go to [place] [facility] at discharge he wants to be able to return home. Case management/social work have contacted Adult Protective Services and are currently working to find a resolution. Patient makes own decisions in regard to his health care, patient states that he has no family that he keeps in contact with to make decisions for him. 1) Hypotension Likely related to malnutrition. Appears to be a chronic issue for patient. Patient denies any symptoms related to an acute bleed. No evidence of bleed on CT of the abdomen and pelvis. Hemoglobin stable at 8.7. Plan; continue IV fluids with lactated Ringer's, hold metoprolol, repeat CBC and BMP tomorrow morning, social work consult for placement. 2) Acute cystitis Patient afebrile, not tachycardic, not tachypneic. Blood and urine cultures pending. Plan: start IV Rocephin. 3) lactic acidosis Resolved, likely secondary to malnutrition. 4) Hypokalemia Currently 3.4. Likely secondary to malnutrition. Plan; replace potassium. 5) stage I decubitus ulcer Without evidence of infection. Wound care consult ordered. 6) recent history of GI bleed/hemorrhagic shock Hemoglobin currently stable at 8.7. Patient recently had EGD/colonoscopy at [facility]. 7) physical debility/functional decline/unable to take care of himself As above. 8) hypertension Patient has been hypotensive throughout admission, appears to be a chronic issue for patient. Hold home metoprolol. 9) CAD EKG reviewed, troponin is negative. No chest pain. Continue aspirin, hold metoprolol. 10) Hyperlipidemia Not on statin at home. DVT prophylaxis - not indicated Patient seen by Milton Coyne PA-C, under the supervision of Dr. Rubalcava. Documented by User: Dr. Aram Rubalcava MD 09/06/20 16:25 Objective Data Lab / Micro Data Result Diagrams: 09/06/20 05:20 09/06/20 05:20 Addendum Addendum: Dr. Rubalcava: I personally reviewed the chart and examined the patient, and agree with the above findings. 75-year-old male presents to the hospital with weakness. Per report his home health aide had noticed that he had not been eating or drinking very well and he had difficulty ambulating and appeared very weak. In the ER he was found to have hypokalemia as well as an elevated lactic acid. UA demonstrates a UTI and he was started on antibiotics. His electrolytes were repleted, he had a slight hypophosphatemia as well as a hypomagnesemia, these will be rechecked in the morning. Urine culture is pending and will continue with Rocephin. Because of his poor p.o. intake, will add dextrose to his IV fluids. He also has a chronic macrocytosis, his MCV is severely elevated however his June labs demonstrate a normal vitamin B12 as well as a normal folic acid. Will have PT/OT evaluate him for possible placement, though he does appear resistant to the idea because he says he had a neighbor who told him that if he goes into a [place] [facility] [place] he will never leave. Visit Charges Inpatient E&M: 77520 Subs Hosp L2
--- NOTE | 2020-09-06 14:56 | CASEMGMT ---
SW met with patient. Introduced self and role at [facility]. Patient is not happy about being here. He wants to go home. SW told him he is not medically ready. SW discussed a discharge plan. SW spoke with him about alf and that he has 20 days and it would not cost him anything. SW told him about [facility] since they do not have longterm beds. SW also talked with him about [facility] since his apartment is right behind their building. He said he is going home. He said he will not get better unless he is at home. He has his routine and he does fine. SW asked patient if he understood why staff is concerned about him going home. He said he is going home. SW will have to continue to talk with patient. However, he is refusing to go to a alf and he is alert and oriented. Adult Protective Services is already involved and has been for several years. Plan: undetermined at this time Joy DOWNING
[2020-09-06] MEDS: Ceftriaxone 1 GM/50 ML BAG IV (21:44)
[2020-09-07] VITALS (11 sets, daily range): BP systolic 103–116; BP diastolic 55–70; PULSE 66–99; RESP 16–18; TEMP 36.5–36.7; O2SAT 94–100
[2020-09-07] MEDS: Dextrose 5%-Lactated Ringers 1,000 ML 75 ML IV ×2 (00:01→13:31)
--- NOTE | 2020-09-07 00:05 | NURSING ---
Report given to Belen HUNTLEY who is assuming care of pt. at this time.
[2020-09-07 05:54] LABS: Absolute Lymphocyte Count 0.55 X10^3/uL (0.83-4.51); Absolute Neutrophil Count 3.8 X10^3/uL (2.0-7.7); Basophil# 0.03 X10^3/uL; Basophil% 0.6 % (0-1); Eosinophil# 0.13 X10^3/uL; Eosinophils% 2.7 % (0-5); Hemoglobin 7.7 g/dL (13.0-16.5); Lymphocyte # 0.55 X10^3/ul (0.83-4.51); Lymphocyte % 11.5 % (19-41); Mean Corp Hgb Conc 32.1 g/dL (32-36); Mean Corpuscular Hgb 33.6 pg (27.0-32.0); Mean Corpuscular Volume 104.8 fL (80-94); Mean Platelet Vol. 9.6 fl (6.2-12.0); Monocyte# 0.26 X10^3/uL; Monocyte% 5.5 % (0-10); NRBC Flagged by Analyzer 0 % (0-5); Neutrophil # 3.79 X10^3/uL (2.7-7.7); Neutrophil % 79.5 % (47-70); POSITIVE DIFFERENTIAL YES; Platelet Count 175 K/mm3 (150-450); RBC Distribution Width CV 16.6 % (11.6-14.6); RBC Distribution Width SD 63.8 fl (35.1-43.9); Red Blood Count 2.29 M/mm3 (4.6-6.2); White Blood Count 4.8 K/mm3 (4.4-11.0)
[2020-09-07 05:57] LABS: Differential Indicated SCAN CRITERIA MET
[2020-09-07 06:13] LABS: Differential Comment SCANNED
[2020-09-07 06:15] LABS: Anisocytosis 1+; Hypochromasia 1+; Macrocytosis 1+
[2020-09-07 06:20] LABS: Anion Gap -1 (5-15); BUN 11 mg/dL (7-18); BUN/Creat Ratio 14.1 RATIO (10-20); Chloride 108 mmol/L (98-107); Creatinine, Serum 0.78 mg/dL (0.70-1.30); EST Glomerular Filtration Rate 103 mL/min (>60); Est Glom Filt Rate - Afr Amer 124 mL/min (>60); Estimated Creatinine Clearance 50.49 ml/min; Glucose 99 mg/dL (74-106); Magnesium 1.6 mg/dL (1.6-2.6); Phosphorus 2.7 mg/dL (2.5-4.9); Potassium 3.4 mmol/L (3.5-5.1); Sodium Level 140 mmol/L (136-145)
[2020-09-07] MEDS: Pantoprazole Sodium 40 MG Tablet PO ×2 (09:53→22:00)
[2020-09-07] MEDS: Aspirin E.C. 81 MG Tablet PO (09:53)
[2020-09-07] MEDS: Ferrous Sulfate 325 MG Tablet PO (09:54)
--- NOTE | 2020-09-07 15:11 | PCM.PN.HOSP ---
Documented by User: Milton BAR 09/07/20 15:24 Subjective Subjective Patient is a 75-year-old male comfortably resting in bed, alert and oriented x3. Patient reports no change in depression symptoms from yesterday and reports that he feels well enough to return home. Denies chest pain, shortness of breath, palpitations, fever, chills, N/V/D. Objective Data Objective Data Vital Signs: Vital Signs Temp Pulse Resp BP Pulse Ox 97.9 F 82 18 111/60 100 09/07/20 09:48 09/07/20 09:48 09/07/20 09:48 09/07/20 09:48 09/07/20 09:48 Oxygen Flow Rate (L/min) 3 Oxygen Delivery Method Room Air Weight: 125 lb 3.561 oz Body Mass Index (BMI) 22.1 Intake & Output: Intake and Output for Last 24 Hours 09/05/20 09/06/20 09/07/20 23:59 23:59 23:59 Intake Total 2086.67 / 2386.67 1732.75 / 1852.75 2235 / 2235 Output Total 350 / 350 Balance 2086.67 / 2136.67 1382.75 / 1502.75 2235 / 2235 Lab / Micro Data Result Diagrams: 09/07/20 05:20 09/07/20 05:20 Labs: Laboratory Results - last 24 hr 09/07/20 09/07/20 05:20 05:20 WBC 4.8 RBC 2.29 L Hgb 7.7 L Hct 24.0 L MCV 104.8 H MCH 33.6 H MCHC 32.1 D RDW Std Deviation 63.8 H RDW Coeff of Eric 16.6 H Plt Count 175 MPV 9.6 Immature Gran % (Auto) 0.200 Neut % (Auto) 79.5 H Lymph % (Auto) 11.5 L [place]urry % (Auto) 5.5 Eos % (Auto) 2.7 Baso % (Auto) 0.6 Absolute Neuts (auto) 3.8 Absolute Lymphs (auto) 0.55 L Nucleated RBC % 0 Differential Comment SCANNED Hypochromasia 1+ Anisocytosis 1+ Macrocytosis 1+ Sodium 140 Potassium 3.4 L Chloride 108 H Carbon Dioxide 33.0 H Anion Gap -1 L BUN 11 Creatinine 0.78 Estim Creat Clear Calc 50.49 Est GFR (MDRD) Af Amer 124 Est GFR (MDRD) Non-Af 103 BUN/Creatinine Ratio 14.1 Glucose 99 Calcium 10.0 Phosphorus 2.7 Magnesium 1.6 Micro: Microbiology 09/05/20 19:58 Urine, Clean Catch Urine Culture - Preliminary GPC Poss Enterococcus sp 09/05/20 19:28 Mucosa - Nasopharyngeal SARS-CoV-2 Antigen (Rapid) - Final Physical Exam Narrative See subjective. Const alert, oriented x3 and no apparent distress HEENT head/scalp atraumatic and moist oral mucous membranes Head and Scalp: normocephalic Eyes PERRL, EOMs intact bilaterally and conjunctivae normal Neck no lymphadenopathy, supple and no JVD Resp normal respiratory effort, no retractions, no use of accessory muscles and clear to auscultation bilaterally Cardio regular rate, regular rhythm, no murmurs and no JVD GI normal to inspection, nondistended, normoactive bowel sounds, soft to palpation, non-tender and non-distended Extremity normal to inspection, full ROM and no clubbing, cyanosis or edema Skin no rashes or lesions noted, no wounds and skin turgor normal Neuro CN's II-XII intact bilaterally Psych affect normal Assessment & Plan Assessment/Plan (1) Lactic acidosis: (2) Hypokalemia: (3) Physical debility: (4) Stage I decubitus ulcer and pressure area: (5) Acute cystitis: (6) Severe protein-calorie malnutrition: (7) Essential (primary) hypertension: (8) Hyperlipidemia: QUALIFIERS: Hyperlipidemia type: pure hypercholesterolemia Qualified Code(s): E78.00 - Pure hypercholesterolemia, unspecified; E78.0 - Pure hypercholesterolemia (9) Coagulopathy: (10) At high risk for injury related to fall: PLAN: See subjective for patient presentation. Patient states that he would like to return home as soon as possible. This provider, nursing and allied health care staff strongly urged this patient to stay as we believe that he is not strong enough to return home today due to his chronic malnutrition. Patient informed that if he left he would have to sign a AMA form, and that this is strongly discouraged. Patient has not agreed to sign form and has not inquired about leaving since discussion. We will continue to monitor. Patient is alert and oriented to person, place, time and president, however it is unclear if patient fully understands his condition. Attempted to reengage patient about CODE STATUS, which patient did not appear to comprehend and cannot give a definitive answer. 1)? Hypotension Likely related to malnutrition. Appears to be a chronic issue for patient. Patient denies any symptoms related to an acute bleed. No evidence of bleed on CT of the abdomen and pelvis.? Hemoglobin stable at 8.7.? Plan; continue IV fluids with lactated Ringer's, hold metoprolol, repeat CBC and BMP tomorrow morning,? social work consult for placement. 2) Acute cystitis Patient afebrile, not tachycardic, not tachypneic.?Urine cultures initially grew enterococcus species. Blood cultures pending. Plan: continue Rocephin 3) lactic acidosis ?Resolved, likely secondary to malnutrition. 4) Hypokalemia Currently 3.4. Likely secondary to malnutrition. Plan; replace potassium. 5) stage I decubitus ulcer ?Without evidence of infection. Wound care consult ordered. 6) recent history of GI bleed/hemorrhagic shock Hemoglobin currently stable at 8.7.? Patient recently had EGD/colonoscopy at [facility]. 7) physical debility/functional decline/unable to take care of himself As above. 8) hypertension Patient has been hypotensive throughout admission, appears to be a chronic issue for patient.? Hold home metoprolol. 9) CAD EKG reviewed, troponin is negative.? No chest pain.? Continue aspirin, hold metoprolol. 10) Hyperlipidemia Not on statin at home. DVT prophylaxis - not indicated Patient seen by Milton Coyne PA-C, under the supervision of Dr. López. Documented by User: Dr. Tammie López MD 09/07/20 17:07 Objective Data Lab / Micro Data Result Diagrams: 09/07/20 05:20 09/07/20 05:20 Addendum Addendum: Patient seen by Maryellen Coyne PA-C under my supervision. Patient seen and examined. He had no complaints. Review of symptoms otherwise negative. O/E: Const alert, oriented x3 and no apparent distress HEENT head/scalp atraumatic and moist oral mucous membranes Head and Scalp: normocephalic Eyes PERRL, EOMs intact bilaterally and conjunctivae normal Neck no lymphadenopathy, supple and no JVD Resp normal respiratory effort, no retractions, no use of accessory muscles and clear to auscultation bilaterally Cardio regular rate, regular rhythm, no murmurs and no JVD GI normal to inspection, nondistended, normoactive bowel sounds, soft to palpation, non-tender and non-distended Extremity normal to inspection, full ROM and no clubbing, cyanosis or edema Skin no rashes or lesions noted, no wounds and skin turgor normal Neuro CN's II-XII intact bilaterally Psych affect normal Patient being managed for hypotension due to malnutrition. Continue gentle hydration with IV fluids. On IV Rocephin after urine cultures grew Enterococcus. Blood cultures are pending. PT OT on board. Fall precautions. Rest as per Milton Coyne PA-C's notes which I have reviewed and endorsed. Visit Charges Inpatient E&M: 46092 Subs Hosp L2
[2020-09-07] MEDS: Ceftriaxone 1 GM/50 ML BAG IV (22:00)
[2020-09-08] VITALS (11 sets, daily range): BP systolic 109–136; BP diastolic 65–90; PULSE 63–104; RESP 14–18; TEMP 36.6–36.7; O2SAT 95–99
[2020-09-08] MEDS: Dextrose 5%-Lactated Ringers 1,000 ML 75 ML IV (02:39)
[2020-09-08 05:27] LABS: Absolute Lymphocyte Count 0.59 X10^3/uL (0.83-4.51); Absolute Neutrophil Count 3.5 X10^3/uL (2.0-7.7); Basophil# 0.04 X10^3/uL; Basophil% 0.9 % (0-1); Eosinophil# 0.14 X10^3/uL; Eosinophils% 3.1 % (0-5); Hematocrit 27.3 % (40-54); Hemoglobin 8.5 g/dL (13.0-16.5); Lymphocyte # 0.59 X10^3/ul (0.83-4.51); Lymphocyte % 13.1 % (19-41); Mean Corp Hgb Conc 31.1 g/dL (32-36); Mean Corpuscular Hgb 33.1 pg (27.0-32.0); Mean Corpuscular Volume 106.2 fL (80-94); Mean Platelet Vol. 9.8 fl (6.2-12.0); Monocyte# 0.17 X10^3/uL; Monocyte% 3.8 % (0-10); NRBC Flagged by Analyzer 0 % (0-5); Neutrophil # 3.54 X10^3/uL (2.7-7.7); Neutrophil % 78.7 % (47-70); POSITIVE DIFFERENTIAL YES; Platelet Count 185 K/mm3 (150-450); RBC Distribution Width CV 16.2 % (11.6-14.6); RBC Distribution Width SD 62.4 fl (35.1-43.9); Red Blood Count 2.57 M/mm3 (4.6-6.2); White Blood Count 4.5 K/mm3 (4.4-11.0)
[2020-09-08 05:30] LABS: Differential Indicated SCAN CRITERIA MET
[2020-09-08 05:45] LABS: Anion Gap -1 (5-15); BUN 9 mg/dL (7-18); BUN/Creat Ratio 11.5 RATIO (10-20); Calcium,Total 9.5 mg/dL (8.5-10.1); Chloride 107 mmol/L (98-107); Creatinine, Serum 0.78 mg/dL (0.70-1.30); EST Glomerular Filtration Rate 102 mL/min (>60); Est Glom Filt Rate - Afr Amer 124 mL/min (>60); Estimated Creatinine Clearance 50.49 ml/min; Glucose 76 mg/dL (74-106); Potassium 3.5 mmol/L (3.5-5.1); Sodium Level 139 mmol/L (136-145)
[2020-09-08 06:21] LABS: Differential Comment SCANNED
[2020-09-08 06:22] LABS: Hypochromasia 1+
[2020-09-08] MEDS: Ferrous Sulfate 325 MG Tablet PO (09:25)
[2020-09-08] MEDS: Pantoprazole Sodium 40 MG Tablet PO ×2 (09:25→22:41)
[2020-09-08] MEDS: Menthol/Lanolin/Calamine/Znox 113 GM Tube 1 APPLIC TOPICAL ×2 (09:26→22:41)
[2020-09-08] MEDS: Aspirin E.C. 81 MG Tablet PO (09:26)
--- NOTE | 2020-09-08 13:33 | PN.HOSP_ITS ---
Documented by User: Milton BAR 09/08/20 13:51 Subjective Subjective Patient is a 75-year-old male comfortably resting in bed, alert and oriented x3. Patient denies any progression of symptoms from yesterday and reports feeling subjectively better. Denies chest pain, shortness of breath, palpitations, sputum production, hemoptysis, fever, chills, N/V/D. Objective Data Objective Data Vital Signs: Vital Signs Temp Pulse Resp BP Pulse Ox 98.0 F 104 H 16 109/67 96 09/08/20 09:22 09/08/20 09:22 09/08/20 09:22 09/08/20 09:22 09/08/20 09:22 Oxygen Flow Rate (L/min) 2 Oxygen Delivery Method Nasal Cannula Weight: 136 lb 3.931 oz Body Mass Index (BMI) 22.1 Intake & Output: Intake and Output for Last 24 Hours 09/06/20 09/07/20 09/08/20 23:59 23:59 23:59 Intake Total 1732.75 / 1852.75 2971.25 / 2971.25 431.25 / 431.25 Output Total 350 / 350 Balance 1382.75 / 1502.75 2971.25 / 2971.25 431.25 / 431.25 Lab / Micro Data Result Diagrams: 09/08/20 05:04 09/08/20 05:04 Labs: Laboratory Results - last 24 hr 09/07/20 09/08/20 09/08/20 16:05 05:04 05:04 WBC 4.5 RBC 2.57 L Hgb 8.5 L Hct 27.3 L MCV 106.2 H MCH 33.1 H MCHC 31.1 L RDW Std Deviation 62.4 H RDW Coeff of Eric 16.2 H Plt Count 185 MPV 9.8 Immature Gran % (Auto) 0.400 Neut % (Auto) 78.7 H Lymph % (Auto) 13.1 L [place] % (Auto) 3.8 Eos % (Auto) 3.1 Baso % (Auto) 0.9 Absolute Neuts (auto) 3.5 Absolute Lymphs (auto) 0.59 L Nucleated RBC % 0 Differential Comment SCANNED Hypochromasia 1+ Sodium 139 Potassium 3.5 Chloride 107 Carbon Dioxide 33.0 H Anion Gap -1 L BUN 9 Creatinine 0.78 Estim Creat Clear Calc 50.49 Est GFR (MDRD) Af Amer 124 Est GFR (MDRD) Non-Af 102 BUN/Creatinine Ratio 11.5 Glucose 76 Calcium 9.5 Blood Type O POSITIVE Antibody Screen NEGATIVE Crossmatch See Detail Micro: Microbiology 09/05/20 19:58 Urine, Clean Catch Urine Culture - Final Enterococcus faecalis 09/05/20 16:55 Blood Culture (Wb) - Left Wrist Blood Culture - Preliminary No growth in 48 hours. 09/05/20 16:25 Blood Culture (Wb) - Anticubital Left Blood Culture - Preliminary No growth in 48 hours. 09/05/20 19:28 Mucosa - Nasopharyngeal SARS-CoV-2 Antigen (Rapid) - Final Physical Exam Narrative See subjective. Const alert, oriented x3 and no apparent distress HEENT head/scalp atraumatic and moist oral mucous membranes Head and Scalp: normocephalic Eyes PERRL, EOMs intact bilaterally and conjunctivae normal Neck no lymphadenopathy, supple and no JVD Resp normal respiratory effort, no retractions, no use of accessory muscles and clear to auscultation bilaterally Cardio regular rate, regular rhythm, no murmurs and no JVD GI normal to inspection, nondistended, normoactive bowel sounds, soft to palpation, non-tender and non-distended Extremity normal to inspection, full ROM and no clubbing, cyanosis or edema Skin no rashes or lesions noted, no wounds and skin turgor normal Neuro CN's II-XII intact bilaterally Psych affect normal Assessment & Plan Assessment/Plan (1) Lactic acidosis: (2) Hypokalemia: (3) Physical debility: (4) Stage I decubitus ulcer and pressure area: (5) Acute cystitis: (6) Severe protein-calorie malnutrition: (7) Essential (primary) hypertension: (8) Hyperlipidemia: QUALIFIERS: Hyperlipidemia type: pure hypercholesterolemia Qualified Code(s): E78.00 - Pure hypercholesterolemia, unspecified; E78.0 - Pure hypercholesterolemia (9) Coagulopathy: PLAN: See subjective for patient presentation.? Patient still reporting that he would like to return home. Informed patient that I thought it would not be in his best interest to return home before receiving long term care for rehabilitation. Patient agreeable to remain admitted while he regains his strength and is able to return to his baseline level of mobility. Patient has multiple concerns about power in his wheelchair upon return home, will consult case management/social work. Patient has no support of friends or family at [facility]. Patient is alert and oriented to person, place, time and president, however it is unclear if patient fully understands his condition.?Attempted to reengage patient about CODE STATUS, which patient did not appear to comprehend and cannot give a definitive answer. 1)? Hypotension Stable. plan; continue IV fluids with lactated Ringer's, hold metoprolol, repeat CBC and BMP tomorrow morning,? social work consult for placement. 2) Acute cystitis Patient afebrile, not tachycardic, not tachypneic.?Urine cultures initially grew enterococcus species. Blood cultures demonstrate no growth. Plan: continue Rocephin 3) Lactic acidosis ?Resolved, likely secondary to malnutrition. 4) Hypokalemia Currently 3.4. Likely secondary to malnutrition. Plan; replace potassium. 5) Stage I decubitus ulcer ?Without evidence of infection. Wound care consult ordered. 6) Recent history of GI bleed/hemorrhagic shock Hemoglobin currently stable at 8.7.? Patient recently had EGD/colonoscopy at [facility]. 7) Physical debility/functional decline/unable to take care of himself As above. 8) Hypertension Patient has been hypotensive throughout admission, appears to be a chronic issue for patient.? Hold home metoprolol due to #1. 9) CAD EKG reviewed, troponin is negative.? No chest pain.? Continue aspirin, hold metoprolol. 10) Hyperlipidemia Not on statin at home. DVT prophylaxis - not indicated Patient seen by Milton Coyne PA-C, under the supervision of Dr. López. Documented by User: Dr. Tammie López MD 09/08/20 14:58 Objective Data Lab / Micro Data Result Diagrams: 09/08/20 05:04 09/08/20 05:04 Addendum Addendum: Patient seen by Milton Coyne PA-C under my supervision. Patient seen and examined.? He had no complaints today and felt well. Review of systems otherwise negative. O/E: Const alert, oriented x3 and no apparent distress HEENT head/scalp atraumatic and moist oral mucous membranes Head and Scalp: normocephalic Eyes PERRL, EOMs intact bilaterally and conjunctivae normal Neck no lymphadenopathy, supple and no JVD Resp normal respiratory effort, no retractions, no use of accessory muscles and clear to auscultation bilaterally Cardio regular rate, regular rhythm, no murmurs and no JVD GI normal to inspection, nondistended, normoactive bowel sounds, soft to palpation, non-tender and non-distended Extremity normal to inspection, full ROM and no clubbing, cyanosis or edema Skin no rashes or lesions noted, no wounds and skin turgor normal Neuro CN's II-XII intact bilaterally Psych affect normal Patient being managed for chronic hypotension. He is also malnourished and very debilitated. PT OT on board. Fall precautions. Patient is very very frail but is on to go to custodial. He has been counseled extensively that he is too weak to go home on his own. Will DC IV fluids and encourage oral hydration.? urine cultures grew Enterococcus.?DC eftriaxone and start on amoxicillin based on sensitivities. Blood cultures are negative.? PT OT on board.? Fall precautions. Awaiting placement. Rest as per Milton Coyne PA-C's notes which I have reviewed and endorsed. Multi Select Codes Visit Charges Visit Charges: 86063 Subs Hosp L2
[2020-09-08] MEDS: AMOXICILLIN 500 MG CAPSULE PO ×2 (16:30→22:41)
[2020-09-09] VITALS (11 sets, daily range): BP systolic 104–118; BP diastolic 59–78; PULSE 69–105; RESP 15–16; TEMP 36.5–36.7; O2SAT 94–100
[2020-09-09 05:05] LABS: Absolute Lymphocyte Count 0.51 X10^3/uL (0.83-4.51); Absolute Neutrophil Count 3.5 X10^3/uL (2.0-7.7); Basophil# 0.03 X10^3/uL; Basophil% 0.7 % (0-1); Eosinophil# 0.12 X10^3/uL; Eosinophils% 2.8 % (0-5); Hematocrit 24.1 % (40-54); Hemoglobin 7.6 g/dL (13.0-16.5); Lymphocyte # 0.51 X10^3/ul (0.83-4.51); Lymphocyte % 11.8 % (19-41); Mean Corp Hgb Conc 31.5 g/dL (32-36); Mean Corpuscular Hgb 33.5 pg (27.0-32.0); Mean Corpuscular Volume 106.2 fL (80-94); Mean Platelet Vol. 9.8 fl (6.2-12.0); Monocyte# 0.22 X10^3/uL; Monocyte% 5.1 % (0-10); NRBC Flagged by Analyzer 0 % (0-5); Neutrophil # 3.45 X10^3/uL (2.7-7.7); Neutrophil % 79.4 % (47-70); POSITIVE DIFFERENTIAL YES; Platelet Count 179 K/mm3 (150-450); RBC Distribution Width CV 16.2 % (11.6-14.6); RBC Distribution Width SD 62.9 fl (35.1-43.9); Red Blood Count 2.27 M/mm3 (4.6-6.2); White Blood Count 4.3 K/mm3 (4.4-11.0)
[2020-09-09 05:08] LABS: Differential Indicated SCAN CRITERIA MET
[2020-09-09 05:41] LABS: Anion Gap 0 (5-15); BUN 8 mg/dL (7-18); BUN/Creat Ratio 10.5 RATIO (10-20); Calcium,Total 9.5 mg/dL (8.5-10.1); Chloride 105 mmol/L (98-107); Creatinine, Serum 0.76 mg/dL (0.70-1.30); EST Glomerular Filtration Rate 106 mL/min (>60); Est Glom Filt Rate - Afr Amer 128 mL/min (>60); Estimated Creatinine Clearance 50.58 ml/min; Glucose 65 mg/dL (74-106); Potassium 3.3 mmol/L (3.5-5.1); Sodium Level 137 mmol/L (136-145)
[2020-09-09] MEDS: Potassium Chloride Oral Tablet 20 MEQ 60 MEQ PO (09:05)
[2020-09-09] MEDS: Ferrous Sulfate 325 MG Tablet PO (09:06)
[2020-09-09] MEDS: Aspirin E.C. 81 MG Tablet PO (09:06)
[2020-09-09] MEDS: AMOXICILLIN 500 MG CAPSULE PO ×2 (10:44→20:55)
[2020-09-09] MEDS: Menthol/Lanolin/Calamine/Znox 113 GM Tube 1 APPLIC TOPICAL ×2 (10:44→20:55)
[2020-09-09] MEDS: Pantoprazole Sodium 40 MG Tablet PO ×2 (10:45→20:55)
--- NOTE | 2020-09-09 13:31 | PCM.PN.HOSP ---
Documented by User: Milton BAR 09/09/20 13:39 Subjective Subjective Patient is a 75-year-old male comfortably resting in bed, alert and oriented x3. Patient still voices his desire to want to leave the hospital, however agreeable to remain admitted until he regains his strength. Denies chest pain, shortness of breath, palpitations, hemoptysis, sputum production, fever, chills, N/V/D. Objective Data Objective Data Vital Signs: Vital Signs Temp Pulse Resp BP Pulse Ox 97.7 F L 83 16 109/69 94 09/09/20 12:40 09/09/20 12:40 09/09/20 12:40 09/09/20 12:40 09/09/20 12:40 Oxygen Flow Rate (L/min) 2 Oxygen Delivery Method Nasal Cannula Weight: 131 lb 2.801 oz Body Mass Index (BMI) 22.1 Intake & Output: Intake and Output for Last 24 Hours 09/07/20 09/08/20 09/09/20 23:59 23:59 23:59 Intake Total 2971.25 / 2971.25 1431.25 / 1431.25 150 / 150 Output Total 420 / 420 Balance 2971.25 / 2971.25 1431.25 / 1111.25 -270 / -270 Lab / Micro Data Result Diagrams: 09/09/20 04:22 09/09/20 04:22 Labs: Laboratory Results - last 24 hr 09/09/20 09/09/20 04:22 04:22 WBC 4.3 L RBC 2.27 L Hgb 7.6 L Hct 24.1 L MCV 106.2 H MCH 33.5 H MCHC 31.5 L RDW Std Deviation 62.9 H RDW Coeff of Eric 16.2 H Plt Count 179 MPV 9.8 Immature Gran % (Auto) 0.200 Neut % (Auto) 79.4 H Lymph % (Auto) 11.8 L [place] % (Auto) 5.1 Eos % (Auto) 2.8 Baso % (Auto) 0.7 Absolute Neuts (auto) 3.5 Absolute Lymphs (auto) 0.51 L Nucleated RBC % [address] Review May foll Sodium 137 Potassium 3.3 L Chloride 105 Carbon Dioxide 32.0 Anion Gap 0 L BUN 8 Creatinine 0.76 Estim Creat Clear Calc 50.58 Est GFR (MDRD) Af Amer 128 Est GFR (MDRD) Non-Af 106 BUN/Creatinine Ratio 10.5 Glucose 65 L Calcium 9.5 Micro: Microbiology 09/05/20 19:58 Urine, Clean Catch Urine Culture - Final Enterococcus faecalis 09/05/20 16:55 Blood Culture (Wb) - Left Wrist Blood Culture - Preliminary No growth in 48 hours. 09/05/20 16:25 Blood Culture (Wb) - Anticubital Left Blood Culture - Preliminary No growth in 48 hours. 09/05/20 19:28 Mucosa - Nasopharyngeal SARS-CoV-2 Antigen (Rapid) - Final Physical Exam Narrative See subjective. Const alert, oriented x3 and no apparent distress Nutritional Appearance: underweight HEENT head/scalp atraumatic and moist oral mucous membranes Head and Scalp: normocephalic Eyes PERRL, EOMs intact bilaterally and conjunctivae normal Neck no lymphadenopathy, supple and no JVD Resp normal respiratory effort, no retractions, no use of accessory muscles and clear to auscultation bilaterally Cardio regular rate, regular rhythm, no murmurs and no JVD GI normal to inspection, nondistended, normoactive bowel sounds, soft to palpation, non-tender and non-distended Extremity normal to inspection, full ROM and no clubbing, cyanosis or edema Skin no rashes or lesions noted, no wounds and skin turgor normal Neuro CN's II-XII intact bilaterally Psych affect normal Assessment & Plan Assessment/Plan (1) Lactic acidosis: (2) Hypokalemia: (3) Physical debility: (4) Stage I decubitus ulcer and pressure area: (5) Acute cystitis: (6) Severe protein-calorie malnutrition: (7) Essential (primary) hypertension: (8) Hyperlipidemia: QUALIFIERS: Hyperlipidemia type: pure hypercholesterolemia Qualified Code(s): E78.00 - Pure hypercholesterolemia, unspecified; E78.0 - Pure hypercholesterolemia (9) Chewing tobacco nicotine dependence: PLAN: See subjective for patient presentation.Patient agreeable to remain admitted until he can regain some strength and stability, as patient is adamant that he will not go to a halfway facility. Patient also has several home support and travel needs that are going to need to be coordinated with case management/social work upon discharge. 1) Hypotension Stable. plan; continue IV fluids with lactated Ringer's, hold metoprolol, repeat CBC and BMP tomorrow morning. 2) Acute cystitis Patient afebrile, not tachycardic, not tachypneic. No leukocytosis on CBC. Urine cultures initially grew enterococcus species. Blood cultures demonstrate no growth. Plan: Rocephin discontinued, initiate amoxicillin for appropriate coverage. 3) Lactic acidosis Resolved, likely secondary to malnutrition. 4) Hypokalemia Currently 3.4. Likely secondary to malnutrition. Plan; replace potassium. 5) Stage I decubitus ulcer Without evidence of infection. Wound care consult ordered. 6) Recent history of GI bleed/hemorrhagic shock Hemoglobin currently stable at 8.7. Patient recently had EGD/colonoscopy at [facility]. 7) Physical debility/functional decline/unable to take care of himself As above. 8) Hypertension Patient has been hypotensive throughout admission, appears to be a chronic issue for patient. Hold home metoprolol due to #1. 9) CAD EKG reviewed, troponin is negative. No chest pain. Continue aspirin, hold metoprolol. 10) Hyperlipidemia Not on statin at home. DVT prophylaxis - not indicated Patient seen by Milton Coyne PA-C, under the supervision of Dr. López. Documented by User: Dr. Tammie López MD 09/09/20 14:24 Objective Data Lab / Micro Data Result Diagrams: 09/09/20 04:22 09/09/20 04:22 Addendum Addendum: Patient seen by Milton Coyne PA-C under my supervision Patient seen and examined.? He had no complaints today and felt well. Review of systems otherwise negative. O/E: Const alert, oriented x3 and no apparent distress HEENT head/scalp atraumatic and moist oral mucous membranes Head and Scalp: normocephalic Eyes PERRL, EOMs intact bilaterally and conjunctivae normal Neck no lymphadenopathy, supple and no JVD Resp normal respiratory effort, no retractions, no use of accessory muscles and clear to auscultation bilaterally Cardio regular rate, regular rhythm, no murmurs and no JVD GI normal to inspection, nondistended, normoactive bowel sounds, soft to palpation, non-tender and non-distended Extremity normal to inspection, full ROM and no clubbing, cyanosis or edema Skin no rashes or lesions noted, no wounds and skin turgor normal Neuro CN's II-XII intact bilaterally Psych affect normal Patient being managed for chronic hypotension. He is also malnourished and very debilitated.? PT OT on board.? Fall precautions.? Patient is very very frail but still reluctant to go to correction.? I counseled him extensively that he will benefit from some therapy in the correction today. On p.o. amoxicillin since urine culture E. coli. PT OT on board. Fall precautions. Awaiting placement. Potassium today is 3.3. Will replace and monitor. Hb is also 7.6. Will trend hb, and transfuse if Hb<7. Rest as per Milton Coyne PA-C's notes which I have reviewed and endorsed. Visit Charges Inpatient E&M: 95446 Subs Hosp L2
[2020-09-10] VITALS (12 sets, daily range): BP systolic 106–120; BP diastolic 66–76; PULSE 66–104; RESP 16–18; TEMP 36.4–36.7; O2SAT 95–98
[2020-09-10 06:36] LABS: Absolute Lymphocyte Count 0.59 X10^3/uL (0.83-4.51); Basophil# 0.05 X10^3/uL; Basophil% 1.2 % (0-1); Eosinophil# 0.13 X10^3/uL; Eosinophils% 3.2 % (0-5); Hemoglobin 8.6 g/dL (13.0-16.5); Lymphocyte # 0.59 X10^3/ul (0.83-4.51); Lymphocyte % 14.7 % (19-41); Mean Corp Hgb Conc 30.7 g/dL (32-36); Mean Corpuscular Hgb 33.3 pg (27.0-32.0); Mean Corpuscular Volume 108.5 fL (80-94); Mean Platelet Vol. 9.3 fl (6.2-12.0); NRBC Flagged by Analyzer 0 % (0-5); Neutrophil # 3.03 X10^3/uL (2.7-7.7); Neutrophil % 75.7 % (47-70); POSITIVE DIFFERENTIAL YES; POSITIVE MORPHOLOGY YES; Platelet Count 164 K/mm3 (150-450); RBC Distribution Width CV 16.2 % (11.6-14.6); RBC Distribution Width SD 65.1 fl (35.1-43.9); Red Blood Count 2.58 M/mm3 (4.6-6.2)
[2020-09-10 06:37] LABS: Differential Indicated SCAN CRITERIA MET
[2020-09-10 07:05] LABS: Anion Gap -2 (5-15); BUN 8 mg/dL (7-18); BUN/Creat Ratio 10.1 RATIO (10-20); Calcium,Total 9.5 mg/dL (8.5-10.1); Chloride 106 mmol/L (98-107); EST Glomerular Filtration Rate 100 mL/min (>60); Est Glom Filt Rate - Afr Amer 122 mL/min (>60); Estimated Creatinine Clearance 63.22 ml/min; Glucose 63 mg/dL (74-106); Potassium 3.9 mmol/L (3.5-5.1); Sodium Level 134 mmol/L (136-145)
[2020-09-10] MEDS: AMOXICILLIN 500 MG CAPSULE PO ×2 (08:44→21:35)
[2020-09-10] MEDS: Ferrous Sulfate 325 MG Tablet PO (08:44)
[2020-09-10] MEDS: Aspirin E.C. 81 MG Tablet PO (08:44)
[2020-09-10] MEDS: Pantoprazole Sodium 40 MG Tablet PO ×2 (08:44→21:35)
[2020-09-10] MEDS: Menthol/Lanolin/Calamine/Znox 113 GM Tube 1 APPLIC TOPICAL ×2 (08:45→21:36)
--- NOTE | 2020-09-10 11:19 | NURSING ---
wound photo: sacrum
--- NOTE | 2020-09-10 11:26 | PN.HOSP_ITS ---
Documented by User: Milton BAR 09/10/20 11:35 Subjective Subjective Patient is a 75-year-old male comfortably resting in bed, alert and oriented x3. Patient voices his desire to want to return home from the hospital, however agreeable to stay until he regains his strength. Denies chest pain, shortness of breath, palpitations, fever, chills, N/V/D. Objective Data Objective Data Vital Signs: Vital Signs Temp Pulse Resp BP Pulse Ox 97.5 F L 72 16 109/66 95 09/10/20 08:40 09/10/20 08:40 09/10/20 08:40 09/10/20 08:40 09/10/20 08:40 Oxygen Flow Rate (L/min) 2 Oxygen Delivery Method Nasal Cannula Weight: 127 lb 4.8 oz Body Mass Index (BMI) 22.1 Intake & Output: Intake and Output for Last 24 Hours 09/08/20 09/09/20 09/10/20 23:59 23:59 23:59 Intake Total 1431.25 / 1431.25 300 / 300 0 / 0 Output Total 420 / 420 Balance 1431.25 / 1111.25 -120 / -120 0 / 0 Lab / Micro Data Result Diagrams: 09/10/20 06:15 09/10/20 06:15 Labs: Laboratory Results - last 24 hr 09/10/20 09/10/20 06:15 06:15 WBC 4.0 L RBC 2.58 L Hgb 8.6 L Hct 28.0 L MCV 108.5 H MCH 33.3 H MCHC 30.7 L RDW Std Deviation 65.1 H RDW Coeff of Eric 16.2 H Plt Count 164 MPV 9.3 Immature Gran % (Auto) 0.200 Neut % (Auto) 75.7 H Lymph % (Auto) 14.7 L [place] % (Auto) 5.0 Eos % (Auto) 3.2 Baso % (Auto) 1.2 H Absolute Neuts (auto) 3.0 Absolute Lymphs (auto) 0.59 L Nucleated RBC % [address] Review May foll Sodium 134 L Potassium 3.9 Chloride 106 Carbon Dioxide 30.0 Anion Gap -2 L BUN 8 Creatinine 0.80 Estim Creat Clear Calc 63.22 Est GFR (MDRD) Af Amer 122 Est GFR (MDRD) Non-Af 100 BUN/Creatinine Ratio 10.1 Glucose 63 L Calcium 9.5 Micro: Microbiology 09/05/20 19:58 Urine, Clean Catch Urine Culture - Final Enterococcus faecalis 09/05/20 16:55 Blood Culture (Wb) - Left Wrist Blood Culture - Preliminary No growth in 48 hours. 09/05/20 16:25 Blood Culture (Wb) - Anticubital Left Blood Culture - Preliminary No growth in 48 hours. 09/05/20 19:28 Mucosa - Nasopharyngeal SARS-CoV-2 Antigen (Rapid) - Final Physical Exam Narrative See subjective. Const alert, oriented x3 and no apparent distress HEENT head/scalp atraumatic and moist oral mucous membranes Head and Scalp: normocephalic Eyes PERRL, EOMs intact bilaterally and conjunctivae normal Neck no lymphadenopathy, supple and no JVD Resp normal respiratory effort, no retractions, no use of accessory muscles and clear to auscultation bilaterally Cardio regular rate, regular rhythm, no murmurs and no JVD GI normal to inspection, nondistended, normoactive bowel sounds, soft to palpation, non-tender and non-distended Extremity normal to inspection, full ROM and no clubbing, cyanosis or edema Skin no rashes or lesions noted, no wounds and skin turgor normal Neuro CN's II-XII intact bilaterally Psych affect normal Assessment & Plan Assessment/Plan (1) Lactic acidosis: (2) Hypokalemia: (3) Physical debility: (4) Chewing tobacco nicotine dependence: QUALIFIERS: Substance use status: uncomplicated Qualified Code(s): F17.220 - Nicotine dependence, chewing tobacco, uncomplicated (5) Hyperlipidemia: QUALIFIERS: Hyperlipidemia type: pure hypercholesterolemia Qualified Code(s): E78.00 - Pure hypercholesterolemia, unspecified; E78.0 - Pure hypercholesterolemia (6) Essential (primary) hypertension: (7) Chronic back pain: QUALIFIERS: Back pain laterality: unspecified Back pain location: back pain in unspecified location Qualified Code(s): M54.9 - Dorsalgia, unspecified; G89.29 - Other chronic pain (8) GI bleed: QUALIFIERS: GI bleed type/associated pathology: unspecified gastrointestinal hemorrhage type Qualified Code(s): K92.2 - Gastrointestinal hemorrhage, unspecified (9) Acute cystitis: (10) Chewing tobacco nicotine dependence: (11) Severe protein-calorie malnutrition: (12) At high risk for injury related to fall: PLAN: See subjective for patient presentation. Patient agreeable to remain admitted until he can regain some strength and stability, as patient is adamant that he will not go to a fpc facility. Case management & Social work attempting to contact [facility] aides about patient needs (Plug in powered wheel chair at home for patient mobility). 1) Hypotension Stable. plan; continue IV fluids with lactated Ringer's, hold metoprolol, repeat CBC and BMP tomorrow morning. 2) Acute cystitis Patient afebrile, not tachycardic, not tachypneic. No leukocytosis on CBC. Urine cultures initially grew enterococcus facealiis. Blood cultures demonstrate no growth. Plan: Rocephin discontinued, continue amoxicillin for appropriate coverage. 3) Lactic acidosis Resolved, likely secondary to malnutrition. 4) Hypokalemia Currently 3.4. Likely secondary to malnutrition. Plan; replace potassium. 5) Stage I decubitus ulcer Without evidence of infection. Wound care consult ordered. 6) Recent history of GI bleed/hemorrhagic shock Hemoglobin currently stable at 8.7. Patient recently had EGD/colonoscopy at [facility]. 7) Physical debility/functional decline/unable to take care of himself As above. 8) Hypertension Patient has been hypotensive throughout admission, appears to be a chronic issue for patient. Hold home metoprolol due to #1. 9) CAD EKG reviewed, troponin is negative. No chest pain. Continue aspirin, hold metoprolol. 10) Hyperlipidemia Not on statin at home. DVT prophylaxis - not indicated Patient seen by Milton Coyne PA-C, under the supervision of Dr. López. Documented by User: Dr. Tammie López MD 09/10/20 16:51 Objective Data Lab / Micro Data Result Diagrams: 09/10/20 06:15 09/10/20 06:15 Addendum Addendum: Patient seen by Milton Coyne PA-C under my supervision Patient seen and examined. He had no complaints today and felt well. Review of systems otherwise negative. O/E: Const alert, oriented x3 and no apparent distress HEENT head/scalp atraumatic and moist oral mucous membranes Head and Scalp: normocephalic Eyes PERRL, EOMs intact bilaterally and conjunctivae normal Neck no lymphadenopathy, supple and no JVD Resp normal respiratory effort, no retractions, no use of accessory muscles and clear to auscultation bilaterally Cardio regular rate, regular rhythm, no murmurs and no JVD GI normal to inspection, nondistended, normoactive bowel sounds, soft to palpation, non-tender and non-distended Extremity normal to inspection, full ROM and no clubbing, cyanosis or edema Skin no rashes or lesions noted, no wounds and skin turgor normal Neuro CN's II-XII intact bilaterally Psych affect normal Patient being managed for chronic hypotension. He is also malnourished and very debilitated. PT OT on board. Fall precautions. Patient remains very reluctant to go to a rehab facility. He got visibly upset with me today when I tried to bring it up and told him that I did not feel that he was stable, in my medical judgment to take care of himself. Case management on board. PT OT on board and fall precautions. Hemoglobin is 8.6. Rest as per Milton Coyne PA-C's notes which I have reviewed and endorsed. Visit Charges Inpatient E&M: 00127 Subs Hosp L2
[2020-09-10 12:13] LABS: Pathologist Review Reviewed
--- NOTE | 2020-09-10 12:26 | CASEMGMT ---
Addendum entered by Renee Walsh 09/10/20 16:24: SW let pt know referral was sent to [facility] and will let him know tomorrow if he is accepted. Pt states understanding. SW did receive a message from [facility] inquiring about pt's insurance and if [facility] is his preferred choice. SW left a message back letting Xiomara at [facility] know that they are pt's preferred choice, and Medicare/[employer] is pt's insurance, which is in the referral packet. GUADALUPE Thompson Addendum entered by Renee Walsh 09/10/20 15:52: Daphne Washington called this SW back. She called [facility], and is looking into getting pt's aide hours increased. She gave SW number for [facility], is the same number this SW has for the agency. Pt's aide from [facility] came to see pt. Pt is now requesting a referral be sent to [facility] as per RN. SW spoke w/pt at the bedside, confirmed he is agreeable to a referral being sent to [facility]. He does not want to go there to stay, and states was worried he would lose his home. Pt's aide reassured him that this would not happen. Pt now agreeable to go to [facility], he asked if he would be there two months. Pt's aide explained it could be shorter or a little longer, pt seems agreeable now to do this. SW explained will send referral and let him know what they say. SW did explain if [facility] does not have a bed we may need to consider other options, pt states understanding. SW called [facility], faxed referral, message left for admissions. SW will follow up tomorrow. GUADALUPE Thompson Original Note: Pt had informed the PA he is concerned about someone being available to assist him once he actually gets home--to be there right when he gets home to help him settle in. SW spoke w/pt in room, confirmed he has the aide services twice per week w/William. Pt agreeable to LUKAS seeing if someone from [facility] can be present when he goes home. LUKAS called [facility], the number does not go through. LUKAS called pt's keycase assembler Daphne Washington and left a message. LUKAS will continue to follow. GUADALUPE Thompson
--- NOTE | 2020-09-10 16:17 | CHAPLAIN ---
Type of Pastoral Visit _x__ Initial Visit ___ Follow-up Visit ___ On-call Visit ___ General Patient Visit ___ Spiritual Assessment ___ Family Conference ___ Bereavement ___ Rapid Response ___ Code Blue ___ Other (describe below) Pastoral Care Referral From _x__ Patient ___ Family ___ Nurse ___ Physician ___ Web Production Artist ___ Outbound Supervisor ___ Other (describe below) Sacrament/Intervention _x__ Active listening ___ Anointing ___ Shinto ___ Bereavement ___ Communion ___ Irma exploration ___ ___ Life review _x__ Prayer ___ Reconciliation ___ Sacrament of Sick _x__ Supportive presence ___ Wedding ___ Other (describe below) Pastoral Comments patient asks several questions of general nature such as room lighting, TV volume, bind adjustment, etc.; pt would like to have a Bible and that was given; pt talked about his situation and welcomed presence and prayer
[2020-09-11] VITALS (8 sets, daily range): BP systolic 103–118; BP diastolic 65–82; PULSE 96–108; RESP 18; TEMP 36.1–36.4; O2SAT 92–99
[2020-09-11 05:50] LABS: Anion Gap -3 (5-15); BUN 10 mg/dL (7-18); BUN/Creat Ratio 11.5 RATIO (10-20); Calcium,Total 9.8 mg/dL (8.5-10.1); Chloride 103 mmol/L (98-107); Creatinine, Serum 0.87 mg/dL (0.70-1.30); EST Glomerular Filtration Rate 90 mL/min (>60); Est Glom Filt Rate - Afr Amer 109 mL/min (>60); Estimated Creatinine Clearance 58.14 ml/min; Glucose 69 mg/dL (74-106); Potassium 3.6 mmol/L (3.5-5.1); Sodium Level 137 mmol/L (136-145)
[2020-09-11] MEDS: Ferrous Sulfate 325 MG Tablet PO (08:57)
[2020-09-11] MEDS: Pantoprazole Sodium 40 MG Tablet PO (08:57)
[2020-09-11] MEDS: Aspirin E.C. 81 MG Tablet PO (08:57)
[2020-09-11] MEDS: AMOXICILLIN 500 MG CAPSULE PO (08:57)
[2020-09-11] MEDS: Menthol/Lanolin/Calamine/Znox 113 GM Tube 1 APPLIC TOPICAL (08:58)
--- NOTE | 2020-09-11 09:40 | CASEMGMT ---
Addendum entered by Renee Walsh 09/11/20 13:42: [facility] can take pt when pt is ready. GUADALUPE Thompson Original Note: SW spoke w/Lia from [facility], she called [facility] and is waiting for a call back. She does not want to accept pt until she speaks w/RAQU[facility] and has a better understanding of what support they can offer pt at discharge. GUADALUPE Thompson
--- NOTE | 2020-09-11 12:42 | CASEMGMT ---
[facility] palliative screening tool completed and pt does qualify for palliative referral. Plan is for pt to discharge to [facility] and they will be notified of palliative qualification per Zack Farah RN CM
[2020-09-11 13:36] LABS: Pathologist Review Reviewed
[2020-09-11 13:39] LABS: Anion Gap -3 (5-15); BUN 11 mg/dL (7-18); BUN/Creat Ratio 11.9 RATIO (10-20); Calcium,Total 10.1 mg/dL (8.5-10.1); Chloride 102 mmol/L (98-107); Creatinine, Serum 0.93 mg/dL (0.70-1.30); EST Glomerular Filtration Rate 84 mL/min (>60); Est Glom Filt Rate - Afr Amer 102 mL/min (>60); Estimated Creatinine Clearance 54.29 ml/min; Glucose 70 mg/dL (74-106); Potassium 3.5 mmol/L (3.5-5.1); Sodium Level 134 mmol/L (136-145)
[2020-09-11 15:18] LABS: ALB/GLOB Ratio 0.1 RATIO (0.9-2.4); Globulin 10.2 g/dL (2.2-4.2); Protein, Total 11.4 g/dL (6.4-8.2)
--- NOTE | 2020-09-11 15:21 | PCM.TXEXTCAR ---
Documented by User: Milton BAR 09/11/20 15:37 Diet 09/05/20 21:20 Diet: Regular - General Food consistency:: Soft & Bite Sized Liquid Consistency:: Amorita/Mildly Thick Type of Dietary Supplement:: magic cup w/ dinner Is pt able to select menu?: No Diet Comments: no straws, 1:1 supervised, cue to cough and reswallow for every sip Wound(s) Coccyx: Wound Type: moisture associated skin damage Therapies Physical Therapy: Eval and Treat Occupational Therapy: Eval and Treat Speech Therapy: Eval and Treat Problem/Diagnosis (1) Lactic acidosis: Status: Acute (2) Hypokalemia: Status: Acute (3) Physical debility: Status: Acute (4) Chewing tobacco nicotine dependence: Status: Chronic (5) Hyperlipidemia: Status: Chronic (6) Essential (primary) hypertension: Status: Chronic (7) Chronic back pain: Status: Chronic (8) GI bleed: Status: Chronic Comment: internal hemorrhoidal bleed 2017, 07/04/20 (9) Acute cystitis: Status: Acute (10) Chewing tobacco nicotine dependence: Status: Acute (11) Severe protein-calorie malnutrition: Status: Acute (12) At high risk for injury related to fall: Status: Chronic Allergies/Procedures Done in Hospital Allergies No Known Allergies Allergy (Verified 07/26/20 13:50) Type of Care/Length of Stay Estimated LOS: More Than 30 Days Type of Care Needed: Skilled Rehab Potential: Fair Prognosis: Fair Additional Orders/Day of Discharge Additional Orders: Pt qualifies for palliative care, refer pt to palliative as appropriate. Day of Discharge: 09/11/20 Dietary and Speech Recommendations Dietitian Recommendations/Changes: continue regular diet, consistency per WELDING ENGINEER. Continue ensure enlive w/ medpass & magic cup w/ dinner Will provide fortified foods at pt meals. Follow Up Care Please follow up with your Primary Care Physician in: Within the next two weeks. Please Follow Up With: Olivia Bosch CNP When: At the earliest possible appointment. Discharge Plan Admission Admit Date/Time: 09/05/20 20:24 Primary Reason for Your Visit: Weakness and Acute cystitis Attending Provider: Tammie López Primary Care Provider: Mary Kay Prasad Discharge Orders/Prescriptions Prescriptions: New amoxicillin 500 mg capsule 500 mg PO Q12H Qty: 14 RF: 0 Continued dorzolamide-timolol 22.3-6.8 mg/mL drops OPHTHALMIC RF: 0 acetaminophen 325 MG tablet 650 mg PO Q6H PRN PRN (Reason: Pain Score 1-10/Temp > 100.7 F) RF: 0 metoprolol succinate 50 mg tablet extended release 24 hr 50 mg PO DAILY RF: 0 aspirin [Adult Low Dose Aspirin] 81 mg tablet,delayed release (DR/EC) 81 mg PO DAILY RF: 0 ferrous sulfate 324 mg (65 mg iron) tablet,delayed release (DR/EC) 324 mg PO DAILY RF: 0 ascorbate calcium (vitamin C) 500 mg tablet 500 mg PO DAILY RF: 0 pantoprazole 40 mg tablet,delayed release (DR/EC) 40 mg PO BID RF: 0 Referrals / Follow Up: Mary Kay Prasad MD [Primary Care Provider] - Olivia Payan NP, [employer]PER[employer]-C [Nurse Practitioner] - Disposition Disposition (needs filled in before D/C Order can be placed): Care Home Facility Documented by User: Dr. Tammie López MD 09/11/20 16:05 Allergies/Procedures Done in Hospital Allergies No Known Allergies Allergy (Verified 07/26/20 13:50) Discharge Plan Admission Admit Date/Time: 09/05/20 20:24 Primary Reason for Your Visit: Weakness and Acute cystitis Attending Provider: Tammie López Primary Care Provider: Mary Kay Prasad Discharge Orders/Prescriptions Prescriptions: New amoxicillin 500 mg capsule 500 mg PO Q12H Qty: 14 RF: 0 Continued dorzolamide-timolol 22.3-6.8 mg/mL drops OPHTHALMIC RF: 0 acetaminophen 325 MG tablet 650 mg PO Q6H PRN PRN (Reason: Pain Score 1-10/Temp > 100.7 F) RF: 0 metoprolol succinate 50 mg tablet extended release 24 hr 50 mg PO DAILY RF: 0 aspirin [Adult Low Dose Aspirin] 81 mg tablet,delayed release (DR/EC) 81 mg PO DAILY RF: 0 ferrous sulfate 324 mg (65 mg iron) tablet,delayed release (DR/EC) 324 mg PO DAILY RF: 0 ascorbate calcium (vitamin C) 500 mg tablet 500 mg PO DAILY RF: 0 pantoprazole 40 mg tablet,delayed release (DR/EC) 40 mg PO BID RF: 0 Referrals / Follow Up: Mary Kay Prasad MD [Primary Care Provider] - Olivia Payan NP, SUPER[employer]MENT-C [Nurse Practitioner] - Disposition Disposition (needs filled in before D/C Order can be placed): Care Home Facility
--- NOTE | 2020-09-11 15:35 | PHA.DC.MR ---
Pharmacy Service has performed discharge medication reconciliation for this patient. The patient's discharge medication list was reviewed for discrepancies and discrepancies were resolved. Home Medications dorzolamide 22.3 mg-timolol 6.8 mg/mL eye drops OPHTHALMIC 11/23/19 acetaminophen 650 mg PO Q6H PRN PRN tablet 07/04/20 ascorbate calcium (vitamin C) 500 mg tablet 500 mg PO DAILY 07/30/20 aspirin 81 mg tablet,delayed release 81 mg PO DAILY 07/30/20 ferrous sulfate 324 mg (65 mg iron) tablet,delayed release 324 mg PO DAILY 07/30/20 metoprolol succinate 50 mg tablet,extended release 24 hr 50 mg PO DAILY 07/30/20 pantoprazole 40 mg tablet,delayed release 40 mg PO BID tablet 07/30/20 amoxicillin 500 mg PO Q12H #14 cap 09/11/20
--- NOTE | 2020-09-11 15:37 | DS.PCM_ITS ---
Documented by User: Milton BAR 09/11/20 15:50 Providers Date of Admission: 09/05/20 Primary Care Physician: Dr. Mary Kay Prasad MD Consultations 09/05/20 21:20 Consult: Onc/Wound/bevel mill operator Routine Comment: Reason For Visit: LACTIC ACIDOSIS, HYPOTENSION, HYPOKALEMIA, HYPER- Diagnosis Discharge Diagnosis (1) Lactic acidosis: Status: Acute Code(s): E87.2 - Acidosis (2) Hypokalemia: Status: Acute Code(s): E87.6 - Hypokalemia (3) Physical debility: Status: Acute Code(s): R53.81 - Other malaise (4) Chewing tobacco nicotine dependence: Status: Chronic Code(s): F17.220 - Nicotine dependence, chewing tobacco, uncomplicated Qualifiers: Substance use status: uncomplicated Qualified Code(s): F17.220 - Nicotine dependence, chewing tobacco, uncomplicated (5) Hyperlipidemia: Status: Chronic Code(s): E78.5 - Hyperlipidemia, unspecified Qualifiers: Hyperlipidemia type: pure hypercholesterolemia Qualified Code(s): E78.00 - Pure hypercholesterolemia, unspecified; E78.0 - Pure hypercholesterolemia (6) Essential (primary) hypertension: Status: Chronic Code(s): I10 - Essential (primary) hypertension (7) Chronic back pain: Status: Chronic Code(s): M54.9 - Dorsalgia, unspecified; G89.29 - Other chronic pain Qualifiers: Back pain laterality: unspecified Back pain location: back pain in unspecified location Qualified Code(s): M54.9 - Dorsalgia, unspecified; G89.29 - Other chronic pain (8) GI bleed: Status: Chronic Code(s): K92.2 - Gastrointestinal hemorrhage, unspecified Qualifiers: GI bleed type/associated pathology: unspecified gastrointestinal hemorrhage type Qualified Code(s): K92.2 - Gastrointestinal hemorrhage, unspecified (9) Acute cystitis: Status: Acute Code(s): N30.00 - Acute cystitis without hematuria (10) Chewing tobacco nicotine dependence: Status: Acute Code(s): F17.220 - Nicotine dependence, chewing tobacco, uncomplicated (11) Severe protein-calorie malnutrition: Status: Acute Code(s): E43 - Unspecified severe protein-calorie malnutrition (12) At high risk for injury related to fall: Status: Chronic Code(s): Z91.81 - History of falling Medications at Discharge Home Medications dorzolamide 22.3 mg-timolol 6.8 mg/mL eye drops OPHTHALMIC 11/23/19 acetaminophen 650 mg PO Q6H PRN PRN tablet 07/04/20 ascorbate calcium (vitamin C) 500 mg tablet 500 mg PO DAILY 07/30/20 aspirin 81 mg tablet,delayed release 81 mg PO DAILY 07/30/20 ferrous sulfate 324 mg (65 mg iron) tablet,delayed release 324 mg PO DAILY 07/30/20 metoprolol succinate 50 mg tablet,extended release 24 hr 50 mg PO DAILY 07/30/20 pantoprazole 40 mg tablet,delayed release 40 mg PO BID tablet 07/30/20 amoxicillin 500 mg PO Q12H #14 cap 09/11/20 Hospital Course Summary of Care Provided Minutes Spent on Discharge: 35 Hospital Course: See subjective for patient presentation. Patient is a 75-year-old male who presented to the ED at [facility] on 09/05/2020 with a chief complaint of failure to thrive and weakness. Patient will need ongoing physical therapy and Occupational Therapy care. After initial reluctance, patient agreed to be placed at [facility] for additional halfway care. Throughout admission, it was noted that patient's protein has been consistently elevated with a continually low albumin. Patient also has a history of fractures with unclear etiology. This provider, reach out to Olivia Payan CNP of [facility] who agreed to see the patient outside of the hospital for Multilpe Myeloma work up. Patient had option of meeting with provider in hospital, however, wanted his home health aide present to be able to explain things to him. In light of this fact, it was decided that outpatient management was the most prudent. Prognosis for this patient is complicated as he has no social or family support, and makes all medical decisions for himself. Patient is alert and oriented, however it is unclear how much he clearly understands about his current medical condition. 1) Hypotension Stable. plan; continue IV fluids with lactated Ringer's, hold metoprolol, repeat CBC and BMP tomorrow morning. 2) Acute cystitis Patient afebrile, not tachycardic, not tachypneic. No leukocytosis on CBC. Urine cultures initially grew enterococcus facealiis. Blood cultures demonstrate no growth. Plan: Rocephin discontinued, continue amoxicillin for appropriate coverage. 3) Lactic acidosis Resolved, likely secondary to malnutrition. 4) Hypokalemia Currently 3.4. Likely secondary to malnutrition. Plan; replace potassium. 5) Stage I decubitus ulcer Without evidence of infection. Wound care consult ordered. 6) Recent history of GI bleed/hemorrhagic shock Hemoglobin currently stable at 8.7. Patient recently had EGD/colonoscopy at [facility]. 7) Physical debility/functional decline/unable to take care of himself As above. 8) Hypertension Patient has been hypotensive throughout admission, appears to be a chronic issue for patient. Hold home metoprolol due to #1. 9) CAD EKG reviewed, troponin is negative. No chest pain. Continue aspirin, hold metoprolol. 10) Hyperlipidemia Not on statin at home. 11)Multiple Myeloma Continually elevated protein dating back to March 2016. Continually low albumin dating back to May 2017. History of rib fractures dating back to 2019. Plan; follow-up with hematology on discharge. Patient seen by Milton Coyne PA-C, under the supervision of Dr. López. Physical Exam Narrative Patient is a 75-year-old male resting in bed, alert and oriented x2. Patient appears depressed about his current medical condition. Denies chest pain, shortness of breath, fever, chills, N/V/D. Const alert Nutritional Appearance: cachectic HEENT normocephalic, head/scalp atraumatic and hearing grossly normal bilaterally Eyes PERRL, EOMs intact bilaterally and conjunctivae normal Neck no lymphadenopathy, supple and no JVD Resp normal respiratory effort, no retractions, no use of accessory muscles and clear to auscultation bilaterally Cardio regular rate, regular rhythm, no murmurs and no JVD GI normal to inspection, nondistended, normoactive bowel sounds, soft to palpation and non-tender Extremity normal to inspection, full ROM and no clubbing, cyanosis or edema Skin no rashes or lesions noted, no wounds and skin turgor normal Neuro Sensorium / Orientation: awake, alert, oriented to person and oriented to place Psych Mood & Affect: depressed ABG / Lab / Microbiology Data Result Diagrams: 09/10/20 06:15 09/11/20 13:08 Laboratory: Laboratory Results - last 24 hr 09/10/20 09/11/20 09/11/20 06:15 05:04 13:08 Diff Path Review Reviewed Sodium 137 134 L Potassium 3.6 3.5 Chloride 103 102 Carbon Dioxide 37.0 H 35.0 H Anion Gap -3 L -3 L BUN 10 11 Creatinine 0.87 0.93 Estim Creat Clear Calc 58.14 54.29 Est GFR (MDRD) Af Amer 109 102 Est GFR (MDRD) Non-Af 90 84 BUN/Creatinine Ratio 11.5 11.9 Glucose 69 L 70 L Calcium 9.8 10.1 Total Protein Globulin Albumin/Globulin Ratio 09/11/20 13:08 Diff Path Review Sodium Potassium Chloride Carbon Dioxide Anion Gap BUN Creatinine Estim Creat Clear Calc Est GFR (MDRD) Af Amer Est GFR (MDRD) Non-Af BUN/Creatinine Ratio Glucose Calcium Total Protein 11.4 H Globulin 10.2 H Albumin/Globulin Ratio 0.1 L Microbiology: Microbiology 09/11/20 14:43 SARS-CoV-2 Antigen (Rapid) - Final Interface Orders 09/05/20 16:55 Blood Culture - Final Blood Culture (Wb) - Left Wrist No growth in 5 days. 09/05/20 16:25 Blood Culture - Final Blood Culture (Wb) - Anticubital Left No growth in 5 days. Microbiology 09/11/20 14:43 Interface Orders SARS-CoV-2 Antigen (Rapid) - Final 09/05/20 16:55 Blood Culture (Wb) - Left Wrist Blood Culture - Final No growth in 5 days. 09/05/20 16:25 Blood Culture (Wb) - Anticubital Left Blood Culture - Final No growth in 5 days. 09/05/20 19:58 Urine, Clean Catch Urine Culture - Final Enterococcus faecalis 09/05/20 19:28 Mucosa - Nasopharyngeal SARS-CoV-2 Antigen (Rapid) - Final D/C Instructions Please Follow Up With: Olivia Bosch CNP Meaningful Use Info Meaningful Use Diagnoses (Choose all that apply): None applicable Discharge Plan Admission Admit Date/Time: 09/05/20 20:24 Primary Reason for Your Visit: Weakness and Acute cystitis Attending Provider: Tammie López Primary Care Provider: Mary Kay Prasad Discharge Orders/Prescriptions Prescriptions: New amoxicillin 500 mg capsule 500 mg PO Q12H Qty: 14 RF: 0 Continued dorzolamide-timolol 22.3-6.8 mg/mL drops OPHTHALMIC RF: 0 acetaminophen 325 MG tablet 650 mg PO Q6H PRN PRN (Reason: Pain Score 1-10/Temp > 100.7 F) RF: 0 metoprolol succinate 50 mg tablet extended release 24 hr 50 mg PO DAILY RF: 0 aspirin [Adult Low Dose Aspirin] 81 mg tablet,delayed release (DR/EC) 81 mg PO DAILY RF: 0 ferrous sulfate 324 mg (65 mg iron) tablet,delayed release (DR/EC) 324 mg PO DAILY RF: 0 ascorbate calcium (vitamin C) 500 mg tablet 500 mg PO DAILY RF: 0 pantoprazole 40 mg tablet,delayed release (DR/EC) 40 mg PO BID RF: 0 Referrals / Follow Up: Mary Kay Prasad MD [Primary Care Provider] - Olivia Payan NP, RIPPER OPERATOR-C [Nurse Practitioner] - Disposition Disposition (needs filled in before D/C Order can be placed): [facility] Documented by User: Dr. Tammie López MD 09/11/20 16:16 Providers Date of Admission: 09/05/20 Reason For Visit: LACTIC ACIDOSIS, HYPOTENSION, HYPOKALEMIA, HYPER- Medications at Discharge Home Medications dorzolamide 22.3 mg-timolol 6.8 mg/mL eye drops OPHTHALMIC 11/23/19 acetaminophen 650 mg PO Q6H PRN PRN tablet 07/04/20 ascorbate calcium (vitamin C) 500 mg tablet 500 mg PO DAILY 07/30/20 aspirin 81 mg tablet,delayed release 81 mg PO DAILY 07/30/20 ferrous sulfate 324 mg (65 mg iron) tablet,delayed release 324 mg PO DAILY 07/30/20 metoprolol succinate 50 mg tablet,extended release 24 hr 50 mg PO DAILY 07/30/20 pantoprazole 40 mg tablet,delayed release 40 mg PO BID tablet 07/30/20 amoxicillin 500 mg PO Q12H #14 cap 09/11/20 ABG / Lab / Microbiology Data Result Diagrams: 09/10/20 06:15 09/11/20 13:08 Discharge Plan Admission Admit Date/Time: 09/05/20 20:24 Primary Reason for Your Visit: Weakness and Acute cystitis Attending Provider: Tammie López Primary Care Provider: Mary Kay Prasad Discharge Orders/Prescriptions Prescriptions: New amoxicillin 500 mg capsule 500 mg PO Q12H Qty: 14 RF: 0 Continued dorzolamide-timolol 22.3-6.8 mg/mL drops OPHTHALMIC RF: 0 acetaminophen 325 MG tablet 650 mg PO Q6H PRN PRN (Reason: Pain Score 1-10/Temp > 100.7 F) RF: 0 metoprolol succinate 50 mg tablet extended release 24 hr 50 mg PO DAILY RF: 0 aspirin [Adult Low Dose Aspirin] 81 mg tablet,delayed release (DR/EC) 81 mg PO DAILY RF: 0 ferrous sulfate 324 mg (65 mg iron) tablet,delayed release (DR/EC) 324 mg PO DAILY RF: 0 ascorbate calcium (vitamin C) 500 mg tablet 500 mg PO DAILY RF: 0 pantoprazole 40 mg tablet,delayed release (DR/EC) 40 mg PO BID RF: 0 Referrals / Follow Up: Mary Kay Prasad MD [Primary Care Provider] - Olivia Payan NP, RIPPER OPERATOR-C [Nurse Practitioner] - Disposition Disposition (needs filled in before D/C Order can be placed): [facility] Addendum Addendum: Patient seen by Milton Coyne PA-C under my supervision. He was admitted via the ED on 09/05/2020 with complaint of failure to thrive and weak ness. His health aide had noted that patient had become very weak and was not eating or drinking and having difficulty ambulating. Patient left alone and could not care for himself very well. He has been admitted and managed in June 2020 for hemorrhagic shock due to GI bleed and was transferred to [facility] where he had an EGD and colonoscopy. During this and this admission, he was initially hypotensive but this resolved with fluid administration. Labs showed evidence of UTI with 4+ bacteria and CT of the abdomen and pelvis with IV contrast was only significant for constipation. He was admitted and managed acute cystitis and lactic acidosis as well as debility due to failure to thrive and hypokalemia. Calcium is also mildly elevated at 11.5 and lactic acid was 4.2. He was hydrated with IV fluids. He was initially started on Rocephin but blood cultures grew Enterococcus and so antibiotics with switch to p.o. amoxicillin. Hypokalemia resolved and hypercalcemia also resolved. Patient was initially reluctant to be placed and was adamant about going home. However af ter he was counseled about his immense frailty, he was agreeable to going to a rehab facility. Of note patient was noted to have chronically elevated protein with protein being as high as 13.3 but his albumin was chronically low. This was concerning for a plasma cell disorder such as multiple myeloma. Patient it appears also had a history of compression fractures in the past and was not clear whether this was pathological otherwise. This was discussed with oncology and plan is for patient to follow-up with oncology on outpatient basis for work- up for plasma cell disorder. Patient was discharged to the rehab facility on 09/11/2020. Patient was seen and examined prior to discharge. He had no active complaints and review of symptoms otherwise negative. Labs and vitals reviewed. Medicat ion reviewed and reconciled. O/E: Const alert, oriented x3 and no apparent distress, old and very frail HEENT head/scalp atraumatic and moist oral mucous membranes Head and Scalp: normocephalic Eyes PERRL, EOMs intact bilaterally and conjunctivae normal Neck no lymphadenopathy, supple and no JVD Resp normal respiratory effort, no retractions, no use of accessory muscles and clear to auscultation bilaterally Cardio regular rate, regular rhythm, no murmurs and no JVD GI normal to inspection, nondistended, normoactive bowel sounds, soft to palpation, non-tender and non-distended Extremity normal to inspection, full ROM and no clubbing, cyanosis or edema Skin no rashes or lesions noted, no wounds and skin turgor normal Neuro CN's II-XII intact bilaterally Psych affect normal Patient was discharged on p.o. amoxicillin for 7-day course. He is to follow-up with his primary care doctor in 1 to 2 weeks. Rest as per Milton Coyne PA-C's note which I have reviewed and endorsed. Visit Charges Inpatient E&M: [id number] Disch Hosp
[2020-09-11] MEDS: Metoprolol Tartrate 25 MG Tablet PO (16:16)
--- NOTE | 2020-09-11 16:27 | CASEMGMT ---
Pt is ready for discharge today. SW did let pt know earlier that [facility] can take him and he is still in agreement with going. Hospital exemption completed. LUKAS faxed this along with all discharge instructions to [facility]. LUKAS set up a 5pm ambulance w/Physicians. LUKAS let [facility], bedside RN, and pt know time. LUKAS inquired w/pt about COVID vaccine, he has had it but does not have his shot record on him, it's at home. SW explained can call the aide agency to see if they would be able to help in getting the vaccine card, pt is agreeable to this. He has been trying to get a hold of his aide Jacque today anyway. LUKAS called [facility], message left letting Carrie know pt is going to [facility] today. LUKAS also called pt's correctional casework specialist, Daphne Washington, let her know pt is going to [facility] today, faxed her discharge instructions. She is going to call pt's PCP office to see if they have pt's shot record. LUKAS called [facility] and left a message letting them know pt is going to [facility] today and asked if they can assist in getting pt's shot record. No further needs, pt to [facility] today. GUADALUPE Thompson
--- NOTE | 2020-09-11 17:07 | NURSING ---
report called to AUDI Mack at [facility].
== END 2020-09-11 17:29 | disposition skilled nursing facility (03) | DRG 314 ==
LOC: ED 18:22 → PCU 20:37
PROVIDERS: Family Medicine; Physician Assistant; Admitting Provider Hospitalist; Emergency Provider Emergency Medicine; PCP Family Medicine; Visit Provider Student in an Organized Health Care Education/Training Program
DX: I95.89 Other hypotension (principal); E43 Unspecified severe protein-calorie malnutrition; E87.2 Acidosis; Z68.1 Body mass index [BMI] 19.9 or less, adult; N30.00 Acute cystitis without hematuria; D68.9 Coagulation defect, unspecified; C90.00 Multiple myeloma not having achieved remission; B95.2 Enterococcus as the cause of diseases classified elsewhere; E87.6 Hypokalemia; B96.20 Unspecified Escherichia coli [E. coli] as the cause of diseases classified elsewhere; R62.7 Adult failure to thrive; I25.10 Atherosclerotic heart disease of native coronary artery without angina pectoris; F17.220 Nicotine dependence, chewing tobacco, uncomplicated; I10 Essential (primary) hypertension; E78.5 Hyperlipidemia, unspecified; G89.29 Other chronic pain; D64.9 Anemia, unspecified; L89.891 Pressure ulcer of other site, stage 1; E83.52 Hypercalcemia; I25.2 Old myocardial infarction; Z79.899 Other long term (current) drug therapy; Z79.82 Long term (current) use of aspirin; Z87.19 Personal history of other diseases of the digestive system
CPT/HCPCS: 36415; 71045; 74177; 80048; 80053; 81001; 83605; 83735; 84100; 84134; 84156; 84443; 84484; 85025; 85610; 85730; 86850; 86900; 86901; 86920; 86922; 87040; 87077; 87086; 87088; 87186; 87426; 92507; 92526; 92610; 93005; 97162; 97166; 97530; 97535; 97802; 99285; J7050; J7120; Q9967; A4216